=== PATIENT | female | born 1980 | race Caucasian/White ===

== ENCOUNTER 2020-03-21 15:13 | Emergency (ER) | payer OTHER, SELFPAY ==
[2020-03-21 15:19] VITALS: BP 165/98; PULSE 96; RESP 20; TEMP 36.6; O2SAT 100
--- NOTE | 2020-03-21 15:37 | ED.EAR ---
HPI - Ear Problem General Chief complaint: Ear Stated complaint: ear pain Time Seen by Provider: 03/21/20 15:37 Source: patient and RN notes reviewed Mode of arrival: ambulatory Limitations: no limitations History of Present Illness HPI Narrative: 39 year old female presents to [facility] care with complaints of right sided headache parietal area for the past 3-4 days with some bilateral ear pain. 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 Patient states that she does have history of some seasonal sinus issues in the past. Patient denies any fevers, chills or sweats, denies any shortness of breath, cough or any sore throat.Patient states that she has taken Aleve with some improvement in headache which she states is dull and achy, denies any visual changes or any dizziness. MD Complaint: ear pain Location: bilateral Duration: constant Severity: mild Relieving factors: NDAIDs Discharge from ear: Reports no Associated symptoms ear: headache Treatment prior to arrival: other (Alleve) Related Data Home Medications Medication Instructions Recorded Confirmed glipizide 10 mg tablet 20 mg PO BID 02/27/19 03/21/20 hydrochlorothiazide 12.5 mg capsule 12.5 mg PO DAILY 02/27/19 03/21/20 losartan 50 mg tablet 50 mg PO DAILY 02/27/19 03/21/20 metformin 500 mg 24 hr 2,000 mg PO DAILY 02/27/19 03/21/20 tablet,extended release sitagliptin 100 mg tablet 100 mg PO DAILY 02/27/19 03/21/20 ergocalciferol (vitamin D2) 50 mcg PO DAILY 03/21/20 03/21/20 Allergies Allergy/AdvReac Type Severity Reaction Status Date / Time Sulfa (Sulfonamide Allergy Mild Headache Verified 03/21/20 15:25 Antibiotics) Review of Systems Review of Systems: Narrative: CONSTITUTIONAL: Denies fever, chills, or sweats. EYES: Denies visual changes, redness, or discharge. ENT: Positive rhinorrhea, congestion, no sore throat, bilateral otalgia. CARDIOVASCULAR: Denies chest pain, palpitations, or edema. RESPIRATORY: Denies cough or dyspnea. GASTROINTESTINAL: Denies abdominal pain, nausea, vomiting, or diarrhea. GENITOURINARY: Denies dysuria or hematuria. SKIN: Denies rash or itching. MUSCULOSKELETAL: Denies back pain, joint pain, or myalgia. NEUROLOGIC: Positive headache parietal area,no numbness, or weakness. PSYCHIATRIC: Denies anxiety or depression. All systems reviewed & are unremarkable except as noted in HPI and below PMFSH Past Medical History Medical History (Updated 03/22/20 @ 20:13 by Omayra Singh NP) Allergic sinusitis Diabetes Hypertension Surgical History Surgical History H/O lateral meniscus repair of left knee H/O tubal ligation History of endometrial ablation Hx laparoscopic cholecystectomy Family History Family History Grandparent Diabetes mellitus Mother Hypoglycemia Father Diabetes mellitus Grandparent Diabetes mellitus Other Cancer Social History Social History (Updated 03/22/20 @ 20:15 by Omayra Singh NP) Smoking status: Never smoker Second hand tobacco smoke exposure: Yes Alcohol intake: current Alcohol use details: rare Substance use: never Living arrangements: with family Gender identity (if verbalized by the patient): Female Comments At time of signature, agree with nursing past medical, surgical, social and family history. There is no relevant family history pertinent to the presenting complaint Exam Narrative: Exam Narrative: GENERAL: Well-appearing, well-nourished, and in no acute distress. HEAD: Normocephalic, atraumatic. EYES: PERRLA and EOMI. ENT: Nares boggy, clear thin rhinorrhea no epistaxis. Mucous membranes moist.TM's normal with dull light reflex, throat pink with no lesions or exudates, some clear post nasal drainage NECK: S
== END 2020-03-21 16:25 | disposition home or self-care (01) ==
PROVIDERS: Emergency Provider Registered Nurse
DX: J06.9 Acute upper respiratory infection, unspecified (principal); E11.9 Type 2 diabetes mellitus without complications; I10 Essential (primary) hypertension
CPT/HCPCS: 99213; G0463

== ENCOUNTER 2020-08-04 14:52 | Outpatient (CLI) | payer OTHER, SELFPAY ==
--- NOTE | ~2020-08-04 | MM_ITS ---
EXAMINATION: MM screening venecia BI w karli HISTORY: Screening mammogram TECHNIQUE: Craniocaudal and mediolateral oblique 3-D tomosynthesis images were obtained and synthetic 2-D images were generated. CAD analysis was submitted and interpreted. COMPARISON: No prior mammogram is available for comparison at this institution. BREAST PARENCHYMAL COMPOSITION: There are scattered areas of fibroglandular density. FINDINGS: There is no evidence of suspicious mass, calcification, or architectural distortion to sugg est malignancy in either breast. There has been no suspicious interval change. IMPRESSION: 1. No mammographic evidence of malignancy. 2. Recommend routine screening mammography in one year. BI-RADS Category 1: Negative Reviewed, dictated and finalized at location A.
== END 2020-08-04 14:53 | disposition home or self-care (01) ==
PROVIDERS: Visit Provider Obstetrics & Gynecology
DX: Z12.31 Encounter for screening mammogram for malignant neoplasm of breast (principal)
CPT/HCPCS: 77063; 77067

== ENCOUNTER 2020-09-09 15:20 | Outpatient (CLI) | payer OTHER, SELFPAY ==
--- NOTE | ~2020-09-09 | US_ITS ---
EXAMINATION: US pelvic complete w TV EXAM DATE: 09/09/2020 16:11 INDICATION: N92.6 - Irregular menstruation, unspecified. Left ovarian cyst follow-up. TECHNIQUE: Pelvic transabdominal and transvaginal sonogram was performed. There are multiple graysca le and Doppler images available for interpretation. Correlation is made to CT abdomen pelvis 02/07/20 19 demonstrating 6 cm left ovarian cystic region.. FINDINGS: Uterus measures 7.8 x 5.4 x 3.3 cm, and is morphologically normal. Endometrial stripe nadine sures 2 mm, within normal limits. There are nabothian cysts. There is no free pelvic fluid. Right adnexa: The ovary measures 3.5 x 3.0 x 2.6 cm and is morphologically normal. Ovarian vascular f low confirmed. Left adnexa: There is an exophytic anechoic left ovarian cystic lesion measuring 7.2 x 5.2 x 4.8 cm, probably not significantly changed compared to CT scan 2019. No internal echoes or evidence of focal wall thickening. Given chronicity, would favor benign histology such as inclusion cyst or cystic ovar marifer neoplasm, cystadenoma. The solid portion of the left ovary measures 4.0 x 2.0 x 1.7 cm. Color ana w was confirmed. IMPRESSION: Persistent left ovarian simple cystic mass, appearance, chronicity suggests most likely b enign histology such as cystadenoma or peritoneal inclusion cyst. Reviewed, dictated and finalized at location A. IMPRESSION: Persistent left ovarian simple cystic mass, appearance, chronicity suggests most likely benign histology such as cystadenoma or peritoneal inclusi on cyst.
== END 2020-09-09 15:21 | disposition home or self-care (01) ==
LOC: ANHIMG 15:23
PROVIDERS: PCP Family Medicine; Visit Provider Obstetrics & Gynecology
DX: N92.6 Irregular menstruation, unspecified (principal); R93.89 Abnormal findings on diagnostic imaging of other specified body structures
CPT/HCPCS: 76830; 76856

== ENCOUNTER 2020-10-04 10:40 | Outpatient (CLI) | payer OTHER, SELFPAY ==
--- NOTE | 2020-10-04 10:45 | ECG_ITS ---
Measurements Intervals [place] Rate: 80 P: 23 OR: 178 QRS: 18 QRSD: 101 T: 52 QT: 384 QTc: 445 Interpretive Statements SINUS RHYTHM BORDERLINE R WAVE PROGRESSION, ANTERIOR LEADS CONSIDER INFERIOR INFARCT, AGE INDETERMINATE NONSPECIFIC ST & T-WAVE ABNORMALITY- HIGH LATERAL LEADS BASELINE ARTIFACT- I, II, III, AVR, AVL, AVF ABNORMAL ECG Electronically Signed On 10-04-2020 12:08:27 CDT by Domo Garcia D.O.
[2020-10-04 11:13] LABS: Anion Gap 12 mmol/L (8-16); Blood Urea Nitrogen 11 mg/dL (7-17); Calcium 9.7 mg/dL (8.4-10.2); Carbon Dioxide 27 mmol/L (22-30); Chloride 101 mmol/L (98-107); Estimated Glomerular Filt Rate > 60; Glucose 184 mg/dL (65-105); Potassium 3.9 mmol/L (3.4-5.0); Sodium 140 mmol/L (137-145)
== END 2020-10-04 10:41 | disposition home or self-care (01) ==
PROVIDERS: Anesthesiology; PCP Family Medicine; Visit Provider Obstetrics & Gynecology
DX: N92.0 Excessive and frequent menstruation with regular cycle (principal); I10 Essential (primary) hypertension; E11.9 Type 2 diabetes mellitus without complications; Z01.818 Encounter for other preprocedural examination
CPT/HCPCS: 36415; 80048; 86850; 86900; 86901; 93005

== ENCOUNTER → 2020-10-07 03:36 | Outpatient (CLI) | payer OTHER, SELFPAY ==
[2020-10-07 19:50] LABS: SARS-CoV-2 RNA PCR Negative
== END ==
PROVIDERS: PCP Family Medicine; Visit Provider Obstetrics & Gynecology
DX: Z01.812 Encounter for preprocedural laboratory examination (principal); Z20.822 Contact with and (suspected) exposure to COVID-19
CPT/HCPCS: C9803; U0003; U0005

== ENCOUNTER 2020-10-10 00:30 | Day surgery (SDC) | payer OTHER, SELFPAY ==
[2020-09-29 13:28] VITALS: BMI 30.8
--- NOTE | 2020-10-07 12:48 | WPDANESEPPF ---
Anes - Initial Pre Proc Eval Procedure: Operation Date: 10/10/20 12:00 Proposed Procedures p Robotic Hysterectomy with Bilateral Salpingectomy, Possible Left Ovarian Cystectomy, Possible Left or Right Oophorectomy - Hector Alvarado MD Date/Time: 10/07/20 12:48 Surgeon: Hector Alvarado MD Pre Op Diagnosis: excessive/freq menstruation, irregular cycle Patient Data Age: 40 Gender: F Height: 1.6 m Weight: 79 kg Allergies Allergy/AdvReac Type Severity Reaction Status Date / Time Sulfa (Sulfonamide AdvReac Mild Headache Verified 10/10/20 10:29 Antibiotics) Home Medications Medication Instructions Recorded Confirmed Type glipizide 10 mg tablet 20 mg PO BID 02/27/19 10/04/20 History hydrochlorothiazide 12.5 mg capsule 12.5 mg PO QAM 02/27/19 10/04/20 History losartan 50 mg tablet 50 mg PO QAM 02/27/19 10/04/20 History metformin 500 mg 24 hr 2,000 mg PO QAM 02/27/19 10/04/20 History tablet,extended release sitagliptin 100 mg tablet 100 mg PO QAM 02/27/19 10/04/20 History ergocalciferol (vitamin D2) 50 mcg PO DAILY 03/21/20 10/04/20 History canagliflozin 300 mg tablet 300 mg PO QAM 07/20/20 10/04/20 History amitriptyline 25 mg tablet 25 mg PO QHS #30 tablet 09/13/20 10/04/20 Rx Patient hx anesthesia problems: none Family hx anesthesia problems: none PMFSH Past Medical History Medical History Allergic sinusitis Diabetes Hypertension Obesity Vaginal delivery x1 Surgical History Surgical History H/O lateral meniscus repair of left knee H/O tubal ligation History of endometrial ablation Hx laparoscopic cholecystectomy Family History Family History Grandparent Diabetes mellitus Mother Hypoglycemia Father Diabetes mellitus Grandparent Diabetes mellitus Other Cancer Social History Social History Smoking packs per day: 0.25 Smoking cigarettes per day: 5.0 Years smoked: 2 Smoking pack-years: 0.50 Smoking status: Former smoker Second hand tobacco smoke exposure: Yes Smoking end date: 10/27/97 Alcohol intake: former Alcohol use details: PRIOR TO DIABETES DX Substance use: never Living arrangements: with family Additional living arrangements comments: PARENTS AND SON Gender identity (if verbalized by the patient): Female Spiritual care concerns: No Anes - Eval Final PreProcedure Day of Procedure 10/07/20 12:48 Patient weight: obese Heart: regular rate and rhythm Lungs: clear to auscultation and normal air movement Airway: Mallampati scale class II Neurological: alert and oriented Last oral intake: >/= 8 hours ASA classification: III Emergent: no Anesthetic plan: proceed Anesthesia type and monitoring: general ETT Informed Consent: The patient's anesthetic plan and its attendant risks and benefits were discussed with the patient/family/POA. Questions were solicited and answers provided to the satisfaction of the patient/family/POA.
[2020-10-10] VITALS (8 sets, daily range): BP systolic 102–145; BP diastolic 66–91; PULSE 80–98; RESP 12–18; TEMP 36.3–36.8; O2SAT 92–98
--- NOTE | 2020-10-10 08:27 | PM.IMHP ---
H&P: HPI History of Present Illness Date/Time: 10/10/20 08:27 Patient with a long history of pelvic pain and irregular bleeding. On evaluation of her symptoms she had an ultrasound and was noted to have a 7 cm left adnexal cyst. It appears it has been there for a while and unchanged. She had a recent normal Ca125. She was informed of recommendation to remove adnexal cyst. This may be ovarian or tubal origin.She has irregular bleeding and endometrial biopsy in August showed endometrial polyp. She was given option of hysteroscopy for removal. She was informed polyps and irregular bleeding spotting can reoccur, mainly irregular spotting can persist after someone has had endometrial ablation. She is not optimal candidate for hormonal options and she does not want to have to take hormonal options for bleeding. She prefers definitive treatment and not have a chance of any irregular bleeding in the future. She also has the pelvic pain which she does not want to try hormonal options. She is aware that the adnexal cyst may not be ovarian orign Or tubal origin.but if it is then may or may not be able to save the affected ovary. Discussed decrease risk of ovarian cancer in the future if both fallopian tubes are removed. She wished for salpingectomy bilaterally. She is scheduled for robotic assisted laparoscopic hysterectomy. Discussed robotic versus LAVH. She was informed of risk of procedure to include risk of bleeding, infection, injury to other organs in the area and need to repair and or remove those organs if necessary. Risk of blood transfusion, longer than anticipated hospital stay. Informed of possibility of laparotomy. Risk of blood clots in the legs or lungs, risk of . She was informed that she may have multiple eitologies of her pain and their is a risk that her pain may not be completely resolved. Risk of injury to bowel or bladder and need to repair or risk of further surgery. Her questions were answered. Consent signed. Her last hemoglobin A1c was 7.8. She was informed of risk of poor wound healing with uncontrolled diabetes. Chief Complaint: Ovarian cyst, irregular bleeding, pelvic pain. Review of Systems Review of Systems: All systems reviewed & are unremarkable except as noted in HPI and below Cardiovascular: Cardiovascular: Reports no additional cardiovascular complaints, Denies chest pain and Denies dyspnea Respiratory: Respiratory: Reports no additional respiratory complaints and Denies dyspnea Gastrointestinal: Gastrointestinal: Reports abdominal pain, Denies change in bowel habits, Denies diarrhea, Denies nausea and Denies vomiting Genitourinary: Genitourinary: Reports pelvic pain Musculoskeletal: Musculoskeletal: Reports back pain Integumentary/Breasts: Skin/Breast: Reports system reviewed and no additional complaints, except as docu Neurologic: Reports system reviewed and no additional complaints, except as documented PMFSH Past Medical History Medical History Allergic sinusitis Diabetes Hypertension Obesity Vaginal delivery x1 Surgical History Surgical History H/O lateral meniscus repair of left knee H/O tubal ligation History of endometrial ablation Hx laparoscopic cholecystectomy Family History Family History Grandparent Diabetes mellitus Mother Hypoglycemia Father Diabetes mellitus Grandparent Diabetes mellitus Other Cancer Social History Social History Smoking packs per day: 0.25 Smoking cigarettes per day: 5.0 Years smoked: 2 Smoking pack-years: 0.50 Smoking status: Former smoker Second hand tobacco smoke exposure: Yes Smoking end date: 10/27/97 Alcohol intake: former Alcohol use details: PRIOR TO DIABETES DX Substance use: never Living jaren
[2020-10-10] MEDS: ACETAMINOPHEN 500 MG TABLET 1000 MG PO (10:50)
[2020-10-10] MEDS: LACTATED RINGERS 1,000 ML 30 ML IV CONT ×2 (11:00→16:16)
[2020-10-10 11:07] LABS: Glucose Point of Care 139 mg/dl (65-105)
[2020-10-10] MEDS: KETOROLAC 15 MG/ML VIAL (*BKC) IV PUSH (11:53)
--- NOTE | 2020-10-10 11:54 | SUR.PREOP ---
1150- SPOKE WITH DR. MCNEIL ABOUT PT AST/ALT BEING ELEVATED AT 112/115. HE STATED PT CAN STILL RECEIVED PO TYLENOL AND IV TORADOL 15 MG PRE OP.
--- NOTE | 2020-10-10 11:55 | WPDHPUPDATE1 ---
History and Physical Update Update Date/Time: 10/10/20 11:55 History and Physical has been reviewed, including an updated exam of the patient. There are NO changes in the patient's condition. Risks, benefits, and alternatives have been discussed and questions answered. Patient agrees to proceed with procedure.
[2020-10-10] MEDS: ceFAZolin 2 GM/D5W 50 ML 2 GM/50 ML BAG IVPB (12:20)
[2020-10-10] MEDS: BUPIVACAINE HCL 0.5% PF 30 ML VIAL INFILTRATE (12:45)
[2020-10-10] MEDS: fentaNYL CITRATE INJ (*CRX) 100 MCG/2 ML VIAL 25 MCG IV PUSH ×4 (16:50→17:10)
[2020-10-10 17:19] LABS: Glucose Point of Care 187 mg/dl (65-105)
--- NOTE | 2020-10-10 17:26 | PM.OP ---
Procedure Note - Brief Procedure Note - Brief Date of procedure: 10/10/20 Pre-op diagnosis: excessive/freq menstruation, irregular cycle Left ovarian cyst persistent Post-op diagnosis: same Procedure performed: Laparoscopic robotic hysterectomy and bilateral salpingectomy and right ovarian cystectomy. 2. Cystoscopy 3. Lysis of adhesions. Anesthesia: GETA Surgeon: Hector Alvarado MD Estimated blood loss (mL): 200 Drains: No Packing: No Pathology: yes (uterus with cervix, left ovarian cyst wall, right and left fallopian tube segments.) Complications: No immediate complications Condition: stable Disposition: floor Findings: Large left ovarian cyst from distal ovary.
--- NOTE | 2020-10-10 17:31 | PC.NURSE ---
This patient, Bekah Melendez, was received from PACU per bed to room 289. Patient/family oriented to unit policies and routines
[2020-10-10] MEDS: MORPHINE SULFATE (*CRX) 4 MG/ML INJ IV PUSH (19:45)
[2020-10-10 20:13] LABS: Mean Platelet Volume 10.3 fl (7.4-10.4); Platelet Count Result 280 k/mm3 (150-375)
[2020-10-10] MEDS: KETOROLAC 30 MG/ML VIAL (*BKC) IV PUSH (22:41)
[2020-10-11] VITALS: BP 122/81; PULSE 76; RESP 16; TEMP 36.8; O2SAT 97
[2020-10-11] MEDS: MORPHINE SULFATE (*CRX) 4 MG/ML INJ IV PUSH ×2 (02:38→07:57)
[2020-10-11 03:30] VITALS: BP 126/90; PULSE 80; RESP 16; TEMP 36.9; O2SAT 96
[2020-10-11] MEDS: ONDANSETRON INJ 4 MG/2 ML VIAL IV PUSH (03:35)
[2020-10-11] MEDS: KETOROLAC 30 MG/ML VIAL (*BKC) IV PUSH ×2 (04:46→10:53)
[2020-10-11 04:58] LABS: Glucose Point of Care 169 mg/dl (65-105)
--- NOTE | 2020-10-11 07:28 | WPDANESPN ---
Anes - Prog Note Post-Op Date/Time: 10/11/20 07:28 Cardiovascular status: normal Respiratory status: normal Airway patency: baseline Mental status: baseline Post-Op hydration status: normal Vital Signs: Last Vital Signs Temp 36.9 C 10/11/20 03:30 Pulse 80 10/11/20 03:30 Resp 16 10/11/20 03:30 BP 126/90 10/11/20 03:30 Pulse Ox 96 10/11/20 03:30 Pain Score (VAS): 2/10 I/O: Intake & Output 10/10/20 10/10/20 10/11/20 15:59 23:59 07:59 Intake Total 50 550 450 Output Total 100 1600 Balance 50 450 -1150 Laboratory Tests 10/10/20 20:05 10/10/20 10/10/20 10/10/20 11:04 17:03 20:05 Plt Count 280 MPV 10.3 POC Capillary Glucose 139 H 187 H 10/11/20 04:55 Plt Count MPV POC Capillary Glucose 169 H Post-procedural complaints: none Patient Feedback: Patient satisfied with anesthetic care.
[2020-10-11] MEDS: CANAGLIFLOZIN 100 MG TABLET 300 MG PO (07:58)
[2020-10-11] MEDS: CHOLECALCIFEROL 1,000 UNITS TABLET 2000 UNITS PO (07:59)
[2020-10-11] MEDS: metFORMIN HCL XR 500 MG TAB.SR.24H 2000 MG PO (07:59)
[2020-10-11 08:00] VITALS: BP 117/78; PULSE 86; RESP 16; RESP 18; TEMP 36.3
[2020-10-11] MEDS: glipiZIDE 5 MG TABLET 20 MG PO ×2 (08:00→18:30)
[2020-10-11] MEDS: hydroCHLOROthiazide 12.5 MG CAPSULE PO (08:00)
[2020-10-11] MEDS: BISACODYL 10 MG SUPPOSITORY RECTAL (10:52)
[2020-10-11 12:00] VITALS: BP 110/74; PULSE 80; RESP 18; TEMP 36.8
[2020-10-11 14:43] LABS: Basophils Absolute Auto 0.1 K/mm3 (0.0-0.1); Basophils Percent Auto 0.4 % (0.2-1.2); Eosinophils Absolute Auto 0.1 K/mm3 (0-0.3); Eosinophils Percent Auto 0.4 % (0-4.4); Hematocrit 38.4 % (37.0-47.0); Hemoglobin 13.2 g/dL (12.0-15.0); Immature Granulocyte Absolute 0.07 K/mm3 (0.00-0.031); Immature Granulocyte Percent A 0.5 % (0-0.5); Lymphocytes Absolute Auto 2.48 K/mm3 (0.9-3.2); Lymphocytes Percent Auto 17.5 % (18.3-44.2); Mean Corpuscular HGB Conc 34.4 g/dl (32-36); Mean Corpuscular Hemoglobin 29.6 pg (26-34); Mean Corpuscular Volume 86.1 fl (80-100); Mean Platelet Volume 10.3 fl (7.4-10.4); Monocytes Absolute Auto 0.9 K/mm3 (0.1-0.6); Monocytes Percent Auto 6.5 % (2.6-8.5); Neutrophils Absolute Auto 10.6 K/mm3 (1.3-6.7); Neutrophils Percent Auto 74.7 % (45.5-73.1); Platelet Count Result 273 k/mm3 (150-375); Red Blood Count 4.46 M/mm3 (4.2-5.4); Red Cell Distribution Width 13.2 % (11.5-14.5); White Blood Count 14.2 K/mm3 (4.5-10.0)
--- NOTE | 2020-10-11 16:07 | PM.GYNPNOP ---
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 Will see how she does with oral pain medication. Encouraged ambulation. Continue post op care. Postoperative Procedures: Procedures Operation Date: 10/10/20 12:00 Actual Procedure Side Surgeon p Robotic Hysterectomy with Bilateral Salpingectomy, Left Ovarian Cystectomy and Left Oophorectomy Hector Alvarado MD Time Spent With Patient Time: Total time spent is greater than 50% in coordination of care (as documented) at patient's floor/unit and/or counseling patient: Time with patient: less than 15 minutes AUTO B[employer]KE [employer]CH[employer]IC- PN:Subj Post-Op Subjective Date/time seen: 10/11/20 0830 Interval history: She has set up in a chair. She reports positive flatus. She states pain is controlled at times. Has not urinated without catheter yet. She has tolerated regular food. Review of Systems Review of Systems: All systems reviewed & are unremarkable except as noted in HPI and below Cardiovascular: Cardiovascular: Reports no additional cardiovascular complaints Respiratory: Respiratory: Reports no additional respiratory complaints Gastrointestinal: Gastrointestinal: Reports belching, Denies nausea and Denies vomiting Genitourinary: Genitourinary: Reports no additional female genitourinary complaints Musculoskeletal: Musculoskeletal: Reports no additional musculoskeletal complaints Exam Const: General: comfortable and no acute distress Orientation/consciousness: oriented to person, oriented to place and oriented to time Resp: Auscultation: clear to auscultation bilaterally Cardio: Rate: regular rate Rhythm: regular rhythm GI: Auscultation: normal bowel sounds Other: mildly distended, appropriate incisional tenderness Neuro: General: oriented to person, oriented to place and oriented to time Extrem: General: no calf tenderness Psych: Mental Status: mental status grossly normal [employer]IC - PN: Obj Data Vital Signs Vital Signs: Vital Signs - 24 hr 10/10/20 16:16 10/10/20 16:30 10/10/20 16:45 Temperature 98.0 F Pulse Rate 97 84 81 Respiratory Rate 16 15 15 Blood Pressure 102/74 110/66 115/79 Pulse Oximetry 94 96 92 10/10/20 17:00 10/10/20 17:13 10/10/20 17:40 Temperature 98.0 F Pulse Rate 83 82 80 Respiratory Rate 12 14 18 Blood Pressure 112/73 125/81 117/74 Pulse Oximetry 96 97 96 10/10/20 19:45 10/11/20 00:00 10/11/20 03:30 Temperature 97.4 F L 98.2 F 98.5 F Pulse Rate 94 76 80 Respiratory Rate 16 16 16 Blood Pressure 126/81 122/81 126/90 Pulse Oximetry 97 97 96 10/11/20 08:00 10/11/20 12:00 Temperature 97.4 F L 98.3 F Pulse Rate 86 80 Respiratory Rate 16 18 Blood Pressure 117/78 110/74 Pulse Oximetry Intake/Output Intake/Output: Intake & Output 10/08/20 10/09/20 10/10/20 10/11/20 23:59 23:59 23:59 23:59 Intake Total 600 3150 Output Total 100 3800 Balance 500 -650 Meds/Results Medications: Active Medications Generic Name Dose Route Start Last Admin Trade Name Freq PRN Reason Stop Dose Admin Hydrocodone Bitart/Acetaminophen 1 tab 10/10/20 16:01 Hydrocodone/Acetaminophen (*Crx) 5-325 Mg Tablet PO Q3H PRN Pain Rated 5 or Less Hydrocodone Bitart/Acetaminophen 1 tab 10/10/20 16:01 Hydrocodone/Acetaminophen (*Crx) 10-325 Mg Tablet PO Q3H PRN Pain Rated 6 or Greater Amitriptyline HCl 25 mg 10/10/20 21:00 10/10/20 21:03 Amitriptyline Hcl 25 Mg Tablet PO Not Given HS KIA Canagliflozin 300 mg 10/11/20 07:30 10/11/20 07:58 Canagliflozin 100 Mg Tablet PO 300 mg DAILY@0730 KIA Administration Glipizide 20 mg 10/11/20 06:30 10/11/20 08:00 Glipizide 5 Mg Tablet PO 20 mg BIDAC KIA Administration Hydrochlorothiazide 12.5 mg 10/11/20 09:00 10/11/20 08:00
--- NOTE | 2020-10-11 16:20 | W.PM.PROC2 ---
Procedure Note - Detailed Date of Procedure 10/11/20 Pre-op Diagnosis excessive/freq menstruation, pelvic pain, left ovarian cyst persistent Post-op Diagnosis same Procedure Performed 1. Laparoscopic robotic hysterectomy with bilateral salpingectomy and left oophorectomy. 2. lysis of adhesion 3. Cystoscopy Surgeon Hector Alvarado MD Anesthesia general Indications Patient with a history of persistent left ovarian cyst and irregular bleeding. She has had prior endometrial ablation. She declines hormonal options to help with bleeding. Declines hsyteroscopy. She has a history of pelvic pain. Desires definitive treatment with hysterectomy. Bilateral salpingectomy recommended. Will remove cyst and possible nee to remove right ovary. Findings Large left ovarian cyst with clear fluid. This was attached densely to the periphery of the left ovary. The left ovary had two other cyst on it. The left ovarian cyst was adhesed to left fallopian tube and left pelvic sidewall and patrick intestinal fat which was lysed. Bladder mucosa normal on cystoscopy there was bilateral jetting from both ureteral openings. Description of Procedure Description of procedure: After informed consent was obtained patient was taken to the operating room and general endotracheal anesthesia was administered. She was placed in low lithotomy position and prepped and draped in sterile fashion. Prior to being prepped and draped and exam under anesthesia was performed and no masses were palpated uterus palpated to be normal size. A Lindsay catheter had been placed in bladder. A bivavle speculum was placed in the vagina. A single-tooth tenaculum was placed on the anterior lip of the cervix. The uterus was sounded to 6 cm. Initially the small 6 mm manipulator that was inserted would not feel with the balloon which is consistent with her having a prior endometrial ablation. A smaller uterine manipulator was inserted and the balloon was insufflated. The cold cup was inserted. With sterile gloves attention was turned to the abdomen a horizontal incision was made 2 cm above the umbilicus in the center. Subcutaneous tissue was dissected with Sara. Veress needle was inserted confirmation into the abdomen obtained with normal free flow of fluid through the Veress needle and normal peritoneal pressures. A pneumoperitoneum of 15 mm per mercury was obtained. A size 10 port was inserted under laparoscopic visualization. Patient was placed in Trendelenburg position. She was noted to have a large amount of stool in the lower colon. Attention was turned to the left side of the abdomen in a incision was made after being injected with 1% lidocaine. An 8 mm robotic port was inserted under laparoscopic visualization. Attention was turned to the right side of the abdomen and an incision was made and the 8 mm robotic port was inserted under laparoscopic visualization and also superior and medial to this another incision was made with the scalpel and a 10 mm assistant health educator port was inserted under laparoscopic visualization. The robotic instruments were attached. Attention was then turned to the surgery console. Attention was turned to the right round ligament which was cauterized and incised. The anterior leaf of the broad ligament was dissected anteriorly . The vesical uterine peritoneum was dissected from the lower uterine segment. Attention was turned to the right fallopian tube which was cauterized from the broad ligament. The right ovarian ligament was cauterized and incised. The posterior leaf of the broad ligament was further dissected. At this point manipulator inside the uterus was noted to be not in the uterus. Attention was then turned to the vagina and the manipulator was removed. The uterus was sounded again and noted to be 6 cm. The 6 mm acorn manipulator was inserted again and this time the balloon did stay in the cavity. The cold cup was secured in the vagina. Attention was turned to the nini
[2020-10-11] MEDS: IBUPROFEN 600 MG TABLET PO (18:31)
[2020-10-11 19:15] LABS: Glucose Point of Care 220 mg/dl (65-105)
[2020-10-11 20:00] VITALS: BP 127/84; PULSE 96; RESP 16; TEMP 37.1; O2SAT 96
[2020-10-11] MEDS: HYDROcodone/acetaminophen (*CRX) 5-325 MG TABLET 1 TAB PO (20:49)
[2020-10-11] MEDS: AMITRIPTYLINE HCL 25 MG TABLET PO (20:50)
[2020-10-11] MEDS: SIMETHICONE 80 MG TAB.CHEW PO (20:53)
[2020-10-12] MEDS: HYDROcodone/acetaminophen (*CRX) 5-325 MG TABLET 1 TAB PO ×3 (00:15→07:44)
[2020-10-12] MEDS: SIMETHICONE 80 MG TAB.CHEW PO ×4 (00:15→11:14)
[2020-10-12] MEDS: IBUPROFEN 600 MG TABLET PO ×2 (00:15→07:44)
--- NOTE | 2020-10-12 07:22 | PM.GYNPNOP ---
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 She is doing well. Discharge to home. Discharge precautions discussed. Postoperative Procedures: Procedures Operation Date: 10/10/20 12:00 Actual Procedure Side Surgeon p Robotic Hysterectomy with Bilateral Salpingectomy, Left Ovarian Cystectomy and Left Oophorectomy Hector Alvarado MD Time Spent With Patient Time: Total time spent is greater than 50% in coordination of care (as documented) at patient's floor/unit and/or counseling patient: Time with patient: less than 15 minutes SPECIAL EDUCATION RESOURCE TEACHER- PN:Subj Post-Op Subjective Date/time seen: 10/12/20 07:22 She states she feels much better. Tolerating regular food. No leg pain or chest pain. Positive flatus. Positive BM. She has ambulated without problems. Interval history: Subjective: pain is well controlled and patient is tolerating oral intake Review of Systems Review of Systems: All systems reviewed & are unremarkable except as noted in HPI and below Cardiovascular: Cardiovascular: Reports no additional cardiovascular complaints Respiratory: Respiratory: Reports no additional respiratory complaints Gastrointestinal: Gastrointestinal: Reports belching, Denies nausea and Denies vomiting Genitourinary: Genitourinary: Reports no additional female genitourinary complaints Musculoskeletal: Musculoskeletal: Reports no additional musculoskeletal complaints Exam Const: General: comfortable and no acute distress Orientation/consciousness: oriented to person, oriented to place and oriented to time Resp: Effort & Inspection: normal respiratory effort Cardio: Rhythm: regular rhythm GI: GI Palp: Yes Tenderness to palpation present (GI) Other: nontender, incisions clean dry intact no erythema Neuro: General: oriented to person, oriented to place and oriented to time Extrem: General: no calf tenderness Psych: Mental Status: mental status grossly normal SPECIAL EDUCATION RESOURCE TEACHER - PN: Obj Data Vital Signs Vital Signs: Vital Signs - 24 hr 10/11/20 08:00 10/11/20 12:00 10/11/20 20:00 Temperature 97.4 F L 98.3 F 98.7 F Pulse Rate 86 80 96 Respiratory Rate 16 18 16 Blood Pressure 117/78 110/74 127/84 Pulse Oximetry 96 Intake/Output Intake/Output: Intake & Output 10/09/20 10/10/20 10/11/20 10/12/20 23:59 23:59 23:59 23:59 Intake Total 600 3150 Output Total 100 4100 Balance 500 -950 Meds/Results Medications: Active Medications Generic Name Dose Route Start Last Admin Trade Name Freq PRN Reason Stop Dose Admin Hydrocodone Bitart/Acetaminophen 1 tab 10/10/20 16:01 10/12/20 03:27 Hydrocodone/Acetaminophen (*Crx) 5-325 Mg Tablet PO 1 tab Q3H PRN Administration Pain Rated 5 or Less Hydrocodone Bitart/Acetaminophen 1 tab 10/10/20 16:01 Hydrocodone/Acetaminophen (*Crx) 10-325 Mg Tablet PO Q3H PRN Pain Rated 6 or Greater Amitriptyline HCl 25 mg 10/10/20 21:00 10/11/20 20:50 Amitriptyline Hcl 25 Mg Tablet PO 25 mg HS KIA Administration Canagliflozin 300 mg 10/11/20 07:30 10/11/20 07:58 Canagliflozin 100 Mg Tablet PO 300 mg DAILY@0730 KIA Administration Glipizide 20 mg 10/11/20 06:30 10/11/20 18:30 Glipizide 5 Mg Tablet PO 20 mg BIDAC KIA Administration Hydrochlorothiazide 12.5 mg 10/11/20 09:00 10/11/20 08:00 Hydrochlorothiazide 12.5 Mg Capsule PO 12.5 mg QAM KIA Administration Ibuprofen 600 mg 10/11/20 17:20 10/12/20 00:15 Ibuprofen 600 Mg Tablet PO 600 mg Q6H PRN Administration Cramping Metformin HCl 2,000 mg 10/11/20 08:00 10/11/20 07:59 Metformin Hcl Xr 500 Mg Tab.Sr.24h PO 2,000 mg DAILY@0800 KIA Administration Morphine Sulfate 4 mg 10/10/20 16:06 10/11/20 07:57 Morphine Sulfate (*Crx) 4 Mg/Ml Inj IV PUSH 4 mg Q4H PRN Administration Severe matt
--- NOTE | 2020-10-12 07:24 | PM.DS ---
DS: Admitting Diagnosis Admitting Diagnosis Admitting Diagnosis: 1. Persistent ovarian cyst. 2. Pelvic pain 3. Abnormal uterine bleeding. DS: Discharge Diagnosis Discharge Diagnosis (1) Pelvic pain: Code(s): R10.2 - Pelvic and perineal pain Status: Acute (2) Ovarian cyst: Code(s): N83.209 - Unspecified ovarian cyst, unspecified side Status: Acute (3) Irregular intermenstrual bleeding: Code(s): N92.1 - Excessive and frequent menstruation with irregular cycle Status: Acute DS: Summary Hospital Course Reason for hospitalization: Admit for planned hysterectomy and ovarian cyst removal. Hospital Course: Patient admitted for scheduled laparoscopic robotic assisted vaginal hysterectomy. She also had bilateral salpingectomy and removal of left ovary with cyst. Lysis of adhesions and cystoscopy. On the morning of post op day one she did not have adequate pain control. It did improve later in the day. She started ambulating on POD 1. Her blood sugars am fasting were 140 which is her baseline. She had improved nausea with oral pain medication. Her post op H/H 13/38. Her did have flatus and passage of some stool on POD1. POD 2 she stated she felt better. Adequate pain control, tolerating regular food and ambulating withour problems. She was given discharge precautions. Time Spent with Patient Time attestation: Total time spent providing and/or coordinating discharge services: Exam Const: General: comfortable and no acute distress Eyes: General: appearance normal, both eyes and all related structures Resp: Effort & Inspection: normal respiratory effort GI: Inspection: normal to inspection Other: incisions c/d/i Skin: General skin exam: normal color Neuro: General: oriented to person, oriented to place and oriented to time Extrem: General: normal to inspection and no calf tenderness bilaterally Psych: Mental Status: mental status grossly normal DS: Data Data Completed and Pending Pending studies at discharge: Pending at discharge 10/10/20 14:08 Surgical [PTH] Routine Labs on day of discharge: Labs from last 24 hours 10/11/20 10/11/20 19:10 14:27 WBC 14.2 H RBC 4.46 Hgb 13.2 Hct 38.4 MCV 86.1 MCH 29.6 MCHC 34.4 RDW 13.2 Plt Count 273 MPV 10.3 Immature Gran % (Auto) 0.5 Neut % (Auto) 74.7 H Lymph % (Auto) 17.5 L Dale % (Auto) 6.5 Eos % (Auto) 0.4 Baso % (Auto) 0.4 Lymph # (Auto) 2.48 Dale # (Auto) 0.9 H Eos # (Auto) 0.1 Baso # (Auto) 0.1 Abs Immat Gran (auto) 0.07 H Absolute Neuts (auto) 10.6 H Absolute Nucleated RBC 0.0 Nucleated RBC % 0.0 POC Capillary Glucose 220 H Discharge Plan Discharge Attending physician on discharge: Hector Alvarado Consulting providers: Neelam Taveras Discharging Clinician: Hector Alvarado Anticipated Discharge Date/Time: 10/12/20 07:31 Patient Disposition: Home, Self-Care Activity: may shower, no straining, no driving and pelvic rest Diet: diabetic Wound Care Instructions: follow printed instructions and incision open to air Discharge Instructions: Pelvic rest until further notice. No lifting or straining. Take Miralax daily until not taking pain medication. Call for fever, or redness drainage from incision, or persistent nausea vomiting. May take over the counter GasX as needed. Call if vaginal bleeding saturating a pad or leg pain redness swelling. Stand Alone Forms: General Discharge Instructions Follow-up/Referrals: Hector Alvarado MD [Physician] - Keep Reg. Scheduled Appt. Discharge Medications: New hydrocodone-acetaminophen 5-325 mg Tablet 1 tablet PO Q3H PRN (Reason: Pain Rated 5 Or Less) Qty: 30 RF: 0 Continued ergocalciferol (vitamin D2) 50 mcg (2,000 unit) Capsule 50 mcg PO DAILY RF: 0 metformin 500 mg tablet,ER migdalia.retention 24 hr 2,000 mg PO QAM RF: 0 Januvia 100 mg tablet 100 mg PO QAM RF: 0
[2020-10-12 07:30] VITALS: BP 109/75; PULSE 78; PULSE 96; RESP 16; RESP 20; TEMP 36.3; O2SAT 96; O2SAT 98
[2020-10-12] MEDS: CANAGLIFLOZIN 100 MG TABLET 300 MG PO (07:49)
[2020-10-12] MEDS: glipiZIDE 5 MG TABLET 20 MG PO (07:49)
[2020-10-12] MEDS: metFORMIN HCL XR 500 MG TAB.SR.24H 2000 MG PO (07:50)
[2020-10-12 07:58] LABS: Glucose Point of Care 117 mg/dl (65-105)
[2020-10-12] MEDS: CHOLECALCIFEROL 1,000 UNITS TABLET 2000 UNITS PO (09:18)
[2020-10-12] MEDS: hydroCHLOROthiazide 12.5 MG CAPSULE PO (09:18)
[2020-10-12] MEDS: HYDROcodone/acetaminophen (*CRX) 10-325 MG TABLET 1 TAB PO (11:15)
== END 2020-10-12 11:45 | disposition home or self-care (01) ==
LOC: ANHSURGERY 10:07 → ANHOB2 10-12 07:33
PROVIDERS: PCP Family Medicine; Visit Provider Obstetrics & Gynecology
PROC: (CPT 58571; principal; 2020-10-10 12:00)
DX: N92.1 Excessive and frequent menstruation with irregular cycle (principal); D27.1 Benign neoplasm of left ovary; N83.02 Follicular cyst of left ovary; N88.8 Other specified noninflammatory disorders of cervix uteri; N73.6 Female pelvic peritoneal adhesions (postinfective); R10.2 Pelvic and perineal pain; I10 Essential (primary) hypertension; E11.9 Type 2 diabetes mellitus without complications; Z79.84 Long term (current) use of oral hypoglycemic drugs; Z87.891 Personal history of nicotine dependence; E66.9 Obesity, unspecified; Z68.30 Body mass index [BMI] 30.0-30.9, adult
CPT/HCPCS: 58571; S2900; 36415; 82948; 85025; 85049; 88307; A9270; J0131; J0690; J1100; J1170; J1885; J2250; J2270; J2405; J2704; J2710; J3010; J7030; J7120

== ENCOUNTER 2021-03-07 15:19 | Emergency (ER) | payer OTHER, SELFPAY ==
--- NOTE | ~2021-03-07 | XR_ITS ---
EXAMINATION: XR chest 2V DATE: 03/07/2021 16:17 INDICATION: Shortness of breath TECHNIQUE: AP and lateral views of the chest are obtained. COMPARISON: 04/21/2016 FINDINGS: The lungs are free of acute opacities. There is no pleural effusion or pneumothorax. The ca rdiomediastinal silhouette is normal. There is mild thoracic spondylosis. Surgical clips in the upper abdomen on the lateral view are likely from prior cholecystectomy. IMPRESSION: 1. No acute cardiopulmonary abnormality. Reviewed, dictated and finalized at location B. AL KILLER
[2021-03-07 15:26] VITALS: BP 152/95; PULSE 75; RESP 16; TEMP 36.4; O2SAT 100
--- NOTE | 2021-03-07 15:30 | ECG_ITS ---
Measurements Intervals [place] Rate: 70 P: 16 [place]: 187 QRS: 19 QRSD: 86 T: 23 QT: 407 QTc: 441 Interpretive Statements SINUS RHYTHM CONSIDER INFERIOR INFARCT, AGE INDETERMINATE BASELINE ARTIFACT- I, II, III, AVR, AVL, AVF ABNORMAL ECG Electronically Signed On 03-07-2021 16:28:07 LINING [employer]OSER by Domo Garcia D.O.
[2021-03-07 15:58] LABS: Basophils Absolute Auto 0.1 K/mm3 (0.0-0.1); Basophils Percent Auto 0.4 % (0.2-1.2); Eosinophils Absolute Auto 0.2 K/mm3 (0-0.3); Hematocrit 45.3 % (37.0-47.0); Hemoglobin 15.3 g/dL (12.0-15.0); Immature Granulocyte Absolute 0.06 K/mm3 (0.00-0.031); Immature Granulocyte Percent A 0.5 % (0-0.5); Lymphocytes Absolute Auto 2.99 K/mm3 (0.9-3.2); Lymphocytes Percent Auto 25.5 % (18.3-44.2); Mean Corpuscular HGB Conc 33.8 g/dl (32-36); Mean Corpuscular Hemoglobin 29.1 pg (26-34); Mean Corpuscular Volume 86.3 fl (80-100); Mean Platelet Volume 10.4 fl (7.4-10.4); Monocytes Absolute Auto 0.9 K/mm3 (0.1-0.6); Monocytes Percent Auto 7.9 % (2.6-8.5); Neutrophils Absolute Auto 7.5 K/mm3 (1.3-6.7); Neutrophils Percent Auto 63.7 % (45.5-73.1); Platelet Count Result 310 k/mm3 (150-375); Red Blood Count 5.25 M/mm3 (4.2-5.4); Red Cell Distribution Width 13.6 % (11.5-14.5); White Blood Count 11.7 K/mm3 (4.5-10.0)
[2021-03-07 16:06] LABS: Prothrombin Time 13.2 Seconds (11.1-14.7)
[2021-03-07 16:07] LABS: Anion Gap 11 mmol/L (8-16); Blood Urea Nitrogen 14 mg/dL (7-17); Calcium 9.9 mg/dL (8.4-10.2); Carbon Dioxide 26 mmol/L (22-30); Chloride 99 mmol/L (98-107); Estimated CRCL calculation 79 ml/min; Estimated Glomerular Filt Rate > 60; Glucose 148 mg/dL (65-110); Partial Thromboplastin Time 28.1 SECONDS (22.3-36.8); Potassium 3.8 mmol/L (3.4-5.0); Sodium 136 mmol/L (137-145)
[2021-03-07 16:19] LABS: Troponin I < 0.012 ng/mL (0.000-0.034)
[2021-03-07 16:49] VITALS: BP 145/95; PULSE 72; PULSE 78; RESP 14; O2SAT 99
--- NOTE | 2021-03-07 17:02 | ED.GENADULT ---
HPI - General Adult General Chief complaint: Shortness of Breath/Dyspnea Stated complaint: sob Time Seen by Provider: 03/07/21 16:42 Source: patient and RN notes reviewed History of Present Illness HPI narrative: Patient is a 40 y/o female complaining of moderate intermittent SOB for 2 months. She states that exertion seems to worsen her SOB. She also has chest tightness at time. She has no fever or cough. She was to referred to a dock loader by her PCP, but her appointment is more than 1 month away. Related Data Home Medications Medication Instructions Recorded Confirmed glipizide 10 mg tablet 20 mg PO BID 02/27/19 11/14/20 hydrochlorothiazide 12.5 mg capsule 12.5 mg PO QAM 02/27/19 11/14/20 losartan 50 mg tablet 50 mg PO QAM 02/27/19 11/14/20 metformin 500 mg 24 hr 2,000 mg PO QAM 02/27/19 11/14/20 tablet,extended release sitagliptin 100 mg tablet 100 mg PO QAM 02/27/19 11/14/20 ergocalciferol (vitamin D2) 50 mcg PO DAILY 03/21/20 11/14/20 canagliflozin 300 mg tablet 300 mg PO QAM 07/20/20 11/14/20 Allergies Allergy/AdvReac Type Severity Reaction Status Date / Time Sulfa (Sulfonamide AdvReac Mild Headache Verified 03/07/21 16:50 Antibiotics) Review of Systems Constitutional: Constitutional: Denies chills, Denies fever(s), Denies headache(s) and Denies weakness Eyes: Eyes: Denies blurry vision ENT: Denies headache(s) and Denies neck pain Cardiovascular: Cardiovascular: Reports chest pain and Reports dyspnea Respiratory: Respiratory: Denies cough and Reports dyspnea Gastrointestinal: Gastrointestinal: Denies abdominal pain, Denies diarrhea, Denies nausea and Denies vomiting Genitourinary: Genitourinary: Denies hematuria and Denies dysuria Musculoskeletal: Musculoskeletal: Denies back pain and Denies neck pain Neurologic: Denies headache(s) and Denies weakness PMFSH Past Medical History Medical History Allergic sinusitis Diabetes Hypertension Obesity Vaginal delivery x1 Surgical History Surgical History H/O lateral meniscus repair of left knee H/O tubal ligation History of endometrial ablation History of robot-assisted laparoscopic hysterectomy 10/10/20 Hx laparoscopic cholecystectomy Family History Family History Grandparent Diabetes mellitus Mother Hypoglycemia Father Diabetes mellitus Grandparent Diabetes mellitus Other Cancer Social History Social History Smoking packs per day: 0.25 Smoking cigarettes per day: 5.0 Years smoked: 2 Smoking pack-years: 0.50 Smoking status: Former smoker Second hand tobacco smoke exposure: Yes Alcohol intake: never Alcohol use details: PRIOR TO DIABETES DX Substance use: never Additional living arrangements comments: PARENTS AND SON Gender identity (if verbalized by the patient): Female Spiritual care concerns: No Exam Const: General: no acute distress and well developed Orientation/consciousness: oriented to person, oriented to place, oriented to time and patient oriented x3 HENMT: Head: normocephalic Ears: external ears normal General nose exam: Normal external nose present Eyes: General: appearance normal, both eyes and all related structures Conjunctivae: conjunctivae normal Neck: Neck: normal visual inspection and full ROM Chest: Chest palpation & inspection: normal inspection of the chest and no tenderness Resp: Effort & Inspection: normal respiratory effort Auscultation: clear to auscultation bilaterally Cardio: Rate: regular rate Rhythm: regular rhythm GI: GI Palp: No abdominal tenderness and Yes Soft to palpation Skin: General skin exam: normal color and turgor normal Neuro: General: oriented to person, oriented to place, oriented to time and patient oriented x3 Cog
[2021-03-07 17:24] LABS: D Dimer 0.27 ug/mL (<0.48)
[2021-03-07 17:39] LABS: NT Pro B Type Natriuretic Pept 50 pg/mL (5-100)
[2021-03-07 17:49] VITALS: BP 128/97; PULSE 80; RESP 21; O2SAT 100
[2021-03-07 19:17] VITALS: BP 115/87; PULSE 75; RESP 13; O2SAT 100
--- NOTE | 2021-03-07 19:17 | PC.NURSE ---
Assumed care of pt, pt is on tele monitor, VSS, discussed POC. Pt reports h/a and requesting medication. EDP Dr Amaya made aware.
[2021-03-07] MEDS: ACETAMINOPHEN 325 MG TABLET 650 MG PO (19:43)
[2021-03-07 20:00] LABS: Troponin I < 0.012 ng/mL (0.000-0.034)
[2021-03-07 20:52] VITALS: BP 109/69; PULSE 79; RESP 18; O2SAT 100
== END 2021-03-07 20:53 | disposition home or self-care (01) ==
PROVIDERS: Family Medicine; Emergency Provider Emergency Medicine; PCP Family Medicine
DX: R06.02 Shortness of breath (principal); E11.9 Type 2 diabetes mellitus without complications; I10 Essential (primary) hypertension; E66.9 Obesity, unspecified; Z68.30 Body mass index [BMI] 30.0-30.9, adult; Z87.891 Personal history of nicotine dependence; R94.31 Abnormal electrocardiogram [ECG] [EKG]; Z79.4 Long term (current) use of insulin
CPT/HCPCS: 36415; 71046; 80048; 83880; 84484; 85025; 85380; 85610; 85730; 93005; 99284; A9270

== ENCOUNTER 2021-05-02 14:56 | Emergency (ER) | payer OTHER, SELFPAY ==
--- NOTE | 2021-05-02 15:04 | ED.EAR ---
HPI - Ear Problem General Chief complaint: Ear Stated complaint: Jaw and ear pain. Time Seen by Provider: 05/02/21 15:10 Source: patient and RN notes reviewed Mode of arrival: ambulatory Limitations: no limitations History of Present Illness HPI Narrative: 40-year-old female presents with concern for jaw and ear pain. Reports pain has been occurring for 2 weeks. Reports she has taken ibuprofen a couple of times without relief. Strip TMJ. Reports it hurts to open her mouth, chew. She denies nasal congestion or rhinorrhea. Denies upper respiratory symptoms. She denies difficulty swallowing, swelling, masses, and redness MD Complaint: other (Jaw pain) Related Data Home Medications Medication Instructions Recorded Confirmed glipizide 10 mg tablet 20 mg PO BID 02/27/19 05/02/21 hydrochlorothiazide 12.5 mg capsule 12.5 mg PO QAM 02/27/19 05/02/21 losartan 50 mg tablet 50 mg PO QAM 02/27/19 05/02/21 metformin 500 mg 24 hr 2,000 mg PO QAM 02/27/19 05/02/21 tablet,extended release sitagliptin 100 mg tablet 100 mg PO QAM 02/27/19 05/02/21 canagliflozin [Invokana] 300 mg PO DAILY 05/02/21 05/02/21 Allergies Allergy/AdvReac Type Severity Reaction Status Date / Time Sulfa (Sulfonamide AdvReac Mild Headache Verified 05/02/21 15:13 Antibiotics) Review of Systems Review of Systems: CONSTITUTIONAL: Denies malaise, chills, sweats, or fever. EYES: Denies visual changes, redness, or discharge. ENT: Denies rhinorrhea, congestion, sinus pain, and sore throat. Reports right ear pain and jaw pain CARDIOVASCULAR: Denies chest pain, palpitations, or edema. RESPIRATORY: Denies cough. Denies dyspnea. GASTROINTESTINAL: Denies abdominal pain, nausea, vomiting, diarrhea SKIN: Denies rash or itching. MUSCULOSKELETAL: Denies myalgia. NEUROLOGIC: Denies headache. All systems reviewed & are unremarkable except as noted in HPI and below PMFSH Past Medical History Medical History Allergic sinusitis Diabetes Hypertension Obesity Vaginal delivery x1 Surgical History Surgical History H/O lateral meniscus repair of left knee H/O tubal ligation History of endometrial ablation History of robot-assisted laparoscopic hysterectomy 10/10/20 Hx laparoscopic cholecystectomy Family History Family History Grandparent Diabetes mellitus Mother Hypoglycemia Father Diabetes mellitus Grandparent Diabetes mellitus Other Cancer Social History Social History Smoking packs per day: 0.25 Smoking cigarettes per day: 5.0 Years smoked: 2 Smoking pack-years: 0.50 Smoking status: Former smoker Second hand tobacco smoke exposure: Yes Alcohol intake: never Alcohol use details: PRIOR TO DIABETES DX Substance use: never Additional living arrangements comments: PARENTS AND SON Gender identity (if verbalized by the patient): Female Spiritual care concerns: No Comments At time of signature, agree with nursing past medical, surgical, social and family history. There is no relevant family history pertinent to the presenting complaint Exam Narrative: GENERAL: Well-appearing, well-nourished, and in no acute distress. HEAD: Normocephalic EYES: PERRLA, conjunctivae clear ENT: Nares clear, no discharge. Mucous membranes moist. TM pearly fregoso with sharp light reflex bilaterally; no tragal tenderness. Oropharynx not erythematous without lesions. Tonsils not enlarged and without exudate, no drooling, no hoarseness, no trismus, uvula midline. To a right jaw tenderness without swelling, redness, warmth, fluctuation. Dentition grossly normal NECK: Supple. No lymphadenopathy CHEST: Clear to auscultation, breath sounds equal. No wheezing, rhonchi, rales, or stridor. No respiratory distress, speaks in full sentences.
[2021-05-02 15:05] VITALS: BP 132/92; PULSE 66; RESP 16; TEMP 36.5; O2SAT 100
== END 2021-05-02 15:18 | disposition home or self-care (01) ==
PROVIDERS: Emergency Provider Nurse Practitioner; PCP Family Medicine
DX: R68.84 Jaw pain (principal); Z87.891 Personal history of nicotine dependence; E11.9 Type 2 diabetes mellitus without complications; I10 Essential (primary) hypertension; E66.9 Obesity, unspecified; Z68.30 Body mass index [BMI] 30.0-30.9, adult
CPT/HCPCS: 99213; G0463

== ENCOUNTER 2021-12-15 14:02 | Emergency (ER) | payer OTHER, SELFPAY ==
[2021-12-15] VITALS (22 sets, daily range): BP systolic 125–157; BP diastolic 90–109; PULSE 85–102; RESP 14–22; TEMP 36.6–37; O2SAT 93–100
--- NOTE | ~2021-12-15 | XR_ITS ---
EXAMINATION: XR chest 2V DATE: 12/15/2021 14:39 INDICATION: Chest pain. TECHNIQUE: Frontal and lateral views of the chest were obtained. COMPARISON: Chest 2 views 03/07/2021, CT abdomen and pelvis 02/06/2019 FINDINGS: The chest demonstrates clear lungs without pneumonia, pleural effusion, or pneumothorax. Th e heart size is normal. Surgical clips in the right upper quadrant are likely from cholecystectomy. IMPRESSION: 1. No acute cardiopulmonary disease. Reviewed, dictated and finalized at location A.
--- NOTE | 2021-12-15 14:04 | ECG_ITS ---
Measurements Intervals [place] Rate: 102 P: 14 [place]: 152 QRS: 15 QRSD: 94 T: 67 QT: 361 QTc: 471 Interpretive Statements SINUS TACHYCARDIA NONSPECIFIC ST & T-WAVE ABNORMALITY ABNORMAL RHYTHM ECG COMPARED TO ECG 03/07/2021 15:51:16 SINUS TACHYCARDIA NOW PRESENT Electronically Signed On 12-16-2021 13:22:03 CDT by Cheryl Herrera M.D.
[2021-12-15 14:41] LABS: Basophils Absolute Auto 0.1 K/mm3 (0.0-0.1); Basophils Percent Auto 0.3 % (0.2-1.2); Eosinophils Absolute Auto 0.2 K/mm3 (0-0.3); Eosinophils Percent Auto 0.9 % (0-4.4); Hematocrit 46.4 % (37.0-47.0); Hemoglobin 15.8 g/dL (12.0-15.0); Immature Granulocyte Percent A 0.5 % (0-0.5); Lymphocytes Absolute Auto 2.42 K/mm3 (0.9-3.2); Lymphocytes Percent Auto 12.4 % (18.3-44.2); Mean Corpuscular HGB Conc 34.1 g/dl (32-36); Mean Corpuscular Hemoglobin 29.7 pg (26-34); Mean Corpuscular Volume 87.2 fl (80-100); Mean Platelet Volume 9.9 fl (7.4-10.4); Monocytes Absolute Auto 1.3 K/mm3 (0.1-0.6); Monocytes Percent Auto 6.4 % (2.6-8.5); Neutrophils Absolute Auto 15.5 K/mm3 (1.3-6.7); Neutrophils Percent Auto 79.5 % (45.5-73.1); Platelet Count Result 323 k/mm3 (150-375); Red Blood Count 5.32 M/mm3 (4.2-5.4); Red Cell Distribution Width 13.2 % (11.5-14.5); White Blood Count 19.5 K/mm3 (4.5-10.0)
[2021-12-15 14:51] LABS: Alanine Aminotransferase 63 U/L (6-35); Albumin Level 4.9 g/dL (3.5-5.1); Alkaline Phosphatase 86 U/L (38-126); Anion Gap 16 mmol/L (8-16); Aspartate Amino Transferase 43 U/L (14-36); Bilirubin,Total 0.9 mg/dL (0.2-1.3); Blood Urea Nitrogen 13 mg/dL (7-17); Calcium 9.7 mg/dL (8.4-10.2); Carbon Dioxide 21 mmol/L (22-30); Chloride 97 mmol/L (98-107); Estimated CRCL calculation 88 ml/min; Estimated Glomerular Filt Rate > 60; Glucose 163 mg/dL (65-110); Lipase 156 U/L (23-300); Potassium 4.1 mmol/L (3.4-5.0); Sodium 134 mmol/L (137-145)
[2021-12-15 14:53] LABS: INR 1.1; Prothrombin Time 13.6 Seconds (11.1-14.7)
[2021-12-15 14:54] LABS: Partial Thromboplastin Time 30.3 SECONDS (22.3-36.8)
[2021-12-15 15:02] LABS: Troponin I < 0.012 ng/mL (0.000-0.034)
[2021-12-15 16:11] LABS: Appearance Urine Clear (Clear); Bilirubin Urine Negative (Negative); Blood Urine Negative (Negative); Color Urine Yellow (Yellow); Glucose Urine UA 2+ mg/dL (Negative); Ketones Urine 1+ mg/dL (Negative); Leukocyte Esterase Ur Negative LEU/UL (Negative); Nitrate Urine Negative (Negative); Protein Urine Negative (Negative); Specific Grav Ur 1.025 (1.001-1.035); Urobilinogen Urine 0.2 mg/dL (<2.0); pH Urine 5.5 (5.0-9.0)
[2021-12-15 16:26] LABS: Bacteria Urine Trace /hpf; Mucus Urine Rare /lpf; Squamous Epithelial Cell Urine Rare /hpf (Few); WBC Urine 0-3 /hpf
[2021-12-15 16:27] LABS: Add Urine Microscopic? YES
--- NOTE | 2021-12-15 16:36 | ED.CHESTPAIN ---
HPI - Chest Pain General Chief Complaint: Chest Pain Stated Complaint: chest tightness Time Seen by Provider: 12/15/21 16:07 History of Present Illness HPI narrative: 41-year-old female with history of paroxysmal atrial fibrillation and microvascular angina presenting to the emergency department for evaluation of intermittent chest tightness and persistent nausea and diarrhea. Patient states last night at 3 AM she began developing the nausea and diarrhea. Patient states for the majority of the day she has had persistent nausea without vomiting. Patient states due to her nausea she was unable to take her home medications. Patient does take amlodipine but does not take any blood thinners due to prior issues with her chronic psoriasis bleeding. Patient states when she does have the chest pain or chest tightness it only lasts a few minutes and goes across her chest. Patient denies any associated shortness of breath. Patient did have a recent stress test and cardiac cath. Related Data Home Medications Medication Instructions Recorded Confirmed glipizide 10 mg tablet 20 mg PO BID 02/27/19 07/28/21 hydrochlorothiazide 12.5 mg capsule 12.5 mg PO QAM 02/27/19 07/28/21 losartan 50 mg tablet 50 mg PO QAM 02/27/19 07/28/21 metformin 500 mg 24 hr 2,000 mg PO QAM 02/27/19 07/28/21 tablet,extended release sitagliptin 100 mg tablet (Januvia) 100 mg PO QAM 02/27/19 07/28/21 canagliflozin 300 mg tablet 300 mg PO DAILY 05/02/21 07/28/21 (Invokana) linagliptin 5 mg tablet (Tradjenta) 5 mg PO QAM 07/19/21 07/28/21 metoprolol succinate 100 mg 100 mg PO DAILY 07/19/21 07/28/21 tablet,extended release 24 hr Allergies Allergy/AdvReac Type Severity Reaction Status Date / Time Sulfa (Sulfonamide AdvReac Mild Headache Verified 07/19/21 14:04 Antibiotics) Review of Systems Review of Systems: CONSTITUTIONAL: Denies fever, chills, or sweats. EYES: Denies visual changes, redness, or discharge. ENT: Denies rhinorrhea, congestion, sore throat, or otalgia. CARDIOVASCULAR: See HPI RESPIRATORY: Denies cough or dyspnea. GASTROINTESTINAL: See HPI GENITOURINARY: Denies dysuria or hematuria. SKIN: Denies rash or itching. MUSCULOSKELETAL: Denies back pain, joint pain, or myalgia. NEUROLOGIC: Denies headache, numbness, or weakness. [facility] Past Medical History Medical History Allergic sinusitis Diabetes History of left heart catheterization Hypertension Obesity Vaginal delivery x1 Surgical History Surgical History H/O lateral meniscus repair of left knee H/O tubal ligation History of endometrial ablation History of robot-assisted laparoscopic hysterectomy 10/10/20 Hx laparoscopic cholecystectomy Family History Family History Grandparent Diabetes mellitus Mother Hypoglycemia Father Diabetes mellitus Grandparent Diabetes mellitus Other Cancer Social History Social History Smoking packs per day: 0.25 Smoking cigarettes per day: 5.0 Years smoked: 2 Smoking pack-years: 0.50 Smoking status: Former smoker Second hand tobacco smoke exposure: Yes Alcohol intake: never Alcohol use details: PRIOR TO DIABETES DX Substance use: never Additional living arrangements comments: PARENTS AND SON Gender identity (if verbalized by the patient): Female Spiritual care concerns: No Exam Narrative: APPEARANCE: Well appearing, no pain, no distress, well-nourished. HEAD: normocephalic, atraumatic. EYES: PERRLA/EOMI, conjunctivae clear. NOSE: Normal no drainage EARS:TMS clear with good light reflex. THROAT: Pharynx clear, no exudate. NECK: Supple. No adenopathy, no masses. RESPIRATORY: Airway patent, respirations nonlabored. Clear to auscultation bilaterally, no rales, rhonchi, wheezing.
[2021-12-15] MEDS: diphenhydrAMINE HCl INJ 50 MG/ML VIAL 25 MG IV PUSH (17:12)
[2021-12-15] MEDS: METOCLOPRAMIDE HCL INJ 10 MG/2 ML VIAL IV PUSH (17:13)
[2021-12-15] MEDS: SODIUM CHLORIDE 0.9% IV 1,000 ML 999 ML IV CONT (17:13)
[2021-12-15 17:53] LABS: Troponin I < 0.012 ng/mL (0.000-0.034)
== END 2021-12-15 18:28 | disposition home or self-care (01) ==
PROVIDERS: Nurse Practitioner Family; Emergency Provider Emergency Medicine; PCP Family Medicine
DX: R07.89 Other chest pain (principal); R11.0 Nausea; I48.0 Paroxysmal atrial fibrillation; E11.9 Type 2 diabetes mellitus without complications; I10 Essential (primary) hypertension; E66.9 Obesity, unspecified; Z68.30 Body mass index [BMI] 30.0-30.9, adult; Z87.891 Personal history of nicotine dependence; Z79.84 Long term (current) use of oral hypoglycemic drugs; R94.31 Abnormal electrocardiogram [ECG] [EKG]; R00.0 Tachycardia, unspecified
CPT/HCPCS: 36415; 71046; 80053; 81001; 83690; 84484; 85025; 85610; 85730; 93005; 96374; 96375; 99284; J1200; J2765; J7030

== ENCOUNTER 2022-03-19 12:45 | Emergency (ER) | payer OTHER, SELFPAY ==
--- NOTE | ~2022-03-19 | XR_ITS ---
EXAMINATION: XR chest 2V 03/19/2022 13:29 INDICATION: Chest pain and tightness PROCEDURE: 2 view chest COMPARISON: Comparison to multiple prior studies sequentially, with oldest reviewed study dated 05/11. FINDINGS: The lungs are clear. The cardiomediastinal silhouette is within normal limits. There are no pleural effusions. There is no pneumothorax suspected. IMPRESSION: 1: NO ACUTE CARDIOPULMONARY DISEASE. Reviewed, dictated and finalized at location B. [employer]
[2022-03-19 12:46] VITALS: BP 159/92; PULSE 77; RESP 18; TEMP 37; O2SAT 96
--- NOTE | 2022-03-19 12:55 | ECG_ITS ---
Measurements Intervals [place] Rate: 129 P: 31 NE: 165 QRS: 31 QRSD: 93 T: 24 QT: 319 QTc: 469 Interpretive Statements SINUS TACHYCARDIA ATRIAL PREMATURE COMPLEXES NONSPECIFIC ST & T-WAVE ABNORMALITY- DIFFUSE LEADS BASELINE ARTIFACT- III ABNORMAL ECG COMPARED TO ECG 12/15/2021 14:06:57 HEART RATE HAS INCREASED Electronically Signed On 03-19-2022 13:11:01 MANAGER INSTRUMENTATION by Domo Garcia D.O.
[2022-03-19 13:21] LABS: Basophils Absolute Auto 0.1 K/mm3 (0.0-0.1); Basophils Percent Auto 0.6 % (0.2-1.2); Eosinophils Absolute Auto 0.1 K/mm3 (0-0.3); Eosinophils Percent Auto 1.4 % (0-4.4); Hematocrit 45.6 % (37.0-47.0); Hemoglobin 15.4 g/dL (12.0-15.0); Immature Granulocyte Absolute 0.07 K/mm3 (0.00-0.031); Immature Granulocyte Percent A 0.8 % (0-0.5); Lymphocytes Absolute Auto 1.04 K/mm3 (0.9-3.2); Lymphocytes Percent Auto 11.9 % (18.3-44.2); Mean Corpuscular HGB Conc 33.8 g/dl (32-36); Mean Corpuscular Hemoglobin 28.9 pg (26-34); Mean Corpuscular Volume 85.6 fl (80-100); Mean Platelet Volume 10.2 fl (7.4-10.4); Monocytes Absolute Auto 1.4 K/mm3 (0.1-0.6); Monocytes Percent Auto 15.5 % (2.6-8.5); Neutrophils Absolute Auto 6.1 K/mm3 (1.3-6.7); Neutrophils Percent Auto 69.8 % (45.5-73.1); Platelet Count Result 257 k/mm3 (150-375); Red Blood Count 5.33 M/mm3 (4.2-5.4); Red Cell Distribution Width 12.5 % (11.5-14.5); White Blood Count 8.7 K/mm3 (4.5-10.0)
--- NOTE | 2022-03-19 13:35 | ED.GENADULT ---
HPI - General Adult General Chief complaint: Chest Pain Stated complaint: dyspnea, headache, cp Time Seen by Provider: 03/19/22 13:31 History of Present Illness HPI narrative: 41-year-old female past medical history of hysterectomy, microvascular angina proximal small atrial fibrillation presents for evaluation of tachycardia. Patient states she felt her heart rate increased about 930 this morning 5 hours [employer] and the symptoms persisted. She took her 100 mg dose of metoprolol last night but no longer takes it in the a.m. because it makes her tired./ Related Data Home Medications Medication Instructions Recorded Confirmed glipizide 10 mg tablet 20 mg PO BID 02/27/19 07/28/21 hydrochlorothiazide 12.5 mg capsule 12.5 mg PO QAM 02/27/19 07/28/21 losartan 50 mg tablet 50 mg PO QAM 02/27/19 07/28/21 metformin 500 mg 24 hr 2,000 mg PO QAM 02/27/19 07/28/21 tablet,extended release sitagliptin phosphate 100 mg 100 mg PO QAM 02/27/19 07/28/21 tablet (Januvia) canagliflozin 300 mg tablet 300 mg PO DAILY 05/02/21 07/28/21 (Invokana) linagliptin 5 mg tablet (Tradjenta) 5 mg PO QAM 07/19/21 07/28/21 metoprolol succinate 100 mg 100 mg PO DAILY 07/19/21 07/28/21 tablet,extended release 24 hr Allergies Allergy/AdvReac Type Severity Reaction Status Date / Time Sulfa (Sulfonamide AdvReac Mild Headache Verified 07/19/21 14:04 Antibiotics) Review of Systems Review of Systems: CONSTITUTIONAL: Denies fever, chills, or sweats. EYES: Denies visual changes, redness, or discharge. ENT: Denies rhinorrhea, congestion, sore throat, or otalgia. CARDIOVASCULAR: Denies chest pain, palpitations, or edema. RESPIRATORY: Denies cough or dyspnea. GASTROINTESTINAL: Denies abdominal pain, nausea, vomiting, or diarrhea. GENITOURINARY: Denies dysuria or hematuria. SKIN: Denies rash or itching. MUSCULOSKELETAL: Denies back pain, joint pain, or myalgia. NEUROLOGIC: Denies headache, numbness, or weakness. PSYCHIATRIC: Denies anxiety or depression. [facility] Past Medical History Medical History Allergic sinusitis Diabetes History of left heart catheterization Hypertension Obesity Vaginal delivery x1 Surgical History Surgical History H/O lateral meniscus repair of left knee H/O tubal ligation History of endometrial ablation History of robot-assisted laparoscopic hysterectomy 10/10/20 Hx laparoscopic cholecystectomy Family History Family History Grandparent Diabetes mellitus Mother Hypoglycemia Father Diabetes mellitus Grandparent Diabetes mellitus Other Cancer Social History Social History Smoking packs per day: 0.25 Smoking cigarettes per day: 5.0 Years smoked: 2 Smoking pack-years: 0.50 Smoking status: Former smoker Second hand tobacco smoke exposure: Yes Alcohol intake: never Alcohol use details: PRIOR TO DIABETES DX Substance use: never Additional living arrangements comments: PARENTS AND SON Gender identity (if verbalized by the patient): Female Spiritual care concerns: No Exam Narrative: GENERAL: Well-appearing, well-nourished, and in no acute distress. HEAD: Normocephalic, atraumatic. EYES: PERRLA and EOMI. ENT: Nares clear, no rhinorrhea or epistaxis. Mucous membranes moist. NECK: Supple. CHEST: Clear to auscultation. No respiratory distress. HEART: Tachycardic rate and rhythm. No murmur heard. Normal peripheral pulses. ABDOMEN: Soft, nontender, nondistended, normal active bowel sounds. EXTREMITIES: Normal range of motion. No edema. SKIN: Warm, dry, no rash. NEURO: No focal deficits. Alert and oriented x3. PSYCH: Normal mood and affect. Course Vital Signs Vital signs: Vital Signs Temperature 98.6 F 03/19/22 12:46 Pulse Rate 77 03/19/22 12
[2022-03-19 13:41] LABS: Alanine Aminotransferase 65 U/L (6-35); Albumin Level 4.5 g/dL (3.5-5.1); Alkaline Phosphatase 113 U/L (38-126); Anion Gap 15 mmol/L (8-16); Aspartate Amino Transferase 75 U/L (14-36); Bilirubin,Total 0.4 mg/dL (0.2-1.3); Blood Urea Nitrogen 8 mg/dL (7-17); Calcium 9.6 mg/dL (8.4-10.2); Carbon Dioxide 22 mmol/L (22-30); Chloride 100 mmol/L (98-107); Estimated Glomerular Filt Rate > 60; Glucose 195 mg/dL (65-110); Lipase 214 U/L (23-300); Potassium 4.2 mmol/L (3.4-5.0); Sodium 137 mmol/L (137-145)
[2022-03-19 13:42] LABS: INR 1.1; Partial Thromboplastin Time 30.4 SECONDS (22.3-36.8); Prothrombin Time 13.9 Seconds (11.1-14.7)
[2022-03-19 13:50] LABS: Troponin I < 0.012 ng/mL (0.000-0.034)
[2022-03-19] MEDS: LACTATED RINGERS 1,000 ML 500 ML IV CONT ×2 (14:01→16:43)
[2022-03-19 16:40] LABS: Troponin I < 0.012 ng/mL (0.000-0.034)
[2022-03-19 16:42] VITALS: PULSE 109
[2022-03-19] MEDS: METOPROLOL TARTRATE INJ 5 MG/5 ML VIAL IV PUSH (16:42)
== END 2022-03-19 18:23 | disposition home or self-care (01) ==
PROVIDERS: Emergency Medicine; Emergency Provider Emergency Medicine; PCP Family Medicine
DX: R00.0 Tachycardia, unspecified (principal); I48.0 Paroxysmal atrial fibrillation; E11.9 Type 2 diabetes mellitus without complications; I10 Essential (primary) hypertension; E66.9 Obesity, unspecified; Z90.710 Acquired absence of both cervix and uterus; Z87.891 Personal history of nicotine dependence; Z79.84 Long term (current) use of oral hypoglycemic drugs; I49.1 Atrial premature depolarization; R94.31 Abnormal electrocardiogram [ECG] [EKG]
CPT/HCPCS: 36415; 71046; 80053; 83690; 84484; 85025; 85610; 85730; 93005; 96361; 96374; 99284; J7120

== ENCOUNTER 2022-07-07 12:43 | Emergency (ER) | payer OTHER, SELFPAY ==
--- NOTE | 2022-07-07 12:50 | ED.URI ---
HPI - URI/Sore Throat General Chief Complaint: Upper Respiratory Infection Stated Complaint: sore throat; coughing mucus; vomiting Time Seen by Provider: 07/07/22 12:51 Source: patient and RN notes reviewed History of Present Illness HPI Narrative: Patient is a 42-year-old female who presents to Urgent Care with her friend with complaints of sore throat, cough, hoarseness, bloody nose. Patient states that her symptoms have been ongoing for approximately 4 or 5 days. Denies any known ill exposures. States that she has been taking ibuprofen, Aleve, eating ice chips, lozenges and Tylenol. Denies of known fever. Patient states she has not been taking her blood pressure medication because her throat is sore. No other acute complaints. No acute distress noted. Patient aware of plan care. Some parts of this dictation were generated by voice recognition software and may contain typographical and/or grammatical inaccuracies. Related Data Home Medications Medication Instructions Recorded Confirmed glipizide 10 mg tablet 20 mg PO BID 02/27/19 07/28/21 metformin 500 mg 24 hr 2,000 mg PO QAM 02/27/19 07/28/21 tablet,extended release sitagliptin phosphate 100 mg 100 mg PO QAM 02/27/19 07/28/21 tablet (Januvia) canagliflozin 300 mg tablet 300 mg PO DAILY 05/02/21 07/28/21 (Invokana) linagliptin 5 mg tablet (Tradjenta) 5 mg PO QAM 07/19/21 07/28/21 amlodipine 5 mg tablet mg 07/07/22 07/07/22 Allergies Allergy/AdvReac Type Severity Reaction Status Date / Time Sulfa (Sulfonamide AdvReac Mild Headache Verified 07/07/22 12:55 Antibiotics) Review of Systems Review of Systems: CONSTITUTIONAL: Denies fever, chills, or sweats. EYES: Denies visual changes, redness, or discharge. ENT: Reports of drainage, sore throat, hoarseness CARDIOVASCULAR: Denies chest pain, palpitations, or edema. RESPIRATORY: Reports of cough without dyspnea GASTROINTESTINAL: Denies abdominal pain, nausea, vomiting, or diarrhea. GENITOURINARY: Denies dysuria or hematuria. SKIN: Denies rash or itching. MUSCULOSKELETAL: Denies back pain, joint pain, or myalgia. NEUROLOGIC: Denies headache, numbness, or weakness. All other systems reviewed are negative, except as documented in HPI. [facility] Past Medical History Medical History Allergic sinusitis Diabetes History of left heart catheterization Hypertension Obesity Vaginal delivery x1 Surgical History Surgical History H/O lateral meniscus repair of left knee H/O tubal ligation History of endometrial ablation History of robot-assisted laparoscopic hysterectomy 10/10/20 Hx laparoscopic cholecystectomy Family History Family History Grandparent Diabetes mellitus Mother Hypoglycemia Father Diabetes mellitus Grandparent Diabetes mellitus Other Cancer Social History Social History Smoking packs per day: 0.25 Smoking cigarettes per day: 5.0 Years smoked: 2 Smoking pack-years: 0.50 Smoking status: Former smoker Second hand tobacco smoke exposure: Yes Alcohol intake: never Alcohol use details: PRIOR TO DIABETES DX Substance use: never Living arrangements: with family Additional living arrangements comments: PARENTS AND SON Gender identity (if verbalized by the patient): Female Spiritual care concerns: No Comments At the time of my signature, I reviewed and agree with the nursing past medical, surgical, social, and family history. There is no relevant family history pertinent to the patient complaint. Exam Narrative: GENERAL: This is a well-nourished, well-developed patient, in no apparent distress. HEAD: normocephalic, atraumatic. EYES: PERRL. Sclera clear/white. Vision is grossly intact. EARS: External ears normal, auditory ca
[2022-07-07 12:54] VITALS: BP 175/101; PULSE 94; RESP 12; TEMP 36.3; O2SAT 100
== END 2022-07-07 13:50 | disposition home or self-care (01) ==
PROVIDERS: Emergency Provider Nurse Practitioner Family; PCP Family Medicine
DX: J06.9 Acute upper respiratory infection, unspecified (principal); Z87.891 Personal history of nicotine dependence; E11.9 Type 2 diabetes mellitus without complications; I10 Essential (primary) hypertension; E66.9 Obesity, unspecified; Z68.30 Body mass index [BMI] 30.0-30.9, adult
CPT/HCPCS: 87081; 87880; 99213; G0463

== ENCOUNTER 2022-07-12 14:23 | Emergency (ER) | payer OTHER, SELFPAY ==
--- NOTE | 2022-07-12 14:26 | ED.EYEPROB ---
HPI - Eye Problem General Chief complaint: Eye Problems Stated complaint: EYE REDNESS/COUGH Time Seen by Provider: 07/12/22 14:32 Source: patient and RN notes reviewed Mode of arrival: ambulatory Limitations: no limitations History of Present Illness HPI Narrative: 42-year-old female presents with concern for ongoing sinus congestion, pressure, pain. Reports this morning she woke up with her left eye red and matted shut, she has had green drainage in the eye since then. She denies any eye pain, reports itchiness. She reports she has finished a steroid pack and has been using Flonase. She has been having some nose bleeds. chief complaint: eye redness Related Data Home Medications Medication Instructions Recorded Confirmed glipizide 10 mg tablet 20 mg PO BID 02/27/19 07/12/22 metformin 500 mg 24 hr 2,000 mg PO QAM 02/27/19 07/12/22 tablet,extended release canagliflozin 300 mg tablet 300 mg PO DAILY 05/02/21 07/12/22 (Invokana) linagliptin 5 mg tablet (Tradjenta) 5 mg PO QAM 07/19/21 07/12/22 amlodipine 5 mg tablet 5 mg PO DAILY 07/07/22 07/12/22 metoprolol succinate 50 mg 50 mg PO DAILY 07/12/22 07/12/22 tablet,extended release 24 hr Allergies Allergy/AdvReac Type Severity Reaction Status Date / Time Sulfa (Sulfonamide AdvReac Mild Headache Verified 07/12/22 14:33 Antibiotics) Review of Systems Review of Systems: CONSTITUTIONAL: Denies malaise, chills, sweats, or fever. EYES: Denies visual changes. Reports left eye redness, irritation, green discharge. ENT: Reports rhinorrhea, congestion, sinus pain. Denies otalgia and sore throat. CARDIOVASCULAR: Denies chest pain, palpitations, or edema. RESPIRATORY: Reports cough. Denies dyspnea. GASTROINTESTINAL: Denies abdominal pain, nausea, vomiting, diarrhea SKIN: Denies rash or itching. MUSCULOSKELETAL: Reports myalgia. NEUROLOGIC: Denies headache. All systems reviewed & are unremarkable except as noted in HPI and below PMFSH Past Medical History Medical History Allergic sinusitis Diabetes History of left heart catheterization Hypertension Obesity Vaginal delivery x1 Surgical History Surgical History H/O lateral meniscus repair of left knee H/O tubal ligation History of endometrial ablation History of robot-assisted laparoscopic hysterectomy 10/10/20 Hx laparoscopic cholecystectomy Family History Family History Grandparent Diabetes mellitus Mother Hypoglycemia Father Diabetes mellitus Grandparent Diabetes mellitus Other Cancer Social History Social History Smoking packs per day: 0.25 Smoking cigarettes per day: 5.0 Years smoked: 2 Smoking pack-years: 0.50 Smoking status: Former smoker Second hand tobacco smoke exposure: Yes Alcohol intake: never Alcohol use details: PRIOR TO DIABETES DX Substance use: never Living arrangements: with family Additional living arrangements comments: PARENTS AND SON Gender identity (if verbalized by the patient): Female Spiritual care concerns: No Comments At time of signature, agree with nursing past medical, surgical, social and family history. There is no relevant family history pertinent to the presenting complaint Exam Narrative: GENERAL: Well-appearing, well-nourished, and in no acute distress. HEAD: Normocephalic, atraumatic. EYES: PERRLA, right sclera and conjunctiva clear, and EOMI. No nystagmus. Left sclera injected. Upper and lower eyelid unremarkable, no periorbital edema noted ENT: Nares clear, turbinates erythematous, sinus tenderness. Mucous membranes moist. TM pearly fregoso with dull light reflex bilaterally; no tragal tenderness. NECK: Supple. CHEST: Clear to auscultation, breath sounds equal, no respiratory distress. Spe
[2022-07-12 14:31] VITALS: BP 148/94; PULSE 69; RESP 16; TEMP 36.6; O2SAT 98
== END 2022-07-12 14:53 | disposition home or self-care (01) ==
PROVIDERS: Emergency Provider Nurse Practitioner; PCP Family Medicine
DX: H10.9 Unspecified conjunctivitis (principal); J01.90 Acute sinusitis, unspecified; Z87.891 Personal history of nicotine dependence; E11.9 Type 2 diabetes mellitus without complications; I10 Essential (primary) hypertension; E66.9 Obesity, unspecified; Z68.30 Body mass index [BMI] 30.0-30.9, adult
CPT/HCPCS: 99213; G0463

== ENCOUNTER 2022-10-16 16:31 | Outpatient (CLI) | payer OTHER, SELFPAY ==
--- NOTE | ~2022-10-16 | MM_ITS ---
EXAMINATION: MM screening venecia BI w karli HISTORY: Screening mammogram TECHNIQUE: Craniocaudal and mediolateral oblique 3-D tomosynthesis images were obtained and synthetic 2-D images were generated. CAD analysis was submitted and interpreted. COMPARISON: August 04, 2020 bilateral screening mammogram BREAST PARENCHYMAL COMPOSITION: There are scattered areas of fibroglandular density. FINDINGS: Electronic device within the left breast. There is no evidence of suspicious mass, calcific ation, or architectural distortion to suggest malignancy in either breast. There has been no suspicio us interval change. IMPRESSION: 1. No mammographic evidence of malignancy. 2. Recommend routine screening mammography in one year. BI-RADS Category 1: Negative Reviewed, dictated and finalized at location A.
== END 2022-10-16 16:32 | disposition home or self-care (01) ==
LOC: ANHIMG 16:32
PROVIDERS: PCP Family Medicine; Visit Provider Obstetrics & Gynecology
DX: Z12.31 Encounter for screening mammogram for malignant neoplasm of breast (principal)
CPT/HCPCS: 77063; 77067

== ENCOUNTER 2023-06-18 12:44 | Emergency (ER) | payer OTHER, SELFPAY ==
--- NOTE | 2023-06-18 12:46 | ED.URI ---
HPI - URI/Sore Throat General Chief Complaint: Upper Respiratory Infection Stated Complaint: COUGH/DRAINAGE/FEVER Time Seen by Provider: 06/18/23 12:56 Source: patient and RN notes reviewed Mode of arrival: ambulatory Limitations: no limitations History of Present Illness HPI Narrative: 43-year-old female presents with concern for several week history of nasal congestion, copious postnasal drainage, cough, body aches. She has been taking [id number] medications without relief. MD elicited complaint: cough, rhinorrhea and nasal congestion Related Data Home Medications Medication Instructions Recorded Confirmed glipizide 10 mg tablet 20 mg PO BID 02/27/19 06/18/23 metformin 500 mg 24 hr 2,000 mg PO QAM 02/27/19 06/18/23 tablet,extended release (gastric retention) canagliflozin 300 mg tablet 300 mg PO DAILY 05/02/21 06/18/23 (Invokana) linagliptin 5 mg tablet (Tradjenta) 5 mg PO QAM 07/19/21 06/18/23 amlodipine 5 mg tablet 5 mg PO DAILY 07/07/22 06/18/23 metoprolol succinate 50 mg 50 mg PO DAILY 07/12/22 06/18/23 tablet,extended release 24 hr clobetasol 0.05 % topical cream 1 applic topical DIRECTED 06/18/23 06/18/23 dulaglutide 1.5 mg/0.5 mL 1.5 mg subcut WEEKLY 06/18/23 06/18/23 subcutaneous pen injector omeprazole 20 mg capsule,delayed 20 mg PO DAILY 06/18/23 06/18/23 release Allergies Allergy/AdvReac Type Severity Reaction Status Date / Time Sulfa (Sulfonamide AdvReac Mild Headache Verified 08/08/22 13:47 Antibiotics) Review of Systems Review of Systems: CONSTITUTIONAL: Reports malaise. The chills, sweats, or fever. EYES: Denies visual changes, redness, or discharge. ENT: Reports rhinorrhea, congestion, sinus pain CARDIOVASCULAR: Denies chest pain, palpitations, or edema. RESPIRATORY: Reports cough. Denies dyspnea. GASTROINTESTINAL: Denies abdominal pain, nausea, vomiting, diarrhea SKIN: Denies rash or itching. MUSCULOSKELETAL: Reports myalgia. NEUROLOGIC: Denies headache. All systems reviewed & are unremarkable except as noted in HPI and below PMFSH Past Medical History Medical History Allergic sinusitis Diabetes History of left heart catheterization Hypertension Obesity Vaginal delivery x1 Surgical History Surgical History H/O lateral meniscus repair of left knee H/O tubal ligation History of endometrial ablation History of implantable cardiac defibrillator (ICD) History of robot-assisted laparoscopic hysterectomy 10/10/20 Hx laparoscopic cholecystectomy Family History Family History Grandparent Diabetes mellitus Mother Hypoglycemia Father Diabetes mellitus Grandparent Diabetes mellitus Other Cancer Social History Social History Smoking packs per day: 0.25 Smoking cigarettes per day: 5.0 Years smoked: 2 Smoking pack-years: 0.50 Smoking status: Former smoker Second hand tobacco smoke exposure: Yes Alcohol intake: never Alcohol use details: PRIOR TO DIABETES DX Substance use: never Lack of Transportation: No Lack of Food: Never True Current Housing: I Have Housing Concerned About Future Housing: No Difficulty Paying Gas/Electric Bills: No Difficulty Paying for Meds: No Currently Unemployed: YES Education: High School Diploma/GED Difficulty w/ Childcare or Family Care: No Living arrangements: with family Additional living arrangements comments: PARENTS AND SON Gender identity (if verbalized by the patient): Female Spiritual care concerns: No Comments At time of signature, agree with nursing past medical, surgical, social and family history. There is no relevant family history pertinent to the presenting complaint Exam Narrative: GENERAL: Well-appearing, well-nouris
[2023-06-18 12:56] VITALS: BP 125/97; PULSE 91; RESP 16; TEMP 36.1; O2SAT 98
[2023-06-18 13:04] VITALS: BP 125/97; PULSE 91; RESP 16; TEMP 36.1; O2SAT 98
== END 2023-06-18 13:14 | disposition home or self-care (01) ==
PROVIDERS: Emergency Provider Nurse Practitioner; PCP Family Medicine
DX: J32.9 Chronic sinusitis, unspecified (principal); J40 Bronchitis, not specified as acute or chronic; Z87.891 Personal history of nicotine dependence; E11.9 Type 2 diabetes mellitus without complications; I10 Essential (primary) hypertension; E66.9 Obesity, unspecified; Z68.30 Body mass index [BMI] 30.0-30.9, adult; Z79.84 Long term (current) use of oral hypoglycemic drugs
CPT/HCPCS: 99213; G0463

== ENCOUNTER 2023-09-09 11:49 | Emergency (ER) | payer OTHER, SELFPAY ==
--- NOTE | 2023-09-09 11:52 | ED.URI ---
HPI - URI/Sore Throat General Chief Complaint: Upper Respiratory Infection Stated Complaint: Cough/[place] Eye/Ear Pain Source: patient and RN notes reviewed Mode of arrival: ambulatory Limitations: no limitations History of Present Illness HPI Narrative: patient is a 43-year-old female who presents to the [facility] with multiple complaints. Patient states that she has had a frequent nonproductive cough for the past 6 days. She also endorses nasal congestion and drainage for that amount of time. She states that 3 days ago she developed left eye pain and redness and right ear pain. She denies drainage from the ear or the eye. Denies known fevers. She denies chest pain or shortness of breath. Denies abdominal pain, nausea, vomiting, diarrhea. Patient unsure of any known sick contacts. Related Data Home Medications Medication Instructions Recorded Confirmed glipizide 10 mg tablet 20 mg PO BID 02/27/19 06/18/23 metformin 500 mg 24 hr 2,000 mg PO QAM 02/27/19 06/18/23 tablet,extended release (gastric retention) canagliflozin 300 mg tablet 300 mg PO DAILY 05/02/21 06/18/23 (Invokana) linagliptin 5 mg tablet (Tradjenta) 5 mg PO QAM 07/19/21 06/18/23 amlodipine 5 mg tablet 5 mg PO DAILY 07/07/22 06/18/23 metoprolol succinate 50 mg 50 mg PO DAILY 07/12/22 06/18/23 tablet,extended release 24 hr clobetasol 0.05 % topical cream 1 applic topical DIRECTED 06/18/23 06/18/23 dulaglutide 1.5 mg/0.5 mL 1.5 mg subcut WEEKLY 06/18/23 06/18/23 subcutaneous pen injector omeprazole 20 mg capsule,delayed 20 mg PO DAILY 06/18/23 06/18/23 release diltiazem HCl 120 mg mg PO 09/09/23 09/09/23 capsule,extended release 24 hr (Cartia XT) Allergies Allergy/AdvReac Type Severity Reaction Status Date / Time Sulfa (Sulfonamide AdvReac Mild Headache Verified 09/09/23 12:10 Antibiotics) Review of Systems Review of Systems: CONSTITUTIONAL: Denies fever, chills, or sweats. EYES: Denies visual changes or discharge. Reports left eye pain and redness to the upper eye lid. ENT: Denies sore throat. Reports nasal congestion and drainage. Reports right ear pain. CARDIOVASCULAR: Denies chest pain, palpitations, or edema. RESPIRATORY: Denies dyspnea. Reports cough. GASTROINTESTINAL: Denies abdominal pain, nausea, vomiting, or diarrhea. GENITOURINARY: Denies dysuria or hematuria. SKIN: Denies rash or itching. MUSCULOSKELETAL: Denies back pain, joint pain, or myalgia. NEUROLOGIC: Denies headache, numbness, or weakness. Pertinent positives per HPI. [facility] Past Medical History Medical History Allergic sinusitis Diabetes History of left heart catheterization Hypertension Obesity Vaginal delivery x1 Surgical History Surgical History H/O lateral meniscus repair of left knee H/O tubal ligation History of endometrial ablation History of implantable cardiac defibrillator (ICD) History of robot-assisted laparoscopic hysterectomy 10/10/20 Hx laparoscopic cholecystectomy Family History Family History Grandparent Diabetes mellitus Mother Hypoglycemia Father Diabetes mellitus Grandparent Diabetes mellitus Other Cancer Social History Social History Smoking packs per day: 0.25 Smoking cigarettes per day: 5.0 Years smoked: 2 Smoking pack-years: 0.50 Smoking status: Former smoker Second hand tobacco smoke exposure: Yes Alcohol intake: never Alcohol use details: PRIOR TO DIABETES DX Substance use: never Lack of Transportation: No Lack of Food: Never True Current Housing: I Have Housing Concerned About Future Housing: No Difficulty Paying Gas/Electric Bills: No Difficulty Paying for Meds: No Currently Unemployed: YES Education: High School Dipl
[2023-09-09 11:54] VITALS: BP 118/90; PULSE 72; RESP 16; TEMP 36.5; O2SAT 97
== END 2023-09-09 12:22 | disposition home or self-care (01) ==
PROVIDERS: Emergency Provider Nurse Practitioner; PCP Family Medicine
DX: H66.92 Otitis media, unspecified, left ear (principal); J06.9 Acute upper respiratory infection, unspecified; H00.011 Hordeolum externum right upper eyelid; Z87.891 Personal history of nicotine dependence; E11.9 Type 2 diabetes mellitus without complications; Z79.84 Long term (current) use of oral hypoglycemic drugs; I10 Essential (primary) hypertension; E66.9 Obesity, unspecified; Z68.29 Body mass index [BMI] 29.0-29.9, adult
CPT/HCPCS: 99213; G0463

== ENCOUNTER 2023-11-26 12:30 | Outpatient (RCR) | payer OTHER, SELFPAY ==
--- NOTE | 2023-10-04 09:44 | OPREHPOC ---
Outpatient Therapy Plan of Care This is a Multidisciplinary Plan of Care that may contain components documented by all disciplines (PT, OT, and ST.) PT Problem 1 PT Problem #1 Knowledge Deficit PT Goal 1 Goal 1. Patient will perform independent HEP 2. Patient will verbalize urge suppression strategies Target Visit 3 PT Problem 2 PT Problem #2 Pain PT Goal 1 Goal 1. No pain with pelvic floor palpation Target Visit 5 PT Problem 3 PT Problem #3 Impaired Strength PT Goal 1 Goal 1. Improve pelvic floor strength to 3/5 to decrease incontinence 2. Improve pelvic floor endurance to 10 seconds to decrease incontinence Target Visit 5 PT Problem 4 PT Problem #4 Impaired Functional ADLs PT Goal 1 Goal 1. Patient able to hold urge to void at least 30 minutes to allow for work activities Target Visit 5
--- NOTE | 2023-10-04 09:44 | PTOPEVAL1 ---
Assessment and note entered by Mary Dewey DPT Evaluation Information Assessment Status Evaluation Subjective Information Pt reports she is experiencing urinary incontinence (years and worse over the last year). Reports she feels incomplete emptying at times as well. Voids more than 10 times a day and 2-3 times at night. Can hold urge less than 5 minutes. Has had urge incontinence at times. Overall incontinence occurs multiple times a day too many to count . Changes clothes often and has had to wear pads or depends at times which has resulted in infections so she is trying to avoid them. Pain with urination if her bladder is full. BM 7-8 times a day, takes Metformin which causes diarrhea . States she had never been diagnosed with IBS. Pt has had pelvic pain in the past with intercourse. Pt had partial hysterectomy in September 2020. Previous tubal ligation, endometrial ablation, gall bladder surgery. Pt has diabetes, a fib, microvascular angina, psoriasis. Pt has had 1 vaginal delivery, some tearing. Pt reports her symptoms cause her to stay near to a bathroom, has to stop working in order to void frequently, avoids intercourse at times. Patient goal: avoid surgery, reduce the amount of incontinence Returns to MD in 1 year. Reported Pain Level Pain Score 0: Self Report Assessment PT Clinical Summary The patient is presenting to skilled therapy with worsening mixed urinary incontinence. She also reports a history of pelvic pain and urinary urgency. She presents with significantly decreased pelvic floor strength and endurance, decreased hip and core strength, and mild pain with pelvic floor palpation. These impairments are contributing to her daily incontinence and difficulty with typical activities including work. She will highly benefit from therapy in order to reduce pain and incontinence and improve overall function. Plan of Care Interventions Electrical Stimulation,Hot Pack/Cold Pack,Manual Therapy,Neuro Re-education,Patient/Caregiver Education,Therapeutic Activities,Therapeutic Exercise PT Services Indicated Yes Treatment Frequency and 1 time a week for 5 visits Duration
--- NOTE | 2023-10-30 14:07 | OPREHPOC ---
Outpatient Therapy Plan of Care This is a Multidisciplinary Plan of Care that may contain components documented by all disciplines (PT, OT, and ST.) PT Problem 1 PT Problem #1 Knowledge Deficit PT Goal 1 Goal 1. Patient will perform independent HEP 2. Patient will verbalize urge suppression strategies Target Visit 3 Progress Met PT Problem 2 PT Problem #2 Pain PT Goal 1 Goal 1. No pain with pelvic floor palpation Target Visit 5 Progress Met PT Problem 3 PT Problem #3 Impaired Strength PT Goal 1 Goal 1. Improve pelvic floor strength to 3/5 to decrease incontinence 2. Improve pelvic floor endurance to 10 seconds to decrease incontinence Target Visit 7 Progress Partially Met Comment 1. 2/5 2. 6 seconds PT Problem 4 PT Problem #4 Impaired Functional ADLs PT Goal 1 Goal 1. Patient able to hold urge to void at least 30 minutes to allow for work activities Target Visit 5 Progress Met
--- NOTE | 2023-10-30 14:07 | PTOPPROG ---
Assessment and note entered by Mary Dewey DPT Evaluation Information Assessment Status Progress ICD-10 Condition Codes (PT) Stress incontinence N39.3 Subjective Information Pt reports feeling a lot better since starting therapy. Has more control of her bladder. Urinary frequency has decreased somewhat, still going approximately every 2 hours. Can hold urge to void up to 30 minutes now. Incontinence is still daily , seems to now be with multiple coughs or sneezes in a row. Occurring a couple times a day on average . Assessment PT Clinical Summary The patient has made good progress in therapy so far. She reports improved ability to hold urine up to 30 minutes and is still noticing incontinence daily but less times throughout the day. She demonstrates improved pelvic floor strength and endurance and no pain with pelvic floor palpation. Due to her progress but continued daily incontinence, she will benefit from further therapy to return to full function. Plan of Care Interventions Manual Therapy,Neuro Re-education,Patient/ Caregiver Education,Therapeutic Activities, Therapeutic Exercise PT Services Indicated Yes Treatment Frequency and 1 visit every other week x 2 visits Duration These treatments will address the objective and functional deficits as defined above. The patient will be advanced safely and appropriately in order for the patient to progress towards his/her prior level of function. Additional exercises will be introduced and as well as a comprehensive home exercise program upon discharge, if needed, ?to ensure carryover of functional gains achieved in the clinic. This treatment plan has been reviewed and agreement upon by the patient.
--- NOTE | 2023-11-26 12:58 | OPREHPOC ---
Outpatient Therapy Plan of Care This is a Multidisciplinary Plan of Care that may contain components documented by all disciplines (PT, OT, and ST.) PT Problem 1 PT Problem #1 Knowledge Deficit PT Goal 1 Goal 1. Patient will perform independent HEP 2. Patient will verbalize urge suppression strategies Target Visit 3 Progress Met PT Problem 2 PT Problem #2 Pain PT Goal 1 Goal 1. No pain with pelvic floor palpation Target Visit 5 Progress Met PT Problem 3 PT Problem #3 Impaired Strength PT Goal 1 Goal 1. Improve pelvic floor strength to 3/5 to decrease incontinence 2. Improve pelvic floor endurance to 10 seconds to decrease incontinence Target Visit 7 Progress Met PT Problem 4 PT Problem #4 Impaired Functional ADLs PT Goal 1 Goal 1. Patient able to hold urge to void at least 30 minutes to allow for work activities Target Visit 5 Progress Met
--- NOTE | 2023-11-26 12:58 | PTOPDC ---
Assessment and note entered by Mary Dewey DPT Evaluation Information Assessment Status Discharge ICD-10 Condition Codes (PT) Stress incontinence N39.3 Subjective Information Pt reports she has been very busy recently and has not been able to do her HEP quite as often. Reports she has not noticed any incontinence for over a week. Did not have to squeeze her legs together with sneezing recently. Can hold urge up to 45 minutes, is using timed voiding schedule for every 4 hours. Reported Pain Level Pain Score 0: Self Report Assessment PT Clinical Summary The patient has made excellent progress in therapy and met all goals. She demonstrates improved pelvic floor strength and endurance, and reports no incontinence for over a week. She also reports normalized urinary frequency and ability to hold urge. Due to her progress, plan for discharge this date. She has been educated in a thorough HEP and to follow up with MD and/or PT as needed. Plan of Care PT Services Indicated No
== END 2023-11-26 13:59 | disposition home or self-care (01) ==
LOC: ANHPT 12:30
PROVIDERS: PCP Family Medicine; Visit Provider Obstetrics & Gynecology
DX: R32 Unspecified urinary incontinence (principal)
CPT/HCPCS: 97112; 97161; 97530

== ENCOUNTER 2024-01-26 11:06 | Emergency (ER) | payer OTHER, SELFPAY ==
--- NOTE | ~2024-01-26 | XR_ITS ---
XR chest 2V 01/26/2024 11:32 Indication: Cough with congestion Procedure: 2 view chest Comparison: Comparison to multiple prior studies sequentially, with oldest reviewed study dated 03/30. Findings: Left lower lobe pneumonia. Heart size normal. No pleural effusion, edema or pneumothorax. Impression: 1: Left lower lobe pneumonia. Reviewed, dictated and finalized at location B. Impression: 1: Left lower lobe pneumonia.
--- NOTE | 2024-01-26 11:08 | ED.URI ---
HPI - URI/Sore Throat General Chief Complaint: Upper Respiratory Infection Stated Complaint: Cough/Bodyaches/Fever Time Seen by Provider: 01/26/24 11:20 Source: patient Mode of arrival: ambulatory Limitations: no limitations History of Present Illness HPI Narrative: Bekah is a 43-year-old female patient presenting to the clinic today with complaints of productive cough with clear phlegm, sore throat, nasal congestion, body aches, and fever x6 days. She reports highest fever was 101 ? F. She reports feeling short of breath when she is coughing and when she is exerting herself. MD elicited complaint: sore throat and nasal congestion Related Data Home Medications Medication Instructions Recorded Confirmed glipizide 10 mg tablet 20 mg PO BID 02/27/19 01/26/24 metformin 500 mg 24 hr 2,000 mg PO QAM 02/27/19 01/26/24 tablet,extended release (gastric retention) canagliflozin 300 mg tablet 300 mg PO DAILY 05/02/21 01/26/24 (Invokana) linagliptin 5 mg tablet (Tradjenta) 5 mg PO QAM 07/19/21 01/26/24 metoprolol succinate 50 mg 50 mg PO DAILY 07/12/22 01/26/24 tablet,extended release 24 hr clobetasol 0.05 % topical cream 1 applic topical DIRECTED 06/18/23 01/26/24 omeprazole 20 mg capsule,delayed 20 mg PO DAILY 06/18/23 01/26/24 release diltiazem HCl 120 mg 120 mg PO DAILY 09/09/23 01/26/24 capsule,extended release 24 hr (Cartia XT) Allergies Allergy/AdvReac Type Severity Reaction Status Date / Time Sulfa (Sulfonamide AdvReac Mild Headache Verified 01/26/24 11:49 Antibiotics) Review of Systems Review of Systems: Pertinent positives per HPI. Patient denies any fever, chills, rash, headache, visual changes, dizziness, chest pain, palpitations, nausea, vomiting, diarrhea, constipation, abdominal pain, or any urinary issues. [facility] Past Medical History Medical History Allergic sinusitis Diabetes History of left heart catheterization Hypertension Obesity Vaginal delivery x1 Surgical History Surgical History H/O lateral meniscus repair of left knee H/O tubal ligation History of endometrial ablation History of implantable cardiac defibrillator (ICD) History of robot-assisted laparoscopic hysterectomy 10/10/20 Hx laparoscopic cholecystectomy Family History Family History Grandparent Diabetes mellitus Mother Hypoglycemia Father Diabetes mellitus Grandparent Diabetes mellitus Other Cancer Social History Social History Smoking packs per day: 0.25 Smoking cigarettes per day: 5.0 Years smoked: 2 Smoking pack-years: 0.50 Smoking status: Former smoker Second hand tobacco smoke exposure: Yes Alcohol intake: never Alcohol use details: PRIOR TO DIABETES DX Substance use: never Lack of Transportation: No Lack of Food: Never True Current Housing: I Have Housing Concerned About Future Housing: No Difficulty Paying Gas/Electric Bills: No Difficulty Paying for Meds: No Currently Unemployed: YES Education: High School Diploma/GED Difficulty w/ Childcare or Family Care: No Living arrangements: with family Additional living arrangements comments: PARENTS AND SON Gender identity (if verbalized by the patient): Female Spiritual care concerns: No Comments At the time of my signature, I reviewed and agree with the nursing past medical, surgical, social, and family history. There is no relevant family history pertinent to the patient complaint. Exam Narrative: General: Well-developed, well nourished, in no apparent distress Head: Normocephalic, atraumatic Eyes: Pupils equally round and reactive to light bilaterally, EOM intact, sclera and conjunctive clear, no discharge, lids normal Ears: TMs intact a
[2024-01-26 11:12] VITALS: BP 144/98; PULSE 88; RESP 16; TEMP 37.1; O2SAT 97
[2024-01-27 14:30] LABS: EDSTREPNEGPOS1 Negative (Negative)
[2024-01-27 14:30] LABS: EDCOVIDSCREEN Negative (Negative); EDINFLUASCREEN Negative (Negative); EDINFLUBSCREEN Negative (Negative)
== END 2024-01-26 11:51 | disposition home or self-care (01) ==
PROVIDERS: Emergency Provider Nurse Practitioner Family; PCP Family Medicine
DX: J18.1 Lobar pneumonia, unspecified organism (principal); Z20.822 Contact with and (suspected) exposure to COVID-19; Z87.891 Personal history of nicotine dependence; E11.9 Type 2 diabetes mellitus without complications; Z79.84 Long term (current) use of oral hypoglycemic drugs; I10 Essential (primary) hypertension; Z95.810 Presence of automatic (implantable) cardiac defibrillator
CPT/HCPCS: 71046; 87081; 87426; 87804; 87880; 99213; G0463

== ENCOUNTER 2024-06-23 09:46 | Emergency (ER) | payer OTHER, SELFPAY ==
--- NOTE | ~2024-06-23 | CT_ITS ---
EXAMINATION: CT abdomen pelvis w con DATE: 06/23/2024 13:46 INDICATION: Left inguinal pain. TECHNIQUE: Computed tomography (CT) of the abdomen and pelvis was performed with 100 mL Omnipaque-350 intravenous contrast. Automated exposure control and iterative reconstruction technique were employe d. The dose-length product was 461.74 mGy-cm. COMPARISON: 02/06/2019 FINDINGS: Mild dependent atelectasis in bilateral lower lobes. Heart size is normal. No pericardial or pleural effusion. Cholecystectomy clips the gallbladder fossa. Mild diffuse hepatic steatosis. Spleen, pancre as, bilateral adrenal glands and kidneys are normal. Bowels including the appendix are normal. Bladde r is normal. The uterus and left ovary are not identified and have likely been surgically resected. 1 .8 cm cyst/follicle at the right ovary. Small bilateral fat-containing inguinal hernias. No free intr aperitoneal gas or fluid. No pathologically enlarged abdominal or pelvic lymphadenopathy. Mild scatte red degenerative skeletal changes. IMPRESSION: 1. No acute intra-abdominal/pelvic process. 2. Mild diffuse hepatic steatosis. 3. Small bilateral fat-containing inguinal hernias. Reviewed, dictated and finalized at location B. MATIC BLOCKER
[2024-06-23 09:49] VITALS: BP 153/90; PULSE 69; RESP 20; TEMP 36.5; O2SAT 98
--- OUTSIDE RECORDS SUMMARY | 2024-06-23 10:57 | XMS_ITS | Referral Summary ---
Author Organization [facility] Medical Office Building A Address [address] [place] [address] Care Team Providers Care Subgrade Roller Operator Name Role Phone Denny Smyth MD Primary Care Provider [phone] Allergies Active Allergy Reactions Criticality Noted Date Comments Sulfa (Sulfonamide Antibiotics) Headache Low 07/2018 Medications ERGOCALCIFEROL, VITAMIN D2, ORAL Take 5,000 Units by mouth daily 9 Active glipiZIDE (GLUCOTROL) 10 mg tablet Take 2 tablets (20 mg total) by mouth 2 (two) times a day 9 Active metFORMIN (FORTAMET) 500 mg 24 hr tablet Take 4 tablets (2,000 mg total) by mouth daily 9 Active SITagliptin (JANUVIA) 100 mg tablet Take 100 mg by mouth daily 9 Active triamcinolone (KENALOG) 0.1 % ointment Apply to psoriasis on legs, elbows twice daily. 30 days supply. 9 Active Tradjenta 5 mg tablet Take 1 tablet (5 mg total) by mouth daily for 90 days 2 Active canagliflozin (INVOKANA) 300 mg tabletIndication s:type 2 diabetes mellitus Take 1 tablet (300 mg total) by mouth daily Active hydroCHLOROthiaz carlene (HYDRODIURIL) 12.5 mg tablet Take 12.5 mg by mouth daily Active metoprolol XL (TOPROL-XL) 50 mg extended release tablet Take 3 tablets (150 mg total) by mouth daily Active Lactobacillus acidophilus 10 billion cell capsule Take 1 tablet by mouth occ med physician before breakfast Active Trulicity 0.75 mg/0.5 mL pen injector INJECT 0.75 MG UNDER THE SKIN ONCE EVERY WEEK 3 Active omeprazole (PriLOSEC) 20 mg capsule 3 Active dilTIAZem CD/XR/XT (CARDIZEM CD,DILACOR XR) 120 mg 24 hr capsule Take 1 capsule (120 mg total) by mouth daily 30 capsule 11 4 11/14/19 25 Active Active Problems Problem Noted Date Diagnosed Date Microvascular angina 12/11/2021 Primary hypertension 12/11/2021 Paroxysmal atrial fibrillation (CMS/HCC) 022 Overview (12/21/2021): Noted on cardiac rn from 02 May 2021. Has long QT syndrome on EKG. Status post [employer] Biomonitor 3 loop recorder insertion on 20 December 2021 (RL). Assessment & Plan (02/15/2022 12:53 PM CDT): There were 2 small black stitches about 2 months postprocedure. No infection. No fever or pain. No wound drainage. We tried to get him out with pickups and scissors but were unable to do so. If it is still there in 1 month, I may have to use a very sharp blade. Hopefully, the stitches will completely dissolve by that time. Assessment & Plan (12/26/2021 12:05 PM CDT): No palpitations, dizziness or syncope since last week. No fever or significant incisional pain. She will be seeing Dr. Grimes in 6 months. Shortness of breath 06/29/2021 Overview (06/29/2021): Added automatically from request for surgery [id number] Abnormal stress test 06/29/2021 Overview (06/29/2021): Added automatically from request for surgery [id number] Social History Tobacco Use Types Packs/Day Years Used Date Smoking Tobacco: Former Cigarettes Q uit: 1996 Smokeless Tobacco: Never Tobacco Cessation:Counseling Given: Not Answered Personal Safety Answer Date Recorded Getting School Help Needed Not on file 05/02 Comments No Sex and Gender Information Value Date Recorded Sex Assigned at Not on file Legal Sex Female 2:42 AM WEB WEAVER Gender Identity Female 05/25/2021 7:20 AM WEB WEAVER Sexual Orientation Not on file Last Filed Vital Signs Vital Sign Reading Time Taken Comments Blood Pressure 140/85 12/10/2022 2:49 PM CDT Pulse 78 12/10/2022 2:49 PM CDT Temperature 36 C (96.8 F) 12/19/2021 7:33 AM CDT Respiratory Rate 18 12/10/2022 2:49 PM CDT Oxygen Saturation 96% 12/19/2021 10: 00 AM CDT Inhaled Oxygen Concentration - - Weight 76.6 kg (168 lb 12.8 oz) 12/10/2022 2:49 PM CDT Height 160 cm (5' 3 ) 12/10/2022 2:49 PM CDT Body Mass Index 29.9 12/10/2022 2:49 PM CDT Plan of Treatment Not on file Medical Devices Implanted Type Area Cover Making Machine Operator Device Identifier Shelf Expiration Date Model / Serial / Lot Angio-Seal Evolution 6fr Vascular Closure - [id number] Implanted:Qty: 1 on 06/30/2021 by Yassine Grimes MD at [facility] Other - see comments [employer] 04/28/2022 [id number] / / [id number] [employer] Biomonitor Iii Monitor Cardiac Sterile Disposable Latex Free [id number] - [id number] - [id number] Implanted:Qty: 1 on 12/19/2021 by Juan Charles MD at [facility] [employer] 03/28/2023 [id number] / [id number] / Insurance [facility] Advance Directives For more information, please contact: [phone] * Full Code (Latest Code Status on File) Date Activated Date Inactivated Comments 12/19/2021 9:20 AM 12/19/2021 2:56 PM * Full Code Date Activated Date Inactivated Comments 06/30/2021 9:01 AM 06/30/2021 6:32 PM Care Teams Subgrade Roller Operator Relationship Specialty Start Date End Date Denny Smyth MD PCP - General Family Medicine 03/03/21
--- OUTSIDE RECORDS SUMMARY | 2024-06-23 10:57 | XMS_ITS | Clinical Summary ---
Author Organization [employer] [address] Address [address] [place] [address] Care Team Providers Care Emergency Room Technician Name Role Phone Unavailable Primary Care Provider Unavailabl e Social History Tobacco Use Types Packs/Day Years Used Date Smoking Tobacco: Never Assessed Comments Unknown Sex and Gender Information Value Date Recorded Sex Assigned at Not on file Legal Sex Female 10:00 AM CDT Gender Identity Not on file Sexual Orientation Not on file Plan of Treatment Health Maintenance Due Date Last Done Comments DTAP/TDAP/TD VACCINES (1 - Tdap) 1997 HEPATITIS B VACCINES (1 of 3 - 19+ 3-dose series) 1997 CERVICAL CANCER SCREENING 2008 BREAST CANCER SCREENING 2018 COLORECTAL SCREENING 2023 Colorectal Cancer Screening 2023 FIT-DNA Q 3 years 2023 FIT/FOBT Q 1 year 2023 Flex Sig/CT Colonography Q 5 years 2023 INFLUENZA VACCINE (#1) 2023 HPV VACCINES Aged Out No longer eligi ble based on patient's age to complete this topic
--- OUTSIDE RECORDS SUMMARY | 2024-06-23 10:57 | XMS_ITS | Clinical Summary ---
Author Organization [facility] Medical Office Building A Address [address] [place] [address] Care Team Providers Care Central Station Operator Name Role Phone Denny Smyth MD Primary Care Provider [phone] Allergies Active Allergy Reactions Criticality Noted Date [...] cell capsule Take 1 tablet by mouth die filer before breakfast Active Trulicity 0.75 mg/0.5 mL [...] fibrillation (CMS/HCC) 022 Overview (12/21/2021): Noted on quality assurance monitor from 02 May 2021. Has long QT [...] (06/29/2021): Added automatically from request for surgery [id number] Abnormal stress test 06/29/2021 Overview (06/29/2021): Added automatically from request for surgery [id number] Social History Tobacco Use Types Packs/Day Years Used Date Smoking Tobacco: Former Cigarettes Q uit: 1996 Smokeless Tobacco: Never Tobacco Cessation:Counseling Given: Not Answered Personal Safety Answer Date Recorded Getting School Help Needed Not on file 05/02 Comments No Sex and Gender Information Value Date Recorded Sex Assigned at Not on file Legal Sex Female 2:42 AM LACTATION SPECIALIST Gender Identity Female 05/25/2021 7:20 AM LACTATION SPECIALIST Sexual Orientation Not on file Obstetrics History Last Filed Vital Signs Vital Sign Reading [...] 12/10/2022 2:49 PM CDT Plan of Treatment Health Maintenance Due Date Last Done Comments Breast Cancer Screening-Mammogram 1978 Colon Cancer Screening-Colonoscopy 1978 Depression Screening 1978 Hepatitis C Screening 1978 DTaP/Tdap/Td Vaccine (1 - Tdap) 1989 Hepatitis B Screening 1996 Regular Well Visit/Exam 18-64 1996 Influenza Vaccine (#1) 2023 06/09/2015 HPV Vaccines Aged Out No longer eligi ble based on patient's age to complete this topic Pneumococcal vaccine <65 Aged Out No longer eligible based on patient's age to complete this topic Medical Devices Implanted Type Area Copy Technician Device Identifier Shelf Expiration Date Model / Serial / Lot Angio-Seal Evolution 6fr Vascular Closure - [id number] Implanted:Qty: 1 on 06/30/2021 by Yassine Grimes MD at [facility] Other - see comments [employer] 04/28/2022 [id number] / / [id number] [employer] Biomonitor Iii Monitor Cardiac Sterile Disposable Latex Free [id number] - [id number] - [id number] Implanted:Qty: 1 on 12/19/2021 by Juan Charles MD at [facility] [employer] 03/28/2023 [id number] / [id number] / Insurance Advance Directives For more information, please contact: [phone] * Full Code (Latest Code Status on File) Date Activated Date Inactivated Comments 12/19/2021 9:20 AM 12/19/2021 2:56 PM * Full Code Date Activated Date Inactivated Comments 06/30/2021 9:01 AM 06/30/2021 6:32 PM Care Teams Central Station Operator Relationship Specialty Start Date End Date Denny Smyth MD PCP - General Family Medicine 03/03/21
--- OUTSIDE RECORDS SUMMARY | 2024-06-23 10:57 | XMS_ITS | Data Portability ---
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 Treatment will continue with Trulicity. [email or web address] Not available 02/11/2023 13:51:00 05/08/2023 05/08/2023 Pt is tolerating trulicity well. It will now be increased from 0.75 mg weekly to 1.5 mg weekly at this point. [email or web address] Not available 05/13/2023 07:52:57 08/08/2023 08/08/2023 Trulicity is officially discontinued because of lack of availability. Tradjenta is now rx'd in its place. [email or web address] Not available 08/12/2023 15:15:47 02/06/2024 02/06/2024 Treatment will proceed as below. [email or web address] Not available 02/15/2024 08:15:19 06/02/2024 06/02/2024 Workup will proceed as below. [email or web address] Not available 06/03/2024 17:47:29 Plan of Treatment Reminders Order Date Submit Date Provider Last Modified By Organization Details Last Modified Time Details Appointments None recorded. Lab rapid strep group A, throat 2024 025 [email or web address] In-Office Order, Internal Use Only DO Not Attach Compendium DO Not Attach Compendium, Do Not Delete/merge, [id number] 02/04/202 5 11:30:13 urinalysi s, dipstick 2024 025 [email or web address] In-Office Order, Internal Use Only DO Not Attach Compendium DO Not Attach Compendium, Do Not Delete/merge, [id number] 11:30:13 HbA1c (hemoglob in A1c), blood 2024 025 [email or web address] In-Office Order, Internal Use Only DO Not Attach Compendium DO Not Attach Compendium, Do Not Delete/merge, [id number] 11:30:13 HbA1c (hemoglob in A1c), blood 2023 024 In-Office Order, Internal Use Only DO Not Attach Compendium DO Not Attach Compendium, Do Not Delete/merge, [id number] 17:54:22 HbA1c (hemoglob in A1c), blood 2023 024 [email or web address] In-Office Order, Internal Use Only DO Not Attach Compendium DO Not Attach Compendium, Do Not Delete/merge, [id number] 07:26:02 HbA1c (hemoglob in A1c), blood 2023 024 [email or web address] In-Office Order, Internal Use Only DO Not Attach Compendium DO Not Attach Compendium, Do Not Delete/merge, [id number] 16:07:07 HbA1c (hemoglob in A1c), blood 2022 023 [email or web address] In-Office Order, Internal Use Only DO Not Attach Compendium DO Not Attach Compendium, Do Not Delete/merge, [id number] 3 13:49:36 Referral orthopedi c surgeon referral 2024 025 SHANTHI Abbasi MD, [address] [facility] , [address], [place], [address], 5 16:15:26 Procedures None recorded. Surgeries None recorded. Imaging None recorded. Medication Orders amoxicill in 500 mg tablet 2024 025 [facility] [address] [facility], [place], [address], 5 11:11:54 fluconazo le 150 mg tablet 2024 025 [facility] [address] [facility] [facility], [place], [address], 5 11:11:53 neomycin- polymyxin -dexameth 3.5 mg/mL-10, 000 unit/mL-0 .1% eye drops 2023 025 [facility] [address] [facility], [place], [address], 5 10:36:00 codeine 10 mg-guaife nesin 100 mg/5 mL oral liquid 2023 025 [facility] [address] [facility], [place], [address], 5 10:35:35 prednison e 20 mg tablet 2023 025 [facility] [address] [facility] [facility], [place], [address], 5 10:36:10 metformin ER 500 mg tablet,ex tended release 24 hr 2023 024 [facility] [address] [facility] [facility], [place], [address], 4 16:14:04 Tradjenta 5 mg tablet [email or web address] [facility] [address] [facility] [facility], [place], [address], 4 15:13:46 Invokana 300 mg tablet 2023 024 [facility] [address] [facility], [place], [address], 4 16:19:29 Trulicity 1.5 mg/0.5 mL subcutane ous pen injector 2023 024 [email or web address] [facility] [address] [place], [address], 4 15:55:53 ondansetr on HCl 8 mg tablet 2022 023 [email or web address] [facility] [address] [place], [address], 5 10:36:31 Trulicity 0.75 mg/0.5 mL subcutane ous pen injector 2022 023 [facility] [address] [place], [address], 16:18:49 Patient TargetsNo targets recorded. Patient Instructions Encounter Date Encounter Id Patient Instructions Last Modified By Organization Details Last Modified Time 02/06/2023 [id number] nausea and vomiting: care instructions [email or web address] Not available 02/06/2023 17:06:04 05/08/2023 [id number] learning about high blood pressure [email or web address] Not available 05/08/2023 16:04:30 08/08/2023 [id number] learning about type 2 diabetes [email or web address] Not available 08/09/2023 07:26:02 type 2 diabetes: care instructions [email or web address] Not available 08/09/2023 07:26:02 diabetic foot exam* [email or web address] Not available 08/09/2023 07:26:02 diabetic eye exam* [email or web address] Not available 08/09/2023 07:26:02 02/06/2024 [id number] learning about type 2 diabetes [email or web address] Not available 02/06/2024 17:54:22 type 2 diabetes: care instructions Not available 02/06/2024 17:54:22 cough: care instructions [email or web address] Not available 02/06/2024 17:54:22 06/02/2024 [id number] sore throat: car e instructions Not available 06/02/2024 11:30:13 A healthy lifestyle: care instructions [email or web address] Not available 06/02/2024 11:30:13 learning about type 2 diabetes [email or web address] Not available 06/02/2024 11:30:13 type 2 diabetes: care instructions [email or web address] Not available 06/02/2024 11:30:13 Reason for Referral Orthopedic Surgeon Referral for Pain of knee region Referring Physician: Denny Gabriel, Family Medicine, Encounter Date: 06/02/2024 Results Created Date Observation Date Name Description Value Unit Range Abnormal Flag Note LastModifiedBy Organization Detail LastModifiedTime 02/12/20 23 02/11/2023 HbA1c (hemo globi n A1c), blood HbA1c 8.4 Not Available In-Office Order Internal Use Only DO Not Attach Compendium DO Not Attach Compendium, Do Not Delete/merge, [id number] 02/11/2023 13:49:27 05/08/19 24 05/08/2023 HbA1c (hemo globi n A1c), blood HbA1c 9.2 Not Available In-Office Order Internal Use Only DO Not Attach Compendium DO Not Attach Compendium, Do Not Delete/merge, [id number] 05/08/2023 15:18:48 08/08/19 24 08/08/2023 HbA1c (hemo globi n A1c), blood HbA1c 8.4 Not Available In-Office Order Internal Use Only DO Not Attach Compendium DO Not Attach Compendium, Do Not Delete/merge, [id number] 08/07/2023 17:58:46 02/06/20 24 02/06/2024 HbA1c (hemo globi n A1c), blood HbA1c 9.0 Not Available In-Office Order Internal Use Only DO Not Attach Compendium DO Not Attach Compendium, Do Not Delete/merge, [id number] 02/06/2024 16:47:00 06/02/19 25 06/02/2024 rapid strep group A, throa t Strep positi ve Not Available In-Office Order Internal Use Only DO Not Attach Compendium DO Not Attach Compendium, Do Not Delete/merge, [id number] 06/02/2024 10:38:22 06/02/19 25 06/02/2024 urina lysis , dipst ick Leukocytes Negati ve Not Available In-Office Order Internal Use Only DO Not Attach Compendium DO Not Attach Compendium, Do Not Delete/merge, 06/02/2024 10:38:11 06/02/19 25 06/02/2024 urina lysis , dipst ick Nitrite negati ve Not Available In-Office Order Internal Use Only DO Not Attach Compendium DO Not Attach Compendium, Do Not Delete/merge, 06/02/2024 10:38:11 06/02/19 25 06/02/2024 urina lysis , dipst ick Urobilinogen .2 Not Available In-Of fice Order Internal Use Only DO Not Attach Compendium DO Not Attach Compendium, Do Not Delete/merge, 06/02/2024 10:38:11 06/02/19 25 06/02/2024 urina lysis , dipst ick Protein Negati ve Not Available In-Office Order Internal Use Only DO Not Attach Compendium DO Not Attach Compendium, Do Not Delete/merge, 06/02/2024 10:38:11 06/02/19 25 06/02/2024 urina lysis , dipst ick pH 5.5 Not Available In-Office Order Internal Use Only DO Not Attach Compendium DO Not Attach Compendium, Do Not Delete/merge, 06/02/2024 10:38:11 06/02/19 25 06/02/2024 urina lysis , dipst ick Blood Negati ve Not Available In-Office Order Internal Use Only DO Not Attach Compendium DO Not Attach Compendium, Do Not Delete/merge, 06/02/2024 10:38:11 06/02/19 25 06/02/2024 urina lysis , dipst ick Specific [place] 1.020 Not Available In-Off ice Order Internal Use Only DO Not Attach Compendium DO Not Attach Compendium, Do Not Delete/merge, 06/02/2024 10:38:11 06/02/19 25 06/02/2024 urina lysis , dipst ick Ketone Trace Not Available In-Office Order Internal Use Only DO Not Attach Compendium DO Not Attach Compendium, Do Not Delete/merge, 06/02/2024 10:38:11 06/02/19 25 06/02/2024 urina lysis , dipst ick Bilirubin Negati ve Not Available In-Office Order Internal Use Only DO Not Attach Compendium DO Not Attach Compendium, Do Not Delete/merge, 06/02/2024 10:38:11 06/02/19 25 06/02/2024 urina lysis , dipst ick Glucose 500 Not Available In-Office Order Internal Use Only DO Not Attach Compendium DO Not Attach Compendium, Do Not Delete/merge, 06/02/2024 10:38:11 06/02/19 25 06/02/2024 urina lysis , dipst ick Appearance Clear Not Available In-Offi ce Order Internal Use Only DO Not Attach Compendium DO Not Attach Compendium, Do Not Delete/merge, 06/02/2024 10:38:11 06/02/19 25 06/02/2024 urina lysis , dipst ick Color Yellow Not Available In-Office Order Internal Use Only DO Not Attach Compendium DO Not Attach Compendium, Do Not Delete/merge, 06/02/2024 10:38:11 06/02/19 25 06/02/2024 HbA1c (hemo globi n A1c), blood HbA1c 9.4 Not Available In-Office Order Internal Use Only DO Not Attach Compendium DO Not Attach Compendium, Do Not Delete/merge, 06/02/2024 10:44:15 01/26/20 24 01/26/2024 XR, chest , 2 view No observ ation record ed. [place] [id number], [place], [address], 01/28/2024 12:58:46 Result Notes None recorded. Problems Name Problem SNOMED Code Status Onset Date Resolution Date Notes Provider Name and Address Organization Details Recorded Time Essential hypertension 16237075 Active 2017 EDMUND Correa 8 17:21:39 Diabetes mellitus 21887212 Active 2017 EDMUND Correa [facility] 8 17:26:21 Psoriasis 0654431 Active 2017 Meghan [place]oz, [place] - [facility] 8 17:26:46 Adult health examination Active 2017 Meghan [place] [facility] 8 16:23:24 Body mass index 25-29 - overweight 091377500 Active 2017 Meghan [place] - [facility] 8 16:23:25 Persistent cough 553764063 Active 2017 Meghan [place] [facility] 8 00:51:14 History of cholecystectom y 455891495 Active 2018 Meghan [place] - [facility] 9 22:38:02 Abdominal wall pain 269956846 Active 2019 Meghan [place] [facility] 0 17:35:57 Vitamin D deficiency 08769328 Active 2019 Meg[place] [facility] 0 17:36:46 Diet education Active 2019 Meghan [place] - [facility] 0 17:29:23 Problem Notes None recorded. Procedures Surgical History Date Name Laterality Status Provider Name and Address Organization Details Recorded Time 024 Diabetic Foot Exam completed Denny Gabriel MD Attn: Accounting, [address] [place], [address], [facility] 08/12/2023 15:14:12 022 insertion of electrocardiography loop recorder using fluoroscopic guidance completed SUZI Davalos - [facility] 02/06/2022 16:00:14 021 Vaginal hysterectomy completed SUZI Davalos [facility] 10/19/2020 14:25:49 021 total excision of bilateral fallopian tubes completed SUZI Davalos [facility] 10/19/2020 14:26:16 021 Removal of ovary(s) completed SUZI Davalos [facility] 10/19/2020 14:26:48 Knee Surgery completed Elyse Stringer [place] - [facility] 01/10/2018 15:28:22 Tubal Ligation completed Elyse Stringer [place] - [facility] 01/10/2018 15:28:36 cholecystectomy completed Kelly Christie [place] - [facility] 05/10/2020 12:15:24 Imaging Results Imaging Date Name Status LastModified by Organiz ation Details LastModified Time 01/26/2024 XR, chest, 2 view completed [facility] [place] [address] [facility], [place], [address], 01/28/2024 12:58:46 Procedure Notes None recorded. Medical Equipment None Reported. Allergies Allergen ID Allergen Name Allergen Category Reaction Reaction Severity Criticality Documentation Date Start Date Code Code System Note Provider Name and Address Organization Details Recorded Time 855870 Substance with sulfonami de structure and antibacte rial mechanism of action (substanc e) medicatio n headache severe Not available 01/10/2018 50849 8003 SNOMED Not Available Not Available Not Available 105599 Product containin g 3-hydroxy -3-methyl glutaryl- coenzyme A reductase inhibitor (product) medicatio n myalgias (muscle pain) moderate low 11/01/2022 60327 009 SNOMED Not Available Not Available Not Available Medications Name Sig Start Date Stop Date Status Note LastModified by Organization Details LastModified Time losartan 50 mg tablet Take 1 tablet by mouth once daily 02/06 completed Not Available Not Available Not Available cyclobenz aprine 10 mg tablet Take 1 tablet as needed by oral route at bedtime. 11/01 completed PRN Not Available Not Available Not Available amoxicill in 500 mg capsule TAKE 1 CAPSULE BY MOUTH THREE TIMES DAILY NEEDED FOR 10 DAYS active Not Available Not Available No t Available promethaz ine-DM 6.25 mg-15 mg/5 mL oral syrup TAKE 5ML BY MOUTH EVERY 4 TO 6 HOURS NEEDED FOR COUGH 08/07 completed Not Available Not Available Not Available cetirizin e 10 mg tablet TAKE 1 TABLET BY MOUTH ONCE DAILY FOR 90 DAYS 06/29 completed Not Available Not Available Not Available azithromy taryn 250 mg tablet TAKE 2 TABLETS BY MOUTH ON DAY 1, AND THEN TAKE 1 TABLET BY MOUTH ONCE A DAY ON DAY 2 THROUGH DAY 5 02/05 completed Not Available Not Available Not Available fluconazo le 150 mg tablet TAKE ONE TABLET BY MOUTH AT FIRST SIGNS OF VAGINAL CANDIDIA SIS, REPEAT ONE WEEK LATER active Not Available Not Available No t Available metoprolo l succinate ER 50 mg tablet,ex tended release 24 hr TAKE 1 TABLET BY MOUTH ONCE DAILY active Not Available Not Available No t Available hydrocodo ne 5 mg-acetam inophen 325 mg tablet 02/23 completed Not Available Not Available Not Available ondansetr on HCl 8 mg tablet TAKE 1 TABLET BY MOUTH ONCE DAILY NEEDED 06/02 completed Not Available Not Available Not Available metronida zole 0.75 % (37.5 mg/5 gram) vaginal gel INSERT 1 APPLICAT ORFUL INTO VAGINA EVERY DAY AT BEDTIME FOR 5 DAYS 02/06 completed Not Available Not Available Not Available ondansetr on HCl 4 mg tablet Take 1 tablet every day by oral route as needed. 06/19 completed Not Available Not Available Not Available glipizide 10 mg tablet Take 2 tablets by mouth twice daily active Not Available Not Available No t Available prednison e 20 mg tablet TAKE 1 TABLET BY MOUTH ONCE DAILY FOR 5 DAYS 06/02 completed Not Available Not Available Not Available metoprolo l succinate ER 100 mg tablet,ex tended release 24 hr TAKE 1 TABLET BY MOUTH ONCE DAILY active Not Available Not Available No t Available terconazo le 0.8 % vaginal cream APPLY 1 APPLICAT ORFUL VAGINALL Y ONCE DAILY AT BEDTIME FOR 3 DAYS 11/01 completed Not Available Not Available Not Available metformin 850 mg tablet TAKE 1 TABLET BY MOUTH THREE TIMES DAILY 11/28 completed Not Available Not Available Not Available clobetaso l 0.05 % topical cream APPLY A THIN LAYER OF CREAM TOPICALL Y TO AFFECTED AREA(S) TWICE DAILY 2023 active Not Available Not Available Not Avai lable amlodipin e 5 mg tablet TAKE 1 TABLET BY MOUTH ONCE DAILY 02/06 completed Not Available Not Available Not Available triamcino lone acetonide 0.1 % topical cream APPLY A THIN LAYER TO THE AFFECTED AREA(S) BY TOPICAL ROUTE 2 TIMES PER DAY PRN 02/11 completed Not Available Not Available Not Available amoxicill in 500 mg tablet Take 1 tablet 3 times a day by oral route as needed for 10 days. 2024 active Not Available Not Available Not Avai lable amoxicill in 875 mg tablet 04/22 completed Not Available Not Available Not Available famotidin e 20 mg tablet TAKE 1 TABLET BY MOUTH TWICE DAILY 11/01 completed Not Available Not Available Not Available amitripty line 25 mg tablet 06/29 completed Not Available Not Available Not Available ciproflox acin 0.3 % eye drops INSTILL 1 DROP INTO THE AFFECTED EYE(S) EVERY 2 HOURS WHILE AWAKE FOR 2 DAYS, THEN 1 DROP EVERY 4 HOURS WHILE AWAKE FOR 5 DAYS. 02/05 completed Not Available Not Available Not Available benzonata te 100 mg capsule TAKE 1 CAPSULE BY MOUTH THREE TIMES DAILY NEEDED FOR 10 DAYS 08/07 completed Not Available Not Available Not Available doxycycli ne monohydra te 100 mg capsule TAKE 1 CAPSULE BY MOUTH TWICE DAILY FOR 10 DAYS 06/02 completed Not Available Not Available Not Available neomycin- polymyxin -dexameth 3.5 mg/mL-10, 000 unit/mL-0 .1% eye drops INSTILL 5 DROPS INTO RIGHT EAR THREE TIMES DAILY FOR 7 DAYS 06/02 completed Not Available Not Available Not Available triamcino lone acetonide 0.1 % topical ointment 05/10 completed Not Available Not Available Not Available nystatin 100,000 unit/gram topical cream 06/29 completed Not Available Not Available Not Available Kota 128 2 % eye drops INSTILL 1 DROP INTO EACH EYE EVERY DAY AT BEDTIME 11/01 completed Not Available Not Available Not Available hydrochlo rothiazid e 12.5 mg capsule TAKE 1 CAPSULE BY MOUTH ONCE DAILY 02/06 completed Not Available Not Available Not Available nystatin- triamcino lone 100,000 unit/g-0. 1 % topical cream APPLY CREAM TOPICALL Y TO AFFECTED AREA THREE TIMES DAILY 02/23 completed Not Available Not Available Not Available omeprazol e 20 mg capsule,d elayed release 2024 active Not Available Not Available Not Avai lable diltiazem CD 120 mg capsule,e xtended release 24 hr TAKE 1 CAPSULE BY MOUTH ONCE DAILY active Not Available Not Available No t Available hydroxyzi ne HCl 25 mg tablet 06/19 completed Not Available Not Available Not Available codeine 10 mg-guaife nesin 100 mg/5 mL oral liquid TAKE 10 ML BY MOUTH EVERY 4 HOURS 06/02 completed Not Available Not Available Not Available pravastat in 20 mg tablet Take 1 tablet every day by oral route. 06/19 completed Not Available Not Available Not Available clobetaso l 0.05 % topical ointment 05/08 completed Not Available Not Available Not Available estradiol 0.01% (0.1 mg/gram) vaginal cream APPLY FINGERTI P AMOUNT TO AFFECTED AREA EXTERNAL LY ONCE DAILY FOR TWO TO THREE WEEKS 06/29 completed Not Available Not Available Not Available methylpre dnisolone 4 mg tablets in a dose pack TAKE BY MOUTH DIRECTED ON INSIDE OF PACKAGE 08/07 completed Not Available Not Available Not Available albuterol sulfate HFA 90 mcg/actua tion aerosol inhaler INHALE 2 PUFFS BY MOUTH EVERY 4 TO 6 HOURS NEEDED FOR SHORTNES S OF BREATH FOR WHEEZING active Not Available Not Available No t Available Vitamin D2 1,250 mcg (50,000 unit) capsule 05/10 completed Not Available Not Available Not Available losartan 50 mg-hydroc hlorothia zide 12.5 mg tablet TAKE 1 TABLET BY MOUTH ONCE DAILY 06/19 completed out of stock Not Available Not Available Not Available ketoconaz ole 2 % topical cream APPLY 1 GRAM TOPICALL Y TO AFFECTED AREA TWICE DAILY active Not Available Not Available No t Available lisinopri l 40 mg tablet 01/10 completed Not Available Not Available Not Available ondansetr on 4 mg disintegr ating tablet DISSOLVE 1 TABLET IN MOUTH EVERY 8 HOURS NEEDED FOR NAUSEA AND VOMITING 05/08 completed Not Available Not Available Not Available fluticaso ne propionat e 50 mcg/actua tion nasal spray,bandar pension USE 2 SPRAY(S) IN EACH NOSTRIL ONCE DAILY 11/01 completed Not Available Not Available Not Available metformin ER 500 mg tablet,ex tended release 24 hr TAKE 2 TABLETS BY MOUTH TWICE DAILY active Not Available Not Available No t Available glipizide 5 mg tablet 01/24 completed Not Available Not Available Not Available naproxen 500 mg tablet Take 1 tablet twice a day by oral route with meals for 15 days. 02/11 completed Not Available Not Available Not Available metoclopr amide 10 mg tablet TAKE 1 TABLET BY MOUTH EVERY 6 HOURS NEEDED FOR NAUSEA AND VOMITING 02/11 completed Not Available Not Available Not Available amoxicill in 875 mg-potass ium clavulana te 125 mg tablet TAKE 1 TABLET BY MOUTH EVERY 12 HOURS FOR 7 DAYS 02/05 completed Not Available Not Available Not Available amoxicill in 500 mg-potass ium clavulana te 125 mg tablet TAKE 1 TABLET BY MOUTH THREE TIMES DAILY DURING THE DAY FOR 7 DAYS. 02/05 completed Not Available Not Available Not Available neomycin 3.5 mg/g-poly myxin B 10,000 unit/g-de xameth 0.1 % eye oint APPLY A SMALL AMOUNT TO AFFECTED AREA(S) ON RIGHT EYE THREE TIMES DAILY FOR 14 DAYS 06/02 completed Not Available Not Available Not Available azithromy taryn 500 mg tablet 2 tablets first day, then 1 tab daily for four days 07/17 completed Not Available Not Available Not Available metformin ER 1,000 mg tablet,ex tended release 24hr (osmotic) Take 2 tablets every day by oral route. 2018 active Not Available Not Available Not Avai lable metformin ER 500 mg 24 hr tablet,ex tended release (gastric retention ) TAKE 4 TABLETS EVERY DAY BY ORAL ROUTE 11/28 completed Not Available Not Available Not Available Januvia 100 mg tablet Take 1 tablet by mouth once daily 11/01 completed Not Available Not Available Not Available Lantus Solostar U-100 Insulin 100 unit/mL (3 mL) subcutane ous pen Inject 10 unit(s) every day by subcutan eous route at bedtime. *pt. needs appointm ent before next refill* 05/10 completed Pt. has at home but can not see herself giving injectio ns. Not Available Not Available Not Available BD Ultra-Fin e Antonella Pen Needle 32 gauge x active Not Available Not Available Not Available Tradjenta 5 mg tablet TAKE 1 TABLET BY MOUTH ONCE DAILY IN THE MORNING active Not Available Not Available No t Available Xarelto 20 mg tablet Take 1 tablet every day by oral route. 05/08 completed by Lexi Canseco NP / [facility] Not Available Not Available Not Available Invokana 300 mg tablet TAKE 1 TABLET BY MOUTH ONCE DAILY active Not Available Not Available No t Available Trulicity 1.5 mg/0.5 mL subcutane ous pen injector INJECT 1.5MG SUBCUTAN EOUSLY ONCE WEEKLY 08/07 completed pt stopped and out of stock also Not Available Not Available Not Available Trulicity 0.75 mg/0.5 mL subcutane ous pen injector INJECT 0.75MG SUBCUTAN EOUSLY ONCE WEEKLY 05/08 completed Not Available Not Available Not Available Ozempic 0.25 mg or 0.5 mg (2 mg/1.5 mL) subcutane ous pen injector Inject 0.25 mg every week by subcutan eous route. 11/16 completed Not Available Not Available Not Available COVID-19 test specimen collectio n TEST DIRECTED 02/23 completed Not Available Not Available Not Available Ozempic 0.25 mg or 0.5 mg (2 mg/3 mL) subcutane ous pen injector Inject by subcutan eous route for 56 days. 11/16 completed Not Available Not Available Not Available Vitals Date Recorded Body height Body mass index (BMI) Body weight Oxygen saturation Oxygen saturation in Arterial blood by Pulse oximetry Heart rate Respiratory rate Body temperature Systolic blood pressure Diastolic blood pressure Provider Name and Address Organization Details Last Updated DateTime 3 160.02 cm 29.7 kg/m2 24231.0 8 g 97 % 97 % 68 /min 16 /min 97.7 [degF] 125 mm[Hg] 86 mm[Hg] Kelly Christie [place] - [facility] 3 16:29:08 Date Recorded Body height Body mass index (BMI) Body weight Body temperature Respiratory rate Systolic blood pressure Diastolic blood pressure Provider Name and Address Organization Details Last Updated DateTime 4 160.02 cm 30.2 kg/m2 53299.8 9 g 98.4 [degF] 16 /min 122 mm[Hg] 86 mm[Hg] Claudine Rincon [place] - [facility] 4 15:18:40 Date Recorded Body height Body mass index (BMI) Body weight Body temperature Oxygen saturation Oxygen saturation in Arterial blood by Pulse oximetry Respiratory rate Heart rate Systolic blood pressure Diastolic blood pressure Provider Name and Address Organization Details Last Updated DateTime 4 160.02 cm 30 kg/m2 39378.9 1 g 98 [degF] 96 % 96 % 16 /min 65 /min 123 mm[Hg] 86 mm[Hg] Sara Kramer [place] - [facility] 4 15:59:02 Date Recorded Body height Body mass index (BMI) Body weight Oxygen saturation Oxygen saturation in Arterial blood by Pulse oximetry Heart rate Body temperature Respiratory rate Systolic blood pressure Diastolic blood pressure Provider Name and Address Organization Details Last Updated DateTime 4 160.02 cm 29.8 kg/m2 48259.3 2 g 98 % 98 % 65 /min 98 [degF] 18 /min 127 mm[Hg] 85 mm[Hg] Kelly Christie MA [facility] 4 16:49:11 Date Recorded Body height Body mass index (BMI) Body weight Oxygen saturation Oxygen saturation in Arterial blood by Pulse oximetry Heart rate Respiratory rate Body temperature Systolic blood pressure Diastolic blood pressure Provider Name and Address Organization Details Last Updated DateTime 5 160.02 cm 29.8 kg/m2 95917.9 7 g 98 % 98 % 72 /min 16 /min 98 [degF] 117 mm[Hg] 72 mm[Hg] Kelly Christie [place] [facility] 5 10:40:16 Social History Question Answer Notes LastModified by Organization Details LastModified Time Tobacco Smoking Status Former Smoker Quit in 1998 Kelly Christie MA [facility], [facility] 05/10/2020 12:11:45 Do You Have An Advance Directive? No Information not available 05/10/2020 What Is Your Level Of Alcohol Consumption? None Information not available 05/10/2020 Are You Blind Or Do You Have Difficulty Seeing? Yes Glasses Information not available 02/23/2021 What Is Your Level Of Caffeine Consumption? Moderate Soda, No Coffee klortsma Information not available 08/08/2023 How Much Tobacco Do You Chew? None Information not available 05/10/2020 In The 14 Days Before Symptom Onset, Have You Had Close Contact With A Laboratory-confi rmed COVID-19 While That Case Was Ill? No Information not available 05/10/2020 In The 14 Days Before Symptom Onset, Have You Had Close Contact With A Person Who Is Under Investigation For COVID-19 While That Person Was Ill? No Information not available 05/10/2020 Have You Been To An Area Known To Be High Risk For COVID-19? No Information not available 05/10/2020 Are You Currently Employed? Yes Information not available 02/23/2021 Are You Deaf Or Do You Have Serious Difficulty Hearing? No Information not available 02/23/2021 What Type Of Diet Are You Following? REGULAR Information not available 05/10/2020 Which Illicit Or Recreational Drugs Have You Used? NO Information not available 05/10/2020 Do You Or Have You Ever Used E-cigarettes Or Vape? Never Used Electronic Cigarettes Information not available 05/10/2020 Education 12 Information not available 05/10/2020 What Is Your Occupation? [employer] Information not available 05/10/2020 Are There Any Guns Present In Your Home? No Information not available 05/10/2020 Hard Of Hearing Or Deaf In One Or Both Ears? No Information not available 05/10/2020 Legally Blind In One Or Both Eyes? No Information not available 05/10/2020 Marital Status Single Informatio n not available 05/10/2020 What Was The Date Of Your Most Recent Tobacco Screening? 06/02/2024 Information not available 06/02/2024 How Many Children Do You Have? 1 Information not available 02/23/2021 Performs Monthly Self-breast Exam? No Information not available 05/10/2020 What Is Your Relationship Status? Information not available 02/23/2021 Do You Use Your Seat Belt Or Car Seat Routinely? Yes Information not available 02/23/2021 Seat Belts Used Routinely Yes Information not available 05/10/2020 Are You Sexually Active? No Information not available 02/23/2021 Smoke Alarm In Home Yes Information not available 05/10/2020 Do You Have Smoke And Carbon Monoxide Detectors In Your Home? Yes Information not available 02/23/2021 At What Age Did You Start Smoking Tobacco? 14 Information not available 05/10/2020 Are You Passively Exposed To Smoke? Yes Information not available 02/23/2021 Do You Or Have You Ever Used Smokeless Tobacco? Never Used Smokeless Tobacco Information not available 05/10/2020 How Much Tobacco Do You Smoke? No Information not available 05/10/2020 General Stress Level High Information not available 05/10/2020 Do You Feel Stressed (tense, Restless, Nervous, Or Anxious, Or Unable To Sleep At Night)? [id number] Information not available 02/23/2021 Do You Use Any Illicit Or Recreational Drugs? No Information not available 02/23/2021 Do You Use Sunscreen Routinely? No Occassionally Information not available 02/23/2021 Has Tobacco Cessation Counseling Been Provided? No Information not available 02/06/2022 On What Date Was Tobacco Cessation Counseling Provided? 06/02/2024 Information not available 06/02/2024 How Many Years Have You Smoked Tobacco? 4 Information not available 05/10/2020 Do You Or Have You Ever Used Any Other Forms Of Tobacco Or Nicotine? No Information not available 02/23/2021 Sex: Female Functional Status Question Answer Note LastModified by Organizat ion Details LastModified Time Are you able to care for yourself? Yes Information not available 02/23/2021 What is your exercise level? Occasional walks every day Information not available 05/10/2020 Mental Status None recorded. Family History Relationship Description Onset Age of this Age Resolved Age Notes LastModified by Organization Details LastModified Time Father Diabetes mellitus Not available 01/10 15:27:45 Father Atrial flutter erobbinsma Not available 02/06 15:58:58 Father Bradycardia [email or web address] Not avai lable 02/06/2022 15:59:19 Father 66 Natura l causes erobbinsma Not available 02/06/2024 16:46:07 Notes:rno new changes report ed 05/10/20, 09/14/20, 02/23/21, 06/29/21, 11/01/22, 02/06/23, 08/08/23, 06/03/24 Medical History Condition Response High Blood Pressure Y Skin Problems Y Diabetes Y Gynecological History Statement/Question Response Current Control Method Hysterectom y Date of LMP 10/10/2020 LMP Definite Obstetrics History GPAL:G 0 P 0 0 0 0 Past Encounters Encounter ID Performer Location Encounter Start Date Encounter Closed Date Diagnosis/Indication Diagnosis SNOMED-CT Code Diagnosis ICD10 Code Diagnosis Note [id number] Meghan Carr 12 IM [address] [facility] [place] [address] 01/10/2018 15:13:39 01/13/2018 09:58:23 Essential hypertension 04485886 I10 Questionab le coughs with Lisinopril /Losartan. BP at 160/98 on Losartan 50mg daily. Coughs better recently. We will add HCTZ 12.5mg daily. RTC 2mo. Check BP at pharmacy. Diabetes mellitus 288876 09 E11.9 No neuropathy . Need to talk about eye doc. Was on Januvia 100mg daily - sample. Took Metformin, made her sick. Has Glucometer . Fasting glucose 419 today. Declined insulin. Metformin ER for GI issues, add glipizide 10mg BID. Check mornings fasting glucose daily. RTC 2 weeks. Psoriasis 1560597 L40.9 Bilateral ashraf and elbows. Tried high potency steroid before without relief. Refer to Rheum. [id number] Meghan Carr 14 IM [address] [facility] [place] [address] 01/24/2018 15:38:11 01/24/2018 16:30:29 Essential hypertension 38687008 I10 01/10/2018 : Questionab le coughs with Lisinopril /Losartan. BP at 160/98 on Losartan 50mg daily. Coughs better recently. We will add HCTZ 12.5mg daily. RTC 2mo. Check BP at pharmacy. 01/24/2018 : Doing well. Still some coughs. If continues, tiral of stopping ARB and inc HCTZ. RTC 1mo Diabetes mellitus 633758 09 E11.9 01/10/2018 : No neuropathy . Need to talk about eye doc. Was on Januvia 100mg daily - sample. Took Metformin, made her sick. Has Glucometer . Fasting glucose 419 today. Declined insulin. Metformin ER for GI issues, add glipizide 10mg BID. Check mornings fasting glucose daily. RTC 2 weeks. 01/24/2018 : A1C was 12.4. Home readings are low 100s. Taking too much Glipizide - change to 20mg BID. Continue Metformin. RTC 1mo Adult heal th examination 199235739 Z00.00 declined Tdap, Influ, pneumococc al. Product Development info Body mass index 25-29 - overweight 898175502 Z68.29 lifestyle - channging diet [id number] Meghan Carr 14 IM [address] [facility] [address] [place] [address] 02/24/2018 15:38:06 02/24/2018 17:09:38 Diabetes mellitus 22209991 E11.9 Feet ok. Eye ok. No neuropathy . No proteinuri a. 01/10/2018 : No neuropathy . Need to talk about eye doc. Was on Januvia 100mg daily - sample. Took Metformin, made her sick. Has Glucometer . Fasting glucose 419 today. Declined insulin. Metformin ER for GI issues, add glipizide 10mg BID. Check mornings fasting glucose daily. RTC 2 weeks. 01/24/2018 : A1C was 12.4. Home readings are low 100s. Taking too much Glipizide - change to 20mg BID. Continue Metformin. RTC 1mo 01/2018: Home readings are < 150's. Continue Glipizide 20mg BID and Metformin 1000mg daily. RTC 2mo for A1C. Essential hypertension 12204963 I10 01/10/2018 : Questionab le coughs with Lisinopril /Losartan. BP at 160/98 on Losartan 50mg daily. Coughs better recently. We will add HCTZ 12.5mg daily. RTC 2mo. Check BP at pharmacy. 01/24/2018 : Doing well. Still some coughs. If continues, trial of stopping ARB and inc HCTZ. RTC 1mo 01/2018: Doing well. Continue the same. [id number] Meghan Carr 14 IM [address] [facility] [address] [place] [address] 04/17/2018 15:52:56 04/23/2018 08:18:41 Diabetes mellitus 47022711 E11.9 Feet ok. Eye ok. No neuropathy . No proteinuri a. 01/10/2018 : No neuropathy . Need to talk about eye doc. Was on Januvia 100mg daily - sample. Took Metformin, made her sick. Has Glucometer . Fasting glucose 419 today. Declined insulin. Metformin ER for GI issues, add glipizide 10mg BID. Check mornings fasting glucose daily. RTC 2 weeks. 01/24/2018 : A1C was 12.4. Home readings are low 100s. Taking too much Glipizide - change to 20mg BID. Continue Metformin. RTC 1mo 01/2018: Home readings are < 150's. Continue Glipizide 20mg BID and Metformin 1000mg daily. RTC 2mo for A1C. 03/2018: Home glucose uncontroll ed, frequent snacks. We will inc her Metformin to 850mg TID and recheck A1C today. RTC 3mo. Persistent cough 8722652 02 R05 Sinus drainage, coughing spells Since Saturday. Amoxicilli n, Flonase, Cough syrup from ER not helping. Sinusitis and pharyngiti s on exam. We will try Azithromyc in. [id number] Meghan Carr 14 IM [address] [facility] [address] [place] [address] 07/17/2018 15:59:19 07/18/2018 11:59:31 Diabetes mellitus 51848810 E11.9 Feet ok. Eye ok. No neuropathy . No proteinuri a. 01/10/2018 : No neuropathy . Need to talk about eye doc. Was on Januvia 100mg daily - sample. Took Metformin, made her sick. Has Glucometer . Fasting glucose 419 today. Declined insulin. Metformin ER for GI issues, add glipizide 10mg BID. Check mornings fasting glucose daily. RTC 2 weeks. 01/24/2018 : A1C was 12.4. Home readings are low 100s. Taking too much Glipizide - change to 20mg BID. Continue Metformin. RTC 1mo 01/2018: Home readings are < 150's. Continue Glipizide 20mg BID and Metformin 1000mg daily. RTC 2mo for A1C. 03/2018: Home glucose uncontroll ed, frequent snacks. We will inc her Metformin to 850mg TID and recheck A1C today. RTC 3mo. 06/2018: Home readings on average < 150s. Diarrhea with Metformin 850mg. We will dec metformin to 1000mg ER. Continue Glipizide (she is concerns about weight gain). Add Januvia. A1C today. Essential hypertension 95202855 I10 01/10/2018 : Questionab le coughs with Lisinopril /Losartan. BP at 160/98 on Losartan 50mg daily. Coughs better recently. We will add HCTZ 12.5mg daily. RTC 2mo. Check BP at pharmacy. 01/24/2018 : Doing well. Still some coughs. If continues, trial of stopping ARB and inc HCTZ. RTC 1mo 01/2018: Doing well. Continue the same. 06/2018: doing well on Losartan-H CTZ. Psoriasis 4247461 L40.9 Bilateral ashraf and elbows. Tried high potency steroid before without relief. Refer to Rheum - appointmen t 07/2018 [id number] Meghan Carr 14 IM [address] [facility] [address] [place] [address] [address] 11/26/2018 10:58:49 11/26/2018 16:33:52 Diabetes mellitus 11360623 E11.9 Feet ok. Eye ok. No neuropathy . No proteinuri a. 01/10/2018 : No neuropathy . Need to talk about eye doc. Was on Januvia 100mg daily - sample. Took Metformin, made her sick. Has Glucometer . Fasting glucose 419 today. Declined insulin. Metformin ER for GI issues, add glipizide 10mg BID. Check mornings fasting glucose daily. RTC 2 weeks. 01/24/2018 : A1C was 12.4. Home readings are low 100s. Taking too much Glipizide - change to 20mg BID. Continue Metformin. RTC 1mo 01/2018: Home readings are < 150's. Continue Glipizide 20mg BID and Metformin 1000mg daily. RTC 2mo for A1C. 03/2018: Home glucose uncontroll ed, frequent snacks. We will inc her Metformin to 850mg TID and recheck A1C today. RTC 3mo. 06/2018: Home readings on average < 150s. Diarrhea with Metformin 850mg. We will dec metformin to 1000mg ER. Continue Glipizide (she is concerns about weight gain). Add Januvia. A1C today. 10/2018: Saw eye doctor - no issues. Home readings < 130's. On Metformin ER 2000mg, Glipizide 10mg daily, Januvia. Tolerable diarrhea. Check A1C. Check BMP due to concerns about kidney at high dose metformin. RTC 3mo Psoriasis 2671990 L40.9 Bilateral ashraf and elbows. Tried high potency steroid before without relief. Refer to Rheum - appointmen t 07/2018:Sa w Rheum - arthralgia , unspecifie d joint Psoriasis Elevated transamina se measuremen t. Likely DECKER in the setting of poorly controlled DM. Check Hepatitis. DM2: high dose weekly x 3 mo. Repeat level next visit. Vit D def: Vit D 23.8 XR b/l knees: no acute osseous injury or arthritis of bilateral knees. RTC 3-4 mo Saw Derm: need rides for photothera py. Stable on sun bae bed and Vit E oil. [id number] Meghan Carr 14 IM [address] [facility] [address] [place] [address] [address] 02/24/2019 15:41:25 02/25/2019 11:12:26 Essential hypertension 36083889 I10 01/10/2018 : Questionab le coughs with Lisinopril /Losartan. BP at 160/98 on Losartan 50mg daily. Coughs better recently. We will add HCTZ 12.5mg daily. RTC 2mo. Check BP at pharmacy. 01/24/2018 : Doing well. Still some coughs. If continues, trial of stopping ARB and inc HCTZ. RTC 1mo 01/2018: Doing well. Continue the same. 06/2018: doing well on Losartan-H CTZ. 01/2019: doing well on med. Diabetes mellitus 281225 09 E11.9 Feet ok. Eye ok. No neuropathy . No proteinuri a. 01/10/2018 : No neuropathy . Need to talk about eye doc. Was on Januvia 100mg daily - sample. Took Metformin, made her sick. Has Glucometer . Fasting glucose 419 today. Declined insulin. Metformin ER for GI issues, add glipizide 10mg BID. Check mornings fasting glucose daily. RTC 2 weeks. 01/24/2018 : A1C was 12.4. Home readings are low 100s. Taking too much Glipizide - change to 20mg BID. Continue Metformin. RTC 1mo 01/2018: Home readings are < 150's. Continue Glipizide 20mg BID and Metformin 1000mg daily. RTC 2mo for A1C. 03/2018: Home glucose uncontroll ed, frequent snacks. We will inc her Metformin to 850mg TID and recheck A1C today. RTC 3mo. 06/2018: Home readings on average < 150s. Diarrhea with Metformin 850mg. We will dec metformin to 1000mg ER. Continue Glipizide (she is concerns about weight gain). Add Januvia. A1C today. 10/2018: Saw eye doctor - no issues. Home readings < 130's. On Metformin ER 2000mg, Glipizide 10mg daily, Januvia. Tolerable diarrhea. Check A1C. Check BMP due to concerns about kidney at high dose metformin. RTC 3mo 01/2019: A1C 7.9 - no change. We will start insulin. Continue Metformin, Glipizide and Januvia. RTC 3mo. History of cholecystectomy 708404623 Z90.49 Recent cholecyste ctomy.Some diarrhea, tolerating oral feeds with some nausea. No gross bleed. Exam - RUQ Abdominal wall localized tenderness and swelling - no erythema. Likely surgical wound complicati on/hematom a. Carnett's sign. Zofran PRN. Will see GI this Saturday. Adult heal th examination 444611405 Z00.00 declined Tdap, Influ, pneumococc al. Product Development info [id number] Meghan Carr 14 IM [address] [facility] [place] [address] 06/19/2019 15:55:31 06/22/2019 11:52:40 Essential hypertension 96420870 I10 01/10/2018 : Questionab le coughs with Lisinopril /Losartan. BP at 160/98 on Losartan 50mg daily. Coughs better recently. We will add HCTZ 12.5mg daily. RTC 2mo. Check BP at pharmacy. 01/24/2018 : Doing well. Still some coughs. If continues, trial of stopping ARB and inc HCTZ. RTC 1mo 01/2018: Doing well. Continue the same. 06/2018: doing well on Losartan-H CTZ. 01/2019: doing well on med. Diabetes mellitus 771076 09 E11.9 Feet ok. Eye ok. No neuropathy . No proteinuri a. 01/10/2018 : No neuropathy . Need to talk about eye doc. Was on Januvia 100mg daily - sample. Took Metformin, made her sick. Has Glucometer . Fasting glucose 419 today. Declined insulin. Metformin ER for GI issues, add glipizide 10mg BID. Check mornings fasting glucose daily. RTC 2 weeks. 01/24/2018 : A1C was 12.4. Home readings are low 100s. Taking too much Glipizide - change to 20mg BID. Continue Metformin. RTC 1mo 01/2018: Home readings are < 150's. Continue Glipizide 20mg BID and Metformin 1000mg daily. RTC 2mo for A1C. 03/2018: Home glucose uncontroll ed, frequent snacks. We will inc her Metformin to 850mg TID and recheck A1C today. RTC 3mo. 06/2018: Home readings on average < 150s. Diarrhea with Metformin 850mg. We will dec metformin to 1000mg ER. Continue Glipizide (she is concerns about weight gain). Add Januvia. A1C today. 10/2018: Saw eye doctor - no issues. Home readings < 130's. On Metformin ER 2000mg, Glipizide 10mg daily, Januvia. Tolerable diarrhea. Check A1C. Check BMP due to concerns about kidney at high dose metformin. RTC 3mo 01/2019: A1C 7.9 - no change. We will start insulin. Continue Metformin, Glipizide and Januvia. RTC 3mo. 05/2019: A1C 9.4, worsening. Pt did not start insulin - advised that she really needs to do that. Continue oral meds. Pt stress eats - advised healthier choices. Labs. RTC 3mo. Vitamin D deficiency 347 91159 E55.9 Abdominal wall pain 1620 90262 R10.9 RUQ tenderness after lap cholecyste ctomy 01/2019. 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 Pt otherwise stable. Will have US abdominal wall to evaluate any concerning etiologies . Lab today. Addendum: LFTs elevated but ALP wnl. Pt c/o RUQ pain months postop. RUQ US to evaluate. History of cholecystectomy 922919025 Z90.49 01/2019:Re cent cholecyste ctomy.Some diarrhea, tolerating oral feeds with some nausea. No gross bleed.Exam - RUQ Abdominal wall localized tenderness and swelling - no erythema. Likely surgical wound complicati on/hematom a. Carnett's sign.Daron mistry PRN. Will see GI this Saturday. 05/2019: GI mentioned referring her to hepatologi st but pt hasnt heard anything. US and lab first. [id number] Meghan Carr 14 IM [address] [facility] [address] [place] [address] 09/17/2019 09:02:23 09/28/2019 07:28:59 Diabetes mellitus 50592520 E11.9 Feet ok. Eye ok. No neuropathy . No proteinuri a. 01/10/2018 : No neuropathy . Need to talk about eye doc. Was on Januvia 100mg daily - sample. Took Metformin, made her sick. Has Glucometer . Fasting glucose 419 today. Declined insulin. Metformin ER for GI issues, add glipizide 10mg BID. Check mornings fasting glucose daily. RTC 2 weeks. 01/24/2018 : A1C was 12.4. Home readings are low 100s. Taking too much Glipizide - change to 20mg BID. Continue Metformin. RTC 1mo 01/2018: Home readings are < 150's. Continue Glipizide 20mg BID and Metformin 1000mg daily. RTC 2mo for A1C. 03/2018: Home glucose uncontroll ed, frequent snacks. We will inc her Metformin to 850mg TID and recheck A1C today. RTC 3mo. 06/2018: Home readings on average < 150s. Diarrhea with Metformin 850mg. We will dec metformin to 1000mg ER. Continue Glipizide (she is concerns about weight gain). Add Januvia. A1C today. 10/2018: Saw eye doctor - no issues. Home readings < 130's. On Metformin ER 2000mg, Glipizide 10mg daily, Januvia. Tolerable diarrhea. Check A1C. Check BMP due to concerns about kidney at high dose metformin. RTC 3mo 01/2019: A1C 7.9 - no change. We will start insulin. Continue Metformin, Glipizide and Januvia. RTC 3mo. 05/2019: A1C 9.4, worsening. Pt did not start insulin - advised that she really needs to do that. Continue oral meds. Pt stress eats - advised healthier choices. Labs. RTC 3mo. 08/2019: Pt is not on isulin. Did not get it? Home glucose in the 170s - 180s. Resent Lanrulaus - nursing confirmed that this is covered. RTC 1mo. Diet education 03219629 Z71.3 Talked about more home cooking than eating out. [id number] MD Lizette Waterman [address] IM [address] [facility] [place] [address] 05/10/2020 09:41:55 05/11/2020 14:59:08 Type 2 diabetes mellitus 23550575 E11.9 Essential hypertension 99685469 I10 Allergic rhinitis 413253 04 J30.9 [id number] MD Lizette Waterman 14 IM [address] [facility] [place] [address] 02/23/2021 10:03:22 02/24/2021 22:18:18 Type 2 diabetes mellitus 77117182 E11.9 HgbA1c is very well-contr olled--we will decrease the dosage of metformin tp 1000 mg daily to see if this improves her diarrhea Psoriasis 5076424 L40.9 Lightheadedness 61998165 8 R42 Dyspnea on exertion 6084 5006 R06.09 [id number] MD Lizette Waterman 14 IM [address] [facility] [place] [address] 06/29/2021 12:04:14 07/03/2021 11:23:42 Type 2 diabetes mellitus 23489895 E11.9 Temporoman dibular joint disorder 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 Gastroesop hageal reflux disease 536921759 K21.9 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 116021518 Z76.89 [id number] MD Lizette Waterman 14 IM [address] [facility] [place] [address] 02/06/2022 15:10:03 02/14/2022 11:46:05 Obesity 233869027 E66.9 Psoriasis 3421982 L40.9 Hypokalemia 36505997 E87 .6 Type 2 savannah betes mellitus 75057144 E11.9 Essential hypertension 85210777 I10 Gastroesop hageal reflux disease 572099663 K21.9 [id number] MD Lizette Waterman 14 IM [address] [facility] [place] [address] 11/01/2022 13:58:04 11/06/2022 13:18:41 Obesity 295999040 E66.9 Gastroesop hageal reflux disease 607859483 K21.9 Type 2 savannah betes mellitus 41149263 E11.9 Psoriasis 3708796 L40.9 Palpitations 51246963 R0 0.2 on metoprolol for this [id number] MD Lizette Waterman [address] IM [address] [facility] [place] [address] 02/06/2023 16:15:58 02/14/2023 15:37:29 Nausea 449063906 R11.0 Type 2 savannah betes mellitus 37788808 E11.9 Intentiona l weight loss 623019015 R63.8 [id number] MD Lizette Waterman 14 IM [address] [facility] [place] [address] 05/08/2023 15:09:58 05/15/2023 09:48:20 Diabetes mellitus 64586356 E11.9 Essential hypertension 57922213 I10 Type 2 savannah betes mellitus 66995572 E11.9 [id number] MD Lizette Waterman 14 IM [address] [facility] [place] [address] 08/08/2023 15:47:57 08/15/2023 12:45:26 Type 2 diabetes mellitus 05637938 E11.9 HgbA1c has improved from 9.2 on 05-08-23 to 8.4 at visit today! HIV screen ing declined 5922012379 51924 Z53.20 [id number] MD Lizette Waterman 14 IM [address] [facility] [place] [address] 02/06/2024 16:15:56 02/18/2024 11:49:30 Type 2 diabetes mellitus 67158004 E11.9 History of pneumonia 161 322398 Z87.01 Cough 47063503 R05.9 Acute otit is externa of right ear 1839670200 519460 H60.953 [id number] MD Lizette Waterman [address] IM [address] [facility] [place] [address] 06/02/2024 10:19:19 06/04/2024 15:11:29 Urinary symptoms 523156429 R39.9 Sore throat 304259867 J0 2.9 Overweight 761546766 E66 .3 BMI-29.8 Type 2 savannah betes mellitus 95341725 E11.9 HgbA1c has increased again--pt states that she is still drinking regular soda--she shows no interest in changing this Pain of knee region 1003 644172 M25.569 Health Concerns Section Related Observation LastModified by Organization Detai ls LastModified Time None Recorded Concern Status LastModified by Organization Details LastModified Time None Recorded Advance Directives Directive N: Payers Encounter Date Sequence Insurance Name Policy Number Policy Eli Covered Member ID Eli Member ID Guarantor Name 02/06/2023 1 [facility] ON OR AFTER 10/27/20 (MEDICAID REPLACEMENT - HMO) Bekah Melendez [id number] Bekah Melendez 05/08/2023 1 [facility] ON OR AFTER 10/27/20 (MEDICAID REPLACEMENT - HMO) Bekah Melendez [id number] Bekah Melendez 08/08/2023 1 [facility] ON OR AFTER 10/27/20 (MEDICAID REPLACEMENT - HMO) Bekah Melendez [id number] Bekah Melendez 02/06/2024 1 [facility] ON OR AFTER 10/27/20 (MEDICAID REPLACEMENT - HMO) Bekah Melendez [id number] Bekah Melendez 06/02/2024 1 [facility] ON OR AFTER 10/27/20 (MEDICAID REPLACEMENT - HMO) Bekah Melendez [id number] Bekah Melendez Notes Date Note Type Note Provider Name and Address Organization Details Recorded Time 02/06/2023 text/html As per intake note. Pt is tolerating trulicity. Denny Gabriel MD Attn: [address] [place], [address], [place] [facility] 02/11/2023 13:54:07 05/08/2023 text/html Regular checkup. Pt is taking trulicity and tolerating it. Denny Gabriel MD Attn: [address] [place], [address], [place] [facility] 05/13/2023 07:54:52 08/08/2023 text/html Per intake note. Denny alvarado MD Attn: [address] [place], [address], [place] [facility] 08/12/2023 15:17:23 02/06/2024 text/html Per intake note. Denny alvarado MD Attn: [address] [place], [address], [place] [facility] 02/15/2024 08:15:57 06/02/2024 text/html Per intake note. 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 Denny Gabriel MD Attn: [address] [place], [address], [place] [facility] 06/03/2024 17:47:47 OBGyn Episode No OBEpisode recorded.
--- OUTSIDE RECORDS SUMMARY | 2024-06-23 10:57 | XMS_ITS | Patient Health Summary ---
Author Organization [facility] Address [address] [place] [address] Care Team Providers Care Sidewalk Repairer Name Role Phone Denny Smyth MD Primary Care Provider [phone] Note from [facility],non-owned Affiliates and Associated Physician Practices is amultiple site organization consisting of ambulatory clinics and hospital sitesin [place], [place], [place]. This disclosure is being madepursuant to the Care Everywhere program and may not contain all information available regarding this patient. Last updated 18.[facility] Allergies * Sulfa Drugs(Headache) Medications * Be aware that medications may not be up to date on this document. Alwaysverify current medications with the patient. * glipiZIDE (GLUCOTROL) 10 MG tablet(Started 06/29/2018) Take 1 (one) tablet by mouth daily before breakfast * triamcinolone acetonide (KENALOG) 0.1 % ointment(Started 09/29/2018) Apply to psoriasis on legs, elbows twice daily. 30 days supply. 3 refills remaining * metFORMIN (Glucophage) 500 MG tablet Take 2 (two) tablets by mouth 2 times daily with morning and evening meal * canagliflozin (Invokana) 300 MG tablet Take 300 mg by mouth daily before breakfast * linaGLIPtin (Tradjenta) 5 MG tablet Take 1 (one) tablet by mouth once daily * amLODIPine (Norvasc) 5 MG tablet Take 1 (one) tablet by mouth once daily * famotidine (Pepcid) 20 MG tablet Take 1 (one) tablet by mouth 2 times daily * Cholecalciferol (Vitamin D) 50 MCG (2000 UT) capsule Take 1 (one) capsule by mouth once daily * Biotin 5000 MCG * SITagliptin (Januvia) 100 MG tablet Take 100 mg by mouth once daily * metoprolol succinate XL 24hr (Toprol XL) 50 MG tablet(Started 06/07/2023) Take 1 tablet by mouth once daily 3 refills by 06/06/2024 * metoprolol succinate XL 24hr (Toprol XL) 100 MG tablet(Started 06/07/2023) Take 1 (one) tablet by mouth once daily 3 refills by 06/06/2024 Active Problems No known active problems Social History Tobacco Use Types Packs/Day Years Used Date Smoking Tobacco: Never Smokeless Tobacco: Never Tobacco Cessation:Counseling Given: Not Answered Alcohol Use Standard Drinks/Week Comments Yes 0 (1 standard drink = 0.6 oz pur e alcohol) occasional Sex and Gender Information Value Date Recorded Sex Assigned at Not on file Gender Identity Not on file Sexual Orientation Not on file Last Filed Vital Signs Vital Sign Reading Time Taken Comments Blood Pressure 130/90 05/08/2022 1:33 PM BUSINESS INTELLIGENCE ANALYST Pulse 64 05/08/2022 1:33 PM BUSINESS INTELLIGENCE ANALYST Temperature 36.7 C (98.1 F) 05/08/2022 1:33 PM BUSINESS INTELLIGENCE ANALYST Respiratory Rate - - Oxygen Saturation 97% 05/08/2022 1:33 PM BUSINESS INTELLIGENCE ANALYST Inhaled Oxygen Concentration - - Weight 79.4 kg (175 lb) 05/08/2022 1:33 PM BUSINESS INTELLIGENCE ANALYST Height 160 cm (5' 3 ) 05/08/2022 1:33 PM BUSINESS INTELLIGENCE ANALYST Body Mass Index 31 05/08/2022 1:33 PM BUSINESS INTELLIGENCE ANALYST Medical Devices Implanted Type Area [employer] Device Identifier Shelf Expiration Date Model / Serial / Lot Loop Recorder Loop Recorder Biotronik BIOMONITOR III Procedures * CARDIAC PROCEDURE ORDER(Performed 06/17/2024) * MO ILR DEVICE INTERROGAT REMOTE(Performed 05/23/2024) Performed for Palpitations, PVC (premature ventricular contraction) * CARDIAC PROCEDURE ORDER(Performed 05/14/2024) * MO ILR DEVICE INTERROGAT REMOTE(Performed 04/25/2024) Performed for Palpitations, PVC (premature ventricular contraction), Cardiomyopathy, unspecified type (HCC) * CARDIAC PROCEDURE ORDER(Performed 04/09/2024) * MO ILR DEVICE INTERROGAT REMOTE(Performed 03/13/2024) Performed for Palpitations, PVC (premature ventricular contraction), Cardiomyopathy, unspecified type (HCC) * CARDIAC PROCEDURE ORDER(Performed 03/06/2024) * MO ILR DEVICE INTERROGAT REMOTE(Performed 02/09/2024) Performed for Palpitations, PVC (premature ventricular contraction), Arrhythmia, chcf * CARDIAC PROCEDURE ORDER(Performed 01/31/2024) * MO INTG DVC E R 30 D;REC TRANS & TR(Performed 01/05/2024) Performed for Palpitations, PVC (premature ventricular contraction) * MO ILR DEVICE INTERROGAT REMOTE(Performed 01/05/2024) Performed for Palpitations, PVC (premature ventricular contraction) * CARDIAC PROCEDURE ORDER(Performed 12/25/2023) * PROC EKG IN CLINIC(Performed 05/08/2022) Performed for Palpitations * MRI CARDIAC STUDY WWO CONTRAST(Performed 05/02/2022) Performed for LVH (left ventricular hypertrophy), Cardiomyopathy, unspecified type (HCC) * BASIC METABOLIC PANEL (CALCIUM TOTAL)(Performed 04/03/2022) * MAGNESIUM BLOOD(Performed 04/03/2022) * CARDIAC PROCEDURE ORDER(Performed 02/06/2022) * PROC EKG IN CLINIC(Performed 01/30/2022) 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, 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 * HEPATITIS B SURFACE ANTIGEN W RFLX CONFIRMATION(Performed 09/08/2018) Performed for Psoriasis, Arthralgia, unspecified joint, Elevated transaminase measurement, Type 2 diabetes mellitus with complication, unspecified whether chcf insulin use, Vitamin D deficiency * HEPATITIS C ANTIBODY(Performed 09/08/2018) Performed for Psoriasis, Arthralgia, unspecified joint, Elevated transaminase measurement, Type 2 diabetes mellitus with complication, unspecified whether 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 insulin use, Vitamin D deficiency * XR CHEST 2VW(Performed 07/31/2018) Performed for Psoriasis, Chronic pain of both knees, Polyarthralgia, Type 2 diabetes mellitus with complication, without long-term current use of insulin (HCC), Essential hypertension * XR KNEE RIGHT 3VW(Performed 07/31/2018) Performed for Psoriasis, Chronic pain of both knees, Polyarthralgia, Type 2 diabetes mellitus with complication, without long-term current use of insulin ([facility]), Essential hypertension * XR KNEE LEFT 3VW(Performed 07/31/2018) Performed for Psoriasis, Chronic pain of both knees, Polyarthralgia, Type 2 diabetes mellitus with complication, without long-term current use of insulin ([facility]), Essential hypertension * QUANTIFERON-TB GOLD PLUS 4-TUBE(Performed 07/31/2018) Performed for Psoriasis, Chronic pain of both knees, Polyarthralgia, Type 2 diabetes mellitus with complication, without long-term current use of insulin ([facility]), Essential hypertension * HLA TYPING B27(Performed 07/31/2018) Performed for Psoriasis, Chronic pain of both knees, Polyarthralgia, Type 2 diabetes mellitus with complication, without long-term current use of insulin ([facility]), Essential hypertension * LDH BLOOD(Performed 07/31/2018) Performed for Psoriasis, Chronic pain of both knees, Polyarthralgia, Type 2 diabetes mellitus with complication, without long-term current use of insulin ([facility]), Essential hypertension * ALDOLASE(Performed 07/31/2018) Performed for Psoriasis, Chronic pain of both knees, Polyarthralgia, Type 2 diabetes mellitus with complication, without long-term current use of insulin ([facility]), Essential hypertension * CK BLOOD(Performed 07/31/2018) Performed for Psoriasis, Chronic pain of both knees, Polyarthralgia, Type 2 diabetes mellitus with complication, without long-term current use of insulin ([facility]), Essential hypertension * URINALYSIS REFLEX TO MICROSCOPIC NO CULTURE(Performed 07/31/2018) Performed for Psoriasis, Chronic pain of both knees, Polyarthralgia, Type 2 diabetes mellitus with complication, without long-term current use of insulin ([facility]), Essential hypertension * VITAMIN D 25-HYDROXY(Performed 07/31/2018) Performed for Psoriasis, Chronic pain of both knees, Polyarthralgia, Type 2 diabetes mellitus with complication, without long-term current use of insulin ([facility]), Essential hypertension * ERYTHROCYTE SEDIMENTATION RATE(Performed 07/31/2018) Performed for Psoriasis, Chronic pain of both knees, Polyarthralgia, Type 2 diabetes mellitus with complication, without long-term current use of insulin ([facility]), Essential hypertension * C-REACTIVE PROTEIN(Performed 07/31/2018) Performed for Psoriasis, Chronic pain of both knees, Polyarthralgia, Type 2 diabetes mellitus with complication, without long-term current use of insulin (HCC), Essential hypertension * COMPREHENSIVE METABOLIC PANEL(Performed 07/31/2018) Performed for Psoriasis, Chronic pain of both knees, Polyarthralgia, Type 2 diabetes mellitus with complication, without long-term current use of insulin (HCC), Essential hypertension * CBC W AUTO DIFFERENTIAL(Performed 07/31/2018) Performed for Psoriasis, Chronic pain of both knees, Polyarthralgia, Type 2 diabetes mellitus with complication, without long-term current use of insulin (HCC), Essential hypertension Results * CARDIAC PROCEDURE ORDER (06/17/2024) Only the most recent of7 resultswithin the time period is included. Narrative 06/17/2024 Ordered by an unspecified provider. Scanned Document CARDIAC SERVICES ORD ERABLES * MO ILR DEVICE INTERROGAT REMOTE (05/23/2024 1:36 PM BUSINESS INTELLIGENCE ANALYST) Narrative Ricardo Hoskins MD - 05/23/2024 1:36 PM BUSINESS INTELLIGENCE ANALYST Ricardo Hoskins MD 05/23/2024 1:36 PM Dear Bekah Melendez, I reviewed the remote interrogation of your loop recorder. Your device's sensing is appropriate and stable. During this most recent monitored period ending on 05/13/2024 your atrial fibrillation/tachycardia burden was 0% and you had no significant arrhythmias. Device function is normal, no programming changes are required, and no medications will need to be changed. Please call our offices if you have any further questions. Sincerely, Ricardo Hoskins 05/23/2024 Ricardo Hoskins MD PROCEDURE/MINOR SURG ICAL ORDERABLES * MO ILR DEVICE INTERROGAT REMOTE (04/25/2024 10:31 PM BUSINESS INTELLIGENCE ANALYST) Narrative Ricardo Hoskins MD - 04/25/2024 10:31 PM BUSINESS INTELLIGENCE ANALYST Ricardo Hoskins MD 04/25/2024 10:32 PM Dear Bekah Melendez, I reviewed the remote interrogation of your loop recorder. Your device's sensing is appropriate and stable. During this most recent monitored period (12/11/2022 to 04/10/2024), your atrial fibrillation/tachycardia burden was 0% and you had no arrhythmias. Device function is normal, no programming changes are required, and no medications will need to be changed. Please call our offices if you have any further questions. Sincerely, Ricardo Hoskins 04/25/2024 Ricardo Hoskins MD PROCEDURE/MINOR SURG ICAL ORDERABLES * MO ILR DEVICE INTERROGAT REMOTE (03/13/2024 2:52 AM BUSINESS INTELLIGENCE ANALYST) Ricardo Johnson MD - 03/13/2024 2:52 AM BUSINESS INTELLIGENCE ANALYST Ricardo Hoskins MD 03/13/2024 2:53 AM Dear Bekah Melendez, I reviewed the remote interrogation of your loop recorder. Your device's sensing is appropriate and stable. During this most recent monitored period (12/12/2023 to 03/05/2024), your atrial fibrillation/tachycardia burden was 0%. Device function is normal, no programming changes are required, and no medications will need to be changed. Please call our offices if you have any further questions. Sincerely, Ricardo Hoskins 03/13/2024 Ricardo Hoskins MD PROCEDURE/MINOR SURG ICAL ORDERABLES * MO ILR DEVICE INTERROGAT REMOTE (02/09/2024 10:52 PM CDT) Ricardo Johnson MD - 02/09/2024 10:52 PM CDT Ricardo Hoskins MD 02/09/2024 10:53 PM Dear Bekah Melendez I reviewed the remote interrogation of your loop recorder. Your device's sensing is appropriate and stable. During this most recent monitored period (12/11/2022 to 01/31/2024), your atrial fibrillation/tachycardia burden was 0% and you had no arrhythmias. Device function is normal, no programming changes are required, and no medications will need to be changed. Please call our offices if you have any further questions. Sincerely, Ricardo Hoskins 02/09/2024 Ricardo Hoskins MD PROCEDURE/MINOR SURG ICAL ORDERABLES * MO ILR DEVICE INTERROGAT REMOTE, MO INTG DVC E R 30 D;REC TRANS & TR (01/05/2024 6:24 PM CDT) Ricardo Johnson MD - 01/05/2024 6:24 PM CDT Ricardo Hoskins MD 01/05/2024 6:25 PM Dear Bekah Melendez, I reviewed the remote interrogation of your loop recorder. Your device's sensing is appropriate and stable. During this most recent monitored period ending on 12/25/2023 your atrial fibrillation/tachycardia burden was 0% and you had no significant arrhythmias. Device function is normal, no programming changes are required, and no medications will need to be changed. Please call our offices if you have any further questions. Sincerely, Ricardo Hoskins 01/05/2024 Ricardo Hoskins MD PROCEDURE/MINOR SURG ICAL ORDERABLES * PROC EKG IN CLINIC (05/08/2022 3:11 PM BUSINESS INTELLIGENCE ANALYST) Only the most recent of2 resultswithin the time period is included. Narrative Araceli Geronimo MD - 05/08/2022 3:11 PM BUSINESS INTELLIGENCE ANALYST Araceli Geronimo MD 05/08/2022 3:11 PM (No note.) Araceli Geronimo MD ECG ORDERABL ES * MRI CARDIAC STUDY WWO CONTRAST (05/02/2022 4:26 PM BUSINESS INTELLIGENCE ANALYST) Anatomical Region Laterality Modality Chest Magnetic Resonan ce 05/03/2022 8:31 AM BUSINESS INTELLIGENCE ANALYST Impressions 05/03/2022 10:13 AM BUSINESS INTELLIGENCE ANALYST IMPRESSION: Minimal left ventricular hypertrophy without focal wall motion abnormality. > Dictated by Artur Elizondo MD (residential mortgage underwriter) I, Cruz Ortega MD have personally reviewed and interpreted this examination/study. > Interpreting Provider: Cruz Ortega MD on 05/03/2022 10:13 AM Narrative 05/03/2022 10:13 AM BUSINESS INTELLIGENCE ANALYST PROCEDURE: MRI CARDIAC STUDY WWO CONTRAST, DATE/TIME OF EXAM: 05/02/2022 4:36 PM, LOCATION [facility] INDICATION: I51.7: LVH (left ventricular hypertrophy) I42.9: Cardiomyopathy, unspecified type (CMS/HCC) ADDITIONAL CLINICAL INFORMATION: Ordering Provider Reason For Exam: Rule out cardiomyopathy, LVH on echocardigram, PVCs Additional: 41 year oldfemalewith PMH significant for HTN, Psoriasis, Loop recorder(biotronik), Long QT. [facility] last [facility] in [facility]. She was sitting in her car eating breakfast before work when she saw her HR increase 120-130s on her smart watch. With elevated HR, she also developed chest pain, palpitations, headache, nausea and pre syncope. Denies syncope. States symptoms and elevated HR lasted several hours until she converted in ED afterreceiving IV fluids and IVmetoprolol. Assoc symptoms resolved with conversion back to SR. COMPARISON: None. TECHNIQUE: MRI of the heart was performed prior to and following the uneventful administration of [20 mL] intravenous gadolinium contrast according to a custom protocol monitored by the radiologist. CONTRAST: 20 mm MultiHance Estimated GFR: >60 mL/min/1.73 m2 Creatinine: 0.80 mg/dL HR: 61 bpm, Height: 63 inches, Weight: 170.85 lb, BSA: 1.81 m2 Findings: Morphology: A left aortic arch is present. The visible aorta and pulmonary artery are normal in course and caliber. The right ventricle is normal in size without evidence of focal wall motion abnormality. Minimal left ventricular hypertrophy is noted without focal wall motion abnormality. No pericardial effusion is seen. Valves: The aortic, pulmonic, tricuspid, and mitral valves are normal. Left ventricular function is as follows: Ejection fraction 69.1% End-diastolic volume 111.23 mL (corrected 61.48 mL) End-systolic volume 34.4 mL (corrected 19 mL) Stroke-volume 76.9 mL (corrected 42.5 mL) Noncardiac findings: The visible lungs are clear. There is no mediastinal lymphadenopathy. Procedure Note Cruz Ortega MD - 05/03/2022 PROCEDURE: MRI CARDIAC STUDY WWO CONTRAST, DATE/TIME OF EXAM: 05/02/2022 4:36 PM, LOCATION [facility] INDICATION: I51.7: LVH (left ventricular hypertrophy) I42.9: Cardiomyopathy, unspecified type (CMS/HCC) ADDITIONAL CLINICAL INFORMATION: Ordering Provider Reason For Exam: Rule out cardiomyopathy, LVH on echocardigram, PVCs Additional: 41 year oldfemalewith PMH significant for HTN, Psoriasis,Loop recorder(biotronik), Long QT. Patient last seen in [facility] cardi[facility] clinic. [facility]. She was sitting in her car eating breakfast before work when she saw herHR increase 120-130s on her smart watch. With elevated HR, she alsodeveloped chest pain, palpitations, headache, nausea and pre syncope. Deniessyncope. States symptoms and elevated HR lasted several hours until she convertedin ED afterreceiving IV fluids and IVmetoprolol. Assoc symptoms resolvedwith conversion back to SR. COMPARISON: None. TECHNIQUE: MRI of the heart was performed prior to and following the uneventful administration of [20 mL] intravenous gadolinium contrast according to a custom protocol monitored by the radiologist. CONTRAST: 20 mm MultiHance Estimated GFR: >60 mL/min/1.73 m2 Creatinine: 0.80 mg/dL HR: 61 bpm, Height: 63 inches, Weight: 170.85 lb, BSA: 1.81 m2 Findings: Morphology: A left aortic arch is present. The visible aorta andpulmonary artery are normal in course and caliber. The right ventricle is normalin size without evidence of focal wall motion abnormality. Minimal left ventricular hypertrophy is noted without focal wall motion abnormality.No pericardial effusion is seen. Valves: The aortic, pulmonic, tricuspid, and mitral valves are normal. Left ventricular function is as follows: Ejection fraction 69.1% End-diastolic volume 111.23 mL (corrected 61.48 mL) End-systolic volume 34.4 mL (corrected 19 mL) Stroke-volume 76.9 mL (corrected 42.5 mL) Noncardiac findings: The visible lungs are clear. There is no mediastinal lymphadenopathy. IMPRESSION: Minimal left ventricular hypertrophy without focal wall motionabnormality. > Dictated by Artur Elizondo MD (residential mortgage underwriter) I, Cruz Ortega MD have personally reviewed and interpreted this examination/study. > Interpreting Provider: Cruz Ortega MD on 05/03/2022 10:13 AM Araceli Geronimo MD MR ORDERABLE S * (ABNORMAL) BASIC METABOLIC PANEL (CALCIUM TOTAL) (04/03/2022 1:50 PM BUSINESS INTELLIGENCE ANALYST) Glucose 288(H) 65 - 139 mg/dL [facility] Comment: Non-fasting reference interval BUN 8 7 - 25 mg/dL [facility] Creatinine 0.80 0.50 - 0.99 mg/dL [facility] eGFR by Cystatin C 94 > OR = 60 mL/min/1. 73m2 [facility] Comment: The eGFR is based on the CKD-EPI 2020 equation. To calculate the new eGFR from a previous Creatinine or Cystatin C result, go to https://www.kidney.org/professionals/ kdoqi/gfr%5Fcalculator BUN/Creatinine Ratio NOT APPLICABLE (calc) [facility] Sodium 137 135 - 146 mmol/L [facility] Potassium 4.2 3.5 - 5.3 mmol/L [facility] Chloride 100 98 - 110 mmol/L [facility] CO2 28 20 - 32 mmol/L [facility] Calcium 9.9 8.6 - 10.2 mg/dL [facility] Comment: REPORT COMMENT: FASTING:NO Test Performed at: [facility] [id number] [place] [address] YADI VIDAL DO,MPH 04/03/2022 1:50 PM BUSINESS INTELLIGENCE ANALYST 04/03/2022 1:51 PM BUSINESS INTELLIGENCE ANALYST Estrella Marcelo [employer] LAB - CHEMISTR Y ORDERABLES Performing Organization Address [facility] de Phone Number [facility] [address] [place] [address] * MAGNESIUM BLOOD (04/03/2022 1:50 PM BUSINESS INTELLIGENCE ANALYST) Pathologist [facility] Magnesium 2.0 1.5 - 2.5 mg/dL [facility] Comment: Test Performed at: [facility] [place] [address] YADI VIDAL DO,MPH 04/03/2022 1:50 PM BUSINESS INTELLIGENCE ANALYST 04/03/2022 1:51 PM BUSINESS INTELLIGENCE ANALYST Estrella Marcelo TANK BUILDER-PROFESSOR OF MANAGEMENT LAB - CHEMISTR Y ORDERABLES Performing Organization Address [facility] Co de Phone Number [facility] [address] [place] [address] * HEPATITIS B SURFACE ANTIGEN W RFLX CONFIRMATION (09/08/2018 4:25 PM CDT) Hepatitis B Virus Surface Antigen Non-reacti ve Non-reacti ve 09/08/2018 5:49 PM CDT [facility] Blood BLOOD SPECIMEN / Unknown Lab Venipuncture / Unknown 09/08/2018 4:25 PM CDT 09/08/2018 4:30 PM CDT Diana Banks DO LAB - CHEMISTRY JOVANY MARES Performing Organization Address [facility]/ZIP Co de Phone Number [address] [phone] * HEPATITIS C ANTIBODY (09/08/2018 4:25 PM CDT) Hepatitis C Antibody Non-react noe Non-reac tive 09/08/2018 5:49 PM CDT [facility] Comment: Hepatitis C Antibody screen indicates no serologic evidence of past or current infection with Hepatitis C Virus. Patients with unexplained liver disease who are immunocompromised or suspected of having acute Hepatitis C infection may benefit from Nucleic Acid Test (MIGDALIA) for Hepatitis C Viral RNA to confirm Hepatitis C status. Blood BLOOD SPECIMEN / Unknown Lab Venipuncture / Unknown 09/08/2018 4:25 PM CDT 09/08/2018 4:30 PM CDT Diana Banks DO LAB - CHEMISTRY JOVANY MARES Performing Organization Address [facility] Co de Phone Number [address] [phone] * XR KNEE RIGHT 3VW (07/31/2018 10:27 AM CDT) Anatomical Region Laterality Modality Lower Extremity Radiographic Sarah ging 07/31/2018 10:3 4 AM CDT Impressions 07/31/2018 10:40 AM CDT IMPRESSION: No acute osseous injury or arthritis of bilateral knees. Report dictated by Robin Boykin MD (residential mortgage underwriter). I, Dr. CACHORRO ALMODOVAR MD have personally reviewed and interpreted this examination/study. This report was electronically signed by CACHORRO ALMODOVAR MD on 07/31/2018 10:40 AM . Narrative 07/31/2018 10:40 AM CDT EXAMINATION: 1. Right knee, 3 views 2. Left knee, 3 views HISTORY: History of Knee Pain, Psoriasis COMPARISON: No prior study is available for comparison at the time of this dictation. FINDINGS: Right knee: No acute fracture or dislocation is identified. The joint spaces are preserved. No erosions are seen. No joint effusion is seen. Bone density and texture are normal. No soft tissue swelling is present. Left knee: No acute fracture or dislocation is identified. The joint spaces are preserved. No erosions are seen. No joint effusion is seen. Bone density and texture are normal. No soft tissue swelling is present. Procedure Note Cachorro Almodovar MD - 07/31/2018 EXAMINATION: 1. Right knee, 3 views 2. Left knee, 3 views HISTORY: History of Knee Pain, Psoriasis COMPARISON: No prior study is available for comparison at the time of this dictation. FINDINGS: Right knee: No acute fracture or dislocation is identified. The joint spaces are preserved. No erosions are seen. No joint effusion is seen. Bone density and texture are normal. No soft tissue swelling is present. Left knee: No acute fracture or dislocation is identified. The joint spaces are preserved. No erosions are seen. No joint effusion is seen. Bone density and texture are normal. No soft tissue swelling is present. IMPRESSION: No acute osseous injury or arthritis of bilateral knees. Report dictated by Robin Boykin MD (residential mortgage underwriter). Dr. CACHORRO De Leon MD have personally reviewed and interpreted this examination/study. This report was electronically signed by CACHORRO ALMODOVAR MD on07/31/2018 10:40 AM . Diana Banks DO DIAGNOSTIC IMAGING O RDERABLES * XR KNEE LEFT 3VW (07/31/2018 10:27 AM CDT) Anatomical Region Laterality Modality Lower Extremity Radiographic Sarah ging 07/31/2018 10:3 4 AM CDT Impressions 07/31/2018 10:40 AM CDT IMPRESSION: No acute osseous injury or arthritis of bilateral knees. Report dictated by Robin Boykin MD (residential mortgage underwriter). Dr. CACHORRO De Leon MD have personally reviewed and interpreted this examination/study. This report was electronically signed by CACHORRO ALMODOVAR MD on 07/31/2018 10:40 AM . Narrative 07/31/2018 10:40 AM CDT EXAMINATION: 1. Right knee, 3 views 2. Left knee, 3 views HISTORY: History of Knee Pain, Psoriasis COMPARISON: No prior study is available for comparison at the time of this dictation. FINDINGS: Right knee: No acute fracture or dislocation is identified. The joint spaces are preserved. No erosions are seen. No joint effusion is seen. Bone density and texture are normal. No soft tissue swelling is present. Left knee: No acute fracture or dislocation is identified. The joint spaces are preserved. No erosions are seen. No joint effusion is seen. Bone density and texture are normal. No soft tissue swelling is present. Procedure Note Cachorro Almodovar MD - 07/31/2018 EXAMINATION: 1. Right knee, 3 views 2. Left knee, 3 views HISTORY: History of Knee Pain, Psoriasis COMPARISON: No prior study is available for comparison at the time of this dictation. FINDINGS: Right knee: No acute fracture or dislocation is identified. The joint spaces are preserved. No erosions are seen. No joint effusion is seen. Bone density and texture are normal. No soft tissue swelling is present. Left knee: No acute fracture or dislocation is identified. The joint spaces are preserved. No erosions are seen. No joint effusion is seen. Bone density and texture are normal. No soft tissue swelling is present. IMPRESSION: No acute osseous injury or arthritis of bilateral knees. Report dictated by Robin Boykin MD (residential mortgage underwriter). Dr. CACHORRO De Leon MD have personally reviewed and interpreted this examination/study. This report was electronically signed by CACHORRO ALMODOVAR MD on07/31/2018 10:40 AM . Diana Banks DO DIAGNOSTIC IMAGING O RDERABLES * XR CHEST 2VW (07/31/2018 10:27 AM CDT) Anatomical Region Laterality Modality Chest Radiographic Sarah ging 07/31/2018 10:5 1 AM CDT Impressions 07/31/2018 4:00 PM CDT IMPRESSION: No acute pulmonary process. Dictated by Beena Hearn MD (residential mortgage underwriter). Dr. CACHORRO DeL eon MD have personally reviewed and interpreted this examination/study. This report was electronically signed by CACHORRO ALMODOVAR MD on 07/31/2018 4:00 PM . Narrative 07/31/2018 4:00 PM CDT EXAMINATION: XR CHEST 2VW HISTORY: plan to start TNF-i COMPARISON: No prior study is available for comparison at the time of this dictation. FINDINGS: There is no focal consolidation, pleural effusion, or pneumothorax. The cardiomediastinal silhouette is normal. Procedure Note Cachorro Almodovar MD - 07/31/2018 EXAMINATION: XR CHEST 2VW HISTORY: plan to start TNF-i COMPARISON: No prior study is available for comparison at the time ofthis dictation. FINDINGS: There is no focal consolidation, pleural effusion, or pneumothorax. The cardiomediastinal silhouette is normal. IMPRESSION: No acute pulmonary process. Dictated by Beena Hearn MD (residential mortgage underwriter). I, Dr. CACHORRO ALMODOVAR MD have personally reviewed and interpreted this examination/study. This report was electronically signed by CACHORRO ALMODOVAR MD on07/31/2018 4:00 PM . Diana Banks DO DIAGNOSTIC IMAGING O RDERABLES * QUANTIFERON-TB GOLD PLUS 4-TUBE (07/31/2018 10:21 AM CDT) QuantiFERON Criteria Comment 08/02/2018 5:07 PM CDT [facility] ([facility]) Comment: The QuantiFERON-TB Gold Plus result is determined by subtracting the Nil value from either TB antigen (Ag) tube. The mitogen tube serves as a control for the test. QuantiFERON TB1 Ag Value 0.01 IU/mL 08/02/2018 5:07 PM CDT [facility] ([facility]) QuantiFERON TB2 Ag Value 0.01 IU/mL 08/02/2018 5:07 PM CDT [facility] ([facility]) QuantiFERON Nil Value 0.02 IU/mL 08/02/2018 5:07 PM CDT [facility] ([facility]) QuantiFERON Mitogen Value >10.00 IU/mL 08/02/2018 5:07 PM CDT [facility] ([facility]) QuantiFERON-TB Gold Plus Negative Negative 08/02/2018 5:07 PM CDT [facility] ([facility]) Comment: The specimen received for QuantiFERON testing was incubated by the ordering institution. Specific procedures outlined in our Directory of Services and in the package insert for the QuantiFERON Gold (In Tube) test must be followed to enable for proper stimulation of cells for the production of interferon gamma. Blood BLOOD SPECIMEN / Unknown Lab Venipuncture / Unknown 07/31/2018 10:21 AM CDT 07/31/2018 10:31 AM CDT Narrative [facility] ([facility]) - 08/02/2018 5:07 PM CDT Performed at: - [facility] [address], [place] [id number] Netsuite Consultant: Vance Pompa PhD, Phone: [phone] Diana Banks DO LAB - CHEMISTRY JOVANY MARES [facility] ([facility]) [address] [place] [address], [facility] * (ABNORMAL) URINALYSIS REFLEX TO MICROSCOPIC NO CULTURE (07/31/2018 10:21 AM CDT) Color UA Yellow Straw, Yellow, Colorless 07/31/2018 10:53 AM T [facility] Clarity UA Slt Cloudy Clear, t Cloudy 07/31/2018 10:53 AM T [facility] LABORATORY [facility] Specific [place] UA 1.019 1.005 - 1.030 07/31/2018 10:53 AM [facility] pH UA 5.0 5.0 - 8.0 pH 07/31/2018 10:53 AM [facility] Protein UA Negative Negative mg/dL 07/31/2018 10:53 AM [facility] Glucose UA Negative Negative mg/dL 07/31/2018 10:53 AM [facility] Ketone UA Negative Negative mg/dL 07/31/2018 10:53 AM [facility] Bilirubin UA Negative Negative mg/dL 07/31/2018 10:53 AM [facility] Blood UA Negative Negative 07/31/2018 10:53 AM [facility] Nitrite UA Negative Negative 07/31/2018 10:53 AM [facility] Leukocyte Esterase 1+(A) Negative 07/31/2018 10:53 AM [facility] Urobilinogen UA Negative Negative mg/dL 07/31/2018 10:53 AM CDT [facility] RBC UA 0-2 None Seen, 0-2, 3-5 /HPF 07/31/2018 10:53 AM CDT [facility] WBC UA 0-5 None Seen, 0-5 /HPF 07/31/2018 10:53 AM CDT [facility] Squamous Epithelial Cells UA 3-5(A) None Seen, 0-2 /HPF 07/31/2018 10:53 AM CDT [facility] Mucus UA 1+ None, 1+ /LPF 07/31/2018 10:53 AM CDT [facility] Urine URINE SPECIMEN OBTAINED BY CLEAN CATCH PROCEDURE / Unknown Collection / Unknown 07/31/2018 10:21 AM CDT 07/31/2018 10:26 AM CDT Diana Banks DO LAB - URINALYSIS ORD ERABLES Performing Organization Address [facility]/ZIP Co de Phone Number [address] [phone] * (ABNORMAL) C-REACTIVE PROTEIN (07/31/2018 10:21 AM CDT) C-Reactive Protein 1.1(H) <=0.5 mg/dL 07/31/2018 11:10 AM CDT [facility] Blood BLOOD SPECIMEN / Unknown Lab Venipuncture / Unknown 07/31/2018 10:21 AM CDT 07/31/2018 10:26 AM CDT Diana Banks DO LAB - CHEMISTRY ORDE RABLES [address] [phone] * HLA TYPING B27 (07/31/2018 10:21 AM CDT) HLA-B27 Negative Negative 08/01/2018 7:39 PM CDT [facility] [employer] ([facility]) Comment: INTERPRETIVE INFORMATION: HLA-B27 HLA-B27 is a serologically defined allele of the human HLA-B locus. The presence of the HLA-B27 antigen is strongly associated with ankylosing spondylitis and related disorders. Test developed and characteristics determined by [facility] [employer] [facility]. See Compliance Statement B: [email or web address]/CS Performed by [facility], [address] [place] [id number] [email or web address], Sheldon Robb MD, Lab. Director Blood BLOOD SPECIMEN / Unknown Lab Venipuncture / Unknown 07/31/2018 10:21 AM CDT 07/31/2018 10:26 AM CDT Diana Cotodarnell CUE[facility]AS LAB - CHEMISTRY JOVANY MARES Performing Organization Address [facility] Co de Phone Number [facility] [employer] ([facility]) [address] [place] [id number] * (ABNORMAL) VITAMIN D 25-HYDROXY (07/31/2018 10:21 AM CDT) Vitamin D, 25 Hydroxy 23.8(L) See comment: ng/mL 07/31/2018 11:31 AM CDT [facility] Comment: The recommendations for 25-Hydroxy Vitamin D clinical decision points are as follows: Deficient: <20.0 ng/mL Insufficient: 20.0 - 29.9 ng/mL Sufficient: > or =30.0 ng/mL If the 25-Hydroxy Vitamin D results are inconsitent with clinical evidence, it is recommended that follow-up testing using a method such as LC/MS/MS be performed to confirm the result. Reference: The Endocrine Society Clinical Practice Guidelines. 2011 Blood BLOOD SPECIMEN / Unknown Lab Venipuncture / Unknown 07/31/2018 10:21 AM CDT 07/31/2018 10:26 AM CDT Diana Banks DO LAB - CHEMISTRY [employer] MARES Performing Organization Address City/[facility]/ZIP Co de Phone Number [address] [phone] * ALDOLASE (07/31/2018 10:21 AM CDT) Aldolase 7.6 3.3 - 10.3 U/L 08/01/2018 1:12 PM CDT [facility] ([facility]) Blood BLOOD SPECIMEN / Unknown Lab Venipuncture / Unknown 07/31/2018 10:21 AM CDT 07/31/2018 10:26 AM CDT Narrative [facility] ([facility]) - 08/01/2018 1:12 PM CDT Performed at: 01 - [facility] [address], [place] [id number] Netsuite Consultant: Vance Pompa PhD, Phone: [phone] Diana Banks DO LAB - CHEMISTRY JOVANY MARES Performing Organization Address City/[facility]/ZIP Co de Phone Number [facility] ([facility]) [address] [place] [address] * (ABNORMAL) ERYTHROCYTE SEDIMENTATION RATE (07/31/2018 10:21 AM CDT) Pathologist [facility] Erythrocyte Sedimentation Rate Westergren 31(H) 0 - 20 MM/HR 07/31/2018 11:05 AM CDT [facility] Blood BLOOD SPECIMEN / Unknown Lab Venipuncture / Unknown 07/31/2018 10:21 AM CDT 07/31/2018 10:26 AM CDT Diana Banks DO LAB - HEMATOLOGY ORD ROB [facility] [address] [place] [address] * (ABNORMAL) CBC WITH DIFFERENTIAL (07/31/2018 10:21 AM CDT) WBC 9.9 3.5 - 10.5 10 3/uL 07/31/2018 10:50 AM CDT [facility] RBC 5.07(H) 3.90 - 5.00 10 6/uL 07/31/2018 10:50 AM CDT [facility] Hemoglobin 14.9 12.0 - 15.5 g/dL 07/31/2018 10:50 AM CDT [facility] Hematocrit 44.1 35.0 - 45.0 % 07/31/2018 10:50 AM CDT [facility] MCV 87.0 81.0 - 97.0 fL 07/31/2018 10:50 AM [facility] MCH 29.4 28.0 - 34.0 pg 07/31/2018 10:50 AM [facility] MCHC 33.8 32.0 - 36.0 g/dL 07/31/2018 10:50 AM [facility] Platelet Count 368 150 - 400 10 3/uL 07/31/2018 10:50 AM [facility] RDW-SD 40.2 36.0 - 50.0 fL 07/31/2018 10:50 AM [facility] RDW-CV 12.7 11.2 - 14.8 % 07/31/2018 10:50 AM [facility] MPV 10.7 9.3 - 12.8 fL 07/31/2018 10:50 AM [facility] nRBC Absolute 0.00 0 10 /uL 07/31/2018 10:50 AM [facility] nRBC Auto 0.0 0 /100 WBC 07/31/2018 10:50 AM [facility] Neutrophils % 64.4 35.0 - 70.0 % 07/31/2018 10:50 AM [facility] Lymphocytes % 24.7 19.7 - 55.1 % 07/31/2018 10:50 AM [facility] Monocytes % 7.2 3.0 - 15.0 % 07/31/2018 10:50 AM [facility] Eosinophils % 2.4 0.0 - 6.0 % 07/31/2018 10:50 AM [facility] Basophil % 0.7 0.0 - 1.5 % 07/31/2018 10:50 AM [facility] Neutrophils Absolute 6.4 1.6 - 7.0 10 /uL 07/31/2018 10:50 AM [facility] Lymphocyte Absolute 2.4 0.8 - 2.9 10 /uL 07/31/2018 10:50 AM [facility] Monocytes Absolute 0.71(H) 0.14 - 0.66 10 3/uL 07/31/2018 10:50 AM [facility] Eosinophils Absolute 0.24 0.00 - 0.45 10 /uL 07/31/2018 10:50 AM [facility] Basophils Absolute 0.07(H) 0.00 - 0.06 10 3/uL 07/31/2018 10:50 AM [facility] Immature Granulocytes % 0.6 0.0 - 1.0 % 07/31/2018 10:50 AM [facility] Blood BLOOD SPECIMEN / Unknown Lab Venipuncture / Unknown 07/31/2018 10:21 AM CDT 07/31/2018 10:26 AM T Diana Banks DO LAB - HEMATOLOGY ORD ERABLES [facility] [address] [phone] * (ABNORMAL) COMPREHENSIVE METABOLIC PANEL (07/31/2018 10:21 AM CDT) BUN 7 7 - 26 mg/dL 07/31/2018 11:15 AM [facility] Creatinine 0.7 0.6 - 1.2 mg/dL 07/31/2018 11:15 AM [facility] Sodium 138 136 - 145 mmol/L 07/31/2018 11:15 AM [facility] Potassium 4.0 3.5 - 4.5 mmol/L 07/31/2018 11:15 AM [facility] Chloride 101 98 - 107 mmol/L 07/31/2018 11:15 AM [facility] CO2 24 22 - 29 mmol/L 07/31/2018 11:15 AM [facility] Glucose 136(H) 70 - 115 mg/dL 07/31/2018 11:15 AM [facility] Calcium 9.7 8.4 - 10.2 mg/dL 07/31/2018 11:15 AM [facility] Protein Total 7.9 6.0 - 8.3 g/dL 07/31/2018 11:15 AM [facility] Albumin 4.0 3.4 - 5.0 g/dL 07/31/2018 11:15 AM [facility] Bilirubin Total 0.4 0.2 - 1.2 mg/dL 07/31/2018 11:15 AM [facility] Alkaline Phosphatase 102 40 - 150 Units/L 07/31/2018 11:15 AM [facility] ALT 108(H) 0 - 55 Units/L 07/31/2018 11:15 AM [facility] AST 70(H) 5 - 34 Units/L 07/31/2018 11:15 AM [facility] Anion Gap 17 8 - 18 07/31/2018 11:15 AM [facility] BUN/Creatinine Ratio 10 7 - 23 07/31/2018 11:15 AM [facility] Osmolality Calculated 286 270 - 300 mOsm/kg 07/31/2018 11:15 AM [facility] Albumin/Globulin Ratio 1.0(L) 1.1 - 2.3 07/31/2018 11:15 AM [facility] eGFR >60 >60 mL/min/1.7 3 m2 07/31/2018 11:15 AM [facility] Blood BLOOD SPECIMEN / Unknown Lab Venipuncture / Unknown 07/31/2018 10:21 AM CDT 07/31/2018 10:26 AM CDT Diana Banks DO LAB - CHEMISTRY JOVANY MARES [address] [phone] * LDH BLOOD (07/31/2018 10:21 AM CDT) LDH Total 229 125 - 243 Units/L 07/31/2018 11:15 AM [facility] Blood BLOOD SPECIMEN / Unknown Lab Venipuncture / Unknown 07/31/2018 10:21 AM CDT 07/31/2018 10:26 AM CDT Diana Banks DO LAB - CHEMISTRY JOVANY MARES [address] [phone] * CK BLOOD (07/31/2018 10:21 AM CDT) CK Total 74 30 - 200 Units/L 07/31/2018 11:15 AM CDT [facility] Blood BLOOD SPECIMEN / Unknown Lab Venipuncture / Unknown 07/31/2018 10:21 AM CDT 07/31/2018 10:26 AM CDT Diana Banks DO LAB - CHEMISTRY JOVANY MARES [facility] [address] [place] [address] Care Teams Sidewalk Repairer Relationship Specialty Start Date End Date Denny Smyth MD [address] [place] [phone] PCP - General 01/08/22
--- OUTSIDE RECORDS SUMMARY | 2024-06-23 10:57 | XMS_ITS | Referral Summary ---
Author Organization [facility] Address [address] [place] [address] Care Team Providers Care Glassware Maker Demonstrator Name Role Phone Denny Smyth MD Primary Care Provider [phone] Source Comments [facility],non-progress west hospital Affiliates and Associated Physician Practices is amultiple site organization consisting of ambulatory clinics and hospital sitesin [place], [place] and [place]. This disclosure is being madepursuant to the Care Everywhere program and may not contain all information available regarding this patient. Last updated 18.[facility] Encounters Date Type Department Care Team Description 06/18/2024 1:10 AM WIRELESS FIELD TECHNICIAN Clinical Support [facility] - Cardiology [address], [address] [phone] Palpitations ; PVC (premature ventricular contraction) 05/14/2024 1:10 AM WIRELESS FIELD TECHNICIAN Clinical Support [facility] - Cardiology [address], [address] [phone] Palpitations ; PVC (premature ventricular contraction) 04/09/2024 1:10 AM WIRELESS FIELD TECHNICIAN Clinical Support [facility] - Cardiology [address], [address] [address] Palpitations ; PVC (premature ventricular contraction); Cardiomyopathy, unspecified type (HCC) from Last 3 Months Allergies Active Allergy Reactions Criticality Noted Date Comments Sulfa Drugs Headache 07/31/2018 Medications * Be aware that medications may not be up to date on this document. Alwaysverify current medications with the patient. Medication Sig Dispensed Refills Start Date End Date Status glipiZIDE (GLUCOTROL) 10 MG tablet Take 1 (one) tablet by mouth daily before breakfast 06/29/2018 Active triamcinolone acetonide (KENALOG) 0.1 % ointmentIndications: Other psoriasis Apply to psoriasis on legs, elbows twice daily. 30 days supply. 80 g 3 09/29/2018 Active metFORMIN (Glucophage) 500 MG tablet Take 2 (two) tablets by mouth 2 times daily with morning and evening meal Active canagliflozin (Invokana) 300 MG tablet Take 300 mg by mouth daily before breakfast Active linaGLIPtin (Tradjenta) 5 MG tablet Take 1 (one) tablet by mouth once daily Active amLODIPine (Norvasc) 5 MG tablet Take 1 (one) tablet by mouth once daily Active famotidine (Pepcid) 20 MG tablet Take 1 (one) tablet by mouth 2 times daily Active Cholecalciferol (Vitamin D) 50 MCG (2000 UT) capsule Take 1 (one) capsule by mouth once daily Active Biotin 5000 MCG Active SITagliptin (Januvia) 100 MG tablet Take 100 mg by mouth once daily Active metoprolol succinate XL 24hr (Toprol XL) 50 MG tablet Take 1 tablet by mouth once daily 90 tablet 3 06/07/2023 Active metoprolol succinate XL 24hr (Toprol XL) 100 MG tablet Take 1 (one) tablet by mouth once daily 90 tablet 3 06/07/2023 Active Active Problems No known active problems Social [...] Comments Blood Pressure 130/90 05/08/2022 1:33 PM WIRELESS FIELD TECHNICIAN Pulse 64 05/08/2022 1:33 PM WIRELESS FIELD TECHNICIAN Temperature 36.7 C (98.1 F) 05/08/2022 1:33 PM WIRELESS FIELD TECHNICIAN Respiratory Rate - - Oxygen Saturation 97% 05/08/2022 1:33 PM WIRELESS FIELD TECHNICIAN Inhaled Oxygen Concentration - - Weight 79.4 kg (175 lb) 05/08/2022 1:33 PM WIRELESS FIELD TECHNICIAN Height 160 cm (5' 3 ) 05/08/2022 1:33 PM WIRELESS FIELD TECHNICIAN Body Mass Index 31 05/08/2022 1:33 PM WIRELESS FIELD TECHNICIAN Plan of Treatment Upcoming Encounters Date Type Department Care Team (Late st Contact Info) Description 07/23/2024 1:10 AM CDT Clinical Support [facility] - Cardiology [address], [address] [phone] 08/27/2024 1:10 AM CDT Clinical Support [facility] - Cardiology [address], [address] [phone] 10/01/2024 1:10 AM CDT Clinical Support [facility] - Cardiology [address], [address] [address] 11/05/2024 1:10 AM CDT Clinical Support [facility] - Cardiology [address], [address] [phone] 12/10/2024 1:10 AM CDT Clinical Support [facility] - Cardiology [address], [address] [address] 01/14/2025 1:10 AM CDT Clinical Support [facility] - Cardiology [address], [address] [phone] 02/18/2025 1:10 AM CDT Clinical Support [facility] - Cardiology [address], [address] [phone] Medical Devices Implanted Type Area Traveling Construction Superintendent Device Identifier Shelf Expiration Date Model / Serial / Lot Loop Recorder Loop Recorder [employer]otronik BIOMONITOR III Procedures Procedure Name Priority Date/Time Associated Diagnosis Comments CARDIAC PROCEDURE ORDER 06/17/2024 SD ILR DEVICE INTERROGAT REMOTE Routine 05/23/2024 1:36 PM WIRELESS FIELD TECHNICIAN Palpitations PVC (premature ventricular contraction) CARDIAC PROCEDURE ORDER 05/14/2024 SD ILR DEVICE INTERROGAT REMOTE Routine 04/25/2024 10:31 PM WIRELESS FIELD TECHNICIAN Palpitations PVC (premature ventricular contraction) Cardiomyopathy, unspecified type (HCC) CARDIAC PROCEDURE ORDER 04/09/2024 HEPATITIS C ANTIBODY Routine 09/08/2018 4:25 PM CDT Psoriasis Arthralgia, unspecified joint Elevated transaminase measurement Type 2 diabetes mellitus with complication, unspecified whether snf insulin use Vitamin D deficiency from Last 3 Months or Most Recently Relevant to Health Maintenance Results * CARDIAC PROCEDURE ORDER (06/17/2024) Only the most recent of3 resultswithin the time period is included. Narrative 06/17/2024 Ordered by an unspecified provider. Scanned Document CARDIAC SERVICES ORD ERABLES * SD ILR DEVICE INTERROGAT REMOTE (05/23/2024 1:36 PM WIRELESS FIELD TECHNICIAN) Narrative Ricardo Hoskins MD - 05/23/2024 1:36 PM WIRELESS FIELD TECHNICIAN Ricardo Hoskins MD 05/23/2024 1:36 PM Dear [...] Hoskins MD PROCEDURE/MINOR SURG ICAL ORDERABLES * SD ILR DEVICE INTERROGAT REMOTE (04/25/2024 10:31 PM WIRELESS FIELD TECHNICIAN) Narrative Ricardo Hoskins MD - 04/25/2024 10:31 PM WIRELESS FIELD TECHNICIAN Ricardo Hoskins MD 04/25/2024 10:32 PM Dear [...] Hoskins MD PROCEDURE/MINOR SURG ICAL ORDERABLES * HEPATITIS C ANTIBODY (09/08/2018 4:25 PM CDT) Hepatitis C Antibody Non-react noe Non-reac tive 09/08/2018 5:49 PM CDT [facility] Comment: Hepatitis C Antibody screen indicates [...] Banks DO LAB - CHEMISTRY JOVANY MARES [address] [phone] from Last 3 Months or Most Recently Relevant to Health Maintenance Care Teams Glassware Maker Demonstrator Relationship Specialty Start Date End Date Denny Smyth MD [address] [place] [phone] PCP - General 01/08/22
--- OUTSIDE RECORDS SUMMARY | 2024-06-23 10:57 | XMS_ITS | Clinical Summary ---
Author Organization [facility] Address [address] [place] [address] Care Team Providers Care Skiver Heel Tap Name Role Phone Denny Smyth MD Primary Care Provider [phone] Source Comments [facility],non-owned Affiliates and Associated Physician Practices is amultiple site organization consisting of ambulatory clinics and hospital sitesin [place], [place]. This disclosure is being madepursuant to the Care Everywhere program and may not contain all information available regarding this patient. Last updated 18.[facility] Allergies Active Allergy Reactions Criticality Noted Date [...] daily Active Cholecalciferol (Vitamin D) 50 MCG (1999 UT) capsule Take 1 (one) capsule by [...] Active Active Problems No known active problems Encounters Date Type Department Care Team Description 06/18/2024 1:10 AM BORDER MEASURER Clinical Support [facility] - Cardiology [facility] [phone] Palpitations ; PVC (premature ventricular contraction) 05/14/2024 1:10 AM BORDER MEASURER Clinical Support [facility] - Cardiology [facility] [address] [phone] Palpitations ; PVC (premature ventricular contraction) 04/09/2024 1:10 AM BORDER MEASURER Clinical Support [facility] - Cardiology [facility], [address] [phone] Palpitations ; PVC (premature ventricular contraction); Cardiomyopathy, unspecified type (HCC) from Last 3 Months Family History Medical History Relation Name Comments Diabetes - Type 2 Father Cancer - Skin, Non Melanoma Maternal Grandmother Arthritis - Rheumatoid Neg Hx Asthma Neg Hx CVA Neg Hx Cancer - Breast Neg Hx Cancer - Other Neg Hx Cancer - Skin, Melanoma Neg Hx Crohn's Disease Neg Hx Eczema Neg Hx Hemophilia Neg Hx Lupus Neg Hx Psoriasis Neg Hx Ulcerative Colitis Neg Hx Relation Name Status Comments Father Maternal Grandmother Social History Tobacco Use Types Packs/Day Years [...] Comments Blood Pressure 130/90 05/08/2022 1:33 PM BORDER MEASURER Pulse 64 05/08/2022 1:33 PM BORDER MEASURER Temperature 36.7 C (98.1 F) 05/08/2022 1:33 PM BORDER MEASURER Respiratory Rate - - Oxygen Saturation 97% 05/08/2022 1:33 PM BORDER MEASURER Inhaled Oxygen Concentration - - Weight 79.4 kg (175 lb) 05/08/2022 1:33 PM BORDER MEASURER Height 160 cm (5' 3 ) 05/08/2022 1:33 PM BORDER MEASURER Body Mass Index 31 05/08/2022 1:33 PM BORDER MEASURER Plan of Treatment Upcoming Encounters Date Type Department Care Team (Late st Contact Info) Description 07/23/2024 1:10 AM CDT Clinical Support [facility] - Cardiology [address], [address] [phone] 08/27/2024 1:10 AM CDT Clinical Support [facility] - Cardiology [address], [address] [phone] 10/01/2024 1:10 AM CDT Clinical Support [facility] - Cardiology [address], [address] [phone] 11/05/2024 1:10 AM CDT Clinical Support [facility] - Cardiology [address], [address] [phone] 12/10/2024 1:10 AM CDT Clinical Support [facility] - Cardiology [address], [address] [phone] 01/14/2025 1:10 AM CDT Clinical Support [facility] - Cardiology [address], [address] [phone] 02/18/2025 1:10 AM CDT Clinical Support [facility] - Cardiology [address], [facility] [address] [place] [address] Health Maintenance Due Date Last Done Comments COLOGUARD (AGES 45-75) - COL ON CA SCREENING 1978 COLON MONITORING 1978 COLONOSCOPY - COLON CA SCREENING 1978 CT COLONOGRAPHY - COLON CA SCREENING 1978 Colorectal Cancer Screening 1978 FIT - COLON CA SCREENING 1978 FLEX SIG - COLON CA SCREENING 1978 LIPID TESTING 1978 MAMMOGRAM 1978 PAP SMEAR 1978 HIV SCREENING 1993 DTAP/TDAP/TD VACCINES (1 - Tdap) 1997 HEPATITIS B VACCINE (1 of 3 - 19+ 3-dose series) 1997 PNEUMOCOCCAL VACCINE (1 of 2 - PCV) 1997 COVID-19 VACCINE (1 - 2023-2 5 season) 2023 INFLUENZA VACCINE (#1) 2023 DEPRESSION SCREENING 04/29/2024 ZOSTER VACCINE (1 of 2) 2028 HEPATITIS C SCREENING Completed 09/08/2018 HIB VACCINE Aged Out No longer eligi ble based on patient's age to complete this topic HPV VACCINE Aged Out No longer eligi ble based on patient's age to complete this topic MENINGOCOCCAL (Group B) VACCINE Aged Out No longer eligible based on patient's age to complete this topic MENINGOCOCCAL VACCINE Aged Out No rossy wellington eligible based on patient's age to complete this topic Medical Devices Implanted Type Area General Farmworker Device Identifier Shelf Expiration Date Model / Serial / Lot Loop Recorder Loop Recorder [employer]ot[employer] BIOMONITOR III Procedures Procedure Name Priority Date/Time Associated Diagnosis Comments CARDIAC PROCEDURE ORDER 06/17/2024 [place] [employer] DEVICE INTERROGAT REMOTE Routine 05/23/2024 1:36 PM BORDER MEASURER Palpitations PVC (premature ventricular contraction) CARDIAC PROCEDURE ORDER 05/14/2024 [place] DEVICE INTERROGAT REMOTE Routine 04/25/2024 10:31 PM BORDER MEASURER Palpitations PVC (premature ventricular contraction) Cardiomyopathy, unspecified type (HCC) CARDIAC PROCEDURE ORDER 04/09/2024 HEPATITIS C ANTIBODY Routine 09/08/2018 4:25 PM CDT Psoriasis Arthralgia, unspecified joint Elevated transaminase measurement Type 2 diabetes mellitus with complication, unspecified whether fdc insulin use Vitamin D deficiency from Last 3 Months or Most Recently Relevant to Health Maintenance Results * CARDIAC PROCEDURE ORDER (06/17/2024) Only the most recent of3 resultswithin the time period is included. Narrative 06/17/2024 Ordered by an unspecified provider. Scanned Document CARDIAC SERVICES ORD ERABLES * [place] ILR DEVICE INTERROGAT REMOTE (05/23/2024 1:36 PM BORDER MEASURER) Narrative Ricardo Hoskins MD - 05/23/2024 1:36 PM BORDER MEASURER Ricardo Hoskins MD 05/23/2024 1:36 PM Dear [...] Hoskins MD PROCEDURE/MINOR SURG ICAL ORDERABLES * [place] ILR DEVICE INTERROGAT REMOTE (04/25/2024 10:31 PM BORDER MEASURER) Narrative Ricardo Hoskins MD - 04/25/2024 10:31 PM BORDER MEASURER Ricardo Hoskins MD 04/25/2024 10:32 PM Dear [...] noe Non-reac tive 09/08/2018 5:49 PM CDT [facility] Comment: Hepatitis C Antibody screen indicates no [...] Banks DO LAB - CHEMISTRY JOVANY MARES [address] [phone] from Last 3 Months or Most Recently Relevant to Health Maintenance Care Teams Skiver Heel Tap Relationship Specialty Start Date End Date Denny Smyth MD [address] [place] [phone] PCP - General 01/08/22
--- OUTSIDE RECORDS SUMMARY | 2024-06-23 10:57 | XMS_ITS | Clinical Summary ---
Author Organization [facility] Address [address] [place] [address] Care Team Providers Care Freight Receiver Name Role Phone Unavailable Primary Care Provider Unavailabl e Social History Tobacco Use Types Packs/Day Years Used Date Smoking Tobacco: Never Assessed Comments Unknown Sex and Gender Information Value Date Recorded Sex Assigned at Not on file Legal Sex Female 6:40 PM CDT Gender Identity Not on file Sexual Orientation Not on file Plan of Treatment Health Maintenance Due Date Last Done Comments Cervical Cancer Screening Pa p Smear (Age 30 to 64) Every 3 Years 1978 Colorectal Cancer Screening Colonoscopy (10 Years) 1978 Annual Physical 1981 Hepatitis C 1996 DTaP, Tdap and Td Vaccines ( 1 - Tdap) 1997 Hepatitis B Vaccines (1 of 3 - 19+ 3-dose series) 1997 Cervical Cancer Screening Pa p with HPV Testing (Age 30 to 64) Every 5 Years 2008 Cervical Cancer Screening with HPV 2008 Mammogram Screening 2018 COVID-19 Vaccine (2023-2 5 season) 2023 Influenza Adult (#1) 2024 HPV Vaccines Aged Out No longer eligi ble based on patient's age to complete this topic Meningococcal B Vaccine Aged Out No l onger eligible based on patient's age to complete this topic Meningococcal Vaccine Aged Out No rossy wellingtno eligible based on patient's age to complete this topic Pneumococcal Vaccine: Pediat rics (0 to 5 Years) and At-Risk Patients (6 to 64 Years) Aged Out No longer eligible b ased on patient's age to complete this topic RSV Immunizations Under 20 Months Aged Out No longer eligible based on patient's age to complete this topic [facility]
[2024-06-23 13:19] LABS: Basophils Percent Auto 0.3 % (0.2-1.2); Eosinophils Absolute Auto 0.2 K/mm3 (0-0.3); Eosinophils Percent Auto 1.9 % (0-4.4); Hemoglobin 15.1 g/dL (12.0-15.0); Immature Granulocyte Absolute 0.06 K/mm3 (0.00-0.031); Immature Granulocyte Percent A 0.6 % (0-0.5); Lymphocytes Absolute Auto 2.54 K/mm3 (0.9-3.2); Lymphocytes Percent Auto 23.5 % (18.3-44.2); Mean Corpuscular HGB Conc 34.3 g/dl (32-36); Mean Corpuscular Volume 87.5 fl (80-100); Mean Platelet Volume 10.5 fl (7.4-10.4); Monocytes Absolute Auto 0.9 K/mm3 (0.1-0.6); Monocytes Percent Auto 8.1 % (2.6-8.5); Neutrophils Absolute Auto 7.1 K/mm3 (1.3-6.7); Neutrophils Percent Auto 65.6 % (45.5-73.1); Platelet Count Result 288 k/mm3 (150-375); Red Blood Count 5.03 M/mm3 (4.2-5.4); Red Cell Distribution Width 12.8 % (11.5-14.5); White Blood Count 10.8 K/mm3 (4.5-10.0)
[2024-06-23 13:20] LABS: BEDSIDEPREGUCG Negative (Negative)
[2024-06-23 13:24] VITALS: BP 158/98; PULSE 66; RESP 19; O2SAT 93
[2024-06-23 13:30] LABS: Alanine Aminotransferase 84 U/L (6-35); Alkaline Phosphatase 103 U/L (38-126); Anion Gap 13 mmol/L (4-12); Aspartate Amino Transferase 70 U/L (14-36); Bilirubin,Total 0.9 mg/dL (0.2-1.3); Blood Urea Nitrogen 8 mg/dL (7-17); Calcium 9.2 mg/dL (8.4-10.2); Carbon Dioxide 24 mmol/L (22-30); Chloride 100 mmol/L (98-107); Estimated CRCL calculation 89 ml/min; Estimated Glomerular Filt Rate > 60; Glucose 155 mg/dL (65-110); Lipase 107 U/L (23-300); Potassium 3.9 mmol/L (3.4-5.0); Sodium 137 mmol/L (137-145)
[2024-06-23 13:31] VITALS: BP 153/97; PULSE 88; RESP 20; O2SAT 96
[2024-06-23 13:49] LABS: Add Urine Microscopic? YES; Appearance Urine Cloudy (Clear); Bacteria Urine Rare /hpf; Bilirubin Urine Negative (Negative); Blood Urine Negative (Negative); Budding Yeast Urine Present /hpf; Color Urine Yellow (Yellow); Glucose Urine UA 3+ mg/dL (Negative); Ketones Urine 1+ mg/dL (Negative); Leukocyte Esterase Ur Negative LEU/UL (Negative); Nitrate Urine Negative (Negative); Non Pathogenic Casts 0-2; Protein Urine Negative (Negative); RBC Urine 0-2 /hpf (0-2); Squamous Epithelial Cell Urine Moderate /hpf (Few); Urobilinogen Urine 0.2 mg/dL (<2.0); WBC Urine 0-5 /hpf (0-3)
[2024-06-23] MEDS: SODIUM CHLORIDE 0.9% IV 1,000 ML 999 ML IV CONT (13:49)
[2024-06-23] MEDS: MORPHINE SULFATE (*CRX) 4 MG/ML INJ IV PUSH (13:49)
[2024-06-23 14:01] VITALS: BP 155/88; PULSE 78; RESP 20; O2SAT 97
[2024-06-23 14:16] VITALS: BP 134/89; PULSE 63; RESP 18; O2SAT 97
--- NOTE | 2024-06-23 14:20 | ED_ITS ---
HPI - General Adult General Chief complaint: Abdominal Pain Stated complaint: groin/abd pain Time Seen by Provider: 06/23/24 12:45 History of Present Illness HPI narrative: Patient 34-year-old female who presents emergency department with chief complaint of a left inguinal pain. Patient states that today she has been coughing and reports that she got up in the evening and noticed that she started having pain in the left inguinal area. The patient reports no bowel or bladder incontinence denies fever Related Data Home Medications ?Medication ?Instructions ?Recorded ?Confirmed ?Last Taken ?Type glipizide 10 mg tablet 20 mg PO BID 02/27/19 01/26/24 10/09/20 History metformin 500 mg 24 hr 2,000 mg PO QAM 02/27/19 01/26/24 10/09/20 History tablet,extended release (gastric retention) canagliflozin 300 mg tablet 300 mg PO DAILY 05/02/21 01/26/24 Unknown History (Invokana) linagliptin 5 mg tablet (Tradjenta) 5 mg PO QAM 07/19/21 01/26/24 Unknown History metoprolol succinate 50 mg 50 mg PO DAILY 07/12/22 01/26/24 Unknown History tablet,extended release 24 hr clobetasol 0.05 % topical cream 1 applic topical DIRECTED 06/18/23 01/26/24 Unknown History omeprazole 20 mg capsule,delayed 20 mg PO DAILY 06/18/23 01/26/24 Unknown History release diltiazem HCl 120 mg 120 mg PO DAILY 09/09/23 01/26/24 Unknown History capsule,extended release 24 hr (Cartia XT) Allergies Allergy/AdvReac Type Severity Reaction Status Date / Time Sulfa (Sulfonamide AdvReac Mild Headache Verified 06/23/24 13:18 Antibiotics) Review of Systems 2 Review of Systems: A 10 system review of systems was completed on the patient and is negative except for what is stated in the HPI. Nursing and ancillary documentation was reviewed. [facility] Past Medical History Medical History History of left heart catheterization Obesity Vaginal delivery x1 Allergic sinusitis Hypertension Diabetes Surgical History Surgical History History of implantable cardiac defibrillator (ICD) History of robot-assisted laparoscopic hysterectomy 10/10/20 H/O tubal ligation History of endometrial ablation H/O lateral meniscus repair of left knee Hx laparoscopic cholecystectomy Family History Family History Grandparent Diabetes mellitus Mother Hypoglycemia Father Diabetes mellitus Grandparent Diabetes mellitus Other Cancer Social History Social History Smoking packs per day: 0.25 Smoking cigarettes per day: 5.0 Years smoked: 2 Smoking pack-years: 0.50 Smoking status: Former smoker Second hand tobacco smoke exposure: Yes Alcohol intake: never Alcohol use details: PRIOR TO DIABETES DX Substance use: never Lack of Transportation: No Lack of Food: Never True Current Housing: I Have Housing Concerned About Future Housing: No Difficulty Paying Gas/Electric Bills: No Difficulty Paying for Meds: No Currently Unemployed: YES Education: High School Diploma/GED Difficulty w/ Childcare or Family Care: No Living arrangements: with family Additional living arrangements comments: PARENTS AND SON Gender identity (if verbalized by the patient): Female Spiritual care concerns: No Exam 2 Narrative: GENERAL: Well-appearing, well-nourished, and in no acute distress. HEAD: Normocephalic, atraumatic. EYES: PERRLA and EOMI. ENT: Nares clear, no rhinorrhea or epistaxis. Mucous membranes moist. NECK: Supple. CHEST: Clear to auscultation. No respiratory distress. HEART: Regular rate and rhythm. No murmur heard. Normal peripheral pulses. ABDOMEN: Soft, nontender, nondistended, normal active bowel sounds. Mild tenderness to palpation left inguinal area EXTREMITIES: Normal range of motion. No edema. SKIN: Warm, dry, no rash. NEURO: No focal deficits. Alert and oriented x3. PSYCH: Normal mood and affect. Course Vital Signs Vital signs: Vital Signs Temperature 36.5 C 06/23/24 09:49 Pulse Rate 69 06/23/24 09:49 Respiratory Rate 20 06/23/24 09:49 Blood Pressure 153/90 H 06/23/24 09:49 Pulse Oximetry 98 06/23/24 09:49 Oxygen Delivery Room Air 06/23/24 09:49 Temperature 36.5 C 06/23/24 09:49 Pulse Rate 88 06/23/24 13:31 Respiratory Rate 20 06/23/24 13:31 Blood Pressure 153/97 H 06/23/24 13:31 Pulse Oximetry 96 06/23/24 13:31 Oxygen Delivery Room Air 06/23/24 09:49 Medical Decision Making MDM Narrative Medical decision making narrative: Differential diagnosis includes hernia, ureterolithiasis, UTI, pyelonephritis, diverticulitis Laboratory studies were obtained on the patient showed a CBC with white count 10.8 urinalysis showed no evidence UTI CT scan showed no acute intra-abdominal pathology and small fat containing bilateral inguinal hernias Vital Signs Vital Signs: Vital Signs Temperature 36.5 C 06/23/24 09:49 Pulse Rate 69 06/23/24 09:49 Respiratory Rate 20 06/23/24 09:49 Blood Pressure 153/90 H 06/23/24 09:49 Pulse Oximetry 98 06/23/24 09:49 Oxygen Delivery Room Air 06/23/24 09:49 Temperature 36.5 C 06/23/24 09:49 Pulse Rate 88 06/23/24 13:31 Respiratory Rate 20 06/23/24 13:31 Blood Pressure 153/97 H 06/23/24 13:31 Pulse Oximetry 96 06/23/24 13:31 Oxygen Delivery Room Air 06/23/24 09:49 Lab Data 06/23/24 13:03 06/23/24 13:03 Labs: Lab Results 06/23/24 06/23/24 Range/Units 13:03 13:19 WBC 10.8 H (4.5-10.0) K/mm3 RBC 5.03 (4.2-5.4) M/mm3 Hgb 15.1 H (12.0-15.0) g/dL Hct 44.0 (37.0-47.0) % MCV 87.5 (80-100) fl MCH 30.0 (26-34) pg MCHC 34.3 (32-36) g/dl RDW 12.8 (11.5-14.5) % Plt Count 288 (150-375) k/mm3 MPV 10.5 H (7.4-10.4) fl Immature Gran % (Auto) 0.6 H (0-0.5) % Neut % (Auto) 65.6 (45.5-73.1) % Lymph % (Auto) 23.5 (18.3-44.2) % Christian % (Auto) 8.1 (2.6-8.5) % Eos % (Auto) 1.9 (0-4.4) % Baso % (Auto) 0.3 (0.2-1.2) % Lymph # (Auto) 2.54 (0.9-3.2) K/mm3 Christian # (Auto) 0.9 H (0.1-0.6) K/mm3 Eos # (Auto) 0.2 (0-0.3) K/mm3 Baso # (Auto) 0.0 (0.0-0.1) K/mm3 Abs Immat Gran (auto) 0.06 H (0.00-0.031) K/mm3 Absolute Neuts (auto) 7.1 H (1.3-6.7) K/mm3 Absolute Nucleated RBC 0.000 (0.0-0.012) K/mm3 Nucleated RBC % 0.0 (0.0-0.2) % Sodium 137 (137-145) mmol/L Potassium 3.9 (3.4-5.0) mmol/L Chloride 100 (98-107) mmol/L Carbon Dioxide 24 (22-30) mmol/L Anion Gap 13 H (4-12) mmol/L BUN 8 (7-17) mg/dL Creatinine 0.66 L (0.7-1.0) mg/dL Estim Creat Clear Calc 89 ml/min Estimated GFR > 60 (59 - ) Glucose 155 H (65-110) mg/dL Calcium 9.2 (8.4-10.2) mg/dL Total Bilirubin 0.9 (0.2-1.3) mg/dL AST 70 H (14-36) U/L ALT 84 H (6-35) U/L Alkaline Phosphatase 103 (38-126) U/L Total Protein 7.0 (6.3-8.2) g/dL Albumin 4.0 (3.5-5.1) g/dL Lipase 107 (23-300) U/L Urine Color Yellow (Yellow) Urine Appearance Cloudy H (Clear) Urine pH 5.0 (5.0-9.0) Ur Specific Upton 1.040 H (1.001-1.035) Urine Protein Negative (Negative) mg/dL Urine Glucose (UA) 3+ H (Negative) mg/dL Urine Ketones 1+ H (Negative) mg/dL Ur Blood (Man) Negative (Negative) Urine Nitrate Negative (Negative) Urine Bilirubin Negative (Negative) Urine Urobilinogen 0.2 (<2.0) mg/dL Leukocyte Esterase Rfl Negative (Negative) AMARI/UL Urine RBC 0-2 (0-2) /hpf Urine WBC 0-5 (0-3) /hpf Ur Squamous Epith Cells Moderate (Few) /hpf Urine Bacteria Rare /hpf Urine Casts 0-2 Urine Yeast (Budding) Present H (None) /hpf POC Urine HCG, Qual Negative (Negative) Discharge Plan Discharge Clinical Impression: Bilateral inguinal hernia Patient Disposition: Home, Self-Care Condition: Stable Instructions: Antibiotic Form, Inguinal Hernia (ED), Abdominal Pain (ED) Additional Instructions: CT scan shows small this is back. Please follow-up your primary provider take anti-inflammatories he have pain pain follow-up with surgery developed large bulge that does not reduce please return to the emergency department immediately. Patient Language: Panamanian Prescriptions: New ibuprofen 800 mg tablet 800 mg PO TID PRN (Reason: pain) Qty: 30 0RF No Action Invokana 300 mg tablet 300 mg PO DAILY metoprolol succinate 50 mg tablet extended release 24 hr 50 mg PO DAILY clobetasol 0.05 % cream 1 applic TOPICAL DIRECTED omeprazole 20 mg capsule,delayed release(DR/EC) 20 mg PO DAILY diltiazem HCl [Cartia XT] 120 mg capsule,extended release 24hr 120 mg PO DAILY amoxicillin-pot clavulanate 875-125 mg tablet 1 tablet PO Q12H 10 Days Qty: 20 0RF amoxicillin-pot clavulanate 875-125 mg tablet 1 tablet PO Q12H 7 Days Qty: 14 0RF azithromycin 250 mg tablet See Rx Instructions .ROUTE .COMPLEX Qty: 6 0RF Rx Instructions: For 250 mg dose pack: take 500 mg today (day 1), then 250 mg for 4 days (days 2-5) albuterol sulfate 90 mcg/actuation HFA aerosol inhaler 2 puff inhalation Q4-6H PRN (Reason: shortness of breath or wheezing) 30 Days Qty: 8.5 0RF metformin 500 mg tablet,ER migdalia.retention 24 hr 2,000 mg PO QAM glipizide 10 mg tablet 20 mg PO BID Tradjenta 5 mg tablet 5 mg PO QAM ketoconazole 2 % cream 1 applic topical BID Qty: 60 0RF Follow-up/Referrals: Haja,Denny Slater MD [Primary Care Provider] -
[2024-06-23 14:31] VITALS: BP 142/89; PULSE 79; RESP 20; O2SAT 95
--- OUTSIDE RECORDS SUMMARY | 2024-06-23 14:33 | XMS_ITS | Clinical Summary ---
Author Organization [facility] [address] Address [address] [place] [address] Care Team Providers Care Recreation Leader Name Role Phone Unavailable Primary Care Provider [...]
--- OUTSIDE RECORDS SUMMARY | 2024-06-23 14:33 | XMS_ITS | Referral Summary ---
Author Organization [facility] Address [address] [place] [address] Care Team Providers Care Lighting Director Name Role Phone Denny Smyth MD Primary Care Provider [phone] Allergies Active Allergy Reactions Criticality Noted Date [...] cell capsule Take 1 tablet by mouth rhinestone setter before breakfast Active Trulicity 0.75 mg/0.5 mL [...] fibrillation (CMS/HCC) 022 Overview (12/21/2021): Noted on desk monitor from 02 May 2021. Has long [...] (06/29/2021): Added automatically from request for surgery [id number] Abnormal stress test 06/29/2021 Overview (06/29/2021): Added automatically from request for surgery [id number] Social History Tobacco Use Types Packs/Day Years Used Date Smoking Tobacco: Former Cigarettes Q uit: 1996 Smokeless Tobacco: Never Tobacco Cessation:Counseling Given: Not Answered Personal Safety Answer Date Recorded Getting School Help Needed Not on file 05/02 Comments No Sex and Gender Information Value Date Recorded Sex Assigned at Not on file Legal Sex Female 2:42 AM DROP WIRE OPERATOR Gender Identity Female 05/25/2021 7:20 AM DROP WIRE OPERATOR Sexual Orientation Not on file Last Filed [...] on file Medical Devices Implanted Type Area Treatment Counselor Device Identifier Shelf Expiration Date Model / Serial / Lot Angio-Seal Evolution 6fr Vascular Closure - [id number] Implanted:Qty: 1 on 06/30/2021 by Yassine Grimes MD at [facility] Other - see comments [employer] 04/28/2022 [id number] / / [id number] [email or web address] Biomonitor Iii Monitor Cardiac Sterile Disposable Latex Free [id number] - [id number] - [id number] Implanted:Qty: 1 on 12/19/2021 by Jaun Charles MD at [facility] [employer] 03/28/2023 [id number] / [id number] / Insurance [facility] Advance Directives For more information, please contact: [phone] * Full Code (Latest Code Status on File) Date Activated Date Inactivated Comments 12/19/2021 9:20 AM 12/19/2021 2:56 PM * Full Code Date Activated Date Inactivated Comments 06/30/2021 9:01 AM 06/30/2021 6:32 PM Care Teams Lighting Director Relationship Specialty Start Date End Date Denny Smyth MD PCP - General Family Medicine 03/03/21
--- OUTSIDE RECORDS SUMMARY | 2024-06-23 14:33 | XMS_ITS | Patient Health Summary ---
Author Organization [facility] Address [address] [place] [address] Care Team Providers Care Rehabilitation Worker Name Role Phone Denny Smyth MD Primary Care Provider [phone] Note from [facility],non-owned Affiliates and Associated Physician Practices is amultiple site organization consisting of ambulatory clinics and hospital sitesin [place], [place], [place] and [place]. This disclosure is being madepursuant to the Care Everywhere program and may not contain all information available regarding this patient. Last updated 18.[facility] Allergies * Sulfa Drugs(Headache) Medications * Be [...] Comments Blood Pressure 130/90 05/08/2022 1:33 PM FLASK HANDLER Pulse 64 05/08/2022 1:33 PM FLASK HANDLER Temperature 36.7 C (98.1 F) 05/08/2022 1:33 PM FLASK HANDLER Respiratory Rate - - Oxygen Saturation 97% 05/08/2022 1:33 PM FLASK HANDLER Inhaled Oxygen Concentration - - Weight 79.4 kg (175 lb) 05/08/2022 1:33 PM FLASK HANDLER Height 160 cm (5' 3 ) 05/08/2022 1:33 PM FLASK HANDLER Body Mass Index 31 05/08/2022 1:33 PM FLASK HANDLER Medical Devices Implanted Type Area Licensing Engineer Device Identifier Shelf Expiration Date Model / Serial / Lot Loop Recorder Loop Recorder Biotronik BIOMONITOR III Procedures * CARDIAC PROCEDURE ORDER(Performed 06/17/2024) * [place] ILR DEVICE INTERROGAT REMOTE(Performed 05/23/2024) Performed for Palpitations, PVC (premature ventricular contraction) * CARDIAC PROCEDURE ORDER(Performed 05/14/2024) * [place] ILR DEVICE INTERROGAT REMOTE(Performed 04/25/2024) Performed for Palpitations, PVC (premature ventricular contraction), Cardiomyopathy, unspecified type (HCC) * CARDIAC PROCEDURE ORDER(Performed 04/09/2024) * [place] ILR DEVICE INTERROGAT REMOTE(Performed 03/13/2024) Performed for Palpitations, PVC (premature ventricular contraction), Cardiomyopathy, unspecified type (HCC) * CARDIAC PROCEDURE ORDER(Performed 03/06/2024) * [place] ILR DEVICE INTERROGAT REMOTE(Performed 02/09/2024) Performed for Palpitations, PVC (premature ventricular contraction), Arrhythmia, custodial * CARDIAC PROCEDURE ORDER(Performed 01/31/2024) * KS INTG DVC E R 30 D;REC TRANS & TR(Performed 01/05/2024) Performed for Palpitations, PVC (premature ventricular contraction) * [place] ILR DEVICE INTERROGAT REMOTE(Performed 01/05/2024) Performed for [...] EKG IN CLINIC(Performed 01/30/2022) 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, 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 * HEPATITIS B SURFACE ANTIGEN W RFLX CONFIRMATION(Performed 09/08/2018) Performed for Psoriasis, Arthralgia, unspecified joint, Elevated transaminase measurement, Type 2 diabetes mellitus with complication, unspecified whether custodial insulin use, Vitamin D deficiency * HEPATITIS C ANTIBODY(Performed 09/08/2018) Performed for Psoriasis, Arthralgia, unspecified joint, Elevated transaminase measurement, Type 2 diabetes mellitus with complication, unspecified whether 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 insulin use, Vitamin D deficiency * XR CHEST 2VW(Performed 07/31/2018) Performed for Psoriasis, Chronic pain of both knees, Polyarthralgia, Type 2 diabetes mellitus with complication, without long-term current use of insulin (HCC), Essential hypertension * XR KNEE RIGHT 3VW(Performed 07/31/2018) Performed for Psoriasis, Chronic pain of both knees, Polyarthralgia, Type 2 diabetes mellitus with complication, without long-term current use of insulin ([facility]), Essential hypertension * XR KNEE LEFT 3VW(Performed 07/31/2018) Performed for Psoriasis, Chronic pain of both knees, Polyarthralgia, Type 2 diabetes mellitus with complication, without long-term current use of insulin ([facility]), Essential hypertension * QUANTIFERON-TB GOLD PLUS 4-TUBE(Performed 07/31/2018) Performed for Psoriasis, Chronic pain of both knees, Polyarthralgia, Type 2 diabetes mellitus with complication, without long-term current use of insulin ([facility]), Essential hypertension * HLA TYPING B27(Performed 07/31/2018) Performed for Psoriasis, Chronic pain of both knees, Polyarthralgia, Type 2 diabetes mellitus with complication, without long-term current use of insulin ([facility]), Essential hypertension * LDH BLOOD(Performed 07/31/2018) Performed for Psoriasis, Chronic pain of both knees, Polyarthralgia, Type 2 diabetes mellitus with complication, without long-term current use of insulin ([facility]), Essential hypertension * ALDOLASE(Performed 07/31/2018) Performed for Psoriasis, Chronic pain of both knees, Polyarthralgia, Type 2 diabetes mellitus with complication, without long-term current use of insulin ([facility]), Essential hypertension * CK BLOOD(Performed 07/31/2018) Performed for Psoriasis, Chronic pain of both knees, Polyarthralgia, Type 2 diabetes mellitus with complication, without long-term current use of insulin ([facility]), Essential hypertension * URINALYSIS REFLEX TO MICROSCOPIC NO CULTURE(Performed 07/31/2018) Performed for Psoriasis, Chronic pain of both knees, Polyarthralgia, Type 2 diabetes mellitus with complication, without long-term current use of insulin ([facility]), Essential hypertension * VITAMIN D 25-HYDROXY(Performed 07/31/2018) Performed for Psoriasis, Chronic pain of both knees, Polyarthralgia, Type 2 diabetes mellitus with complication, without long-term current use of insulin ([facility]), Essential hypertension * ERYTHROCYTE SEDIMENTATION RATE(Performed 07/31/2018) Performed for Psoriasis, Chronic pain of both knees, Polyarthralgia, Type 2 diabetes mellitus with complication, without long-term current use of insulin ([facility]), Essential hypertension * C-REACTIVE PROTEIN(Performed [...] Scanned Document CARDIAC SERVICES ORD ERABLES * [place] ILR DEVICE INTERROGAT REMOTE (05/23/2024 1:36 PM FLASK HANDLER) Narrative Ricardo Hoskins MD - 05/23/2024 1:36 PM FLASK HANDLER Ricardo Hoskins MD 05/23/2024 1:36 PM Dear [...] Hoskins MD PROCEDURE/MINOR SURG ICAL ORDERABLES * KS ILR DEVICE INTERROGAT REMOTE (04/25/2024 10:31 PM FLASK HANDLER) Narrative Ricardo Hoskins MD - 04/25/2024 10:31 PM FLASK HANDLER Ricardo Hoskins MD 04/25/2024 10:32 PM Dear [...] Hoskins MD PROCEDURE/MINOR SURG ICAL ORDERABLES * KS ILR DEVICE INTERROGAT REMOTE (03/13/2024 2:52 AM FLASK HANDLER) Ricardo Johnson MD - 03/13/2024 2:52 AM FLASK HANDLER Ricardo Hoskins MD 03/13/2024 2:53 AM Dear [...] Hoskins MD PROCEDURE/MINOR SURG ICAL ORDERABLES * KS ILR DEVICE INTERROGAT REMOTE (02/09/2024 10:52 PM [...] Hoskins MD PROCEDURE/MINOR SURG ICAL ORDERABLES * KS ILR DEVICE INTERROGAT REMOTE, KS INTG DVC E R 30 D;REC TRANS [...] PROC EKG IN CLINIC (05/08/2022 3:11 PM FLASK HANDLER) Only the most recent of2 resultswithin the time period is included. Narrative Araceli Geronimo MD - 05/08/2022 3:11 PM FLASK HANDLER Araceli Geronimo MD 05/08/2022 3:11 PM (No note.) Araceli Geronimo MD ECG ORDERABL ES * MRI CARDIAC STUDY WWO CONTRAST (05/02/2022 4:26 PM FLASK HANDLER) Anatomical Region Laterality Modality Chest Magnetic Resonan ce 05/03/2022 8:31 AM FLASK HANDLER Impressions 05/03/2022 10:13 AM FLASK HANDLER IMPRESSION: Minimal left ventricular hypertrophy without focal wall motion abnormality. > Dictated by Artur Elizondo MD (interventional radiology tech) I, Cruz Ortega MD have personally reviewed and interpreted this examination/study. > Interpreting Provider: Cruz Ortega MD on 05/03/2022 10:13 AM Narrative 05/03/2022 10:13 AM FLASK HANDLER PROCEDURE: MRI CARDIAC STUDY WWO CONTRAST, DATE/TIME OF EXAM: 05/02/2022 4:36 PM, LOCATION [facility] INDICATION: I51.7: LVH (left ventricular hypertrophy) I42.9: Cardiomyopathy, unspecified type (CMS/HCC) ADDITIONAL CLINICAL INFORMATION: Ordering Provider Reason For Exam: Rule out cardiomyopathy, LVH on echocardigram, PVCs Additional: 41 year oldfemalewith PMH significant for HTN, Psoriasis, Loop recorder(biotronik), Long QT. [facility] [...] DATE/TIME OF EXAM: 05/02/2022 4:36 PM, LOCATION [facility] INDICATION: I51.7: LVH (left ventricular hypertrophy) I42.9: Cardiomyopathy, unspecified type (CMS/HCC) ADDITIONAL CLINICAL INFORMATION: Ordering Provider Reason For Exam: Rule out cardiomyopathy, LVH on echocardigram, PVCs Additional: 41 year oldfemalewith PMH significant for HTN, Psoriasis,Loop recorder(biotronik), Long QT. Patient last seen in [facility] cardiology clinic. [facility]. She was sitting [...] motionabnormality. > Dictated by Artur Elizondo MD (interventional radiology tech) I, Cruz Ortega MD have personally reviewed and interpreted this examination/study. > Interpreting Provider: Cruz Ortega MD on 05/03/2022 10:13 AM Araceli Geronimo MD MR ORDERABLE S * (ABNORMAL) BASIC METABOLIC PANEL (CALCIUM TOTAL) (04/03/2022 1:50 PM FLASK HANDLER) Glucose 288(H) 65 - 139 mg/dL [facility] [...] Comment: REPORT COMMENT: FASTING:NO Test Performed at: [facility] [address] [place] [address] YADI VIDAL DO,MPH 04/03/2022 1:50 PM FLASK HANDLER 04/03/2022 1:51 PM FLASK HANDLER Estrella Marcelo FUNDRAISERRivalry LAB - CHEMISTR Y ORDERABLES Performing Organization Address [facility] de Phone Number [facility] [address] [place] [address] * MAGNESIUM BLOOD (04/03/2022 1:50 PM FLASK HANDLER) Pathologist [facility] Magnesium 2.0 1.5 - 2.5 mg/dL [facility] Comment: Test Performed at: [place] [address] YADI VIDAL DO,MPH 04/03/2022 1:50 PM FLASK HANDLER 04/03/2022 1:51 PM FLASK HANDLER Estrella Marcelo FUNDRAISER-SCRUM PRODUCT OWNER LAB - CHEMISTR Y ORDERABLES Performing Organization Address [facility]/[employer] de Phone Number [facility] [address] [place] [address] * HEPATITIS B SURFACE ANTIGEN W RFLX CONFIRMATION (09/08/2018 4:25 PM CDT) Hepatitis B Virus Surface Antigen Non-reacti ve Non-reacti ve 09/08/2018 5:49 PM CDT [facility] Blood BLOOD SPECIMEN / Unknown Lab Venipuncture / Unknown 09/08/2018 4:25 PM CDT 09/08/2018 4:30 PM CDT Diana Banks DO LAB - CHEMISTRY JOVANY MARES Performing Organization Address [facility]/ZIP Co de Phone Number [address] [phone] * HEPATITIS C ANTIBODY (09/08/2018 4:25 PM CDT) Hepatitis C Antibody Non-react noe Non-reac tive 09/08/2018 5:49 PM CDT [facility] Comment: Hepatitis C Antibody screen indicates [...] - CHEMISTRY JOVANY MARES Performing Organization Address [facility] de Phone Number [address] [phone] * XR KNEE RIGHT 3VW (07/31/2018 10:27 AM CDT) Anatomical Region Laterality Modality Lower Extremity Radiographic Sarah ging 07/31/2018 10:3 4 AM CDT Impressions 07/31/2018 10:40 AM CDT IMPRESSION: No acute osseous injury or arthritis of bilateral knees. Report dictated by Robin Boykin MD (interventional radiology tech). I, Dr. CACHORRO ALMODOVAR MD have personally [...] knees. Report dictated by Robin Boykin MD (interventional radiology tech). Dr. CACHORRO De Leon MD have personally [...] knees. Report dictated by Robin Boykin MD (interventional radiology tech). Dr. CACHORRO De Leon MD have personally [...] knees. Report dictated by Robin Boykin MD (interventional radiology tech). Dr. CACHORRO De Leon MD have personally [...] pulmonary process. Dictated by Beena Hearn MD (interventional radiology tech). Dr. CACHORRO De Leon MD have personally [...] pulmonary process. Dictated by Beena Hearn MD (interventional radiology tech). I, Dr. CACHORRO ALMODOVAR MD have personally reviewed and interpreted this examination/study. This report was electronically signed by CACHORRO ALMODOVAR MD on07/31/2018 4:00 PM . Diana Banks DO DIAGNOSTIC IMAGING O RDERABLES * QUANTIFERON-TB GOLD PLUS 4-TUBE (07/31/2018 10:21 AM CDT) QuantiFERON Criteria Comment 08/02/2018 5:07 PM CDT [facility] ([facility]) Comment: The QuantiFERON-TB Gold Plus result is determined by subtracting the Nil value from either TB antigen (Ag) tube. The mitogen tube serves as a control for the test. QuantiFERON TB1 Ag Value 0.01 IU/mL 08/02/2018 5:07 PM CDT [facility] ([facility]) QuantiFERON TB2 Ag Value 0.01 IU/mL 08/02/2018 5:07 PM CDT [facility] ([facility]) QuantiFERON Nil Value 0.02 IU/mL 08/02/2018 5:07 PM CDT [facility] ([facility]) QuantiFERON Mitogen Value >10.00 IU/mL 08/02/2018 5:07 PM CDT [facility] ([facility]) QuantiFERON-TB Gold Plus Negative Negative 08/02/2018 5:07 PM CDT [facility] ([facility]) Comment: The specimen received for [...] CDT 07/31/2018 10:31 AM CDT Narrative [facility] ([facility]) - 08/02/2018 5:07 PM CDT Performed at: - [facility] [address] [place], [place] [id number] Spin Instructor: Vance Pompa PhD, Phone: [phone] Diana Banks DO LAB - CHEMISTRY JOVANY MARES [facility] ([facility]) [address] [place] [address], [facility] * (ABNORMAL) URINALYSIS REFLEX TO MICROSCOPIC NO CULTURE (07/31/2018 10:21 AM CDT) Color UA Yellow Straw, Yellow, Colorless 07/31/2018 10:53 AM T [facility] Clarity UA Slt Cloudy Clear, t Cloudy 07/31/2018 10:53 AM T [facility]OR[facility] Specific [place] UA 1.019 1.005 - 1.030 07/31/2018 10:53 AM [facility] pH UA 5.0 5.0 - 8.0 pH 07/31/2018 10:53 AM [facility] Protein UA Negative Negative mg/dL 07/31/2018 10:53 AM [facility] Glucose UA Negative Negative mg/dL 07/31/2018 10:53 AM [facility] Ketone UA Negative Negative mg/dL 07/31/2018 10:53 AM [facility] Bilirubin UA Negative Negative mg/dL 07/31/2018 10:53 AM [facility] Blood UA Negative Negative 07/31/2018 10:53 AM [facility] Nitrite UA Negative Negative 07/31/2018 10:53 AM [facility] Leukocyte Esterase 1+(A) Negative 07/31/2018 10:53 AM [facility] Urobilinogen UA Negative Negative mg/dL 07/31/2018 10:53 AM CDT [facility] RBC UA 0-2 None Seen, 0-2, 3-5 /HPF 07/31/2018 10:53 AM CDT [facility] WBC UA 0-5 None Seen, 0-5 /HPF 07/31/2018 10:53 AM CDT [facility] Squamous Epithelial Cells UA 3-5(A) None Seen, 0-2 /HPF 07/31/2018 10:53 AM CDT [facility] Mucus UA 1+ None, 1+ /LPF 07/31/2018 10:53 AM CDT [facility] Urine URINE SPECIMEN OBTAINED BY CLEAN CATCH PROCEDURE / Unknown Collection / Unknown 07/31/2018 10:21 AM CDT 07/31/2018 10:26 AM CDT Diana Banks DO LAB - URINALYSIS ORD ERABLES Performing Organization Address [facility]/ZIP Co de Phone Number [address] [phone] * (ABNORMAL) C-REACTIVE PROTEIN (07/31/2018 10:21 AM CDT) C-Reactive Protein 1.1(H) <=0.5 mg/dL 07/31/2018 11:10 AM CDT [facility] Blood BLOOD SPECIMEN / Unknown Lab Venipuncture / Unknown 07/31/2018 10:21 AM CDT 07/31/2018 10:26 AM CDT Diana Banks DO LAB - CHEMISTRY ORDE RABLES [address] [phone] * HLA TYPING B27 (07/31/2018 10:21 AM CDT) HLA-B27 Negative Negative 08/01/2018 7:39 PM CDT [facility] [email or web address] ([facility]) Comment: INTERPRETIVE INFORMATION: HLA-B27 HLA-B27 is a serologically defined allele of the human HLA-B locus. The presence of the HLA-B27 antigen is strongly associated with ankylosing spondylitis and related disorders. Test developed and characteristics determined by [employer]. See Compliance Statement B: [employer]/CS Performed by [email or web address], [address] [place] [id number] [email or web address], Sheldon Robb MD, Lab. Director Blood BLOOD SPECIMEN / Unknown Lab Venipuncture / Unknown 07/31/2018 10:21 AM CDT 07/31/2018 10:26 AM CDT Diana Cotodarnell [facility]UE[facility] LAB - CHEMISTRY JOVANY MARES Performing Organization Address [facility] Co de Phone Number [facility] [email or web address] ([facility]) [address] [place] [id number] * (ABNORMAL) VITAMIN D 25-HYDROXY (07/31/2018 10:21 AM CDT) Vitamin D, 25 Hydroxy 23.8(L) See comment: ng/mL 07/31/2018 11:31 AM CDT [facility] Comment: The recommendations for 25-Hydroxy Vitamin [...] CDT Diana Banks DO LAB - CHEMISTRY RodatiNiurka MARES Performing Organization Address City/[facility]/ZIP Co de Phone Number [address] [phone] * ALDOLASE (07/31/2018 10:21 AM CDT) Aldolase 7.6 3.3 - 10.3 U/L 08/01/2018 1:12 PM CDT [facility] ([facility]) Blood BLOOD SPECIMEN / Unknown Lab Venipuncture / Unknown 07/31/2018 10:21 AM CDT 07/31/2018 10:26 AM CDT Narrative [facility] ([facility]) - 08/01/2018 1:12 PM CDT Performed at: 01 - [facility] [address] [place], [place] [id number] Spin Instructor: Vance Pompa PhD, Phone: [phone] Diana Banks DO LAB - CHEMISTRY JOVANY MARES Performing Organization Address City/[facility]/ZIP Co de Phone Number [facility] ([facility]) [address] [place] [address] * (ABNORMAL) ERYTHROCYTE SEDIMENTATION RATE (07/31/2018 10:21 AM CDT) Pathologist [facility] Erythrocyte Sedimentation Rate Westergren 31(H) 0 - 20 MM/HR 07/31/2018 11:05 AM CDT [facility] Blood BLOOD SPECIMEN / Unknown Lab Venipuncture / Unknown 07/31/2018 10:21 AM CDT 07/31/2018 10:26 AM CDT Diana Banks DO LAB - HEMATOLOGY ORD ROB [facility] [address] [place] [address] * (ABNORMAL) CBC WITH DIFFERENTIAL (07/31/2018 10:21 AM CDT) WBC 9.9 3.5 - 10.5 10 3/uL 07/31/2018 10:50 AM CDT [facility] RBC 5.07(H) 3.90 - 5.00 10 6/uL 07/31/2018 10:50 AM CDT [facility] Hemoglobin 14.9 12.0 - 15.5 g/dL 07/31/2018 10:50 AM CDT [facility] Hematocrit 44.1 35.0 - 45.0 % 07/31/2018 10:50 AM CDT [facility] MCV 87.0 81.0 - 97.0 fL 07/31/2018 10:50 AM [facility] MCH 29.4 28.0 - 34.0 pg 07/31/2018 10:50 AM [facility] MCHC 33.8 32.0 - 36.0 g/dL 07/31/2018 10:50 AM [facility] Platelet Count 368 150 - 400 10 3/uL 07/31/2018 10:50 AM [facility] RDW-SD 40.2 36.0 - 50.0 fL 07/31/2018 10:50 AM [facility] RDW-CV 12.7 11.2 - 14.8 % 07/31/2018 10:50 AM [facility] MPV 10.7 9.3 - 12.8 fL 07/31/2018 10:50 AM [facility] nRBC Absolute 0.00 0 10 /uL 07/31/2018 10:50 AM [facility] nRBC Auto 0.0 0 /100 WBC 07/31/2018 10:50 AM [facility] Neutrophils % 64.4 35.0 - 70.0 % 07/31/2018 10:50 AM [facility] Lymphocytes % 24.7 19.7 - 55.1 % 07/31/2018 10:50 AM [facility] Monocytes % 7.2 3.0 - 15.0 % 07/31/2018 10:50 AM [facility] Eosinophils % 2.4 0.0 - 6.0 % 07/31/2018 10:50 AM [facility] Basophil % 0.7 0.0 - 1.5 % 07/31/2018 10:50 AM [facility] Neutrophils Absolute 6.4 1.6 - 7.0 10 /uL 07/31/2018 10:50 AM [facility] Lymphocyte Absolute 2.4 0.8 - 2.9 10 /uL 07/31/2018 10:50 AM [facility] Monocytes Absolute 0.71(H) 0.14 - 0.66 10 3/uL 07/31/2018 10:50 AM [facility] Eosinophils Absolute 0.24 0.00 - 0.45 10 /uL 07/31/2018 10:50 AM [facility] Basophils Absolute 0.07(H) 0.00 - 0.06 10 3/uL 07/31/2018 10:50 AM [facility] Immature Granulocytes % 0.6 0.0 - 1.0 % 07/31/2018 10:50 AM [facility] Blood BLOOD SPECIMEN / Unknown Lab Venipuncture / Unknown 07/31/2018 10:21 AM CDT 07/31/2018 10:26 AM T Diana Banks DO LAB - HEMATOLOGY ORD ERABLES [facility] [address] [phone] * (ABNORMAL) COMPREHENSIVE METABOLIC PANEL (07/31/2018 10:21 AM CDT) BUN 7 7 - 26 mg/dL 07/31/2018 11:15 AM [facility] Creatinine 0.7 0.6 - 1.2 mg/dL 07/31/2018 11:15 AM [facility] Sodium 138 136 - 145 mmol/L 07/31/2018 11:15 AM [facility] Potassium 4.0 3.5 - 4.5 mmol/L 07/31/2018 11:15 AM [facility] Chloride 101 98 - 107 mmol/L 07/31/2018 11:15 AM [facility] CO2 24 22 - 29 mmol/L 07/31/2018 11:15 AM [facility] Glucose 136(H) 70 - 115 mg/dL 07/31/2018 11:15 AM [facility] Calcium 9.7 8.4 - 10.2 mg/dL 07/31/2018 11:15 AM [facility] Protein Total 7.9 6.0 - 8.3 g/dL 07/31/2018 11:15 AM [facility] Albumin 4.0 3.4 - 5.0 g/dL 07/31/2018 11:15 AM [facility] Bilirubin Total 0.4 0.2 - 1.2 mg/dL 07/31/2018 11:15 AM [facility] Alkaline Phosphatase 102 40 - 150 Units/L 07/31/2018 11:15 AM [facility] ALT 108(H) 0 - 55 Units/L 07/31/2018 11:15 AM [facility] AST 70(H) 5 - 34 Units/L 07/31/2018 11:15 AM [facility] Anion Gap 17 8 - 18 07/31/2018 11:15 AM [facility] BUN/Creatinine Ratio 10 7 - 23 07/31/2018 11:15 AM [facility] Osmolality Calculated 286 270 - 300 mOsm/kg 07/31/2018 11:15 AM [facility] Albumin/Globulin Ratio 1.0(L) 1.1 - 2.3 07/31/2018 11:15 AM [facility] eGFR >60 >60 mL/min/1.7 3 m2 07/31/2018 11:15 AM [facility] Blood BLOOD SPECIMEN / Unknown Lab Venipuncture / Unknown 07/31/2018 10:21 AM CDT 07/31/2018 10:26 AM CDT Diana Banks DO LAB - CHEMISTRY JOVANY MARES [address] [phone] * LDH BLOOD (07/31/2018 10:21 AM CDT) LDH Total 229 125 - 243 Units/L 07/31/2018 11:15 AM [facility] Blood BLOOD SPECIMEN / Unknown Lab Venipuncture / Unknown 07/31/2018 10:21 AM CDT 07/31/2018 10:26 AM CDT Diana Banks DO LAB - CHEMISTRY JOVANY MARES [address] [phone] * CK BLOOD (07/31/2018 10:21 AM CDT) CK Total 74 30 - 200 Units/L 07/31/2018 11:15 AM CDT [facility] Blood BLOOD SPECIMEN / Unknown Lab Venipuncture / Unknown 07/31/2018 10:21 AM CDT 07/31/2018 10:26 AM CDT Diana Banks DO LAB - CHEMISTRY JOVANY MARES [facility] [address] [place] [address] Care Teams Rehabilitation Worker Relationship Specialty Start Date End Date Denny Smyth MD [address] [place] [phone] PCP - General 01/08/22
--- OUTSIDE RECORDS SUMMARY | 2024-06-23 14:33 | XMS_ITS | Clinical Summary ---
Author Organization [facility] Address [address] [place] [address] Care Team Providers Care [employer] Consultant Name Role Phone Unavailable Primary Care Provider [...] topic Meningococcal Vaccine Aged Out No rossy wellington eligible based on patient's age to complete this topic Pneumococcal Vaccine: Pediat rics (0 to 5 Years) and At-Risk Patients (6 to 64 Years) Aged Out No longer eligible b ased on patient's age to complete this topic RSV Immunizations Under 20 Months Aged Out No longer eligible based on patient's age to complete this topic [facility]
--- OUTSIDE RECORDS SUMMARY | 2024-06-23 14:33 | XMS_ITS | Clinical Summary ---
Author Organization [facility] [employer] Address [address] [facility] [place] [address] Care Team Providers Care Funeral Arrangement Director Name Role Phone Denny Smyth MD Primary Care Provider [phone] Source Comments [facility] [employer],non-owned Affiliates and Associated Physician Practices is amultiple site organization consisting of ambulatory clinics and hospital sitesin [place], [place], [place]. This disclosure is being madepursuant to the Care Everywhere program and may not contain all information available regarding this patient. Last updated 18.[facility] [employer] Allergies Active Allergy Reactions Criticality Noted Date [...] Department Care Team Description 06/18/2024 1:10 AM ACCORDION REPAIRER Clinical Support [facility] - Cardiology [facility] [address] [phone] Palpitations ; PVC (premature ventricular contraction) 05/14/2024 1:10 AM ACCORDION REPAIRER Clinical Support [facility] - Cardiology [facility] [address] [phone] Palpitations ; PVC (premature ventricular contraction) 04/09/2024 1:10 AM ACCORDION REPAIRER Clinical Support [facility] - Cardiology [facility], [address] [phone] Palpitations ; PVC (premature ventricular contraction); Cardiomyopathy, [...] Comments Blood Pressure 130/90 05/08/2022 1:33 PM ACCORDION REPAIRER Pulse 64 05/08/2022 1:33 PM ACCORDION REPAIRER Temperature 36.7 C (98.1 F) 05/08/2022 1:33 PM ACCORDION REPAIRER Respiratory Rate - - Oxygen Saturation 97% 05/08/2022 1:33 PM ACCORDION REPAIRER Inhaled Oxygen Concentration - - Weight 79.4 kg (175 lb) 05/08/2022 1:33 PM ACCORDION REPAIRER Height 160 cm (5' 3 ) 05/08/2022 1:33 PM ACCORDION REPAIRER Body Mass Index 31 05/08/2022 1:33 PM ACCORDION REPAIRER Plan of Treatment Upcoming Encounters Date Type Department Care Team (Late st Contact Info) Description 07/23/2024 1:10 AM CDT Clinical Support [facility] - Cardiology [address], [address] [phone] 08/27/2024 1:10 AM CDT Clinical Support [facility] - Cardiology [address], [address] [phone] 10/01/2024 1:10 AM CDT Clinical Support [facility] - Cardiology [address], [address] [phone] 11/05/2024 1:10 AM CDT Clinical Support [facility] - Cardiology [address], [address] [phone] 12/10/2024 1:10 AM CDT Clinical Support [facility] - Cardiology [address], [address] [address] 01/14/2025 1:10 AM CDT Clinical Support [facility] - Cardiology [address], [address] [phone] 02/18/2025 1:10 AM CDT Clinical Support [facility] - Cardiology [address], [facility] [address] [place] [phone] Health Maintenance Due Date Last Done Comments [...] this topic Medical Devices Implanted Type Area Aws Consultant Device Identifier Shelf Expiration Date Model / Serial / Lot Loop Recorder Loop Recorder Biotronik BIOMONITOR III Procedures Procedure Name Priority Date/Time Associated Diagnosis Comments CARDIAC PROCEDURE ORDER 06/17/2024 [place] ILR DEVICE INTERROGAT REMOTE Routine 05/23/2024 1:36 PM ACCORDION REPAIRER Palpitations PVC (premature ventricular contraction) CARDIAC PROCEDURE ORDER 05/14/2024 [place] ILR DEVICE INTERROGAT REMOTE Routine 04/25/2024 10:31 PM ACCORDION REPAIRER Palpitations PVC (premature ventricular contraction) Cardiomyopathy, unspecified [...] Scanned Document CARDIAC SERVICES ORD ERABLES * [place] ILR DEVICE INTERROGAT REMOTE (05/23/2024 1:36 PM ACCORDION REPAIRER) Narrative Ricardo Hoskins MD - 05/23/2024 1:36 PM ACCORDION REPAIRER Ricardo Hoskins MD 05/23/2024 1:36 PM Dear [...] Hoskins MD PROCEDURE/MINOR SURG ICAL ORDERABLES * [place] ILR DEVICE INTERROGAT REMOTE (04/25/2024 10:31 PM ACCORDION REPAIRER) Narrative Ricardo Hoskins MD - 04/25/2024 10:31 PM ACCORDION REPAIRER Ricardo Hoskins MD 04/25/2024 10:32 PM Dear [...] noe Non-reac tive 09/08/2018 5:49 PM CDT [facility] Comment: Hepatitis C Antibody screen indicates no [...] Banks DO LAB - CHEMISTRY JOVANY MARES [address] [phone] from Last 3 Months or Most Recently Relevant to Health Maintenance Care Teams Funeral Arrangement Director Relationship Specialty Start Date End Date Denny Smyth MD [address] [place] [phone] PCP - General 01/08/22
--- OUTSIDE RECORDS SUMMARY | 2024-06-23 14:33 | XMS_ITS | Clinical Summary ---
Author Organization [facility] Address [address] [place] [address] Care Team Providers Care Turbine Measurements Engineer Name Role Phone Denny Smyth MD Primary Care Provider [phone] Allergies Active Allergy Reactions Criticality Noted Date [...] cell capsule Take 1 tablet by mouth forming operator before breakfast Active Trulicity 0.75 mg/0.5 mL [...] fibrillation (CMS/HCC) 022 Overview (12/21/2021): Noted on facility sales and admin from 02 May 2021. Has long QT [...] (06/29/2021): Added automatically from request for surgery [id number] Abnormal stress test 06/29/2021 Overview (06/29/2021): Added automatically from request for surgery [id number] Social History Tobacco Use Types Packs/Day Years Used Date Smoking Tobacco: Former Cigarettes Q uit: 1996 Smokeless Tobacco: Never Tobacco Cessation:Counseling Given: Not Answered Personal Safety Answer Date Recorded Getting School Help Needed Not on file 05/02 Comments No Sex and Gender Information Value Date Recorded Sex Assigned at Not on file Legal Sex Female 2:42 AM SILK HANGER Gender Identity Female 05/25/2021 7:20 AM SILK HANGER Sexual Orientation Not on file Obstetrics History [...] this topic Medical Devices Implanted Type Area Golf Course Architect Device Identifier Shelf Expiration Date Model / Serial / Lot Angio-Seal Evolution 6fr Vascular Closure - [id number] Implanted:Qty: 1 on 06/30/2021 by Yassine rGimes MD at [facility] Other - see comments [employer] 04/28/2022 [id number] / / [id number] Monitor Backlinks Biomonitor Iii Monitor Cardiac Sterile Disposable Latex Free [id number] - [id number] - [id number] Implanted:Qty: 1 on 12/19/2021 by Juan Charles MD at [facility] [employer] 03/28/2023 [id number] / [id number] / Insurance Advance Directives For more information, please contact: [phone] * Full Code (Latest Code Status on File) Date Activated Date Inactivated Comments 12/19/2021 9:20 AM 12/19/2021 2:56 PM * Full Code Date Activated Date Inactivated Comments 06/30/2021 9:01 AM 06/30/2021 6:32 PM Care Teams Turbine Measurements Engineer Relationship Specialty Start Date End Date Denny Smyth MD PCP - General Family Medicine 03/03/21
--- OUTSIDE RECORDS SUMMARY | 2024-06-23 14:33 | XMS_ITS | Referral Summary ---
Author Organization [facility] Address [address] [facility] [place] [address] Care Team Providers Care A&P Mechanic Name Role Phone Denny Smyth MD Primary Care Provider [phone] Source Comments [facility],non-general [facility] Affiliates and Associated Physician Practices is amultiple site organization consisting of ambulatory clinics and hospital sitesin [place], [place], [place] and [place]. This disclosure is being madepursuant to the Care Everywhere program and may not contain all information available regarding this patient. Last updated 18.[facility] Encounters Date Type Department Care Team Description 06/18/2024 1:10 AM PAROLE AGENT Clinical Support [facility] - Cardiology [address], [address] [phone] Palpitations ; PVC (premature ventricular contraction) 05/14/2024 1:10 AM PAROLE AGENT Clinical Support [facility] - Cardiology [address], [address] [phone] Palpitations ; PVC (premature ventricular contraction) 04/09/2024 1:10 AM PAROLE AGENT Clinical Support [facility] - Cardiology [address], [address] [phone] Palpitations ; PVC (premature ventricular [...] Comments Blood Pressure 130/90 05/08/2022 1:33 PM PAROLE AGENT Pulse 64 05/08/2022 1:33 PM PAROLE AGENT Temperature 36.7 C (98.1 F) 05/08/2022 1:33 PM PAROLE AGENT Respiratory Rate - - Oxygen Saturation 97% 05/08/2022 1:33 PM PAROLE AGENT Inhaled Oxygen Concentration - - Weight 79.4 kg (175 lb) 05/08/2022 1:33 PM PAROLE AGENT Height 160 cm (5' 3 ) 05/08/2022 1:33 PM PAROLE AGENT Body Mass Index 31 05/08/2022 1:33 PM PAROLE AGENT Plan of Treatment Upcoming Encounters Date Type Department Care Team (Late st Contact Info) Description 07/23/2024 1:10 AM CDT Clinical Support [facility] - Cardiology [address], [address] [phone] 08/27/2024 1:10 AM CDT Clinical Support [facility] - Cardiology [address], [address] [phone] 10/01/2024 1:10 AM CDT Clinical Support [facility] - Cardiology [address], [address] [phone] 11/05/2024 1:10 AM CDT Clinical Support [facility] - Cardiology [address], [address] [address] 12/10/2024 1:10 AM CDT Clinical Support [facility] - Cardiology [address], [address] [address] 01/14/2025 1:10 AM CDT Clinical Support [facility] - Cardiology [address], [address] [address] 02/18/2025 1:10 AM CDT Clinical Support [facility] - Cardiology [address], [address] [phone] Medical Devices Implanted Type Area Barge Master Device Identifier Shelf Expiration Date Model / Serial / Lot Loop Recorder Loop Recorder Biotronik BIOMONITOR III Procedures Procedure Name Priority Date/Time Associated Diagnosis Comments CARDIAC PROCEDURE ORDER 06/17/2024 [place] ILR DEVICE INTERROGAT REMOTE Routine 05/23/2024 1:36 PM PAROLE AGENT Palpitations PVC (premature ventricular contraction) CARDIAC PROCEDURE ORDER 05/14/2024 [place] ILR DEVICE INTERROGAT REMOTE Routine 04/25/2024 10:31 PM PAROLE AGENT Palpitations PVC (premature ventricular contraction) Cardiomyopathy, unspecified type (HCC) CARDIAC PROCEDURE ORDER 04/09/2024 HEPATITIS C ANTIBODY Routine 09/08/2018 4:25 PM CDT Psoriasis Arthralgia, unspecified joint Elevated transaminase measurement Type 2 diabetes mellitus with complication, unspecified whether mcc insulin use Vitamin D deficiency from Last 3 Months or Most Recently Relevant to Health Maintenance Results * CARDIAC PROCEDURE ORDER (06/17/2024) Only the most recent of3 resultswithin the time period is included. Narrative 06/17/2024 Ordered by an unspecified provider. Scanned Document CARDIAC SERVICES ORD ERABLES * [place] ILR DEVICE INTERROGAT REMOTE (05/23/2024 1:36 PM PAROLE AGENT) Narrative Ricardo Hoskins MD - 05/23/2024 1:36 PM PAROLE AGENT Ricardo Hoskins MD 05/23/2024 1:36 PM Dear [...] Hoskins MD PROCEDURE/MINOR SURG ICAL ORDERABLES * [place] ILR DEVICE INTERROGAT REMOTE (04/25/2024 10:31 PM PAROLE AGENT) Narrative Ricardo Hoskins MD - 04/25/2024 10:31 PM PAROLE AGENT Ricardo Hoskins MD 04/25/2024 10:32 PM Dear [...] noe Non-reac tive 09/08/2018 5:49 PM CDT [facility] Comment: Hepatitis C Antibody screen indicates [...] Banks DO LAB - CHEMISTRY JOVANY MARES [address] [phone] from Last 3 Months or Most Recently Relevant to Health Maintenance Care Teams A&P Mechanic Relationship Specialty Start Date End Date Denny Smyth MD [address] [place] [phone] PCP - General 01/08/22
== END 2024-06-23 15:02 | disposition home or self-care (01) ==
PROVIDERS: Emergency Provider Emergency Medicine; PCP Family Medicine
DX: K40.20 Bilateral inguinal hernia, without obstruction or gangrene, not specified as recurrent (principal); I10 Essential (primary) hypertension; E11.9 Type 2 diabetes mellitus without complications; Z87.891 Personal history of nicotine dependence
CPT/HCPCS: 36415; 74177; 80053; 81001; 81025; 83690; 85025; 96361; 96374; 99284; J2270; J7030; Q9967

== ENCOUNTER 2024-11-17 11:25 | Outpatient (CLI) | payer OTHER, SELFPAY ==
--- OUTSIDE RECORDS SUMMARY | 2024-11-17 11:30 | XMS_ITS ---
Author Organization Unknown Plan of Treatment Description Planned Activity Planned Timing [facility] is a provider organization who partners directly with Health Plans and provides integrated primary care, behavioral health, and social services specialist for an attributed population Letter encounter to patientTelephone encounter Oct 22, 2024Jul 2024 Patient Care team information Name Category Status Period Participants - - Proposed period not known -
--- OUTSIDE RECORDS SUMMARY | 2024-11-17 11:31 | XMS_ITS | Clinical Summary ---
Author Organization [facility] Address [address] [place] [address] Care Team Providers Care Blind Hooker Name Role Phone Unavailable Primary Care Provider [...] 2018 COVID-19 Vaccine (2023-2 5 season) 2023 Meningococcal B Vaccine Aged Out No l onger eligible based on patient's age to complete this topic Meningococcal Vaccine Aged Out No rossy [place] eligible based on patient's age to complete this topic Pneumococcal Vaccine: Pediat rics (0 to 5 Years) and At-Risk Patients (6 to 49 Years) Aged Out No longer eligible b ased on patient's age to complete this topic RSV Immunizations Under 20 Months Aged Out No longer eligible based on patient's age to complete this topic Insurance [place]
--- OUTSIDE RECORDS SUMMARY | 2024-11-17 11:31 | XMS_ITS | Clinical Summary ---
Author Organization [facility] Address [address] [place] [address] Care Team Providers Care Rn Ortho Name Role Phone Denny Smyth MD Primary Care Provider [phone] Source Comments [facility],non-owned Affiliates and Associated Physician Practices is amultiple site organization consisting of ambulatory clinics and hospital sitesin [place], [place], [place] and [place]. This disclosure is being madepursuant to the Care Everywhere program and may not contain all information available regarding this patient. Last updated 18.[facility] Allergies Active Allergy Reactions Criticality Noted Date Comments Sulfa Drugs Headache 07/31/2018 Medications * Be aware that medications may not be up to date on this document. Alwaysverify current medications with the patient. glipiZIDE (GLUCOTROL) 10 MG tablet Take 1 (one) tablet by mouth daily before breakfast 9 Active triamcinolone acetonide (KENALOG) 0.1 % ointmentIndicat ions:Other psoriasis Apply to psoriasis on legs, elbows twice daily. 30 days supply. 80 g 3 9 Active metFORMIN (Glucophage) 500 MG tablet Take [...] mouth once daily Active Biotin 5000 MCG Acti ve SITagliptin (Januvia) 100 MG tablet Take 100 mg by mouth once daily Active dilTIAZem coated beads 24hr (Cardizem CD) 120 MG capsule Take 1 (one) capsule by mouth once daily Do not crush or chew. Active metoprolol succinate XL 24hr (Toprol XL) 100 MG tabletIndicatio ns:Palpitations Take 1 (one) tablet by mouth once daily 90 tablet 3 5 Active metoprolol succinate XL 24hr (Toprol XL) 50 MG tabletIndicatio ns:Palpitations Take 1 (one) tablet by mouth once daily 90 tablet 3 5 Active Active Problems No known active problems Encounters Date Type Department Care Team Description 10/01/2024 1:10 AM CDT Clinical Support [facility] - Cardiology [address] [phone] Implantable loop recorder present ; PVC's (premature ventricular contractions); Palpitations 08/27/2024 1:10 AM CDT Clinical Support [facility] - Cardiology [address] [place] [address] Palpitations ; PVC's (premature ventricular contractions) from Last 3 Months Family History Medical [...] = 0.6 oz pur e alcohol) occasional Comments Unknown Sex and Gender Information Value Date Recorded Sex Assigned at Not on file Legal Sex Female 11:05 AM CDT Gender Identity Not on file Sexual Orientation Not on file Last Filed Vital Signs Vital Sign Reading Time Taken Comments Blood Pressure 136/72 07/29/2024 3:36 PM CDT Pulse 68 07/29/2024 3:36 PM CDT Temperature 36.7 C (98.1 F) 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 Respiratory Rate - - Oxygen Saturation 97% 07/29/2024 3:36 PM CDT Inhaled Oxygen Concentration - - Weight 72.6 kg (160 lb) 07/29/2024 3:36 PM CDT Height 160 cm (5' 3) 07/29/2024 3:36 PM CDT Body Mass Index 28.34 07/29/2024 3:36 PM CDT Plan of Treatment Upcoming Encounters Date Type Department Care Team (Late st Contact Info) Description 12/10/2024 1:10 AM CDT Clinical Support [facility] - [facility]iology [facility] [address] [phone] 01/14/2025 1:10 AM CDT Clinical Support [facility] - Cardiology [address] [place] [phone] 02/18/2025 1:10 AM CDT Clinical Support [facility] - Cardiology [address] [place] [phone] Health Maintenance Due Date Last Done Comments COLOGUARD (AGES 45-75) - COL ON CA SCREENING 1978 COLON MONITORING 1978 COLONOSCOPY - COLON CA SCREENING 1978 CT COLONOGRAPHY - COLON CA SCREENING 1978 Colorectal Cancer Screening 1978 FIT - COLON CA SCREENING 1978 FLEX SIG - COLON CA SCREENING 1978 MAMMOGRAM 1978 HIV SCREENING 1993 DTAP/TDAP/TD VACCINES (1 - Tdap) 1997 HEPATITIS B VACCINE (1 of 3 - 19+ 3-dose series) 1997 PNEUMOCOCCAL VACCINE (1 of 2 - PCV) 1997 PAP SMEAR 1999 COVID-19 VACCINE (1 - 2023-2 5 season) 2023 DEPRESSION SCREENING 04/29/2024 INFLUENZA VACCINE (#1) 2024 06/09/2015 SCREENING FOR DIABETES 08/06/2027 , 04/03/2022, 07/31/2018 ZOSTER VACCINE (1 of 2) 2028 LIPID TESTING 08/05/2029 08/05/2024 HEPATITIS C SCREENING Completed 09/08/2018 HIB VACCINE Aged Out No longer eligi ble based on patient's age to complete this topic HPV VACCINE Aged Out No longer eligi ble based on patient's age to complete this topic MENINGOCOCCAL (Group B) VACCINE SHARED DECISION-MAKING Aged Out No longer eligible based on patient's age to complete this topic MENINGOCOCCAL GROUPS A/C/Y/W VACCINE Aged Out No longer eligible b ased on patient's age to complete this topic Medical Devices Implanted Type Area Stove Installer Device Identifier Shelf Expiration Date Model / Serial / Lot Loop Recorder Loop Recorder SabirmedicalroniFengxiafei BIOMONITOR III Procedures Procedure Name Priority Date/Time Associated Diagnosis Comments IN ILR DEVICE INTERROGAT REMOTE Routine 10/17/2024 2:02 PM CDT Implantable loop recorder present PVC's (premature ventricular contractions) Palpitations CARDIAC PROCEDURE ORDER 09/30/2024 IN ILR DEVICE INTERROGAT REMOTE Routine 09/04/2024 2:32 PM CDT Palpitations PVC's (premature ventricular contractions) CARDIAC PROCEDURE ORDER 08/30/2024 BASIC METABOLIC PANEL (CALCIUM TOTAL) Routine 08/05/2024 9:22 AM CDT Palpitations LIPID PROFILE Routine 08/05/2024 9:22 AM CDT Palpitations HEPATITIS C ANTIBODY Routine 09/08/2018 4:25 PM CDT Psoriasis Arthralgia, unspecified joint Elevated transaminase measurement Type 2 diabetes mellitus with complication, unspecified whether half-way insulin use Vitamin D deficiency from Last 3 Months or Most Recently Relevant to Health Maintenance Results * IN ILR DEVICE INTERROGAT REMOTE (10/17/2024 2:02 PM CDT) Brianna Elizondo MD - 10/17/2024 2:02 PM CDT Brianna Martinez MD 10/30/2024 10:51 AM Remote Interrogation: Pertinent Findings: Device function within normal limits. Atrial ectopy noted. Brianna Martinez MD Cardiac Electrophysiology . us Brianna Martinez MD PROCEDURE/MINOR SURGICAL ORDERAB LES Final Result * CARDIAC PROCEDURE ORDER (09/30/2024) Only the most recent of2 resultswithin the time period is included. Narrative 09/30/2024 Ordered by an unspecified provider. us Scanned Document CARDIAC SERVICES ORDERABLES Fin al Result * IN ILR DEVICE INTERROGAT REMOTE (09/04/2024 2:32 PM CDT) Ricardo Johnson MD - 09/04/2024 2:32 PM CDT Ricardo Hoskins MD 09/04/2024 2:32 PM Dear Viviana Mcgill, I reviewed the remote interrogation of your loop recorder. Your device's sensing is appropriate and stable. During this most recent monitored period (12/11/2022 to 08/31/2024), your atrial fibrillation/tachycardia burden was 0%. Device function is normal, no programming changes are required, and no medications will need to be changed. Please call our offices if you have any further questions. Sincerely, Ricardo Hoskins 09/04/2024 us Ricardo Hoskins MD PROCEDURE/MINOR SURGICAL ORDERAB LES Final Result * (ABNORMAL) BASIC METABOLIC PANEL (CALCIUM TOTAL) (08/05/2024 9:22 AM CDT) Glucose 175(H) 65 - 99 mg/dL [facility] Comment: Fasting reference interval For someone without known diabetes, a glucose value >125 mg/dL indicates that they may have diabetes and this should be confirmed with a follow-up test. BUN 11 7 - 25 mg/dL [facility] Creatinine 0.75 0.50 - 0.99 mg/dL [facility] eGFR by Cystatin C 99 > OR = 60 mL/min/1. 73m2 [facility] BUN/Creatinine Ratio SEE NOTE: (calc) [facility] Comment: Not Reported: BUN and Creatinine are within reference range. Sodium 135 135 - 146 mmol/L [facility] Potassium 3.8 3.5 - 5.3 mmol/L [facility] Chloride 101 98 - 110 mmol/L [facility] CO2 27 20 - 32 mmol/L [facility] Calcium 9.1 8.6 - 10.2 mg/dL [facility] Comment: Test Performed at: [facility] [id number] EITAN NEWMAN MD Blood BLOOD SPECIMEN / Unknown 08/05/2024 9:22 AM CDT 08/05/2024 9:23 AM CDT us Phyllis De Oliveira MANAGER LOAN-ALGORITHM DESIGN ENGINEER LAB - CHEMISTRY ORDERABLES Final Result [address] [address] * (ABNORMAL) LIPID PROFILE (08/05/2024 9:22 AM CDT) Cholesterol 199 <200 mg/dL [facility] HDL Cholesterol 42(L) > OR = 50 mg/dL [facility] Triglycerides 158(H) <150 mg/dL [facility] LDL Calculated 130(H) mg/dL (calc) [facility] Comment: Reference range: <100 Desirable range <100 mg/dL for primary prevention; <70 mg/dL for patients with CHD or diabetic patients with > or = 2 CHD risk factors. LDL-C is now calculated using the Michael-García calculation, which is a validated novel method providing better accuracy than the Friedewald equation in the estimation of LDL-C. Michael BOLTON et al. SUDEEP. 2013;310(19): 2155-6525 (http://education.Contentful.Maxcyte/faq/EKM958) CHOL/HDLC RATIO 4.7 <5.0 (calc) [facility] Non HDL Cholesterol 157(H) <130 mg/dL (calc) [facility] Comment: For patients with diabetes plus 1 major ASCVD risk factor, treating to a non-HDL-C goal of <100 mg/dL (LDL-C of <70 mg/dL) is considered a therapeutic option. Test Performed at: [facility] [address] [place] [address] EITAN NEWMAN MD Blood BLOOD SPECIMEN / Unknown 08/05/2024 9:22 AM CDT 08/05/2024 9:23 AM CDT Phyllis De Oliveira APRN-ALGORITHM DESIGN ENGINEER LAB - CHEMISTRY ORDERABLES Final Result [facility] [address] [place] [id number] * HEPATITIS C ANTIBODY (09/08/2018 4:25 PM CDT) Hepatitis C Antibody Non-react noe Non-reac tive 09/08/2018 5:49 PM CDT [facility] Comment: Hepatitis C Antibody screen indicates [...] CDT Diana Banks DO LAB - CHEMISTRY ORDERABLES Fi nal Result Performing Organization Address City/[facility]/ZIP Co de Phone Number [facility] [address] [phone] from Last 3 Months or Most Recently Relevant to Health Maintenance [place] [address] [address] [address] [facility] Care Teams Rn Ortho Relationship Specialty Start Date End Date Denny Smyth MD [address] [place] [phone] PCP - General 01/08/22
--- OUTSIDE RECORDS SUMMARY | 2024-11-17 11:31 | XMS_ITS | Data Portability ---
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 It will now be increased from 0.75 mg weekly to 1.5 mg weekly at this point. [email or web address] Not available 05/13/2023 07:52:57 08/08/2023 08/08/2023 Trulicity is officially discontinued because of lack of availability. Tradjenta is now rx'd in its place. [email or web address] Not available 08/12/2023 15:15:47 02/06/2024 02/06/2024 Treatment will proceed as below. [email or web address] Not available 02/15/2024 08:15:19 06/02/2024 06/02/2024 Workup will proceed as below. [email or web address] Not available 06/03/2024 17:47:29 Plan of Treatment Reminders Order Date Submit Date Provider Last Modified By Organization Details Last Modified Time Details Appointments ANY 15 2024 03:30P M Denny Gabriel MD Not available Not available Not available Lab HbA1c (hemog lobin A1c), blood 2024 025 [email or web address] In-Office Order, Internal Use Only DO Not Attach Compendium DO Not Attach Compendium, Do Not Delete/merge, [id number] 10/05/2024 11:11:20 rapid strep group A, throat 02/04/ 2025 02/04/2 025 [email or web address] In-Office Order, Internal Use Only DO Not Attach Compendium DO Not Attach Compendium, Do Not Delete/merge, [id number] 06/02/2024 11:30:13 urinal ysis, dipsti ck 2024 025 [email or web address] In-Office Order, Internal Use Only DO Not Attach Compendium DO Not Attach Compendium, Do Not Delete/merge, [id number] 06/02/2024 11:30:13 HbA1c (hemog lobin A1c), blood 2024 025 In-Office Order, Internal Use Only DO Not Attach Compendium DO Not Attach Compendium, Do Not Delete/merge, [id number] 06/02/2024 11:30:13 HbA1c (hemog lobin A1c), blood 2023 024 [id number] In-Office Order, Internal Use Only DO Not Attach Compendium DO Not Attach Compendium, Do Not Delete/merge, [facility] 02/06/2024 17:54:22 HbA1c (hemog lobin A1c), blood 2023 024 [email or web address] In-Office Order, Internal Use Only DO Not Attach Compendium DO Not Attach Compendium, Do Not Delete/merge, [id number] 08/09/2023 07:26:02 HbA1c (hemog lobin A1c), blood 2023 024 [email or web address] In-Office Order, Internal Use Only DO Not Attach Compendium DO Not Attach Compendium, Do Not Delete/merge, [facility] 05/08/2023 16:07:07 Referral genera l sebastian n referr al 2024 025 Nisreen French MD, [address] [facility] [address], [place], [address], 11/10/2024 12:59:17 orthop seth cortes n referr al 2024 025 FARAZ Abbasi MD, [address], [address], [place], [address], 07/13/2024 16:49:49 Procedures None record ed. Surgeries None record ed. Imaging None record ed. Medication Orders Maxitr ol 3.5 mg/g-1 0,000 unit/g -0.1 % eye ointme nt 2024 025 [facility] [address] [place], [address], 10/05/2024 11:15:32 piogli tazone 15 mg tablet 2024 025 [facility] [address] [place], [address], 10/05/2024 11:13:56 amoxic illin 500 mg tablet 2024 025 [facility] [address] [place], [address], 07/30/2024 10:02:21 flucon azole 150 mg tablet 2024 025 [facility] [address] [place], [address], 07/30/2024 10:02:27 neomyc in-raúl ymyxin -dexam eth 3.5 mg/mL- 10,000 unit/m L-0.1% eye drops 2023 025 [facility] [address] [place], [address], 06/02/2024 10:36:00 codein e 10 mg-gua ifenes in 100 mg/5 mL oral liquid 2023 025 [facility] [address] [place], [address], 06/02/2024 10:35:35 predni sone 20 mg tablet 2023 025 [facility] [address] [place], [address], 06/02/2024 10:36:10 metfor min ER 500 mg tablet ,exten ded releas e 24 hr 2023 024 [facility] [address] [place], [address], 08/08/2023 16:14:04 Tradje nta 5 mg tablet 2023 024 [email or web address] [facility] [address] [place], [address], 08/12/2023 15:13:46 Invoka na 300 mg tablet 2023 024 [facility] [address] [place], [address], 05/08/2023 16:19:29 Trulic ity 1.5 mg/0.5 mL subcut aneous pen inject or 2023 024 [facility] [address] [place], [address], 08/08/2023 15:55:53 Patient TargetsNo targets recorded. Patient Instructions Encounter Date Encounter Id Patient Instructions Last Modified By Organization Details Last Modified Time 05/08/2023 [id number] learning about high blood pressure Not available 05/08/2023 16:04:30 08/08/2023 [id number] learning about type 2 diabetes [email or web address] Not available 08/09/2023 07:26:02 type 2 diabetes: care instructions [email or web address] Not available 08/09/2023 07:26:02 diabetic foot exam* [email or web address] Not available 08/09/2023 07:26:02 diabetic eye exam* [email or web address] Not available 08/09/2023 07:26:02 02/06/2024 [id number] learning about type 2 diabetes [email or web address] Not available 02/06/2024 17:54:22 type 2 diabetes: care instructions [email or web address] Not available 02/06/2024 17:54:22 cough: care instructions [email or web address] Not available 02/06/2024 17:54:22 06/02/2024 [id number] sore throat: car e instructions [email or web address] Not available 06/02/2024 11:30:13 A healthy lifestyle: care instructions [email or web address] Not available 06/02/2024 11:30:13 learning about type 2 diabetes [email or web address] Not available 06/02/2024 11:30:13 type 2 diabetes: care instructions Not available 06/02/2024 11:30:13 10/05/2024 [id number] styes and chalazia: care instructions [email or web address] Not available 10/05/2024 11:15:10 learning about type 2 diabetes [email or web address] Not available 10/05/2024 11:11:20 type 2 diabetes: care instructions [email or web address] Not available 10/05/2024 11:11:20 Reason for Referral Orthopedic Surgeon Referral for Pain of knee region Referring Physician: Denny Gabriel [facility], Encounter Date: 06/02/2024 General Surgeon Referral for Bilateral inguinal hernia Referring Physician: Denny Gabriel [facility], Encounter Date: 10/05/2024 Results Created Date Observation Date Name Description Value Unit Range Abnormal Flag Note LastModifiedBy Organization Detail LastModifiedTime 05/08/1905/08/2023 HbA1c (hemo globi n A1c), blood HbA1c 9.2 Not Available In-Office Order Internal Use Only DO Not Attach Compendium DO Not Attach Compendium, Do Not Delete/merge, [id number] 05/08/2023 15:18:48 08/08/1908/08/2023 HbA1c (hemo globi n A1c), blood HbA1c 8.4 Not Available In-Office Order Internal Use Only DO Not Attach Compendium DO Not Attach Compendium, Do Not Delete/merge, [id number] 08/07/2023 17:58:46 02/06/2002/06/2024 HbA1c (hemo globi n A1c), blood HbA1c 9.0 Not Available In-Office Order Internal Use Only DO Not Attach Compendium DO Not Attach Compendium, Do Not Delete/merge, 02/06/2024 16:47:00 06/02/19 25 06/02/2024 rapid strep group A, throa t Strep positi ve Not Available In-Office Order Internal Use Only DO Not Attach Compendium DO Not Attach Compendium, Do Not Delete/merge, 06/02/2024 10:38:22 06/02/19 25 06/02/2024 urina lysis [...] 06/02/2024 urina lysis , dipst ick Specific [place] 1.020 Not Available In-Off ice Order Internal Use Only DO Not Attach Compendium DO Not Attach Compendium, Do Not Delete/merge, 06/02/2024 10:38:11 06/02/1906/02/2024 urina lysis , dipst ick Ketone Trace Not Available In-Office Order Internal Use Only DO Not Attach Compendium DO Not Attach Compendium, Do Not Delete/merge, 06/02/2024 10:38:11 06/02/1906/02/2024 urina lysis , dipst ick Bilirubin Negati ve Not Available In-Office Order Internal Use Only DO Not Attach Compendium DO Not Attach Compendium, Do Not Delete/merge, 06/02/2024 10:38:11 06/02/1906/02/2024 urina lysis , dipst ick Glucose 500 Not Available In-Office Order Internal Use Only DO Not Attach Compendium DO Not Attach Compendium, Do Not Delete/merge, 06/02/2024 10:38:11 06/02/1906/02/2024 urina lysis , dipst ick Appearance Clear Not Available In-Offi ce Order Internal Use Only DO Not Attach Compendium DO Not Attach Compendium, Do Not Delete/merge, 06/02/2024 10:38:11 06/02/1906/02/2024 urina lysis , dipst ick Color Yellow Not Available In-Office Order Internal Use Only DO Not Attach Compendium DO Not Attach Compendium, Do Not Delete/merge, 06/02/2024 10:38:11 06/02/1906/02/2024 HbA1c (hemo globi n A1c), blood HbA1c 9.4 Not Available In-Office Order Internal Use Only DO Not Attach Compendium DO Not Attach Compendium, Do Not Delete/merge, 06/02/2024 10:44:15 08/06/1908/05/2024 CBC W Auto Diffe renti al panel - Blood white blood cell count 9.3 text: 3.8 - 10.8 thousa nd/uL Not Available Not Available 10/05/2024 10:42:18 08/06/19 25 08/05/2024 CBC W Auto Diffe renti al panel - Blood RBC 5.11 text: 3.80 - 5.10 millio n/uL high Not Available Not Available 10/05/2024 10:42:18 08/06/19 25 08/05/2024 CBC W Auto Diffe renti al panel - Blood hemoglobin 15.5 g/dL low: 11.7g/ dLhigh : 15.5g/ dL Not Available Not Available 10/05/2024 10:42:18 08/06/19 25 08/05/2024 CBC W Auto Diffe renti al panel - Blood hematocrit 47 % low: 35%hig h: 45% high Not Available Not Available 10/05/2024 10:42:18 08/06/19 25 08/05/2024 CBC W Auto Diffe renti al panel - Blood MCV 92 fL low: 80fLhi gh: 100fL Not Available Not Available 10/05/2024 10:42:18 08/06/19 25 08/05/2024 CBC W Auto Diffe renti al panel - Blood MCH 30.3 pg low: 27pghi gh: 33pg Not Available Not Available 10/05/2024 10:42:18 08/06/19 25 08/05/2024 CBC W Auto Diffe renti al panel - Blood MCHC 33 g/dL low: 32g/dL high: 36g/dL For adult s, a sligh t decre ase in the calcu lated MCHC value (in the range of 30 to 32 g/dL) is most likel y not clini juan c signi arielle t; phong er, it shoul d be inter prete d with cauti on in corre latio n with other red cell breanna eters and the patie nt's clini portia condi tion. Not Available Not Available 10/05/2024 10:42:18 08/06/19 25 08/05/2024 CBC W Auto Diffe renti al panel - Blood RDW 13.2 % low: 11%hig h: 15% Not Available Not Available 10/05/2024 10:42:18 08/06/19 25 08/05/2024 CBC W Auto Diffe renti al panel - Blood platelet count 251 text: 140 - 400 thousa nd/uL Not Available Not Available 10/05/2024 10:42:18 08/06/19 25 08/05/2024 CBC W Auto Diffe renti al panel - Blood MPV 11.6 fL low: 7.5fLh igh: 12.5fL Not Available Not Available 10/05/2024 10:42:18 08/06/19 25 08/05/2024 CBC W Auto Diffe renti al panel - Blood neutrophil absolute 6389 text: 1500 - 7800 cells/ uL Not Available Not Available 10/05/2024 10:42:18 08/06/19 25 08/05/2024 CBC W Auto Diffe renti al panel - Blood lymphocytes absolute 2055 text: 850 - 3900 cells/ uL Not Available Not Available 10/05/2024 10:42:18 08/06/19 25 08/05/2024 CBC W Auto Diffe renti al panel - Blood absolute monocytes 605 text: 200 - 950 cells/ uL Not Available Not Available 10/05/2024 10:42:18 08/06/19 25 08/05/2024 CBC W Auto Diffe renti al panel - Blood eosinophils absolute 223 text: 15 - 500 cells/ uL Not Available Not Available 10/05/2024 10:42:18 08/06/19 25 08/05/2024 CBC W Auto Diffe renti al panel - Blood basophils absolute 28 text: 0 - 200 cells/ uL Not Available Not Available 10/05/2024 10:42:18 08/06/19 25 08/05/2024 CBC W Auto Diffe renti al panel - Blood granulocytes % 68.7 % Not Available Not Available 12/2024 10:42:18 08/06/19 25 08/05/2024 CBC W Auto Diffe renti al panel - Blood lymphocytes % 22.1 % Not Available Not Available 12/2024 10:42:18 08/06/19 25 08/05/2024 CBC W Auto Diffe renti al panel - Blood monocytes % 6.5 % Not Available Not Av ailable 10/05/2024 10:42:18 08/06/19 25 08/05/2024 CBC W Auto Diffe renti al panel - Blood eosinophils % 2.4 % Not Available Not Available 12/2024 10:42:18 08/06/19 25 08/05/2024 CBC W Auto Diffe renti al panel - Blood basophils % 0.3 % Test [facility] at: [facility] [id number] [place] [address] MARLYS NEWMAN MD Not Available Not Available 10/05/2024 10:42:18 08/06/19 25 08/05/2024 CBC W Auto Diffe renti al panel - Blood interpretati on and review of laboratory results Abnorm al Not Available Not Available 10:42:18 08/06/19 25 08/05/2024 Basic metab olic 2000 panel - Serum or Plasm a glucose 175 mg/dL low: 65mg/d Lhigh: 99mg/d L high Fasti ng refer ence inter rodney For someo ne witho ut known diabe landon, a gluco se value >125 mg/dL indic ates that they may have diabe landon and this shoul d be confi rmed with a follo w-up test. Not Available Not Available 10/05/2024 10:42:18 08/06/19 25 08/05/2024 Basic metab olic 2000 panel - Serum or Plasm a BUN 11 mg/dL low: 7mg/dL high: 25mg/d L Not Available Not Available 10/05/2024 10:42:18 08/06/19 25 08/05/2024 Basic metab olic 2000 panel - Serum or Plasm a creatinine 0.75 mg/dL low: 0.5mg/ dLhigh : 0.99mg /dL Not Available Not Available 10/05/2024 10:42:18 08/06/19 25 08/05/2024 Basic metab olic 2000 panel - Serum or Plasm a glomerular filtration rate [volume rate/area] in serum, plasma or blood by cystatin C-based formula/1.73 sq M 99 text: > or = 60 mL/min /1.73m 2 Not Available Not Available 10/05/2024 10:42:18 08/06/19 25 08/05/2024 Basic metab olic 2000 panel - Serum or Plasm a BUN/creatini ne ratio SEE NOTE: text: 6 (calc) Not Repor jeffy: BUN and Creat inine are withi n refer ence range . Not Available Not Available 10/05/2024 10:42:18 08/06/19 25 08/05/2024 Basic metab olic 2000 panel - Serum or Plasm a sodium 135 mmol/ L low: 135mmo l/Lhig h: 146mmo l/L Not Available Not Available 10/05/2024 10:42:18 08/06/19 25 08/05/2024 Basic metab olic 1999 panel - Serum or Plasm a potassium 3.8 mmol/ L low: 3.5mmo l/Lhig h: 5.3mmo l/L Not Available Not Available 10/05/2024 10:42:18 08/06/19 25 08/05/2024 Basic metab olic 1999 panel - Serum or Plasm a chloride 101 mmol/ L low: 98mmol /Lhigh : 110mmo l/L Not Available Not Available 10/05/2024 10:42:18 08/06/19 25 08/05/2024 Basic metab olic 2000 panel - Serum or Plasm a CO2 27 mmol/ L low: 20mmol /Lhigh : 32mmol /L Not Available Not Available 10/05/2024 10:42:18 08/06/19 25 08/05/2024 Basic metab olic 1999 panel - Serum or Plasm a calcium 9.1 mg/dL low: 8.6mg/ dLhigh : 10.2mg /dL Test Perfo rmed at: [facility] [address] [facility] [place] [address] MARLYS NEWMAN MD Not Available Not Available 10/05/2024 10:42:18 08/06/19 25 08/05/2024 Basic metab olic 1999 panel - Serum or Plasm a interpretati on and review of laboratory results Abnorm al Not Available Not Available 10:42:18 08/06/19 25 08/05/2024 Lipid 1996 panel - Serum or Plasm a cholesterol 199 mg/dL high: 200mg/ dL Not Available Not Available 10/05/2024 10:42:17 08/06/19 25 08/05/2024 Lipid 1996 panel - Serum or Plasm a HDL cholesterol 42 mg/dL text: > or = 50 low Not Available Not Available 10/05/2024 10:42:17 08/06/19 25 08/05/2024 Lipid 1996 panel - Serum or Plasm a triglyceride s 158 mg/dL high: 150mg/ dL high Not Available Not Available 10/05/2024 10:42:17 08/06/19 25 08/05/2024 Lipid 1996 panel - Serum or Plasm a cholesterol in LDL [mass/volume ] in serum or plasma by direct assay 130 text: mg/dL (calc) high Refer ence range : <100 Mayuri able range <100 mg/dL for prima ry preve ntion ; <70 mg/dL for patie nts with CHD or diabe tic patie nts with > or = 2 CHD risk facto rs. LDL-C is now calcu lated using the Karen n-Hop kins calcu latghanshyam n, which is a valid ated novel jesuso nancy provi ding les r accur acy than the Fried esequiel equat ion in the estim ation of LDL-C . Karen mistry SS et al. SUDEEP. 2013; 310(1 9): 2061- 2068 (http ://ed ucati on.Qu Tang Song. com/f aq/FA Q164) Not Available Not Available 10/05/2024 10:42:17 08/06/19 25 08/05/2024 Lipid 1996 panel - Serum or Plasm a chol/HDLC ratio 4.7 text: <5.0 (calc) Not Available Not Available 10/05/2024 10:42:17 08/06/19 25 08/05/2024 Lipid 1996 panel - Serum or Plasm a non HDL cholesterol 157 text: <130 mg/dL (calc) high For patie nts with diabe landon plus 1 major ASCVD risk facto r, treat ing to a non-H DL-C goal of <100 mg/dL (LDL- C of <70 mg/dL ) is paula crespo optio n. Test [facility]fo r[facility] at: [facility] [id number] [facility] [address] MARLYS NEWMAN MD Not Available Not Available 10/05/2024 10:42:17 08/06/1908/05/2024 Lipid 1996 panel - Serum or Plasm a interpretati on and review of laboratory results Abnorm al Not Available Not Available 10:42:17 10/06/19 25 10/05/2024 HbA1c (hemo globi n A1c), blood HbA1C 9.2 % Not Available In-Office Order Internal Use Only DO Not Attach Compendium DO Not Attach Compendium, Do Not Delete/merge, [id number] 10/05/2024 10:45:08 01/26/20 24 01/26/2024 XR, chest , 2 view No observ ation record ed. [facility] [address], [place], [address], 01/28/2024 12:58:46 06/23/19 25 06/23/2024 CT, abdom en + pelvi s, w/ contr ast No observ ation record ed. [facility] [address], [place], [address], 06/26/2024 08:15:42 Result Notes None recorded. Problems Name Problem SNOMED Code Status Onset Date Resolution Date Notes Provider Name and Address Organization Details Recorded Time Essential hypertension 13404976 Active 2017 Meghan munoz [facility] 8 17:21:39 Diabetes mellitus 70218812 Active 2017 Meghan munoz [facility] 8 17:26:21 Psoriasis 5745767 Active 2017 Meghan munoz [facility] - [facility] 8 17:26:46 Adult health examination Active 2017 Meghan munoz [facility] - [facility] 8 16:23:24 Body mass index 25-29 - overweight 144283460 Active 2017 Meghan munoz [facility] - [facility] 8 16:23:25 Persistent cough 586931897 Active 2017 Meghan munoz [facility] - [facility] 8 00:51:14 History of cholecystectom y 393934538 Active 2018 Mehgan Pablo null, [place] - [facility] 9 22:38:02 Abdominal wall pain 527327967 Active 2019 Meghan [place]oz, [place] [facility] 0 17:35:57 Vitamin D deficiency 06089491 Active 2019 Meg[place] [facility] 0 17:36:46 Diet education Active 2019 Meghan [place]oz[place] - [facility] 0 17:29:23 Problem Notes None recorded. Procedures Surgical History Date Name Laterality Status Provider Name and Address Organization Details Recorded Time 024 Diabetic Foot Exam completed Denny Gabriel MD Attn: Accounting, [address] [facility], [place], [address], [facility] 08/12/2023 15:14:12 022 insertion of electrocardiography loop recorder using fluoroscopic guidance completed Kelly Christie MA [facility] 02/06/2022 16:00:14 021 Vaginal hysterectomy completed Kelly Christie MA [facility] 10/19/2020 14:25:49 021 total excision of bilateral fallopian tubes completed Kelly Christie MA [facility] 10/19/2020 14:26:16 021 Removal of ovary(s) completed Kelly Christie MA [facility] 10/19/2020 14:26:48 Knee Surgery completed Elyse Stringer MA [facility] 01/10/2018 15:28:22 Tubal Ligation completed Elyse Stringer MA [facility] 01/10/2018 15:28:36 cholecystectomy completed Kelly Christie MA [facility] 05/10/2020 12:15:24 Imaging Results None recorded. Procedure Notes None recorded. Medical Equipment None Reported. Allergies Allergen ID Allergen Name Allergen Category Reaction Reaction Severity Criticality Documentation Date Start Date Code Code System Note Provider Name and Address Organization Details Recorded Time 109178 Substance with sulfonami de structure and antibacte rial mechanism of action (substanc e) medicatio n headache severe Not available 01/10/2018 43853 7764 SNOMED Elyse Stringer MA null, [place] - [facility] 8 15:26:36 088092 Product containin g 3-hydroxy -3-methyl glutaryl- coenzyme A reductase inhibitor (product) medicatio n myalgias (muscle pain) moderate low 11/01/2022 58396 009 SNOMED Denny Gabriel MD Attn: Debra garcia,[address] [facility], [place], [address], [facility] - [facility] 3 14:46:40 Medications Name Sig Start Date Stop Date [...] THREE TIMES DAILY NEEDED FOR 10 DAYS 07/30 completed Not Available Not Available Not Available pioglitaz one 15 mg tablet TAKE 1 TABLET BY MOUTH [...] completed Not Available Not Available Not Available ibuprofen 800 mg tablet TAKE 1 TABLET BY MOUTH THREE TIMES DAILY NEEDED FOR PAIN active Not Available Not Available No t Available fluconazo le 150 mg tablet TAKE ONE TABLET BY MOUTH AT FIRST SIGNS OF VAGINAL CANDIDIA SIS, REPEAT ONE WEEK LATER 07/30 completed Not Available Not Available Not Available metoprolo l succinate ER 50 mg tablet,ex tended release 24 hr TAKE 1 TABLET BY MOUTH ONCE DAILY active Not Available Not Available No t Available hydrocodo ne 5 mg-acetam inophen 325 mg tablet 10/28 /2021 completed Not Available Not Available Not Available [...] Available Not Available glipizide 10 mg tablet TAKE 2 TABLETS BY MOUTH TWICE DAILY [...] oral route as needed for 10 days. 07/30 completed Not Available Not Available Not Available amoxicill in 875 mg tablet 04/22 completed [...] % eye oint APPLY A SMALL AMOUNT OF OINTMENT INTO THE CONJUCTI RODNEY SAC(S) IN AFFECTED EYE(S) THREE TIMES DAILY PRN active Not Available Not Available No t Available azithromy taryn 500 mg tablet 2 [...] e Antonella Pen Needle 32 gauge x /32 active Not Available Not Available Not Available Tradjenta 5 mg tablet TAKE 1 TABLET BY MOUTH ONCE DAILY IN THE MORNING 2024 active Not Available Not Available Not Avai lable Xarelto 20 mg tablet Take 1 tablet every day by oral route. 05/08 completed by Lexi Canseco NP / [facility] Not Available Not Available Not [...] Body weight Body temperature Respiratory rate Systolic And Diastolic Provider Name and Address Organization Details Last Updated DateTime 4 160.02 cm 30.2 kg/m2 90992.8 9 g 98.4 [degF] 16 /min 122/86 mm[Hg] Claudine Rincon MA [facility] 4 15:18:40 Date Recorded Body height Body mass index (BMI) Body weight Oxygen saturation Oxygen saturation in Arterial blood by Pulse oximetry Heart rate Respiratory rate Body temperature Systolic And Diastolic Provider Name and Address Organization Details Last Updated DateTime 5 160.02 cm 29.8 kg/m2 09255.9 7 g 98 % 98 % 72 /min 16 /min 98 [degF] 117/72 mm[Hg] Kelly Christie MA [facility] 5 10:40:16 Date Recorded Body height Body mass index (BMI) Body weight Body temperature Oxygen saturation Oxygen saturation in Arterial blood by Pulse oximetry Respiratory rate Heart rate Systolic And Diastolic Provider Name and Address Organization Details Last Updated DateTime 4 160.02 cm 30 kg/m2 65976.9 1 g 98 [degF] 96 % 96 % 16 /min 65 /min 123/86 mm[Hg] Sara Kramer MA [facility] 4 15:59:02 Date Recorded Body height Body mass index (BMI) Body weight Body temperature Respiratory rate Heart rate Oxygen saturation Oxygen saturation in Arterial blood by Pulse oximetry Systolic And Diastolic Provider Name and Address Organization Details Last Updated DateTime 5 160.02 cm 29.6 kg/m2 28772.0 3 g 98.1 [degF] 16 /min 56 /min 95 % 95 % 133/90 mm[Hg] Sara Kramer MA [facility] 5 10:50:49 Date Recorded Body height Body mass index (BMI) Body weight Oxygen saturation Oxygen saturation in Arterial blood by Pulse oximetry Heart rate Body temperature Respiratory rate Systolic And Diastolic Provider Name and Address Organization Details Last Updated DateTime 4 160.02 cm 29.8 kg/m2 33491.3 2 g 98 % 98 % 65 /min 98 [degF] 18 /min 127/85 mm[Hg] Kelly Christie MA [facility] 4 16:49:11 Social History Question Answer Notes LastModified by Organization Details LastModified Time Tobacco Smoking Status Former Smoker Quit in 1998 Kelly Christie MA null, [facility] 05/10/2020 12:11:45 Do You Have An Advance Directive? No Information not available 05/10/2020 Are You Blind [...] No Information not available 05/10/2020 Are You Deaf Or Do You Have Serious Difficulty Hearing? No Information not available 02/23/2021 What Type Of Diet Are You Following? REGULAR Information not available 05/10/2020 Which Illicit Or Recreational Drugs Have You Used? NO Information not available 05/10/2020 Education 12 Information not available 05/10/2020 Are There Any [...] To Smoke? Yes Information not available 02/23/2021 How Much Tobacco Do You Smoke? No Information not available 05/10/2020 General Stress Level High Information not available 05/10/2020 Do You Use Sunscreen Routinely? No Occassionally Information not available 02/23/2021 Has Tobacco Cessation Counseling Been Provided? No Information not available 02/06/2022 On What Date Was Tobacco Cessation Counseling Provided? 06/02/2024 Information not available 06/02/2024 How Many Years Have You Smoked Tobacco? 4 Information not available 05/10/2020 Sex: Female Functional Status Question Answer Note LastModified by Organizat ion Details LastModified Time Do you use any illicit or recreational drugs? No Information not available 02/23/2021 Do you or have you ever used any other forms of tobacco or nicotine? No Information not available 02/23/2021 What is your level of alcohol consumption? None Information not available 05/10/2020 Do you or have you ever used smokeless tobacco? Never used smokeless tobacco Information not available 05/10/2020 Are you currently employed? Yes Information not available 02/23/2021 Are you able to care for yourself? 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 Never used electronic cigarettes Information not available 05/10/2020 What is your exercise level? Occasional walks every day Information not available 05/10/2020 Mental Status Question Answer Note LastModified by Organization D etails LastModified Time Do you feel stressed (tense, restless, nervous, or anxious, or unable to sleep at night)? [id number] Information not available 02/23/2021 Family History Relationship Description Onset Age of this Age Resolved Age Notes LastModified by Organization Details LastModified Time Father Diabetes mellitus [email or web address] Not available 01/10 15:27:45 Father Atrial flutter [...] GPAL:G 0 P 0 0 0 0 Immunizations Vaccine Type Date Status Note Provider Nam e and Address Organization Details Recorded Time Hep A, ped/adol, 2 dose 03/08/1999 completed Not Available [facility] 5 10:42:31 Influenza, live, quadrivalent, intranasal 06/09/2015 completed Not Available [facility] 5 10:42:31 Past Encounters Encounter ID Performer Location Encounter Start Date Encounter Closed Date Diagnosis/Indication Diagnosis SNOMED-CT Code Diagnosis ICD10 Code Diagnosis Note [id number] MD Lizette MARTIN 12 IM 4 [facility] [address] [place] [address] 01/10/2018 15:13:39 01/13/2018 09:58:23 Essential hypertension 91324474 I10 Questionab le coughs with Lisinopril /Losartan. BP at 160/98 on Losartan 50mg daily. Coughs better recently. We will add HCTZ 12.5mg daily. RTC 2mo. Check BP at pharmacy. Diabetes mellitus 103797 09 E11.9 No neuropathy . Need to talk about eye doc. Was on Januvia 100mg daily - sample. Took Metformin, made her sick. Has Glucometer . Fasting glucose 419 today. Declined insulin. Metformin ER for GI issues, add glipizide 10mg BID. Check mornings fasting glucose daily. RTC 2 weeks. Psoriasis 6102024 L40.9 Bilateral ashraf and elbows. Tried high potency steroid before without relief. Refer to Rheum. [id number] MD Lizette MARTIN 14 IM 4 [facility] [address] [place] [address] 01/24/2018 15:38:11 01/24/2018 16:30:29 Essential hypertension 57357372 I10 01/10/2018 : Questionab le coughs with Lisinopril /Losartan. BP at 160/98 on Losartan 50mg daily. Coughs better recently. We will add HCTZ 12.5mg daily. RTC 2mo. Check BP at pharmacy. 01/24/2018 : Doing well. Still some coughs. If continues, tiral of stopping ARB and inc HCTZ. RTC 1mo Diabetes mellitus 877505 09 E11.9 01/10/2018 : No neuropathy . [...] Metformin. RTC 1mo Adult heal th examination 637149006 Z00.00 declined Tdap, Influ, pneumococc al. Business Development Consultant info Body mass index 25-29 - overweight 560492774 Z68.29 lifestyle - channging diet [id number] [facility] MD Lizette ERICKSON 14 IM 4 [facility] [address] [place] [address] 02/24/2018 15:38:06 02/24/2018 17:09:38 Diabetes mellitus 41426758 E11.9 Feet ok. Eye ok. No neuropathy [...] daily. RTC 2mo for A1C. Essential hypertension 13914185 I10 01/10/2018 : Questionab le coughs with Lisinopril /Losartan. BP at 160/98 on Losartan 50mg daily. Coughs better recently. We will add HCTZ 12.5mg daily. RTC 2mo. Check BP at pharmacy. 01/24/2018 : Doing well. Still some coughs. If continues, trial of stopping ARB and inc HCTZ. RTC 1mo 01/2018: Doing well. Continue the same. [id number] MD Lizette MARTIN 14 IM 4 [facility] [place] [address] 04/17/2018 15:52:56 04/23/2018 08:18:41 Diabetes mellitus 63663873 E11.9 Feet ok. Eye ok. No neuropathy [...] recheck A1C today. RTC 3mo. Persistent cough 3771689 02 R05 Sinus drainage, coughing spells Since Saturday. Amoxicilli n, Flonase, Cough syrup from ER not helping. Sinusitis and pharyngiti s on exam. We will try Azithromyc in. [id number] MD Lizette MARTIN 14 IM 4 [facility] [place] [address] 07/17/2018 15:59:19 07/18/2018 11:59:31 Diabetes mellitus 77519979 E11.9 Feet ok. Eye ok. No neuropathy [...] gain). Add Januvia. A1C today. Essential hypertension 44798029 I10 01/10/2018 : Questionab le coughs with Lisinopril /Losartan. BP at 160/98 on Losartan 50mg daily. Coughs better recently. We will add HCTZ 12.5mg daily. RTC 2mo. Check BP at pharmacy. 01/24/2018 : Doing well. Still some coughs. If continues, trial of stopping ARB and inc HCTZ. RTC 1mo 01/2018: Doing well. Continue the same. 06/2018: doing well on Losartan-H CTZ. Psoriasis 3637593 L40.9 Bilateral ashraf and elbows. Tried high potency steroid before without relief. Refer to Rheum - appointmen t 07/2018 [id number] MD Lizette MARTIN 14 4 [facility] [address] [place] [address] 11/26/2018 10:58:49 11/26/2018 16:33:52 Diabetes mellitus 52489890 E11.9 Feet ok. Eye ok. No neuropathy [...] at high dose metformin. RTC 3mo Psoriasis 9328777 L40.9 Bilateral ashraf and elbows. Tried high [...] sun bae bed and Vit E oil. [id number] MD Lizette MARTIN 14 IM 4 [facility] [address] [place] [address] 02/24/2019 15:41:25 02/25/2019 11:12:26 Essential hypertension 79379761 I10 01/10/2018 : Questionab le coughs with [...] 01/2019: doing well on med. Diabetes mellitus 307904 09 E11.9 Feet ok. Eye ok. No [...] and Januvia. RTC 3mo. History of cholecystectomy 638098761 Z90.49 Recent cholecyste ctomy.Some diarrhea, tolerating oral feeds with some nausea. No gross bleed. Exam - RUQ Abdominal wall localized tenderness and swelling - no erythema. Likely surgical wound complicati on/hematom a. Carnett's sign. Zofran PRN. Will see GI this Saturday. Adult heal th examination 582791137 Z00.00 declined Tdap, Influ, pneumococc al. Business Development Consultant info [id number] MD Lizette MARTIN 14 IM 4 [facility] [address] [place] [address] 06/19/2019 15:55:31 06/22/2019 11:52:40 Essential hypertension 49055874 I10 01/10/2018 : Questionab le coughs with [...] 01/2019: doing well on med. Diabetes mellitus 858255 09 E11.9 Feet ok. Eye ok. No [...] Labs. RTC 3mo. Vitamin D deficiency 347 78208 E55.9 Abdominal wall pain 1620 73702 R10.9 RUQ tenderness after lap cholecyste ctomy [...] RUQ US to evaluate. History of cholecystectomy 269334762 Z90.49 01/2019:Re cent cholecyste ctomy.Some diarrhea, tolerating oral feeds with some nausea. No gross bleed.Exam - RUQ Abdominal wall localized tenderness and swelling - no erythema. Likely surgical wound complicati on/hematom a. Carnett's sign.Daron mistry PRN. Will see GI this Saturday. 05/2019: GI mentioned referring her to hepatologi st but pt hasnt heard anything. US and lab first. [id number] MD Lizette MARTIN 14 IM 4 [facility] [address] [place] [address] 09/17/2019 09:02:23 09/28/2019 07:28:59 Diabetes mellitus 21077293 E11.9 Feet ok. Eye ok. No neuropathy [...] glucose in the 170s - 180s. Resent Lantus - nursing confirmed that this is covered. RTC 1mo. Diet education 09368554 Z71.3 Talked about more home cooking than eating out. [id number] MD Lizette Waterman 14 IM 4 [facility] [place] [address] 05/10/2020 09:41:55 05/11/2020 14:59:08 Type 2 diabetes mellitus 94493530 E11.9 Essential hypertension 02330921 I10 Allergic rhinitis 171033 04 J30.9 [id number] MD Lizette Waterman 14 IM 4 [facility] [place] [address] 02/23/2021 10:03:22 02/24/2021 22:18:18 Type 2 diabetes mellitus 34903494 E11.9 HgbA1c is very well-contr olled--we will decrease the dosage of metformin tp 1000 mg daily to see if this improves her diarrhea Psoriasis 3599062 L40.9 Lightheadedness 47541912 8 R42 Dyspnea on exertion 6084 5006 R06.09 [id number] MD Lizette Waterman 14 IM 4 [facility] [place] [address] 06/29/2021 12:04:14 07/03/2021 11:23:42 Type 2 diabetes mellitus 31935623 E11.9 Temporoman dibular joint disorder 45959820 M26.609 Gastroesop hageal reflux disease 520352465 K21.9 Under care of compliance assistant 474125798 Z76.89 [id number] MD Lizette Waterman 14 IM 4 [facility] [place] [address] 02/06/2022 15:10:03 02/14/2022 11:46:05 Obesity 556221096 E66.9 Psoriasis 8470571 L40.9 Hypokalemia 78128662 E87 .6 Type 2 savannah betes mellitus 93946014 E11.9 Essential hypertension 99334230 I10 Gastroesop hageal reflux disease 098948322 K21.9 [id number] MD Lizette Waterman 14 IM 4 [facility] [place] [address] 11/01/2022 13:58:04 11/06/2022 13:18:41 Obesity 391873883 E66.9 Gastroesop hageal reflux disease 946422800 K21.9 Type 2 savannah betes mellitus 30434754 E11.9 Psoriasis 8714542 L40.9 Palpitations 35235296 R0 0.2 on metoprolol for this [id number] MD Lizette Waterman 14 IM 4 [facility] [place] [address] 02/06/2023 16:15:58 02/14/2023 15:37:29 Nausea 592585040 R11.0 Type 2 savannah betes mellitus 14249815 E11.9 Intentiona l weight loss 061228580 R63.8 [id number] MD Lizette Waterman 14 IM 4 [facility] [place] [address] 05/08/2023 15:09:58 05/15/2023 09:48:20 Diabetes mellitus 16607925 E11.9 Essential hypertension 63941928 I10 Type 2 savannah betes mellitus 90538364 E11.9 [id number] MD Lizette Waterman 14 IM 4 [facility] [place] [address] 08/08/2023 15:47:57 08/15/2023 12:45:26 Type 2 diabetes mellitus 31163233 E11.9 HgbA1c has improved from 9.2 on 05-08-23 to 8.4 at visit today! HIV screen ing declined 8266626405 80039 Z53.20 [id number] MD Lizette Waterman 14 IM 4 [facility] [place] [address] 02/06/2024 16:15:56 02/18/2024 11:49:30 Type 2 diabetes mellitus 29008752 E11.9 History of pneumonia 161 509766 Z87.01 Cough 88690472 R05.9 Acute otit is externa of right ear 0300920194 953124 H60.689 [id number] MD Lizette Waterman 14 IM 4 [facility] [place] [address] 06/02/2024 10:19:19 06/04/2024 15:11:29 Urinary symptoms 074033746 R39.9 Sore throat 234463210 J0 2.9 Overweight 647710701 E66 .3 BMI-29.8 Type 2 savannah betes mellitus 97099853 E11.9 HgbA1c has increased again--pt states that she is still drinking regular soda--she shows no interest in changing this Pain of knee region 1003 977283 M25.383 [id number] MD Lizette Waterman 14 IM 4 [facility] [place] [address] 10/05/2024 10:41:43 10/07/2024 11:39:26 HIV screening declined 3116925998 47245 Z53.20 Bilateral inguinal hernia 02714193 K40.20 Type 2 savannah betes mellitus 56504439 E11.9 HgbA1c has decreased from 9.4 to 9.2 External hordeolum 31832 08 H00.019 Health Concerns Section Related Observation LastModified by Organization Detai ls LastModified Time None Recorded Concern Status LastModified by Organization Details LastModified Time None Recorded Advance Directives Directive N: Payers Insurance Date Sequence Insurance Name Policy Number Policy Eli Covered Member ID Eli Member ID Guarantor Name 10/05/2024 1 [facility] ON OR AFTER 10/27/20 (MEDICAID REPLACEMENT - HMO) Bekah Melendez [id number] Bekah Melendez 09/28/2024 1 [facility] PRIOR TO 10/27/2020 (MEDICAID REPLACEMENT - HMO) Bekah Melendez [id number] Bekah Melendez 06/27/2021 2 *SELF PAY* Sh argentina Melendez 06/27/2021 SLIDING FEE SCHEDULE - DISCOUNT Bekah Melendez Notes Date Note Type Note Provider Name and Address Organization Details Recorded Time 05/08/2023 text/html Regular checkup. Pt is taking trulicity and tolerating it. Denny Gabriel MD Attn: [facility],[address] [place], [address], [facility] 05/13/2023 07:54:52 08/08/2023 text/html Per intake note. Denny alvarado MD Attn: [facility],[address] [place], [address], [facility] 08/12/2023 15:17:23 02/06/2024 text/html Per intake note. Denny alvarado MD Attn: [facility],[address] [place], [address], [facility] 02/15/2024 08:15:57 06/02/2024 text/html Per intake note. 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 Denny Gabriel MD Attn: [facility],[address] [place], [address], [facility] 06/03/2024 17:47:47 10/05/2024 text/html CT scan done at [facility] in June 2023 shows bilateral fat-filled inguinal hernias. Denny Gabriel MD Attn: [facility],[address] [place], [address], [facility] 10/07/2024 07:22:30 OBGyn Episode No OBEpisode recorded.
--- OUTSIDE RECORDS SUMMARY | 2024-11-17 11:31 | XMS_ITS | Referral Summary ---
Author Organization [facility] Address [address] [place] [address] Care Team Providers Care Roads And Parking Lots Sweeper Operator Name Role Phone Denny Smyth MD Primary Care Provider [phone] Allergies Active Allergy Reactions Criticality Noted Date [...] days 2 Active canagliflozin (INVOKANA) 300 mg tabletIndicatio ns:type 2 diabetes mellitus Take 1 tablet (300 mg total) by mouth daily Active hydroCHLOROthia zide (HYDRODIURIL) 12.5 mg tablet Take 12.5 mg by mouth daily Active metoprolol XL (TOPROL-XL) 50 mg extended release tablet Take 3 tablets (150 mg total) by mouth daily Active Lactobacillus acidophilus 10 billion cell capsule Take 1 tablet by mouth clothes model before breakfast Active Trulicity 0.75 mg/0.5 mL pen injector INJECT 0.75 MG UNDER THE SKIN ONCE EVERY WEEK 3 Active omeprazole (PriLOSEC) 20 mg capsule 3 Active ibuprofen (ADVIL,MOTRIN) 800 mg tablet Take 1 tablet (800 mg total) by mouth every 6 (six) hours as needed for pain Active dilTIAZem CD/XR/XT (CARDIZEM CD,DILACOR XR) 120 mg 24 hr capsule Take 1 capsule (120 mg total) by mouth daily 90 capsule 1 5 10/28/19 26 Active dilTIAZem CD/XR/XT (CARDIZEM CD,DILACOR XR) 120 mg 24 hr capsule Take 1 capsule (120 mg total) by mouth daily 30 capsule 11 4 10/28/19 25 Discontinu ed(Reorder ) Active Problems Problem Noted Date Diagnosed Date Microvascular angina 12/11/2021 Primary hypertension 12/11/2021 Paroxysmal atrial fibrillation 09/21/2021 Overview (12/21/2021): Noted on socially responsible investment adviser from 02 May 2021. Has long QT [...] (06/29/2021): Added automatically from request for surgery [id number] Abnormal stress test 06/29/2021 Overview (06/29/2021): Added automatically from request for surgery [id number] Social History Tobacco Use Types Packs/Day Years Used Date Smoking Tobacco: Former Cigarettes Q uit: 1996 Smokeless Tobacco: Never Tobacco Cessation:Counseling Given: Not Answered Comments No Sex and Gender Information Value Date Recorded Sex Assigned at Not on file Legal Sex Female 2:42 AM RUCHING MACHINE OPERATOR Gender Identity Female 05/25/2021 7:20 AM RUCHING MACHINE OPERATOR Sexual Orientation Not on file Last Filed Vital Signs Vital Sign Reading Time Taken Comments Blood Pressure 128/87 07/13/2024 3:13 PM CDT Pulse 68 07/13/2024 3:13 PM CDT Temperature 36 C (96.8 F) 12/19/2021 7:33 AM CDT Respiratory Rate 18 12/10/2022 2:49 PM CDT Oxygen Saturation 96% 12/19/2021 10:00 AM CDT Inhaled Oxygen Concentration - - Weight 77.6 kg (171 lb) 07/13/2024 3:13 PM CDT Height 160 cm (5' 3) 07/13/2024 3:13 PM CDT Body Mass Index 30.29 07/13/2024 3:13 PM CDT Plan of Treatment Not on file Medical Devices Implanted Type Area Orientation And Mobility Instructor Device Identifier Shelf Expiration Date Model / Serial / Lot Angio-Seal Evolution 6fr Vascular Closure - [id number] Implanted:Qty: 1 on 06/30/2021 by Yassine Grimes MD at [facility] Other - see comments [employer] 04/28/2022 [id number] / / [id number] [employer] Biomonitor Iii Monitor Cardiac Sterile Disposable Latex Free [id number] - [id number] - [id number] Implanted:Qty: 1 on 12/19/2021 by Juan Charles MD at [facility] [employer] 03/28/2023 [id number] / [id number] / [place] [address] [facility] Advance Directives For more information, please contact: [phone] * Full Code (Latest Code Status on File) Date Activated Date Inactivated Comments 12/19/2021 9:20 AM 12/19/2021 2:56 PM * Full Code Date Activated Date Inactivated Comments 06/30/2021 9:01 AM 06/30/2021 6:32 PM Care Teams Roads And Parking Lots Sweeper Operator Relationship Specialty Start Date End Date Denny Smyth MD PCP - General Family Medicine 03/03/21
--- OUTSIDE RECORDS SUMMARY | 2024-11-17 11:31 | XMS_ITS | Clinical Summary ---
Author Organization [facility] A Address [address] [place] [address] Care Team Providers Care Medium Cycle Salesperson Name Role Phone Denny Smyth MD Primary Care Provider [phone] Allergies Active Allergy Reactions Criticality Noted Date [...] cell capsule Take 1 tablet by mouth electrical linesworker before breakfast Active Trulicity 0.75 mg/0.5 mL [...] atrial fibrillation 09/21/2021 Overview (12/21/2021): Noted on ornamental iron erector from 02 May 2021. Has long QT [...] (06/29/2021): Added automatically from request for surgery [id number] Abnormal stress test 06/29/2021 Overview (06/29/2021): Added automatically from request for surgery [id number] Social History Tobacco Use Types Packs/Day Years Used Date Smoking Tobacco: Former Cigarettes Q uit: 1996 Smokeless Tobacco: Never Tobacco Cessation:Counseling Given: Not Answered Comments No Sex and Gender Information Value Date Recorded Sex Assigned at Not on file Legal Sex Female 2:42 AM SOLO MUSICIAN Gender Identity Female 05/25/2021 7:20 AM SOLO MUSICIAN Sexual Orientation Not on file Obstetrics History [...] 07/13/2024 3:13 PM CDT Plan of Treatment Health Maintenance Due Date Last Done Comments Breast Cancer Screening-Mammogram 1978 Colon Cancer Screening-Colonoscopy 1978 Depression Screening 1978 Hepatitis C Screening 1978 DTaP/Tdap/Td Vaccine (1 - Tdap) 1989 Hepatitis B Screening 1996 Regular Well Visit/Exam 18-64 1996 Influenza Vaccine (#1) 2024 06/09/2015 HPV Vaccines Aged Out No longer eligi ble based on patient's age to complete this topic Pneumococcal vaccine <65 Aged Out No longer eligible based on patient's age to complete this topic Medical Devices Implanted Type Area Travel Counselor [employer] Device Identifier Shelf Expiration Date Model / Serial / Lot Angio-Seal Evolution 6fr Vascular Closure - [id number] Implanted:Qty: 1 on 06/30/2021 by Yassine Grimes MD at [facility] Other - see comments [employer] 04/28/2022 [id number] / / [id number] [employer] Biomonitor Iii Monitor Cardiac Sterile Disposable Latex Free [id number] - [id number] - [id number] Implanted:Qty: 1 on 12/19/2021 by Juan Charles MD at [facility] [employer] 03/28/2023 [id number] / [id number] / Insurance [facility] Advance Directives For more information, please contact: [phone] * Full Code (Latest Code Status on File) Date Activated Date Inactivated Comments 12/19/2021 9:20 AM 12/19/2021 2:56 PM * Full Code Date Activated Date Inactivated Comments 06/30/2021 9:01 AM 06/30/2021 6:32 PM Care Teams Medium Cycle Salesperson Relationship Specialty Start Date End Date Denny Smyth MD PCP - General Family Medicine 03/03/21
--- NOTE | 2024-11-17 11:32 | ECG_ITS ---
Test Date: 2024-11-17 11:46:59 Measurements Intervals [place] Rate: 63 P: 24 IN: 212 QRS: 21 QRSD: 90 T: 33 QT: 441 QTc: 452 Interpretive Statements SINUS RHYTHM WITH FIRST DEGREE AV BLOCK POSSIBLE ANTERIOR MYOCARDIAL INFARCTION [30 ms Q WAVE IN V3/V4, OR R < 0.2 mV IN V4], PROBABLY OLD WARNING: DATA QUALITY MAY AFFECT INTERPRETATION No previous ECG available for comparison Electronically Signed On 11-17-2024 17:03:42 CDT by Lizbet Chambers M.D.
[2024-11-17 12:18] LABS: Anion Gap 10 mmol/L (4-12); Blood Urea Nitrogen 9 mg/dL (7-17); Calcium 9.2 mg/dL (8.4-10.2); Carbon Dioxide 24 mmol/L (22-30); Chloride 99 mmol/L (98-107); Estimated Glomerular Filt Rate > 60; Glucose 97 mg/dL (65-110); Potassium 4.0 mmol/L (3.4-5.0); Sodium 133 mmol/L (137-145)
== END 2024-11-17 11:26 | disposition home or self-care (01) ==
LOC: ANHSURGERY 11:28
PROVIDERS: Anesthesiology; PCP Family Medicine; Visit Provider Surgery
DX: Z01.818 Encounter for other preprocedural examination (principal); R94.31 Abnormal electrocardiogram [ECG] [EKG]; K40.20 Bilateral inguinal hernia, without obstruction or gangrene, not specified as recurrent; E11.9 Type 2 diabetes mellitus without complications
CPT/HCPCS: 36415; 80048; 86850; 86900; 86901; 93005

== ENCOUNTER 2025-01-01 15:20 | Outpatient (CLI) | payer OTHER, SELFPAY | END 2025-01-01 15:21 | disposition home or self-care (01) | LOC: ANHSURGERY 15:22 | PROVIDERS: PCP Family Medicine; Visit Provider Surgery | DX: Z01.812 Encounter for preprocedural laboratory examination (principal); K40.20 Bilateral inguinal hernia, without obstruction or gangrene, not specified as recurrent | CPT/HCPCS: 36415; 86850; 86900; 86901 ==

== ENCOUNTER 2025-01-05 00:21 | Day surgery (SDC) | payer OTHER, SELFPAY ==
[2024-11-13 14:00] VITALS: BMI 30.2
--- NOTE | 2024-11-13 14:01 | PC.NURSE ---
Report to the Outpatient Waiting Room, entrance under the green pavilion located off [facility], at time _0930_ on date _[phone]_. Planned Procedure Time: _1130_.? Time changes happen often and if your time is changed the preop area will call you the afternoon before. - You and your visitor will be asked to self-screen and do not enter if you have any COVID symptoms. Please call surgeon if you need to reschedule. - A mask is optional within the hospital at this time. Patients may have clear liquids (water, carbonated beverages, clear teas, apple juice) until 3 hours prior to surgery with a maximum of 20 ounces. - No food from midnight until time of surgery and no smoking, or chewing tobacco (or any form of nicotine). No chewing gum, candy or mints. Take only the following medications with a SIP of water on the morning of surgery: ___Metoprolol and Diltiazem____ DO NOT STOP ANY OF YOUR OTHER PRESCRIPTION MEDICATIONS PRIOR TO SURGERY EXCEPT THE FOLLOWING Hold all vitamins and supplements for 3 days per anesthesiologist. Medications to discontinue per physician Date to take last dose Please no make-up, nail chinese, hairspray, perfume, deodorant, or body powder the day of surgery.? No jewelry (including any body piercings) or valuables the day of surgery, leave them at home.? Please take a shower or bath the night before, or the morning of, surgery with an antibacterial soap.? Wear comfortable, loose fitting clothing.? - Jewelry must be removed prior to entering the operating room.? Rings and piercings that are not removed may be cut off. - The hospital will not accept responsibility for valuables.? - Please leave all valuables, including medications, at home the day of surgery. If you are going home after surgery, a licensed hammer driver must drive you home.? - NO public transportation without another adult if you receive anesthesia. - We recommend that an adult stay with you for 24 hours following discharge. - We also recommend that you do not drive, make important decision, drink alcoholic beverages, or take any drugs that were not prescribed by your health care provider for at least 24 hours after your discharge time. Follow any additional instructions given to you from your surgeon. Telephone instructions given to __Shelly___and asked if any additional questions and then verbalized understanding. Patient advised to call surgeon office or pre surgery nurse liaison [phone] if any additional questions.
--- OUTSIDE RECORDS SUMMARY | 2024-11-20 00:19 | XMS_ITS | Referral Summary ---
Author Organization [facility] Address [address] [place] [address] Care Team Providers Care Customer Solutions Specialist Name Role Phone Denny Smyth MD Primary Care Provider [phone] Allergies Active Allergy Reactions Criticality Noted Date [...] cell capsule Take 1 tablet by mouth early childhood teacher before breakfast Active Trulicity 0.75 mg/0.5 mL [...] atrial fibrillation 09/21/2021 Overview (12/21/2021): Noted on radiation monitor from 02 May 2021. Has long [...] (06/29/2021): Added automatically from request for surgery [id number] Abnormal stress test 06/29/2021 Overview (06/29/2021): Added automatically from request for surgery [id number] Social History Tobacco Use Types Packs/Day Years Used Date Smoking Tobacco: Former Cigarettes Q uit: 1996 Smokeless Tobacco: Never Tobacco Cessation:Counseling Given: Not Answered Comments No Sex and Gender Information Value Date Recorded Sex Assigned at Not on file Legal Sex Female 2:42 AM HOOK AND EYE ATTACHER Gender Identity Female 05/25/2021 7:20 AM HOOK AND EYE ATTACHER Sexual Orientation Not on file Last Filed [...] on file Medical Devices Implanted Type Area Office Chair Assembler Device Identifier Shelf Expiration Date Model / Serial / Lot Angio-Seal Evolution 6fr Vascular Closure - [id number] Implanted:Qty: 1 on 06/30/2021 by Yassine Grimes MD at [facility] Other - see comments [employer] 04/28/2022 [id number] / / [id number] [employer] Biomonitor Iii Monitor Cardiac Sterile Disposable Latex Free [id number] - [id number] - [id number] Implanted:Qty: 1 on 12/19/2021 by Juan Charles MD at [facility] [employer] 03/28/2023 [id number] / [id number] / [place] [address] [facility] Advance Directives For more information, please contact: [phone] * Full Code (Latest Code Status on File) Date Activated Date Inactivated Comments 12/19/2021 9:20 AM 12/19/2021 2:56 PM * Full Code Date Activated Date Inactivated Comments 06/30/2021 9:01 AM 06/30/2021 6:32 PM Care Teams Customer Solutions Specialist Relationship Specialty Start Date End Date Denny Smyth MD PCP - General Family Medicine 03/03/21
--- OUTSIDE RECORDS SUMMARY | 2024-11-20 00:19 | XMS_ITS | Clinical Summary ---
[facility] Organization [facility] [address] Address [address] [place] [address] Care Team Providers Care Truck Switcher Name Role Phone Denny Smyth MD Primary Care Provider [phone] Allergies Active Allergy Reactions Criticality Noted Date [...] cell capsule Take 1 tablet by mouth emissions repair technician before breakfast Active Trulicity 0.75 mg/0.5 mL [...] atrial fibrillation 09/21/2021 Overview (12/21/2021): Noted on monitoring coordinator from 02 May 2021. Has long QT [...] (06/29/2021): Added automatically from request for surgery [id number] Abnormal stress test 06/29/2021 Overview (06/29/2021): Added automatically from request for surgery [id number] Social History Tobacco Use Types Packs/Day Years Used Date Smoking Tobacco: Former Cigarettes Q uit: 1996 Smokeless Tobacco: Never Tobacco Cessation:Counseling Given: Not Answered Comments No Sex and Gender Information Value Date Recorded Sex Assigned at Not on file Legal Sex Female 2:42 AM ONLINE PRODUCER Gender Identity Female 05/25/2021 7:20 AM ONLINE PRODUCER Sexual Orientation Not on file Obstetrics History [...] this topic Medical Devices Implanted Type Area Multifocal Button Inspector Device Identifier Shelf Expiration Date Model / Serial / Lot Angio-Seal Evolution 6fr Vascular Closure - [id number] Implanted:Qty: 1 on 06/30/2021 by Yassine Grimes MD at [facility] Other - see comments Play for Job 04/28/2022 [id number] / / [id number] [employer] Biomonitor Iii Monitor Cardiac Sterile Disposable Latex Free [id number] - [id number] - [id number] Implanted:Qty: 1 on 12/19/2021 by Juan Charles MD at [facility] [employer] 03/28/2023 [id number] / [id number] / Insurance [facility] Advance Directives For more information, please contact: [phone] * Full Code (Latest Code Status on File) Date Activated Date Inactivated Comments 12/19/2021 9:20 AM 12/19/2021 2:56 PM * Full Code Date Activated Date Inactivated Comments 06/30/2021 9:01 AM 06/30/2021 6:32 PM Care Teams Truck Switcher Relationship Specialty Start Date End Date Denny Smyth MD PCP - General Family Medicine 03/03/21
--- OUTSIDE RECORDS SUMMARY | 2024-11-20 00:19 | XMS_ITS | Data Portability ---
Author Organization [facility] Address [address] [place] [address] Care Team Providers Care Administrative Technician Name Role Phone DENNY GABRIEL Primary Care Provider Assessment Encounter Date Assessment Date Assessment LastModified by Organization Details LastModified Time 05/08/2023 05/08/2023 Pt is tolerating trulicity well. It will now be increased from 0.75 mg weekly to 1.5 mg weekly at this point. [email or web address] Not available 05/13/2023 07:52:57 08/08/2023 08/08/2023 Trulicity is officially discontinued because of lack of availability. Tradjenta is now rx'd in its place. [email or web address] Not available 08/12/2023 15:15:47 02/06/2024 02/06/2024 Treatment will proceed as below. [email or web address] Not available 02/15/2024 08:15:19 06/02/2024 06/02/2024 Workup will proceed as below. [email or web address] Not available 06/03/2024 17:47:29 Plan of Treatment Reminders Order Date Submit Date Provider Last Modified By Organization Details Last Modified Time Details Appointments ANY 15 2024 03:30P M Denny Gabriel MD Not available Not available Not available Lab HbA1c (hemog lobin A1c), blood 2024 025 In-Office Order, Internal Use Only DO Not Attach Compendium DO Not Attach Compendium, Do Not Delete/merge, [id number] 10/05/2024 11:11:20 rapid strep group A, throat 02/04/ 2025 02/04/2 025 In-Office Order, Internal Use Only DO Not Attach Compendium DO Not Attach Compendium, Do Not Delete/merge, [id number] 06/02/2024 11:30:13 urinal ysis, dipsti ck 2024 025 [email or web address] In-Office Order, Internal Use Only DO Not Attach Compendium DO Not Attach Compendium, Do Not Delete/merge, [id number] 06/02/2024 11:30:13 HbA1c (hemog lobin A1c), blood 2024 025 [email or web address] In-Office Order, Internal Use Only DO Not Attach Compendium DO Not Attach Compendium, Do Not Delete/merge, [id number] 06/02/2024 11:30:13 HbA1c (hemog lobin A1c), blood 2023 024 [id number] In-Office Order, Internal Use Only DO Not Attach Compendium DO Not Attach Compendium, Do Not Delete/merge, [facility] 02/06/2024 17:54:22 HbA1c (hemog lobin A1c), blood 2023 024 [email or web address] In-Office Order, Internal Use Only DO Not Attach Compendium DO Not Attach Compendium, Do Not Delete/merge, [id number] 08/09/2023 07:26:02 HbA1c (hemog lobin A1c), blood 2023 024 [email or web address] In-Office Order, Internal Use Only DO Not Attach Compendium DO Not Attach Compendium, Do Not Delete/merge, [facility] 05/08/2023 16:07:07 Referral genera l sebastian n referr al 2024 025 Nisreen French MD, [address] [facility] [address], [place], [address], 11/10/2024 12:59:17 orthop seth cortes n referr al 2024 025 FARAZ Abbasi MD, [address], [address], [place], [address], 07/13/2024 16:49:49 Procedures None record ed. Surgeries None record ed. Imaging None record ed. Medication Orders Maxitr ol 3.5 mg/g-1 0,000 unit/g -0.1 % eye ointme nt 2024 025 [facility] [address] [place], [address], 10/05/2024 11:15:32 piogli tazone 15 mg tablet 2024 025 [facility] [address] [place], [address], 10/05/2024 11:13:56 amoxic illin 500 mg tablet 2024 025 [facility] [address] [place], [address], 07/30/2024 10:02:21 flucon azole 150 mg tablet 2024 025 [facility] [address] [place], [address], 07/30/2024 10:02:27 neomyc in-raúl ymyxin -dexam eth 3.5 mg/mL- 10,000 unit/m L-0.1% eye drops 2023 025 [facility] [address] [place], [address], 06/02/2024 10:36:00 codein e 10 mg-gua ifenes in 100 mg/5 mL oral liquid 2023 025 [facility] [address] [place], [address], 06/02/2024 10:35:35 predni sone 20 mg tablet 2023 025 [facility] [address] [place], [address], 06/02/2024 10:36:10 metfor min ER 500 mg tablet ,exten ded releas e 24 hr 2023 024 [facility] [address] [place], [address], 08/08/2023 16:14:04 Tradje nta 5 mg tablet 2023 024 [facility] [address] [place], [address], 08/12/2023 15:13:46 Invoka na 300 mg tablet 2023 024 [facility] [address] [place], [address], 05/08/2023 16:19:29 Trulic ity 1.5 mg/0.5 mL subcut aneous pen inject or 2023 024 [facility] [address] [place], [address], 08/08/2023 15:55:53 Patient TargetsNo targets recorded. Patient Instructions Encounter Date Encounter Id Patient Instructions Last Modified By Organization Details Last Modified Time 05/08/2023 [id number] learning about high blood pressure [email or web address] Not available 05/08/2023 16:04:30 08/08/2023 [id number] learning about type 2 diabetes [email or web address] Not available 08/09/2023 07:26:02 type 2 diabetes: care instructions Not available 08/09/2023 07:26:02 diabetic foot exam* [email or web address] Not available 08/09/2023 07:26:02 diabetic eye exam* [email or web address] Not available 08/09/2023 07:26:02 02/06/2024 [id number] learning about type 2 diabetes [email or web address] Not available 02/06/2024 17:54:22 type 2 diabetes: care instructions [email or web address] Not available 02/06/2024 17:54:22 cough: care instructions [email or web address] Not available 02/06/2024 17:54:22 06/02/2024 [id number] sore throat: car e instructions [email or web address] Not available 06/02/2024 11:30:13 A healthy lifestyle: care instructions [email or web address] Not available 06/02/2024 11:30:13 learning about type 2 diabetes Not available 06/02/2024 11:30:13 type 2 diabetes: care instructions [email or web address] Not available 06/02/2024 11:30:13 10/05/2024 [id number] styes and chalazia: care instructions [email or web address] Not available 10/05/2024 11:15:10 learning about type 2 diabetes [email or web address] Not available 10/05/2024 11:11:20 type 2 diabetes: care instructions [email or web address] Not available 10/05/2024 11:11:20 Reason for Referral Orthopedic Surgeon Referral for Pain of knee region Referring Physician: Denny Gabriel [facility] Medicine, Encounter Date: 06/02/2024 General Surgeon Referral for Bilateral inguinal hernia Referring Physician: Denny Gabriel [facility] Medicine, Encounter Date: 10/05/2024 Results Created Date Observation Date Name Description Value Unit Range Abnormal Flag Note LastModifiedBy Organization Detail LastModifiedTime 05/08/1905/08/2023 HbA1c (hemo globi n A1c), blood HbA1c 9.2 Not Available In-Office Order Internal Use Only DO Not Attach Compendium DO Not Attach Compendium, Do Not Delete/merge, [id number] 05/08/2023 15:18:48 08/08/1908/08/2023 HbA1c (hemo globi n A1c), blood HbA1c 8.4 Not Available In-Office Order Internal Use Only DO Not Attach Compendium DO Not Attach Compendium, Do Not Delete/merge, [id number] 08/07/2023 17:58:46 02/06/2002/06/2024 HbA1c (hemo globi n [...] 06/02/2024 urina lysis , dipst ick Specific [place] 1.020 Not Available In-Off ice Order Internal [...] % Test Perfo rmed at: [facility] [id number] [facility] [place] [address] MARLYS NEWMAN MD Not Available Not Available [...] /dL Test Perfo rmed at: [facility] [address] [facility] [place] [address] MARLYS NEWMAN MD Not Available Not Available [...] 9): 2061- 2068 (http ://ed ucati on.Qu [employer]. com/f aq/FA Q164) Not Available Not Available [...] n. Test Perfo rmed at: [facility] [id number] [facility] [place] [address] MARLYS NEWMAN MD Not Available Not Available 10/05/2024 10:42:17 08/06/1908/05/2024 Lipid 1996 panel - Serum or Plasm a interpretati on and review of laboratory results Abnorm al Not Available Not Available 10:42:17 10/06/19 25 10/05/2024 HbA1c (hemo globi n A1c), blood HbA1C 9.2 % Not Available In-Office Order Internal Use Only DO Not Attach Compendium DO Not Attach Compendium, Do Not Delete/merge, [id number] 10/05/2024 10:45:08 01/26/20 24 01/26/2024 XR, chest , 2 view No observ ation record ed. [facility] [address] [facility], [place], [address], 01/28/2024 12:58:46 06/23/19 25 06/23/2024 CT, abdom en + pelvi s, w/ contr ast No observ ation record ed. [facility] [address], [place], [address], 06/26/2024 08:15:42 Result Notes None recorded. Problems Name Problem SNOMED Code Status Onset Date Resolution Date Notes Provider Name and Address Organization Details Recorded Time Essential hypertension 98613539 Active 2017 Meghan munoz [facility] 8 17:21:39 Diabetes mellitus 41831014 Active 2017 Meghan munoz [facility] 8 17:26:21 Psoriasis 8865074 Active 2017 Meghan munoz [facility] - [facility] 8 17:26:46 Adult health examination Active 2017 Meghan munoz [facility] - [facility] 8 16:23:24 Body mass index 25-29 - overweight 232146371 Active 2017 Meghan munoz [facility] - [facility] 8 16:23:25 Persistent cough 080365601 Active 2017 Meghan munoz [facility] - [facility] 8 00:51:14 History of cholecystectom y 828897794 Active 2018 Meghan Pablo null, [place] - [facility] 9 22:38:02 Abdominal wall pain 197182416 Active 2019 Meghan munoz[place] [facility] 0 17:35:57 Vitamin D deficiency 96099806 Active 2019 Meg[place] [facility] 0 17:36:46 Diet education Active 2019 Meghan [place]oz[place] [facility] 0 17:29:23 Problem Notes None recorded. Procedures Surgical History Date Name Laterality Status Provider Name and Address Organization Details Recorded Time 024 Diabetic Foot Exam completed Denny Gabriel MD Attn: Accounting, [address] [facility], [place], [address], [facility] 08/12/2023 15:14:12 022 insertion of electrocardiography loop recorder using fluoroscopic guidance completed Kelly Christie MA [facility] 02/06/2022 16:00:14 021 Vaginal hysterectomy completed Kelly Christie MA [facility] 10/19/2020 14:25:49 021 total excision of bilateral fallopian tubes completed Kelly Christie MA [facility] 10/19/2020 14:26:16 021 Removal of ovary(s) completed Kelly Christie MA [facility] 10/19/2020 14:26:48 Knee Surgery completed Elyse Stringer MA [facility] 01/10/2018 15:28:22 Tubal Ligation completed Elyse Stringer MA [facility] 01/10/2018 15:28:36 cholecystectomy completed Kelly Christie MA [facility] 05/10/2020 12:15:24 Imaging Results None recorded. Procedure Notes None recorded. Medical Equipment None Reported. Allergies Allergen ID Allergen Name Allergen Category Reaction Reaction Severity Criticality Documentation Date Start Date Code Code System Note Provider Name and Address Organization Details Recorded Time 018163 Substance with sulfonami de structure and antibacte rial mechanism of action (substanc e) medicatio n headache severe Not available 01/10/2018 11415 1575 SNOMED Elyse Stringer MA null, [place] - [facility] 8 15:26:36 749440 Product containin g 3-hydroxy -3-methyl glutaryl- coenzyme A reductase inhibitor (product) medicatio n myalgias (muscle pain) moderate low 11/01/2022 67183 009 SNOMED Denny Gabriel MD Attn: Debra garcia,[address] [facility], [place], [address], [facility] - [facility] 3 14:46:40 Medications Name Sig [...] Updated DateTime 4 160.02 cm 30.2 kg/m2 54466.8 9 g 98.4 [degF] 16 /min 122/86 mm[Hg] Claudine Rincon MA [facility] 4 15:18:40 Date Recorded Body height Body mass index (BMI) Body weight Oxygen saturation Oxygen saturation in Arterial blood by Pulse oximetry Heart rate Respiratory rate Body temperature Systolic And Diastolic Provider Name and Address Organization Details Last Updated DateTime 5 160.02 cm 29.8 kg/m2 26146.9 7 g 98 % 98 % 72 /min 16 /min 98 [degF] 117/72 mm[Hg] Kelly Christie MA [facility] 5 10:40:16 Date Recorded Body height Body mass index (BMI) Body weight Body temperature Oxygen saturation Oxygen saturation in Arterial blood by Pulse oximetry Respiratory rate Heart rate Systolic And Diastolic Provider Name and Address Organization Details Last Updated DateTime 4 160.02 cm 30 kg/m2 28498.9 1 g 98 [degF] 96 % 96 % 16 /min 65 /min 123/86 mm[Hg] Sara Kramer MA [facility] 4 15:59:02 Date Recorded Body height Body mass index (BMI) Body weight Body temperature Respiratory rate Heart rate Oxygen saturation Oxygen saturation in Arterial blood by Pulse oximetry Systolic And Diastolic Provider Name and Address Organization Details Last Updated DateTime 5 160.02 cm 29.6 kg/m2 53415.0 3 g 98.1 [degF] 16 /min 56 /min 95 % 95 % 133/90 mm[Hg] Sara Kramer MA [facility] 5 10:50:49 Date Recorded Body height Body mass index (BMI) Body weight Oxygen saturation Oxygen saturation in Arterial blood by Pulse oximetry Heart rate Body temperature Respiratory rate Systolic And Diastolic Provider Name and Address Organization Details Last Updated DateTime 4 160.02 cm 29.8 kg/m2 83886.3 2 g 98 % 98 % 65 /min 98 [degF] 18 /min 127/85 mm[Hg] Kelly Christie MA [facility] 4 16:49:11 Social History Question Answer Notes LastModified by Organization Details LastModified Time Tobacco Smoking Status Former Smoker Quit in 1998 Kelly Christie MA null, [facility] 05/10/2020 12:11:45 Do You Have An Advance [...] anxious, or unable to sleep at night)? [id number] Information not available 02/23/2021 Family History Relationship Description Onset Age of this Age Resolved Age Notes LastModified by Organization Details LastModified Time Father Diabetes mellitus [email or web address] Not available 01/10 15:27:45 Father Atrial flutter [email or web address] Not available 02/06 15:58:58 Father Bradycardia [email or web address] Not avai lable 02/06/2022 15:59:19 Father 66 Natura l causes [email or web address] Not available 02/06/2024 16:46:07 Notes:rno new changes report ed 05/10/20, 09/14/20, 02/23/21, 06/29/21, 11/01/22, 02/06/23, 08/08/23, 06/03/24 Medical History Condition Response Diabetes Y Skin Problems Y High Blood Pressure Y Gynecological History Statement/Question Response Current Control Method Hysterectom y Date of LMP 10/10/2020 LMP Definite Obstetrics History GPAL:G 0 P 0 0 0 0 Immunizations Vaccine Type Date Status Note Provider Nam e and Address Organization Details Recorded Time Hep A, ped/adol, 2 dose 03/08/1999 completed Not Available [facility] 5 10:42:31 Influenza, live, quadrivalent, intranasal 06/09/2015 completed Not Available [facility] 5 10:42:31 Past Encounters Encounter ID Performer Location Encounter Start Date Encounter Closed Date Diagnosis/Indication Diagnosis SNOMED-CT Code Diagnosis ICD10 Code Diagnosis Note [id number] MD Lizette MARTIN 14 IM [address] [facility] [address] [place] [address] 01/10/2018 15:13:39 01/13/2018 09:58:23 Essential hypertension 25035989 I10 Questionab le coughs with Lisinopril /Losartan. BP at 160/98 on Losartan 50mg daily. Coughs better recently. We will add HCTZ 12.5mg daily. RTC 2mo. Check BP at pharmacy. Diabetes mellitus 960920 09 E11.9 No neuropathy . Need to talk about eye doc. Was on Januvia 100mg daily - sample. Took Metformin, made her sick. Has Glucometer . Fasting glucose 419 today. Declined insulin. Metformin ER for GI issues, add glipizide 10mg BID. Check mornings fasting glucose daily. RTC 2 weeks. Psoriasis 3013461 L40.9 Bilateral ashraf and elbows. Tried high potency steroid before without relief. Refer to Rheum. [id number] MD Lizette MARTIN 14 IM [address] [facility] [address] [place] [address] 01/24/2018 15:38:11 01/24/2018 16:30:29 Essential hypertension 76152459 I10 01/10/2018 : Questionab le coughs with Lisinopril /Losartan. BP at 160/98 on Losartan 50mg daily. Coughs better recently. We will add HCTZ 12.5mg daily. RTC 2mo. Check BP at pharmacy. 01/24/2018 : Doing well. Still some coughs. If continues, tiral of stopping ARB and inc HCTZ. RTC 1mo Diabetes mellitus 684500 09 E11.9 01/10/2018 : No neuropathy . [...] Metformin. RTC 1mo Adult heal th examination 864105722 Z00.00 declined Tdap, Influ, pneumococc al. Public Health Educator info Body mass index 25-29 - overweight 779129631 Z68.29 lifestyle - channging diet [id number] [facility] Lizette ERICKSON 14 IM [address] [facility] [address] [place] [address] 02/24/2018 15:38:06 02/24/2018 17:09:38 Diabetes mellitus 49983616 E11.9 Feet ok. Eye ok. No neuropathy [...] daily. RTC 2mo for A1C. Essential hypertension 83098870 I10 01/10/2018 : Questionab le coughs with Lisinopril /Losartan. BP at 160/98 on Losartan 50mg daily. Coughs better recently. We will add HCTZ 12.5mg daily. RTC 2mo. Check BP at pharmacy. 01/24/2018 : Doing well. Still some coughs. If continues, trial of stopping ARB and inc HCTZ. RTC 1mo 01/2018: Doing well. Continue the same. [id number] MD Lizette MARTIN 14 IM [address] [facility] [place] [address] 04/17/2018 15:52:56 04/23/2018 08:18:41 Diabetes mellitus 74949778 E11.9 Feet ok. Eye ok. No neuropathy [...] recheck A1C today. RTC 3mo. Persistent cough 6230279 02 R05 Sinus drainage, coughing spells Since Saturday. Amoxicilli n, Flonase, Cough syrup from ER not helping. Sinusitis and pharyngiti s on exam. We will try Azithromyc in. [id number] MD Lizette MARTIN 14 IM [address] [facility] [place] [address] 07/17/2018 15:59:19 07/18/2018 11:59:31 Diabetes mellitus 01558958 E11.9 Feet ok. Eye ok. No neuropathy [...] gain). Add Januvia. A1C today. Essential hypertension 90546627 I10 01/10/2018 : Questionab le coughs with Lisinopril /Losartan. BP at 160/98 on Losartan 50mg daily. Coughs better recently. We will add HCTZ 12.5mg daily. RTC 2mo. Check BP at pharmacy. 01/24/2018 : Doing well. Still some coughs. If continues, trial of stopping ARB and inc HCTZ. RTC 1mo 01/2018: Doing well. Continue the same. 06/2018: doing well on Losartan-H CTZ. Psoriasis 3260280 L40.9 Bilateral ashraf and elbows. Tried high potency steroid before without relief. Refer to Rheum - appointmen t 07/2018 [id number] MD Lizette MARTIN 14 [address] [facility] [address] [place] [address] 11/26/2018 10:58:49 11/26/2018 16:33:52 Diabetes mellitus 64943044 E11.9 Feet ok. Eye ok. No neuropathy [...] at high dose metformin. RTC 3mo Psoriasis 2645720 L40.9 Bilateral ashraf and elbows. Tried high [...] sun bae bed and Vit E oil. [id number] MD Lizette MARTIN 14 IM [address] [facility] [address] [place] [address] 02/24/2019 15:41:25 02/25/2019 11:12:26 Essential hypertension 07515544 I10 01/10/2018 : Questionab le coughs with [...] 01/2019: doing well on med. Diabetes mellitus 288497 09 E11.9 Feet ok. Eye ok. No [...] and Januvia. RTC 3mo. History of cholecystectomy 018880626 Z90.49 Recent cholecyste ctomy.Some diarrhea, tolerating oral feeds with some nausea. No gross bleed. Exam - RUQ Abdominal wall localized tenderness and swelling - no erythema. Likely surgical wound complicati on/hematom a. Carnett's sign. Zofran PRN. Will see GI this Saturday. Adult heal th examination 169441939 Z00.00 declined Tdap, Influ, pneumococc al. Public Health Educator info [id number] MD Lizette MARTIN 14 IM [address] [facility] [address] [place] [address] 06/19/2019 15:55:31 06/22/2019 11:52:40 Essential hypertension 11519884 I10 01/10/2018 : Questionab le coughs with [...] 01/2019: doing well on med. Diabetes mellitus 234130 09 E11.9 Feet ok. Eye ok. No [...] Labs. RTC 3mo. Vitamin D deficiency 347 38571 E55.9 Abdominal wall pain 1620 34660 R10.9 RUQ tenderness after lap cholecyste ctomy [...] RUQ US to evaluate. History of cholecystectomy 494015610 Z90.49 01/2019:Re cent cholecyste ctomy.Some diarrhea, tolerating oral feeds with some nausea. No gross bleed.Exam - RUQ Abdominal wall localized tenderness and swelling - no erythema. Likely surgical wound complicati on/hematom a. Carnett's sign.Daron mistry PRN. Will see GI this Saturday. 05/2019: GI mentioned referring her to hepatologi st but pt hasnt heard anything. US and lab first. [id number] MD Lizette MARTIN 14 IM [address] [facility] [address] [place] [address] 09/17/2019 09:02:23 09/28/2019 07:28:59 Diabetes mellitus 07369057 E11.9 Feet ok. Eye ok. No neuropathy [...] this is covered. RTC 1mo. Diet education 04702938 Z71.3 Talked about more home cooking than eating out. [id number] MD Lizette Waterman 14 IM [address] [facility] [place] [address] 05/10/2020 09:41:55 05/11/2020 14:59:08 Type 2 diabetes mellitus 92036202 E11.9 Essential hypertension 45426151 I10 Allergic rhinitis 868008 04 J30.9 [id number] MD Lizette Waterman 14 IM [address] [facility] [place] [address] 02/23/2021 10:03:22 02/24/2021 22:18:18 Type 2 diabetes mellitus 71899134 E11.9 HgbA1c is very well-contr olled--we will decrease the dosage of metformin tp 1000 mg daily to see if this improves her diarrhea Psoriasis 4342946 L40.9 Lightheadedness 14876768 8 R42 Dyspnea on exertion 6084 5006 R06.09 [id number] MD Lizette Waterman 14 IM [address] [facility] [place] [address] 06/29/2021 12:04:14 07/03/2021 11:23:42 Type 2 diabetes mellitus 29784478 E11.9 Temporoman dibular joint disorder 07027826 M26.609 Gastroesop hageal reflux disease 103895632 K21.9 Under care of community assistant 237550648 Z76.89 [id number] MD Lizette Waterman 14 IM [address] [facility] [place] [address] 02/06/2022 15:10:03 02/14/2022 11:46:05 Obesity 346909607 E66.9 Psoriasis 7178111 L40.9 Hypokalemia 54222898 E87 .6 Type 2 savannah betes mellitus 96474395 E11.9 Essential hypertension 29234565 I10 Gastroesop hageal reflux disease 210297657 K21.9 [id number] MD Lizette Waterman 14 IM [address] [facility] [place] [address] 11/01/2022 13:58:04 11/06/2022 13:18:41 Obesity 033666449 E66.9 Gastroesop hageal reflux disease 167772369 K21.9 Type 2 savannah betes mellitus 95384953 E11.9 Psoriasis 6713289 L40.9 Palpitations 78971019 R0 0.2 on metoprolol for this [id number] MD Lizette Waterman 14 IM [address] [facility] [place] [address] 02/06/2023 16:15:58 02/14/2023 15:37:29 Nausea 672471475 R11.0 Type 2 savannah betes mellitus 72210491 E11.9 Intentiona l weight loss 732403252 R63.8 [id number] MD Lizette Waterman 14 IM [address] [facility] [place] [address] 05/08/2023 15:09:58 05/15/2023 09:48:20 Diabetes mellitus 84742461 E11.9 Essential hypertension 47570498 I10 Type 2 savannah betes mellitus 82985283 E11.9 [id number] MD Lizette Waterman 14 IM [address] [facility] [place] [address] 08/08/2023 15:47:57 08/15/2023 12:45:26 Type 2 diabetes mellitus 85380273 E11.9 HgbA1c has improved from 9.2 on 05-08-23 to 8.4 at visit today! HIV screen ing declined 3385331115 81809 Z53.20 [id number] MD Lizette Waterman 14 IM [address] [facility] [place] [address] 02/06/2024 16:15:56 02/18/2024 11:49:30 Type 2 diabetes mellitus 20607445 E11.9 History of pneumonia 161 644959 Z87.01 Cough 92606605 R05.9 Acute otit is externa of right ear 8408442142 796243 H60.501 [id number] MD Lizette Waterman 14 IM [address] [facility] [place] [address] 06/02/2024 10:19:19 06/04/2024 15:11:29 Urinary symptoms 978128022 R39.9 Sore throat 779888695 J0 2.9 Overweight 644992704 E66 .3 BMI-29.8 Type 2 savannah betes mellitus 34696454 E11.9 HgbA1c has increased again--pt states that she is still drinking regular soda--she shows no interest in changing this Pain of knee region 1003 686083 M25.944 [id number] MD Lizette Waterman 14 IM [address] [facility] [place] [address] 10/05/2024 10:41:43 10/07/2024 11:39:26 HIV screening declined 6260349854 87340 Z53.20 Bilateral inguinal hernia 07147849 K40.20 Type 2 savannah betes mellitus 33491564 E11.9 HgbA1c has decreased from 9.4 to 9.2 External hordeolum 96987 08 H00.019 Health Concerns Section Related Observation LastModified by Organization Detai ls LastModified Time None Recorded Concern Status LastModified by Organization Details LastModified Time None Recorded Advance Directives Directive N: Payers Insurance Date Sequence Insurance Name Policy Number Policy Eli Covered Member ID Eli Member ID Guarantor Name 10/05/2024 1 [facility] ON OR AFTER 10/27/20 (MEDICAID REPLACEMENT - HMO) Bekah Melendez [id number] Bekah Melendez 09/28/2024 1 [facility] PRIOR TO 10/27/2020 (MEDICAID REPLACEMENT - HMO) Bekah Melendez [id number] Bekah Melendez 06/27/2021 2 *SELF PAY* Sh argentina Melendez 06/27/2021 SLIDING FEE SCHEDULE - DISCOUNT Bekah Melendez Notes Date Note Type Note Provider Name and Address Organization Details Recorded Time 05/08/2023 text/html ROS as noted in the HPI Regular checkup. Pt is taking trulicity and tolerating it. Denny Gabriel MD Attn: Accounting,[address] [place], [address], [facility] 05/13/2023 07:54:52 08/08/2023 text/html ROS as noted in the HPI Per intake note. Denny Gabriel MD Attn: Accounting[address] [place], [address], [facility] 08/12/2023 15:17:23 02/06/2024 text/html ROS as noted in the HPI Per intake note. Denny Gabriel MD Attn: Accounting[address] [place], [address], [facility] 02/15/2024 08:15:57 06/02/2024 text/html Per intake note. 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 Denny Gabriel MD Attn: Accounting[address] [place], [address], [facility] 06/03/2024 17:47:47 10/05/2024 text/html CT scan done at [facility] in June 2023 shows bilateral fat-filled inguinal hernias. Denny Gabriel MD Attn: Accounting[address] [place], [address], [facility] 10/07/2024 07:22:30 OBGyn Episode No OBEpisode recorded.
--- OUTSIDE RECORDS SUMMARY | 2024-11-20 00:19 | XMS_ITS | Clinical Summary ---
Author Organization [employer] [address] Address [address] [place] [address] Care Team Providers Care Cattle Dehorner Name Role Phone Unavailable Primary Care Provider [...] of 3 - 19+ 3-dose series) 1997 HPV/Cotest (21-29) 1999 CERVICAL CANCER SCREENING 2008 HPV/Cotest (30-65) 2008 PAP SMEAR 2008 BREAST CANCER SCREENING 2018 COLORECTAL SCREENING 2023 Colorectal Cancer Screening 2023 FIT-DNA Q 3 years 2023 FIT/FOBT Q 1 year 2023 Flex Sig/CT Colonography Q 5 years 2023 INFLUENZA VACCINE (#1) 2024 HPV VACCINES Aged Out No longer eligi ble based on patient's age to complete this topic
--- OUTSIDE RECORDS SUMMARY | 2024-11-20 00:19 | XMS_ITS | Clinical Summary ---
Author Organization [facility] [employer] Address [address] [facility] [place] [address] Care Team Providers Care Construction Ironworker Helper Name Role Phone Denny Smyth MD Primary Care Provider [phone] Source Comments [facility] [employer],non-owned Affiliates and Associated Physician Practices is amultiple site organization consisting of ambulatory clinics and hospital sitesin [place], [place], [place] and [place]. This disclosure is being madepursuant to the Care Everywhere program and may not contain all information available regarding this patient. Last updated 18.[facility] [employer] Allergies Active Allergy Reactions Criticality Noted Date [...] Description 10/01/2024 1:10 AM CDT Clinical Support [facility] - Cardiology [address] [address] Implantable loop recorder present ; PVC's (premature ventricular contractions); Palpitations 08/27/2024 1:10 AM CDT Clinical Support [facility] - Cardiology [address] [place] [address] Palpitations ; PVC's (premature ventricular contractions) from [...] 36.7 C (98.1 F) 05/08/2022 1:33 PM IT NETWORK ARCHITECT Respiratory Rate - - Oxygen Saturation 97% [...] Clinical Support [facility] - Cardiology [facility] [address] 01/14/2025 1:10 AM CDT Clinical Support [facility] - Cardiology [address] [place] [phone] 02/18/2025 1:10 AM CDT Clinical Support [facility] - Cardiology [address] [place] [phone] Health Maintenance Due Date Last Done Comments [...] this topic Medical Devices Implanted Type Area Computing Consultant Device Identifier Shelf Expiration Date Model / Serial / Lot Loop Recorder Loop Recorder MarketwiredroniAwarenessHub BIOMONITOR III Procedures Procedure Name Priority Date/Time Associated Diagnosis Comments [place] ILR DEVICE INTERROGAT REMOTE Routine 10/17/2024 2:02 PM CDT Implantable loop recorder present PVC's (premature ventricular contractions) Palpitations CARDIAC PROCEDURE ORDER 09/30/2024 [place] ILR DEVICE INTERROGAT REMOTE Routine 09/04/2024 2:32 PM CDT Palpitations PVC's (premature ventricular contractions) CARDIAC PROCEDURE ORDER 08/30/2024 BASIC METABOLIC PANEL (CALCIUM TOTAL) Routine 08/05/2024 9:22 AM CDT Palpitations LIPID PROFILE Routine 08/05/2024 9:22 AM CDT Palpitations HEPATITIS C ANTIBODY Routine 09/08/2018 4:25 PM CDT Psoriasis Arthralgia, unspecified joint Elevated transaminase measurement Type 2 diabetes mellitus with complication, unspecified whether mcfp insulin use Vitamin D deficiency from Last 3 Months or Most Recently Relevant to Health Maintenance Results * [place] ILR DEVICE INTERROGAT REMOTE (10/17/2024 2:02 PM [...] CARDIAC SERVICES ORDERABLES Fin al Result * [place] ILR DEVICE INTERROGAT REMOTE (09/04/2024 2:32 PM [...] 10.2 mg/dL [facility] Comment: Test Performed at: [facility] [address] EITAN NEWMAN MD Blood BLOOD SPECIMEN / Unknown 08/05/2024 9:22 AM CDT 08/05/2024 9:23 AM CDT us Phyllis De Oliveira RECYCLING ASSISTANT-GROM[facility] MAN [facility] - CHEMISTRY ORDERABLES Final Result [address] [address] * (ABNORMAL) LIPID PROFILE (08/05/2024 9:22 AM [...] LDL-C. Michael BOLTON et al. SUDEEP. 2013;310(19): 3984-6427 (http://education.CELLFOR.Courseload/faq/RPA836) CHOL/HDLC RATIO 4.7 <5.0 (calc) [facility] Non HDL Cholesterol 157(H) <130 mg/dL (calc) [facility] Comment: For patients with diabetes plus 1 major ASCVD risk factor, treating to a non-HDL-C goal of <100 mg/dL (LDL-C of <70 mg/dL) is considered a therapeutic option. Test Performed at: [facility] [address] [place] [address] EITAN NEWMAN MD Blood BLOOD SPECIMEN / Unknown 08/05/2024 9:22 AM CDT 08/05/2024 9:23 AM CDT Phyllis De Oliveira APRN-GROM[facility] MAN LAB - CHEMISTRY ORDERABLES Final Result [facility] [address] [place] [address] * HEPATITIS C ANTIBODY (09/08/2018 4:25 PM CDT) Hepatitis C Antibody Non-react noe Non-reac tive 09/08/2018 5:49 PM CDT [facility] Comment: Hepatitis C Antibody screen [...] ORDERABLES Fi nal Result Performing Organization Address City/[facility]/ZIP Co de Phone Number [facility] [address] [phone] from Last 3 Months or Most Recently Relevant to Health Maintenance [place] [address] [address] [facility] Care Teams Construction Ironworker Helper Relationship Specialty Start Date End Date Denny Smyth MD [address] [place] [phone] PCP - General 01/08/22
--- NOTE | 2024-12-31 13:10 | PC.NURSE ---
Addendum entered by Robles Pena RN 12/31/24 15:59: Patient denies any changes to health history since previous interview. Original Note: Report to the Outpatient Waiting Room, entrance under the green pavilion located off [facility], at time _0930_ on date _[id number]_. Planned Procedure Time: _1130_.? Time changes happen often and if your time is changed the preop area will call you the afternoon before. - You and your visitor will be asked to self-screen and do not enter if you have any COVID symptoms. Please call surgeon if you need to reschedule. - A mask is optional within the hospital at this time. Patients may have clear liquids (water, carbonated beverages, clear teas, apple juice) until 3 hours prior to surgery with a maximum of 20 ounces. - No food from midnight until time of surgery and no smoking, or chewing tobacco (or any form of nicotine). No chewing gum, candy or mints. Take only the following medications with a SIP of water on the morning of surgery: ___Metoprolol and Diltiazem.___ DO NOT STOP ANY OF YOUR OTHER PRESCRIPTION MEDICATIONS PRIOR TO SURGERY EXCEPT THE FOLLOWING Hold all vitamins and supplements for 3 days per anesthesiologist. Medications to discontinue per physician Date to take last dose Please no make-up, nail serbian, hairspray, perfume, deodorant, or body powder the day of surgery.? No jewelry (including any body piercings) or valuables the day of surgery, leave them at home.? Please take a shower or bath the night before, or the morning of, surgery with an antibacterial soap.? Wear comfortable, loose fitting clothing.? - Jewelry must be removed prior to entering the operating room.? Rings and piercings that are not removed may be cut off. - The hospital will not accept responsibility for valuables.? - Please leave all valuables, including medications, at home the day of surgery. If you are going home after surgery, a licensed logging truck driver must drive you home.? - NO public transportation without another adult if you receive anesthesia. - We recommend that an adult stay with you for 24 hours following discharge. - We also recommend that you do not drive, make important decision, drink alcoholic beverages, or take any drugs that were not prescribed by your health care provider for at least 24 hours after your discharge time. Follow any additional instructions given to you from your surgeon. Telephone instructions given to ___Shelly__and asked if any additional questions and then verbalized understanding. Patient advised to call surgeon office or pre surgery nurse liaison [phone] if any additional questions.
[2025-01-05] VITALS (12 sets, daily range): BP systolic 92–144; BP diastolic 59–103; PULSE 70–92; RESP 12–18; TEMP 36.9–37.7; O2SAT 93–100
--- OUTSIDE RECORDS SUMMARY | 2025-01-05 00:23 | XMS_ITS | Clinical Summary ---
Author Organization [facility] [employer] Address [address] [facility] [place] [address] Care Team Providers Care Arterial Embalmer Name Role Phone Denny Smyth MD Primary Care Provider [phone] Source Comments [facility] [employer],non-owned Affiliates and Associated Physician Practices is amultiple site organization consisting of ambulatory clinics and hospital sitesin [place], [place], [place] and [place]. This disclosure is being madepursuant to the Care Everywhere program and may not contain all information available regarding this patient. Last updated 18.[facility] Allergies Active Allergy Reactions Criticality Noted Date [...] Encounters Date Type Department Care Team Description 11/05/2024 1:10 AM CDT Clinical Support [facility] - Cardiology [address] [address] Implantable loop recorder present ; PVC's (premature ventricular contractions) from Last [...] 36.7 C (98.1 F) 05/08/2022 1:33 PM DIRECTOR OF CORPORATE MARKETING Respiratory Rate - - Oxygen Saturation 97% 07/29/2024 3:36 PM CDT Inhaled Oxygen Concentration - - Weight 72.6 kg (160 lb) 07/29/2024 3:36 PM CDT Height 160 cm (5' 3) 07/29/2024 3:36 PM CDT Body Mass Index 28.34 07/29/2024 3:36 PM CDT Plan of Treatment Upcoming Encounters Date Type Department Care Team (Late st Contact Info) Description 01/14/2025 1:10 AM CDT Clinical Support [facility] - Cardiology [address] [facility], [address] [address] 02/18/2025 1:10 AM CDT Clinical Support [facility] - Cardiology [address] [facility], [address] [address] Health Maintenance Due Date Last Done Comments [...] 2 - PCV) 1997 PAP SMEAR 1999 DEPRESSION SCREENING 04/29/2024 COVID-19 VACCINE (1 - 2023-2 5 season) 2024 INFLUENZA VACCINE (#1) 2024 06/09/2015 SCREENING FOR [...] this topic Medical Devices Implanted Type Area Nursing Instructor Device Identifier Shelf Expiration Date Model / Serial / Lot Loop Recorder Loop Recorder HapplinkroniLocal Dirt BIOMONITOR III Procedures Procedure Name Priority Date/Time Associated Diagnosis Comments [place] ILR DEVICE INTERROGAT REMOTE Routine 12/05/2024 3:59 PM CDT Implantable loop recorder present PVC's (premature ventricular contractions) CARDIAC PROCEDURE ORDER 11/05/2024 [place] ILR DEVICE INTERROGAT REMOTE Routine 10/17/2024 2:02 PM CDT Implantable loop recorder present PVC's (premature ventricular contractions) Palpitations BASIC METABOLIC PANEL (CALCIUM TOTAL) Routine 08/05/2024 9:22 AM CDT Palpitations LIPID PROFILE Routine 08/05/2024 9:22 AM CDT Palpitations HEPATITIS C ANTIBODY Routine 09/08/2018 4:25 PM CDT Psoriasis Arthralgia, unspecified joint Elevated transaminase measurement Type 2 diabetes mellitus with complication, unspecified whether residential insulin use Vitamin D deficiency from Last 3 Months or Most Recently Relevant to Health Maintenance Results * [place] ILR DEVICE INTERROGAT REMOTE (12/05/2024 3:59 PM CDT) Narrative Ricardo Hoskins MD - 12/05/2024 3:59 PM CDT Ricardo Hoskins MD 12/05/2024 4:01 PM Dear Viviana Mcgill, I reviewed the remote interrogation of your loop recorder. Your device's sensing is appropriate and stable. During this most recent monitored period ending on 11/06/2024 your atrial fibrillation/tachycardia burden was 0% and you had no significant arrhythmias. Device function is normal, no programming changes are required, and no medications will need to be changed. Please call our offices if you have any further questions. Sincerely, Ricardo Hoskins 12/05/2024 us Ricardo Hoskins MD PROCEDURE/MINOR SURGICAL ORDERAB LES Final Result * CARDIAC PROCEDURE ORDER (11/05/2024) Narrative 11/05/2024 Ordered by an unspecified provider. us Scanned Document CARDIAC SERVICES ORDERABLES Fin al Result * [place] ILR DEVICE INTERROGAT REMOTE (10/17/2024 2:02 PM CDT) Narrative Brianna Martinez MD - 10/17/2024 2:02 PM CDT Brianna [...] mL/min/1. 73m2 [facility] BUN/Creatinine Ratio SEE NOTE: 6 - 22 (calc) [facility] Comment: Not Reported: BUN and Creatinine are within reference range. Sodium 135 135 - 146 mmol/L [facility] Potassium 3.8 3.5 - 5.3 mmol/L [facility] Chloride 101 98 - 110 mmol/L [facility] CO2 27 20 - 32 mmol/L [facility] Calcium 9.1 8.6 - 10.2 mg/dL [facility] Comment: Test Performed at: [facility] [address] EITAN NEWMAN MD Blood BLOOD SPECIMEN / Unknown 08/05/2024 9:22 AM CDT 08/05/2024 9:23 AM CDT [facility] Alvino [facility] - CHEMISTRY ORDERAB[facility] Final Result Performing Organization Address [facility] Co de Phone Number [address] [address] * (ABNORMAL) LIPID PROFILE (08/05/2024 9:22 AM CDT) [facility] Signature Cholesterol 199 <200 mg/dL [facility] HDL Cholesterol 42(L) > OR = 50 mg/dL [facility] Triglycerides 158(H) <150 mg/dL [facility] LDL Calculated 130(H) mg/dL (calc) [facility] Comment: Reference range: <100 Desirable range <100 mg/dL for primary prevention; <70 mg/dL for patients with CHD or diabetic patients with > or = 2 CHD risk factors. LDL-C is now calculated using the Nafisa calculation, which is a validated novel method providing better accuracy than the Friedewald equation in the estimation of LDL-C. Michael BOLTON et al. SUDEEP. 2013;310(19): 1790-9472 (http://education.[employer].Joognu/faq/CAW409) CHOL/HDLC RATIO 4.7 <5.0 (calc) [facility] Non HDL Cholesterol 157(H) <130 mg/dL (calc) [facility] Comment: For patients with diabetes plus 1 major ASCVD risk factor, treating to a non-HDL-C goal of <100 mg/dL (LDL-C of <70 mg/dL) is considered a therapeutic option. Test Performed at: [facility] [address] EITAN NEWMAN MD Blood BLOOD SPECIMEN / Unknown 08/05/2024 9:22 AM CDT 08/05/2024 9:23 AM CDT Phyllis De Oliveira [facility] - CHEMISTRY ORDERAB[facility] Final Result Performing Organization Address [facility] Co de Phone Number [address] [address] * HEPATITIS C ANTIBODY (09/08/2018 4:25 PM CDT) Hepatitis C Antibody Non-react noe Ogden-reac tiashlie 09/08/2018 5:49 PM CDT [facility] Comment: Hepatitis C Antibody screen [...] 4:25 PM CDT 09/08/2018 4:30 PM CDT us Diana Banks DO LAB - CHEMISTRY ORDERABLES Formerly [facility], [facility] [phone] from Last 3 Months or Most Recently Relevant to Health Maintenance Insurance [facility] Care Teams Arterial Embalmer Relationship Specialty Start Date End Date Denny Smyth MD [address] [address] PCP - General 01/08/22
--- OUTSIDE RECORDS SUMMARY | 2025-01-05 00:23 | XMS_ITS | Clinical Summary ---
Author Organization [facility] Address [address] [place] [address] Care Team Providers Care Energy Analyst Name Role Phone Denny Smyth MD Primary Care Provider [phone] Allergies Active Allergy Reactions Criticality Noted Date [...] cell capsule Take 1 tablet by mouth performance architect before breakfast Active Trulicity 0.75 mg/0.5 mL [...] 90 capsule 1 5 10/28/19 26 Active pioglitazone (ACTOS) 15 mg tablet Take 1 tablet (15 mg total) by mouth daily Active Active Problems Problem Noted Date Diagnosed Date Microvascular angina 12/11/2021 Primary hypertension 12/11/2021 Paroxysmal atrial fibrillation 09/21/2021 Overview (12/21/2021): Noted on monitoring specialist from 02 May 2021. Has long QT syndrome on EKG. Status post [employer] Biomonitor 3 loop recorder insertion on 20 [...] (06/29/2021): Added automatically from request for surgery [id number] Abnormal stress test 06/29/2021 Overview (06/29/2021): Added automatically from request for surgery [id number] Encounters Date Type Department Care Team Description 11/30/2024 8:45 AM CDT Ancillary Procedure [employer] [facility] Associate at [address] [place] [phone] Palpitations; Encounter for interrogation of cardiac recorder 11/30/2024 8:45 AM CDT Office Visit [employer] [facility] Associate at [address] [phone] Yassine Grimse MD Paroxysmal atrial fibrillation (HCC) (Primary Dx); Palpitations; Implantable loop recorder present 11/23/2024 Orders Only [employer] Associate at [address] [address] Jamila Anne MA Palpitations (Primary Dx); Paroxysmal atrial fibrillation (HCC); Encounter for interrogation of cardiac recorder from Last 3 Months Social History Tobacco Use Types Packs/Day Years Used Date Smoking Tobacco: Former Cigarettes Q uit: 1996 Smokeless Tobacco: Never Tobacco Cessation:Counseling Given: Not Answered Comments No Sex and Gender Information Value Date Recorded Sex Assigned at Not on file Legal Sex Female 2:42 AM FILM MOUNTER Gender Identity Female 05/25/2021 7:20 AM FILM MOUNTER Sexual Orientation Not on file Obstetrics History Last Filed Vital Signs Vital Sign Reading Time Taken Comments Blood Pressure 140/95 11/30/2024 8:51 AM CDT Pulse 67 11/30/2024 8:51 AM CDT Temperature 36 C (96.8 F) 12/19/2021 7:33 AM CDT Respiratory Rate 18 11/30/2024 8:51 AM CDT Oxygen Saturation 96% 12/19/2021 10:00 AM CDT Inhaled Oxygen Concentration - - Weight 78.9 kg (174 lb) 11/30/2024 8:51 AM CDT Height 160 cm (5' 3) 11/30/2024 8:51 AM CDT Body Mass Index 30.82 11/30/2024 8:51 AM CDT Plan of Treatment Health Maintenance Due Date Last Done Comments Albumin Creatinine Ratio, Urine 1978 Breast Cancer Screening-Mammogram 1978 Colon Cancer Screening-Colonoscopy 1978 Depression Screening 1978 Hemoglobin A1C 1978 Hepatitis C Screening 1978 Dilated Eye Exam 1978 Foot Exam 1978 DTaP/Tdap/Td Vaccine (1 - Tdap) 1989 Hepatitis B Screening 1996 Regular Well Visit/Exam 18-64 1996 Pneumococcal vaccine <65 (1 of 2 - PCV) 1997 eGFR 09/27/2022 09/27/2021, 06/29/2021, 04/12/2021 Influenza Vaccine (#1) 2024 06/09/2015 Lipid Panel 08/05/2025 08/05/2024 HPV Vaccines Aged Out No longer eligi ble based on patient's age to complete this topic Medical Devices Implanted Type Area Bone Drier Device Identifier Shelf Expiration Date Model / Serial / Lot Angio-Seal Evolution 6fr Vascular Closure - [id number] Implanted:Qty: 1 on 06/30/2021 by Yassine Grimes MD at [facility] Other - see comments Trellie 04/28/2022 [id number] / / [id number] TeamSnap Biomonitor Iii Monitor Cardiac Sterile Disposable Latex Free [id number] - [id number] - [id number] Implanted:Qty: 1 on 12/19/2021 by Juan Charles MD at [facility] [employer] 03/28/2023 [id number] / [id number] / Procedures Procedure Name Priority Date/Time Associated Diagnosis Comments DEVICE CHECK - IN OFFICE Routine 11/30/2024 9:44 AM CDT Palpitations Encounter for interrogation of cardiac recorder ECG 12-LEAD Routine 11/30/2024 9:17 AM CDT Paroxysmal atrial fibrillation (HCC) EGFR Routine 09/27/2021 12:07 PM CDT Paroxysmal atrial fibrillation (HCC) from Last 3 Months or Most Recently Relevant to Health Maintenance Results * DEVICE CHECK - IN OFFICE (11/30/2024 9:44 AM CDT) Anatomical Region Laterality Modality Other Narrative 11/30/2024 11:55 AM CDT Images from the original result were not included. 11/30/2024 [employer] in-office device check The complete report is attached to this Result Text in Braille Coder Yassine Grimes MD CV CARDIAC SERVICES PROCEDURES Final Result * ECG 12 lead (11/30/2024 9:17 AM CDT) Yassine Grimes MD ECG ORDERABLES Final Result * eGFR (09/27/2021 12:07 PM CDT) eGFR 105 mL/min/1. 73 m2 [facility] ([facility]) Comment: Interpretive Data Reference Interval Normal >/= 90 mL/min/1.73m2 Mildly decreased* 60 - 89 mL/min/1.73m2 Mildly to moderately decreased 45 - 59 mL/min/1.73m2 Moderately to severely decreased 30 - 44 mL/min/1.73m2 Severely decreased 15 - 29 mL/min/1.73m2 Kidney Failure < 15 mL/min/1.73m2 *Relative to young adult level Estimated glomerular filtration rate is determined by the 2020 CKD-EPI equation recommended by the National Kidney Foundation (A Unifying Approach to GFR Estimation: Recommendations of the NKF-ASK Task Force on Reassessing the Inclusion of Race in Diagnosing Kidney Disease, JASN 202). The CKD-EPI equation should not be used for patients with unstable renal function and has not been validated in children and those over 70. Current interpretive data was last reviewed 2021. Blood 09/27/2021 12:0 7 PM CDT 09/27/2021 12:54 PM CDT Debi David MD LAB BLOOD ORDERABLES Final Result [facility] ([facility]) [address] [facility] [place] [address] from Last 3 Months or Most Recently Relevant to Health Maintenance Insurance [facility] Advance Directives For more information, please contact: [phone] * Full Code (Latest Code Status on File) Date Activated Date Inactivated Comments 12/19/2021 9:20 AM 12/19/2021 2:56 PM * Full Code Date Activated Date Inactivated Comments 06/30/2021 9:01 AM 06/30/2021 6:32 PM Care Teams Energy Analyst Relationship Specialty Start Date End Date Denny Smyth MD PCP - General Family Medicine 03/03/21
--- OUTSIDE RECORDS SUMMARY | 2025-01-05 00:23 | XMS_ITS | Clinical Summary ---
Author Organization [employer] [address] Address [address] [place] [address] Care Team Providers Care Paper Cup Handle Machine Operator Name Role Phone Unavailable Primary Care Provider [...]
--- OUTSIDE RECORDS SUMMARY | 2025-01-05 00:23 | XMS_ITS | Clinical Summary ---
Author Organization [facility] Address [address] [place] [address] Care Team Providers Care Parachute Crown Sewer Name Role Phone Unavailable Primary Care Provider [...] Screening 2018 COVID-19 Vaccine (2023-2 5 season) 2024 Meningococcal B Vaccine Aged Out No l [...] patient's age to complete this topic Insurance [place]
[2025-01-05] MEDS: LACTATED RINGERS 1,000 ML 30 ML IV CONT ×3 (10:00→16:00)
[2025-01-05] MEDS: KETOROLAC 15 MG/ML VIAL (*BKC) IV PUSH (10:37)
[2025-01-05] MEDS: ACETAMINOPHEN 500 MG TABLET 1000 MG PO (10:37)
--- NOTE | 2025-01-05 10:52 | WPDANESEPPF ---
Anes - Initial Pre Proc Eval Procedure: Operation Date: 01/05/25 11:30 Proposed Procedures p Robotic Assisted Bilateral Inguinal Hernia Repair with Mesh - Librado French MD Date/Time: 01/05/25 10:52 Surgeon: Librado French MD Pre Op Diagnosis: Bilateral Inguinal Hernia Patient Data Age: 44 Gender: F Height: 1.6 m Weight: 80.1 kg Last Vital Signs Temp 37.7 C H 01/05/25 10:32 Pulse 70 01/05/25 10:32 Resp 16 01/05/25 10:32 BP 144/103 H 01/05/25 10:32 Pulse Ox 100 01/05/25 10:32 O2 Del Method Room Air 01/05/25 10:32 Allergies Allergy/AdvReac Type Severity Reaction Status Date / Time Sulfa (Sulfonamide AdvReac Mild Headache Verified 01/05/25 10:28 Antibiotics) Home Medications ?Medication ?Instructions ?Recorded ?Confirmed ?Type glipizide 10 mg tablet 20 mg PO BID 02/27/19 11/13/24 History metformin 500 mg 24 hr 2,000 mg PO QAM 02/27/19 11/13/24 History tablet,extended release (gastric retention) canagliflozin 300 mg tablet 300 mg PO DAILY 05/02/21 12/31/24 History (Invokana) linagliptin 5 mg tablet (Tradjenta) 5 mg PO QAM 07/19/21 11/13/24 History metoprolol succinate 50 mg 50 mg PO DAILY 07/12/22 01/05/25 History tablet,extended release 24 hr clobetasol 0.05 % topical cream 1 applic topical DIRECTED 06/18/23 11/13/24 History diltiazem HCl 120 mg 120 mg PO DAILY 09/09/23 01/05/25 History capsule,extended release 24 hr (Cartia XT) pioglitazone 15 mg tablet 15 mg PO DAILY 10/08/24 01/05/25 History metoprolol succinate 100 mg 100 mg PO DAILY 11/13/24 01/05/25 History tablet,extended release 24 hr Laboratory Tests 01/05/25 10:14 POC Capillary Glucose 136 H mg/dl (65-105) Patient hx anesthesia problems: post op nausea/vomiting Family hx anesthesia problems: none Results Review: All pre-operative results and documents have been reviewed as part of the pre-operative evaluation. [facility] Past Medical History Medical History (Updated 01/05/25 @ 10:54 by Cachorro Alamo DO) Atrial fibrillation Hernia History of left heart catheterization Obesity Vaginal delivery x1 Allergic sinusitis Hypertension Diabetes Surgical History Surgical History History of implantable cardiac defibrillator (ICD) History of robot-assisted laparoscopic hysterectomy 10/10/20 H/O tubal ligation History of endometrial ablation H/O lateral meniscus repair of left knee Hx laparoscopic cholecystectomy Family History Family History Grandparent Diabetes mellitus Mother Hypoglycemia Father Diabetes mellitus Grandparent Diabetes mellitus Other Cancer Social History Social History Smoking packs per day: 0.25 Smoking cigarettes per day: 5.0 Years smoked: 2 Smoking pack-years: 0.50 Smoking status: Never smoker Second hand tobacco smoke exposure: Yes Alcohol intake: never Alcohol use details: PRIOR TO DIABETES DX Substance use: never Lack of Transportation: No Lack of Food: Never True Current Housing: I Have Housing Concerned About Future Housing: No Difficulty Paying Gas/Electric Bills: No Difficulty Paying for Meds: No Currently Unemployed: YES Education: High School Diploma/GED Difficulty w/ Childcare or Family Care: No Living arrangements: with family Additional living arrangements comments: PARENTS AND SON Gender identity (if verbalized by the patient): Female Spiritual care concerns: No Anes - Eval Final PreProcedure Day of Procedure 01/05/25 10:52 Patient weight: obese Heart: regular rate and rhythm Lungs: clear to auscultation Airway: Mallampati scale class II and special considerations poor dentition Neurological: alert and oriented Last oral intake: >/= 8 hours ASA classification: III Emergent: no Anesthetic plan: proceed Anesthesia type and monitoring: general ETT and standard monitoring Results Review: All pre-operative results and documents have been reviewed as part of the pre-operative evaluation. Informed Consent: The patient's anesthetic plan and its attendant risks and benefits were discussed with the patient/family/POA. Questions were solicited and answers provided to the satisfaction of the patient/family/POA.
[2025-01-05] MEDS: SCOPOLAMINE 1 MG PATCH 1 PATCH TRANSDERM (11:17)
--- NOTE | 2025-01-05 12:03 | PM.IMHP ---
H&P: HPI History of Present Illness Date/Time: 01/05/25 12:03 Chief Complaint: Bilateral inguinal hernias Narrative: Bekah is a 44 y/o female who presents with bilateral groin pain at the request of Dr. Smyth. She states her symptoms started in May. She has persistent right groin pain and left groin pain with pressure. It is worse with squatting and lifting heavy objects. She has associated nausea and vomiting on and off. She does not notice a bulge. CT abd/pelvis w contrast was done on 06/23/24 and showed a small bilateral fat-containing inguinal hernia. She has a surgical history of hysterectomy with left oophorectomy, tubal, and cholecystectomy. Review of Systems Review of Systems: The remainder of the review of systems to include constitutional, HEENT, cardiovascular, respiratory, GI, , integumentary, musculoskeletal, endocrine, immunologic, hematologic, psychiatric, and neurologic are all negative except for which is mentioned above in the HPI. [facility] Past Medical History Medical History Atrial fibrillation Hernia History of left heart catheterization Obesity Vaginal delivery x1 Allergic sinusitis Hypertension Diabetes Surgical History Surgical History History of implantable cardiac defibrillator (ICD) History of robot-assisted laparoscopic hysterectomy 10/10/20 H/O tubal ligation History of endometrial ablation H/O lateral meniscus repair of left knee Hx laparoscopic cholecystectomy Family History Family History Grandparent Diabetes mellitus Mother Hypoglycemia Father Diabetes mellitus Grandparent Diabetes mellitus Other Cancer Social History Social History Smoking packs per day: 0.25 Smoking cigarettes per day: 5.0 Years smoked: 2 Smoking pack-years: 0.50 Smoking status: Never smoker Second hand tobacco smoke exposure: Yes Alcohol intake: never Alcohol use details: PRIOR TO DIABETES DX Substance use: never Lack of Transportation: No Lack of Food: Never True Current Housing: I Have Housing Concerned About Future Housing: No Difficulty Paying Gas/Electric Bills: No Difficulty Paying for Meds: No Currently Unemployed: YES Education: High School Diploma/GED Difficulty w/ Childcare or Family Care: No Living arrangements: with family Additional living arrangements comments: PARENTS AND SON Gender identity (if verbalized by the patient): Female Spiritual care concerns: No Meds Home Medications and Allergies Home Medications ?Medication ?Instructions ?Recorded ?Confirmed ?Type glipizide 10 mg tablet 20 mg PO BID 02/27/19 11/13/24 History metformin 500 mg 24 hr 2,000 mg PO QAM 02/27/19 11/13/24 History tablet,extended release (gastric retention) canagliflozin 300 mg tablet 300 mg PO DAILY 05/02/21 12/31/24 History (Invokana) linagliptin 5 mg tablet (Tradjenta) 5 mg PO QAM 07/19/21 11/13/24 History metoprolol succinate 50 mg 50 mg PO DAILY 07/12/22 01/05/25 History tablet,extended release 24 hr clobetasol 0.05 % topical cream 1 applic topical DIRECTED 06/18/23 11/13/24 History diltiazem HCl 120 mg 120 mg PO DAILY 09/09/23 01/05/25 History capsule,extended release 24 hr (Cartia XT) pioglitazone 15 mg tablet 15 mg PO DAILY 10/08/24 01/05/25 History metoprolol succinate 100 mg 100 mg PO DAILY 11/13/24 01/05/25 History tablet,extended release 24 hr Allergies Allergy/AdvReac Type Severity Reaction Status Date / Time Sulfa (Sulfonamide AdvReac Mild Headache Verified 01/05/25 10:28 Antibiotics) Vital Signs Vital Signs - 24 hr 01/05/25 10:32 01/05/25 11:16 Temperature 37.7 C H Pulse Rate 70 Respiratory Rate 16 Blood Pressure 144/103 H 133/73 Pulse Oximetry 100 Oxygen Delivery Room Air Exam Const: General: comfortable and no acute distress HENMT: Ears: TM's normal bilaterally Face/Nose/Sinus: Normal nares present Mouth: Yes moist mucous membranes Eyes: General: appearance normal, both eyes and all related structures Sclera: sclerae normal Pupils: Equal, round and reactive pupils present EOM: EOMs intact bilaterally Neck: Neck: supple and no JVD Resp: Effort & Inspection: normal respiratory effort Auscultation: clear to auscultation bilaterally Cardio: Rate: regular rate Rhythm: abnormal rhythm regularly irregular GI: GI Palp: Yes Soft to palpation, No Firmness to palpation present (GI), No Tenderness to palpation present (GI), No Guarding due to palpation present (GI) and No Hernia present : Other: Tenderness bilateral inguinal region without definite palpable hernia. Little more tender on left than right. No ventral hernias. Well healed laparoscopic scars. Skin: General skin exam: normal color and no rashes or lesions noted Neuro: General: gait normal Speech: normal speech Motor exam (neuro): 5/5 motor strength present throughout Sensory Exam: normal sensation Extrem: General: normal to inspection Psych: Mental Status: mental status grossly normal Affect: normal affect Assessment and Plan Assessment and plan (1) Bilateral inguinal hernia: Code(s): K40.20 - Bilateral inguinal hernia, without obstruction or gangrene, not specified as recurrent Status: Acute Assessment and Plan: Patient has had ongoing bilateral groin pain since May. Made worse with squatting and lifting cases of water. On physical exam, there is no obvious palpable inguinal hernia bilaterally with cough. 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 Cord lipomas could be reason for pain and I offered laparoscopic bilateral inguinal hernia repair. She agreed to proceeding. I did discuss the possibility of non resolution and continued pain. She is aware and agreed to proceed. I have recommended a robotic assisted laparoscopic BIH repair with mesh to be done under general anesthesia as an outpatient. The procedure was discussed in detail including the use of mesh, general description, and usual course of recovery. Risks of recurrence, infection, postop bleeding, prolonged postop pain, possible need to return to surgery were discussed as well. All questions were answered. Patient would like to proceed. Follow-up 2 weeks postoperatively.
--- NOTE | 2025-01-05 12:07 | WPDHPUPDATE1 ---
History and Physical Update Update Date/Time: 01/05/25 12:07 History and Physical has been reviewed, including an updated exam of the patient. There are NO changes in the patient's condition. Risks, benefits, and alternatives have been discussed and questions answered. Patient agrees to proceed with procedure.
[2025-01-05] MEDS: ceFAZolin 2 GM in SODIUM CHLORIDE 0.9% IV 50 ML 100 ML IVPB (12:12)
[2025-01-05] MEDS: LIDOCAINE 1% LOCAL INJ 10 ML VIAL 30 ML INFILTRATE (12:54)
[2025-01-05] MEDS: BUPIVACAINE/EPINEPHRINE 0.5% 50 ML VIAL 30 ML INFILTRATE (12:54)
--- NOTE | 2025-01-05 14:55 | P.OP_ITS ---
Procedure Note - Detailed Date of Procedure 01/05/25 Pre-op Diagnosis Bilateral Inguinal Hernia Post-op Diagnosis Same Procedure Performed Robotic assisted laparoscopic bilateral inguinal hernia repair with Bard 3D mid weight mesh. Surgeon Librado French MD V[employer]er Sheet Repairer Steve Dave SA Anesthesia General Indications Patient is a 44-year-old female who has had rather chronic bilateral groin pain. No bulge was palpated on physical examination. CT scan of the abdomen pelvis was then performed showed bilateral inguinal hernias containing fatty tissue likely cord lipomas. She presents now for robotic assisted laparoscopic bilateral inguinal hernia repair with mesh. Findings Patient had bilateral indirect inguinal defect containing moderate-sized cord lipomas. No direct defects or femoral defects were seen. Description of Procedure After informed consent was obtained patient brought to the operating room she was placed supine position and general endotracheal anesthesia was administered. The abdomen and bilateral groin regions were then prepped and draped usual sterile fashion. Time-out was then performed correctly identifying the patient as well as procedure to be performed. She was given perioperative IV antibiotics. I then started the procedure by placing a 5mm Optiview port in left upper quadrant. Once inside the abdomen insufflated to adequate pn eumoperitoneum of 15mmHg of CO2. With the patient then placed 15? head-down Trendelenburg the colon and small bowel fell out of the pelvis so that I could see the bilateral groin regions. I then proceeded to place additional robotic trocar ports across the mid abdominal area under direct visualization. The [employer] Nacho robot was then brought to the patient's bedside and docked. The robotic arms were then attached the robotic ports. Robotic instruments were then advanced into the abdomen under direct visualization. I then scrubbed out the procedure and sat down at the robotic console to perform the dissection. I started by making a preperitoneal flap across the lower abdomen. This is done with robotic electrocautery with the hook. I started on the right side just anterior medial to the right anterior superior iliac spine and carried this across the lower part of the abdomen to the left anterior superior iliac spine and carried I then dissected this preperitoneal space distally starting on the right side all the way down to the internal ring on the right side. Then perform the same dissection on the left side all the way down to the internal ring. The bladder was then taken down the midline dissecting all the way down to the pubic symphysis and down into the space of Retzius. I then dissected out both bilateral pubic tubercles and then dissected the fat and peritoneum off of the inferior epigastric vessels bilaterally. The patient had bilateral indirect inguinal defect with moderate size cord lipomas within the inguinal canal. I 1st started by dissecting the peritoneum back onto the psoas muscle on the right side. The right cord lipoma was then reduced at of the dilated indirect inguinal hernia defect. The cord lipoma was then dissected free of the round ligament and then resected with cautery. It was then removed from the abdomen. I then removed the cord lipoma from the left inguinal canal and resected this and had a removed from the abdomen with robotic electrocautery. I then divided the left round ligament after cauterizing each and then dividing in the middle. In a similar fashion the right round ligament was divided as well. This then allowed the mesh to the lay flat across the inferior epigastric vessels and the internal ring bilaterally. I chose to use large pieces of Bard 3D mid weight mesh oriented for each side of the groin. The mesh measured [id number]. A piece ordered for the left side and a piece ordered for the right side was then placed into the abdomen. The right-sided mesh was then placed into the dissected space covering the whole myopectineal orifice. It overlapped the pubic tubercle and the pubic symphysis and extended down to the space of Retzius. I then secured the right groin mesh to the tissues around the right pubic tubercle with a 2-0 Vicryl suture. Laterally the mesh was then secured to the muscle anterior medial to the right anterior superior iliac spine. This is done the 2-0 Vicryl suture. The mesh laid down nicely without any tension. The left-sided mesh was then also placed into the left-sided dissected space. Again the mesh was secured to the tissues around the left pubic tubercle and the 2 pieces of mesh overlapped the midline. Laterally the left-sided mesh was then secured to the muscle laterally anterior medial to the left anterior superior iliac spine. Additional sutures then placed at the potential direct space to approximate both pieces of mesh to the muscle. I then made sure there was no preperitoneal fat extending underneath the proximal edge of the mesh. The peritoneal flap was then pulled up in the proximal edge of the mesh did not pull up with the flap. I then proceeded to close the peritoneal flap utilizing a running absorbable 2-0 V lock suture. Once the peritoneal flap was closed the meshes were coli excluded from the intra-abdominal viscera. I then proceeded to scrub back into the procedure and have the Nacho robot undocked from the patient's bedside. The robotic instruments were removed under direct visualization. I then proceeded to close the 8mm periumbilical trocar port and the 12mm left upper quadrant trocar port with placement of a 0 Vicryl suture at the fascial level utilizing a suture Passer. The abdomen was then allowed to decompress and the port sites were then removed from the abdomen. The sutures then tied down closing those 2 defects in the fascia. The incisions were then irrigated sterile was saline solution and hemostasis was good. The port sites were then all closed at the skin level utilizing a running subcuticular 4-0 Monocryl suture. The incisions were then cleaned the skin glue was applied. The patient tolerated the procedure well no complications. All sponges, needles, and instrument counts were correct at the end procedure. EBL was _25__cc. The patient was awakened and taken to recovery in stable and satisfactory condition. Implants Bard 3D mid weight mesh large pieces [id number]. One piece of mesh for the right groin and 1 piece of mesh for the left groin. Estimated Blood Loss 25 Drains No Packing No Pathology None sent Complications No immediate complications Condition Stable Disposition PACU [facility] Billing Surgery - Charge Forward: Surgery Billing
[2025-01-05] MEDS: fentaNYL CITRATE INJ (*CRX) 100 MCG/2 ML VIAL 25 MCG IV PUSH ×2 (15:30→15:36)
[2025-01-05] MEDS: ONDANSETRON INJ 4 MG/2 ML VIAL IV PUSH (16:10)
[2025-01-05] MEDS: oxyCODONE HCL (*CRX) 5 MG TAB IR PO (16:50)
== END 2025-01-05 17:32 | disposition home or self-care (01) ==
PROVIDERS: PCP Family Medicine; Visit Provider Surgery
PROC: 8E0Y4CZ Robotic Assisted Procedure of Lower Extremity, Percutaneous Endoscopic Approach (ICD-10-PCS; CPT 49650; principal; 2025-01-05 11:30)
DX: K40.20 Bilateral inguinal hernia, without obstruction or gangrene, not specified as recurrent (principal); I10 Essential (primary) hypertension; E11.9 Type 2 diabetes mellitus without complications; I48.91 Unspecified atrial fibrillation; E66.9 Obesity, unspecified; Z68.31 Body mass index [BMI] 31.0-31.9, adult; Z79.84 Long term (current) use of oral hypoglycemic drugs; Z98.890 Other specified postprocedural states; Z90.49 Acquired absence of other specified parts of digestive tract; Z95.810 Presence of automatic (implantable) cardiac defibrillator; Z98.51 Tubal ligation status; Z98.891 History of uterine scar from previous surgery; Z86.79 Personal history of other diseases of the circulatory system; Z80.9 Family history of malignant neoplasm, unspecified
CPT/HCPCS: 49650; S2900; 82948; J0690; A9270; C1781; J1100; J1200; J1885; J2003; J2250; J2405; J2704; J3010; J7030; J7120

== ENCOUNTER 2025-02-08 10:10 | Emergency (ER) | payer OTHER, SELFPAY ==
[2025-02-08 10:18] VITALS: BP 145/98; PULSE 76; RESP 18; TEMP 36.4; O2SAT 99
--- NOTE | 2025-02-08 10:31 | ED.SKABFB ---
HPI - Skin/Abscess/Foreign Bdy General Chief complaint: Skin/Abscess/Foreign Body Stated complaint: Abscess Time Seen by Provider: 02/08/25 10:15 Source: patient and RN notes reviewed Mode of arrival: ambulatory Limitations: no limitations History of Present Illness HPI narrative: 44-year-old female presents Express Care complaining of a possible infected surgical site. Patient had bilateral inguinal hernia surgery of his laparoscopic and robotic approximately 1 month ago in December. Patient says she has seen her surgeon since the surgery the wounds were healing appropriately. Patient says most of her incision sites have healed without issues however the 1 on left lower abdomen she reports worsening redness and pain. Patient reports that scabbed over, denies any drainage. Patient denies any fevers, body aches, chills, nausea vomiting or other symptoms. Patient has been putting triple antibiotic on it without relief. Patient has a history of diabetes. Patient denies any concerns for MRSA. Related Data Home Medications ?Medication ?Instructions ?Recorded ?Confirmed ?Last Taken ?Type glipizide 10 mg tablet 20 mg PO BID 02/27/19 01/21/25 10/09/20 History metformin 500 mg 24 hr 2,000 mg PO QAM 02/27/19 01/21/25 10/09/20 History tablet,extended release (gastric retention) canagliflozin 300 mg tablet 300 mg PO DAILY 05/02/21 01/21/25 Unknown History (Invokana) linagliptin 5 mg tablet (Tradjenta) 5 mg PO QAM 07/19/21 01/21/25 Unknown History metoprolol succinate 50 mg 50 mg PO DAILY 07/12/22 01/21/25 01/05/25 History tablet,extended release 24 hr clobetasol 0.05 % topical cream 1 applic topical DIRECTED 06/18/23 01/21/25 Unknown History diltiazem HCl 120 mg 120 mg PO DAILY 09/09/23 01/21/25 01/05/25 History capsule,extended release 24 hr (Cartia XT) pioglitazone 15 mg tablet 15 mg PO DAILY 10/08/24 01/21/25 01/04/25 History metoprolol succinate 100 mg 100 mg PO DAILY 11/13/24 01/21/25 01/05/25 History tablet,extended release 24 hr Allergies Allergy/AdvReac Type Severity Reaction Status Date / Time Sulfa (Sulfonamide AdvReac Mild Headache Verified 02/08/25 10:19 Antibiotics) Review of Systems Review of Systems: CONSTITUTIONAL: Denies fever, chills, or sweats. EYES: Denies visual changes, redness, or discharge. ENT: Denies rhinorrhea, congestion, sore throat, or otalgia. CARDIOVASCULAR: Denies chest pain, palpitations, or edema. RESPIRATORY: Denies cough or dyspnea. GASTROINTESTINAL: Denies abdominal pain, nausea, vomiting, or diarrhea. GENITOURINARY: Denies dysuria or hematuria. SKIN: Denies rash or itching. Positive for wound. MUSCULOSKELETAL: Denies back pain, joint pain, or myalgia. NEUROLOGIC: Denies headache, numbness, or weakness. PSYCHIATRIC: Denies anxiety or depression. All other systems reviewed are negative, except as documented in HPI. FORMERLY [facility], 1928–1983 Past Medical History Medical History Atrial fibrillation Hernia History of left heart catheterization Obesity Vaginal delivery x1 Allergic sinusitis Hypertension Diabetes Surgical History Surgical History History of implantable cardiac defibrillator (ICD) History of robot-assisted laparoscopic hysterectomy 10/10/20 H/O tubal ligation History of endometrial ablation H/O lateral meniscus repair of left knee Hx laparoscopic cholecystectomy Family History Family History Grandparent Diabetes mellitus Mother Hypoglycemia Father Diabetes mellitus Grandparent Diabetes mellitus Other Cancer Social History Social History Smoking packs per day: 0.25 Smoking cigarettes per day: 5.0 Years smoked: 2 Smoking pack-years: 0.50 Smoking status: Never smoker Second hand tobacco smoke exposure: Yes Alcohol intake: never Alcohol use details: PRIOR TO DIABETES DX Substance use: never Lack of Transportation: No Lack of Food: Never True Current Housing: I Have Housing Concerned About Future Housing: No Difficulty Paying Gas/Electric Bills: No Difficulty Paying for Meds: No Currently Unemployed: YES Education: High School Diploma/GED Difficulty w/ Childcare or Family Care: No Living arrangements: with family Additional living arrangements comments: PARENTS AND SON Gender identity (if verbalized by the patient): Female Spiritual care concerns: No Comments At the time of my signature, I reviewed and agree with the nursing past medical, surgical, social, and family history. There is no relevant family history pertinent to the patient complaint. Exam Narrative: GENERAL: This is a well-nourished, well-developed adult, in no apparent distress. They are non ill-appearing, nontoxic appearing. HEAD: normocephalic, atraumatic. EYES: Sclera clear/white. Conjunctiva normal. Vision is grossly intact. Extraocular movements intact EARS: External ears normal, Hearing grossly intact. NOSE: External nose normal THROAT: Mucous membranes moist, NECK: Neck supple, CARDIOVASCULAR: Regular rate and rhythm RESPIRATORY: Respiratory rate normal, respiratory effort nonlabored, no respiratory distress GASTROINTESTINAL: Abdomen soft, non-tender, nondistended. SKIN: Abdomen: Multiple incisions sites present the patient's abdomen. They appear to be healing well. Wound to left lower abdomen is erythematous, with mild surrounding erythema scabbed present to incision site. No area of fluctuance, no induration, no exudate. Mildly tender to palpate. NEURO: awake, alert, and oriented to person, place and time. There were no obvious focal neurologic abnormalities. Course Course Emergency Course: Portions of this record may have been created with voice recognition software Level of Care: Express Care Visit Vital Signs Vital signs: Vital Signs Temperature 97.6 F 02/08/25 10:18 Pulse Rate 76 02/08/25 10:18 Respiratory Rate 18 02/08/25 10:18 Blood Pressure 145/98 H 02/08/25 10:18 Pulse Oximetry 99 02/08/25 10:18 Oxygen Delivery Room Air 02/08/25 10:18 Temperature 97.6 F 02/08/25 10:18 Pulse Rate 76 02/08/25 10:18 Respiratory Rate 18 02/08/25 10:18 Blood Pressure 145/98 H 02/08/25 10:18 Pulse Oximetry 99 02/08/25 10:18 Oxygen Delivery Room Air 02/08/25 10:18 Reviewed MDM - Skin/Abscess/Foreign Bdy MDM Narrative Medical decision making narrative: Incision site appears to be mildly infected. Will treat with cephalexin and mupirocin ointment. Advised patient have close follow-up with surgeon who did the procedure. Discussed physical exam findings. Advised supportive measures and signs/symptoms to go to the ER. Pt is appropriate for outpt treatment and f/u. Differential Diagnosis Differential diagnosis: Likely abscess of skin or subcutaneous tissue, dermatophytosis, cellulitis, impetigo and other (Surgical site infection) Critical Care Time Critical Care Time Critical Care Time: No Discharge Plan Discharge Clinical Impression: Superficial incisional surgical site infection Patient Disposition: Home Condition: Stable Instructions: Antibiotic Form, Cellulitis (ED) Additional Instructions: Clean with soap and water only; Avoid using alcohol and peroxide. You may take ibuprofen 600 mg to 800 mg every 6-8 hours. Do not exceed more than 800 mg of ibuprofen per dose. Do not exceed more than 3200 mg ibuprofen in a day. You may take up to 1000 mg Tylenol every 6-8 hours. Do not exceed 1000 mg per dose, do exceed more than 4000 mg of Tylenol in a day. Take the cephalexin as directed. Finish the course completely even if you start to feel better. Use mupirocin ointment as directed. Follow-up with her surgeon in 1 week. If you developed worsening redness, swelling, pain, fevers, body aches, chills, nausea vomiting, green/yellow drainage from the incision, or any serious concerns please go to the ER immediately. Patient Language: Slovenian Prescriptions: New cephalexin 500 mg capsule 500 mg PO Q6H 7 Days Qty: 28 0RF mupirocin calcium 2 % cream 1 applic topical BID 7 Days Qty: 30 0RF No Action Invokana 300 mg tablet 300 mg PO DAILY metoprolol succinate 50 mg tablet extended release 24 hr 50 mg PO DAILY clobetasol 0.05 % cream 1 applic TOPICAL DIRECTED diltiazem HCl [Cartia XT] 120 mg capsule,extended release 24hr 120 mg PO DAILY metformin 500 mg tablet,ER migdalia.retention 24 hr 2,000 mg PO QAM Patient Comments: Says takes 2 500mg tabs bid. glipizide 10 mg tablet 20 mg PO BID pioglitazone 15 mg tablet 15 mg PO DAILY Tradjenta 5 mg tablet 5 mg PO QAM metoprolol succinate 100 mg tablet extended release 24 hr 100 mg PO DAILY Follow-up/Referrals: Haja,Denny Slater MD [Primary Care Provider] Time of Disposition: 10:29
== END 2025-02-08 10:31 | disposition home or self-care (01) ==
PROVIDERS: PCP Family Medicine
DX: T81.41XA Infection following a procedure, superficial incisional surgical site, initial encounter (principal); F17.210 Nicotine dependence, cigarettes, uncomplicated; I10 Essential (primary) hypertension; E11.9 Type 2 diabetes mellitus without complications; Z79.84 Long term (current) use of oral hypoglycemic drugs; I48.91 Unspecified atrial fibrillation; E66.9 Obesity, unspecified; Z68.31 Body mass index [BMI] 31.0-31.9, adult
CPT/HCPCS: 99213; G0463

== ENCOUNTER 2025-04-22 12:51 | Emergency (ER) | payer OTHER, SELFPAY ==
[2025-04-22 12:53] VITALS: BP 173/106; PULSE 73; RESP 16; TEMP 36.4; O2SAT 97
--- OUTSIDE RECORDS SUMMARY | 2025-04-22 13:57 | XMS_ITS | Continuity of Care Document ---
Author Organization [facility] [place] [address] [place] [address] Care Team Providers Care Lawyers Name Role Phone DENNY SMYTH Primary Care Provider Assessment Encounter Date Assessment Date Assessment LastModified by Organization Details LastModified Time 02/11/2025 02/11/2025 Pt is stable. HgbA1c has improved, lowering to 7.5! Pt states that she is drinking less soda. She was exhorted about the fact that she has gained 11 pounds since last visit. [email or web address] Not available 02/15/2025 06:51:40 Plan of Treatment Reminders Order Date Submit Date Provider Last Modified By Organization Details Last Modified Time Details Appointments ANY 15 2025 01:00P M Denny Smyth MD Not available Not available Not available Lab HbA1c (hemoglob in A1c), blood 2024 025 [email or web address] In-Office Order, Internal Use Only DO Not Attach Compendium DO Not Attach Compendium, Do Not Delete/merge, [id number] 02/11/2025 15:27:52 Referral None recorded. Procedures None recorded. Surgeries None recorded. Imaging None recorded. Medication Orders Santyl 250 unit/gram topical ointment 2024 025 [email or web address] [facility] [address] [place], [address], 02/12/2025 06:46:13 cephalexi n 500 mg capsule 2024 025 FARAZ [facility] [address] [place], [address], 02/28/2025 05:03:04 Patient TargetsNo targets recorded. Patient Instructions Encounter Date Encounter Id Patient Instructions Last Modified By Organization Details Last Modified Time 02/11/2025 [id number] learning about type 2 diabetes [email or web address] Not available 02/11/2025 15:27:52 type 2 diabetes: care instructions [email or web address] Not available 02/11/2025 15:27:52 Reason for Referral None Reported. Results Created Date Observation Date Name Description Value Unit Range Abnormal Flag Note LastModifiedBy Organization Detail LastModifiedTime 02/12/2002/11/2025 HbA1c (hemo globi n A1c), blood HbA1C 7.5 % Not Available In-Office Order Internal Use Only DO Not Attach Compendium DO Not Attach Compendium, Do Not Delete/merge, [id number] 02/11/2025 15:07:41 Result Notes None recorded. Problems Name Problem SNOMED Code Status Onset Date Resolution Date Notes Provider Name and Address Organization Details Recorded Time Essential hypertension 65184231 Active 2017 Meghan munoz, [place] - [facility] 8 17:21:39 Diabetes mellitus 60952325 Active 2017 Meghan munoz, [place] - [facility] 8 17:26:21 Psoriasis 2437945 Active 2017 Meghan munoz, [place] - [facility] 8 17:26:46 Adult health examination Active 2017 Meghan munoz, [place] - [facility] 8 16:23:24 Body mass index 25-29 - overweight 984702137 Active 2017 Meghan [place]oz, [place] - [facility] 8 16:23:25 Persistent cough 473484056 Active 2017 Meghan [place], [place] - [facility] 8 00:51:14 History of cholecystectom y 707487512 Active 2018 Meghan Pablo [place], [place] - [facility] 9 22:38:02 Abdominal wall pain 161150921 Active 2019 Meghan munoz, [place] - [facility] 0 17:35:57 Vitamin D deficiency 61205223 Active 2019 Meghan munoz, [facility] 0 17:36:46 Diet education Active 2019 Meghan munoz, [facility] 0 17:29:23 Problem Notes None recorded. Procedures Surgical History Date Name Laterality Status Provider Name and Address Organization Details Recorded Time 025 repair of bilateral inguinal hernias completed Kelly Christie MA [facility] 01/13/2025 10:03:58 024 Diabetic Foot Exam completed Denny Smyth MD Attn: Accounting, [address] [facility], [place], [address], [facility] 08/12/2023 15:14:12 022 insertion of electrocardiography loop recorder using fluoroscopic guidance completed Kelly Christie MA [facility] 02/06/2022 16:00:14 021 Vaginal hysterectomy completed Kelly Christie MA [facility] 10/19/2020 14:25:49 021 total excision of bilateral fallopian tubes completed Kelly Christie MA [facility] 10/19/2020 14:26:16 021 Removal of ovary(s) completed Kelly Christie MA [facility] 10/19/2020 14:26:48 Knee Surgery completed Elyse Stringer MA [facility] 01/10/2018 15:28:22 Tubal Ligation completed Elyse Stringer MA [facility] 01/10/2018 15:28:36 cholecystectomy completed Kelly Christie MA [facility] 05/10/2020 12:15:24 Imaging Results None recorded. Procedure Notes None recorded. Medical Equipment None Reported. Allergies Allergen ID Allergen Name Allergen Category Reaction Reaction Severity Criticality Documentation Date Start Date Code Code System Note Provider Name and Address Organization Details Recorded Time 507410 Substance with sulfonami de structure and antibacte rial mechanism of action (substanc e) medicatio n headache severe Not available 01/10/2018 36194 0983 SNOMED Elyse Stringer MA null, [place] - [facility] 8 15:26:36 255183 Product containin g 3-hydroxy -3-methyl glutaryl- coenzyme A reductase inhibitor (product) medicatio n myalgias (muscle pain) moderate low 11/01/2022 25287 009 SNOMED Denny Smyth MD Attn: Debra garcia,[address] [facility], [place], [address], [facility] - [facility] 3 14:46:40 Medications Name Sig Start Date Stop Date Status Note LastModified by Organization Details LastModified Time losartan 50 mg tablet Take 1 tablet by mouth once daily 02/06 completed Not Available Not Available Not Available Santyl 250 unit/gram topical ointment APPLY TO CLEANSED AFFECTED AREA BY TOPICAL ROUTE ONCE DAILY FOR 7-10 DAYS 2024 active Not Available Not Available Not Avai lable cyclobenz aprine 10 mg tablet Take 1 [...] Take 2 tablets by mouth twice daily 2024 active Not Available Not Available Not Avai lable prednison e 20 mg tablet TAKE 1 [...] completed Not Available Not Available Not Available cephalexi n 500 mg capsule Take 1 capsule every 6 hours by oral route for 10 days. 02/28 completed Not Available Not Available Not Available [...] completed Not Available Not Available Not Available mupirocin 2 % topical ointment APPLY TO THE AFFECTED AREA(S) TWICE DAILY FOR 7 DAYS active Not Available Not Available No t Available clobetaso l 0.05 % topical ointment [...] completed Not Available Not Available Not Available oxycodone 5 mg tablet TAKE 1 TABLET BY MOUTH EVERY 6 HOURS NEEDED FOR PAIN active Not Available Not Available No t Available neomycin 3.5 mg/g-poly myxin B 10,000 unit/g-de xameth 0.1 % eye oint APPLY A SMALL AMOUNT OF OINTMENT INTO THE CONJUCTI RICARDO SAC(S) IN AFFECTED EYE(S) THREE TIMES DAILY [...] 05/08 completed by Lexi Canseco NP / [facility] Not Available Not Available Not Available Invokana 300 mg tablet Take 1 tablet by mouth once daily 2024 active Not Available Not Available Not Avai lable Trulicity 1.5 mg/0.5 mL subcutane ous pen [...] (BMI) Body weight Body temperature Oxygen saturation Heart rate Respiratory rate Systolic And Diastolic Provider Name and Address Organization Details Last Updated DateTime 5 160.02 cm 31.6 kg/m2 42837.2 4 g 98.2 [degF] 98 % 65 /min 16 /min 130/85 mm[Hg] Sara Kramer MA [place] - [facility] 15:11:42 Social History Question Answer Notes LastModified by Organization Details LastModified Time Tobacco Smoking Status Former Smoker Quit in 1998 SUZI Davalos, [place] - [facility] 05/10/2020 12:11:45 Do You Have An Advance [...] 02/23/2021 Are you able to care for yourself independently? Yes Information not available 02/23/2021 What is [...] anxious, or unable to sleep at night)? [id number] Information not available 02/23/2021 Family History Relationship Description Onset Age of this Age Resolved Age Notes LastModified by Organization Details LastModified Time Father Diabetes mellitus [email or web address] Not available 01/10 15:27:45 Father Atrial flutter [...] ped/adol, 2 dose 03/08/1999 completed Not Available [facility] 5 15:24:10 Influenza, live, quadrivalent, intranasal 06/09/2015 completed Not Available [facility] 5 15:24:10 Past Encounters Encounter ID Performer Location Encounter Start Date Encounter Closed Date Diagnosis/Indication Diagnosis SNOMED-CT Code Diagnosis ICD10 Code Diagnosis IMO Codes Diagnosis Note [id number] MD Lizette Waterman [address] [place] [address] 02/11/2025 15:01:35 02/16/2025 09:06:45 HIV screening declined 9958564705 91268 Z53.20 [id number] Type 2 savannah betes mellitus 00516434 E11.9 61149357 Site-speci fic infective disorders of skin 164401118 L08.9 50831 Open wound 783762083 T14 .8XXA 23465 Health Concerns Section Related Observation LastModified by Organization Detai ls LastModified Time None Recorded Concern Status LastModified by Organization Details LastModified Time None Recorded Payers Encounter Date Sequence Insurance Name Policy Number Policy Eli Covered Member ID Eli Member ID Guarantor Name 02/11/2025 1 [facility] - DOS ON OR AFTER 20 (MEDICAID REPLACEMENT - HMO) Bekah Melenedz [id number] Bekah Melendez Notes Date Note Type Note Provider Name and Address Organization Details Recorded Time 02/11/2025 text/html ROS as noted in the [facility] Regular checkup. Denny Smyth MD Attn: Accounting,[address] [place], [address], [facility] - [facility] 02/15/2025 06:52:08 OBGyn Episode No OBEpisode recorded.
--- OUTSIDE RECORDS SUMMARY | 2025-04-22 13:57 | XMS_ITS | Clinical Summary ---
Author Organization [employer] [facility] [id number] [facility] Address [address] [place] [address] Care Team Providers Care Associate Professor Of Law Name Role Phone Unavailable Primary Care Provider [...] (1 of 3 - 19+ 3-dose series) 05/01 HPV/Cotest (21-29) 1999 CERVICAL CANCER SCREENING 2008 HPV/Cotest (30-65) 2008 PAP SMEAR 2008 BREAST CANCER SCREENING 2018 COLORECTAL SCREENING 2023 Colorectal Cancer Screening 2023 FIT-DNA Q 3 years 2023 FIT/FOBT Q 1 year 2023 Flex Sig/CT Colonography Q 5 years 2023 INFLUENZA VACCINE (#1) 2024 HPV VACCINES (No Doses Required) Completed
--- OUTSIDE RECORDS SUMMARY | 2025-04-22 13:57 | XMS_ITS | Clinical Summary ---
Author Organization [facility] [address] Address [address] [place] [address] Care Team Providers Care Filter Pulp Washer Name Role Phone Denny Smyth MD Primary Care Provider [phone] Allergies Active Allergy Reactions Criticality Noted Date Comments Sulfa (Sulfonamide Antibiotics) Headache Low 07/2018 Medications ERGOCALCIFEROL, VITAMIN D2, ORAL Take 5,000 Units by mouth daily 09/09/19 19 Active glipiZIDE (GLUCOTROL) 10 mg tablet Take 2 tablets (20 mg total) by mouth 2 (two) times a day 06/30/19 19 Active metFORMIN (FORTAMET) 500 mg 24 hr tablet Take 4 tablets (2,000 mg total) by mouth daily 07/27/19 19 Active SITagliptin (JANUVIA) 100 mg tablet Take 100 mg by mouth daily 07/18/19 19 Active triamcinolone (KENALOG) 0.1 % ointment Apply to psoriasis on legs, elbows twice daily. 30 days supply. 09/30/19 19 Active Tradjenta 5 mg tablet Take 1 tablet (5 mg total) by mouth daily for 90 days 07/01/19 22 Active canagliflozin (INVOKANA) 300 mg tabletIndicatio ns:type 2 diabetes mellitus Take 1 tablet (300 mg total) by mouth daily Active hydroCHLOROthia zide (HYDRODIURIL) 12.5 mg tablet Take 12.5 mg by mouth daily Active metoprolol XL (TOPROL-XL) 50 mg extended release tablet Take 3 tablets (150 mg total) by mouth daily Active Lactobacillus acidophilus 10 billion cell capsule Take 1 tablet by mouth garment steamer before breakfast Active Trulicity 0.75 mg/0.5 mL pen injector INJECT 0.75 MG UNDER THE SKIN ONCE EVERY WEEK 11/17/19 23 Active omeprazole (PriLOSEC) 20 mg capsule 11/29/19 23 Active ibuprofen (ADVIL,MOTRIN) 800 mg tablet Take 1 tablet (800 mg total) by mouth every 6 (six) hours as needed for pain Active pioglitazone (ACTOS) 15 mg tablet Take 1 tablet (15 mg total) by mouth daily Active dilTIAZem CD/XR/XT (dilTIAZem CD) 120 mg 24 hr capsule Take 1 capsule by mouth once daily 90 capsule 3 04/16/20 25 Active dilTIAZem CD/XR/XT (CARDIZEM CD,DILACOR XR) 120 mg 24 hr capsule Take 1 capsule (120 mg total) by mouth daily 90 capsule 1 10/28/19 25 025 Discontinued Active Problems Problem Noted Date Diagnosed Date Microvascular angina 12/11/2021 Primary hypertension 12/11/2021 Paroxysmal atrial fibrillation 09/21/2021 Overview (12/21/2021): Noted on seater grinder from 02 May 2021. Has long QT [...] (06/29/2021): Added automatically from request for surgery [id number] Abnormal stress test 06/29/2021 Overview (06/29/2021): Added automatically from request for surgery [id number] Social History Tobacco Use Types Packs/Day Years Used Date Smoking Tobacco: Former Cigarettes Q uit: 1996 Smokeless Tobacco: Never Tobacco Cessation:Counseling Given: Not Answered Comments No Sex and Gender Information Value Date Recorded Sex Assigned at Not on file Legal Sex Female 2:42 AM LOAN CLOSER Gender Identity Female 05/25/2021 7:20 AM LOAN CLOSER Sexual Orientation Not on file Last Filed [...] this topic Medical Devices Implanted Type [employer] Principal Device Identifier Shelf Expiration Date Model / Serial / Lot Angio-Seal Evolution 6fr Vascular Closure - [id number] Implanted:Qty: 1 on 06/30/2021 by Yassine Grimes MD at [facility] Other - see comments [employer] 04/28/2022 [id number] / / [id number] [employer] Biomonitor Iii Monitor Cardiac Sterile Disposable Latex Free [id number] - [id number] - [id number] Implanted:Qty: 1 on 12/19/2021 by Juan Charles MD at [facility] [employer] 03/28/2023 [id number] / [id number] / Procedures Procedure Name Priority Date/Time Associated Diagnosis Comments EGFR Routine 09/27/2021 12:07 PM CDT Paroxysmal atrial fibrillation (HCC) from Last 3 Months or Most Recently Relevant to Health Maintenance Results * eGFR (09/27/2021 12:07 PM CDT) eGFR 105 mL/min/1. 73 m2 ZIA AGUAYO (EXCEL) Comment: Interpretive Data Reference Interval Normal >/= [...] 7 PM CDT 09/27/2021 12:54 PM CDT us Debi Xiang Gondi MD LAB BLOOD ORDERABLES Final Result [facility] ([facility]) [address] [facility] Department [place] [address] from Last 3 Months or Most Recently Relevant to Health Maintenance [facility] Advance Directives For more information, please contact: [phone] * Full Code (Latest Code Status on File) Date Activated Date Inactivated Comments 12/19/2021 9:20 AM 12/19/2021 2:56 PM * Full Code Date Activated Date Inactivated Comments 06/30/2021 9:01 AM 06/30/2021 6:32 PM Care Teams Filter Pulp Washer Relationship Specialty Start Date End Date Denny Smyth MD PCP - General Family Medicine 03/03/21
--- OUTSIDE RECORDS SUMMARY | 2025-04-22 13:57 | XMS_ITS | Clinical Summary ---
Author Organization [facility] Address [address] [place] [address] Care Team Providers Care Vice President Of Product Marketing Name Role Phone Unavailable Primary Care Provider [...] HPV 2008 Mammogram Screening 2018 COVID-19 Vaccine (2024-2 6 season) 2024 Influenza Adult (#1) 2025 Hepatitis A Vaccines Aged Out No long er eligible based on patient's age to complete [...] patient's age to complete this topic [facility]
--- OUTSIDE RECORDS SUMMARY | 2025-04-22 13:57 | XMS_ITS | Data Portability ---
Author Organization [facility] [place] [facility] Address [address] [place] [address] Care Team Providers Care Account Liaison Name Role Phone DENNY GABRIEL Primary Care Provider [phone] Assessment Encounter Date Assessment Date Assessment LastModified by Organization Details LastModified Time 08/08/2023 08/08/2023 Trulicity is officially discontinued because of lack of availability. Tradjenta is now rx'd in its place. [email or web address] Not available 08/12/2023 15:15:47 02/06/2024 02/06/2024 Treatment will proceed as below. [email or web address] Not available 02/15/2024 08:15:19 06/02/2024 06/02/2024 Workup will proceed as below. [email or web address] Not available 06/03/2024 17:47:29 02/11/2025 02/11/2025 Pt is stable. HgbA1c has improved, lowering to 7.5! Pt states that she is drinking less soda. She was exhorted about the fact that she has gained 11 pounds since last visit. Not available 02/15/2025 06:51:40 Plan of Treatment Reminders Order Date Submit Date Provider Last Modified By Organization Details Last Modified Time Details Appointments ANY 15 2025 01:00P Clari Gabriel MD Not available Not available Not available Lab HbA1c (hemoglob in A1c), blood 2024 025 [email or web address] In-Office Order, Internal Use Only DO Not Attach Compendium DO Not Attach Compendium, Do Not Delete/merge, [id number] 02/11/2025 15:27:52 HbA1c (hemoglob in A1c), blood 2024 025 [email or web address] In-Office Order, Internal Use Only DO Not Attach Compendium DO Not Attach Compendium, Do Not Delete/merge, [id number] 10/05/2024 11:11:20 rapid strep group A, throat 2024 025 [email or web address] In-Office Order, Internal Use Only DO Not Attach Compendium DO Not Attach Compendium, Do Not Delete/merge, [facility] 06/02/2024 11:30:13 urinalysi s, dipstick 2024 025 [email or web address] In-Office Order, Internal Use Only DO Not Attach Compendium DO Not Attach Compendium, Do Not Delete/merge, [facility] 06/02/2024 11:30:13 HbA1c (hemoglob in A1c), blood 2024 025 [email or web address] In-Office Order, Internal Use Only DO Not Attach Compendium DO Not Attach Compendium, Do Not Delete/merge, [facility] 06/02/2024 11:30:13 HbA1c (hemoglob in A1c), blood 2023 024 In-Office Order, Internal Use Only DO Not Attach Compendium DO Not Attach Compendium, Do Not Delete/merge, [facility] 02/06/2024 17:54:22 HbA1c (hemoglob in A1c), blood 2023 024 [email or web address] In-Office Order, Internal Use Only DO Not Attach Compendium DO Not Attach Compendium, Do Not Delete/merge, [facility] 08/09/2023 07:26:02 Referral general surgeon referral 2024 025 [email or web address] Librado French MD, [address] [facility] [address], [place], [address], 11/24/2024 14:57:52 orthopedi c surgeon referral 2024 025 FARAZ Abbasi MD, [address], [address], [place], [address], 07/13/2024 16:49:49 Procedures None recorded. Surgeries None recorded. Imaging None recorded. Medication Orders Santyl 250 unit/gram topical ointment [email or web address] [facility] [facility], [place], [address], 02/12/2025 06:46:13 cephalexi n 500 mg capsule 2024 025 [facility] [address] [place], [address], 02/28/2025 05:03:04 Maxitrol 3.5 mg/g-10,0 00 unit/g-0. 1 % eye ointment 2024 025 [facility] [address] [place], [address], 10/05/2024 11:15:32 pioglitaz one 15 mg tablet 2024 025 [facility] [address] [place], [address], 10/05/2024 11:13:56 amoxicill in 500 mg tablet 2024 025 [facility] [address] [place], [address], 07/30/2024 10:02:21 fluconazo le 150 mg tablet 2024 025 [facility] [address] [place], [address], 07/30/2024 10:02:27 neomycin- polymyxin -dexameth 3.5 mg/mL-10, 000 unit/mL-0 .1% eye drops 2023 025 [facility] [address] [place], [address], 06/02/2024 10:36:00 codeine 10 mg-guaife nesin 100 mg/5 mL oral liquid 2023 025 [facility] [address] [place], [address], 06/02/2024 10:35:35 prednison e 20 mg tablet 2023 025 [facility] [address] [place], [address], 06/02/2024 10:36:10 metformin ER 500 mg tablet,ex tended release 24 hr 2023 024 [facility] [address] [place], [address], 08/08/2023 16:14:04 Tradjenta 5 mg tablet 2023 024 [email or web address] [facility] [address] [place], [address], 08/12/2023 15:13:46 Patient TargetsNo targets recorded. Patient Instructions Encounter Date Encounter Id Patient Instructions Last Modified By Organization Details Last Modified Time 08/08/2023 [id number] learning about type 2 diabetes [email or web address] Not available 08/09/2023 07:26:02 type 2 diabetes: care instructions [email or web address] Not available 08/09/2023 07:26:02 diabetic foot exam* [email or web address] Not available 08/09/2023 07:26:02 diabetic eye exam* [email or web address] Not available 08/09/2023 07:26:02 02/06/2024 [id number] learning about type 2 diabetes [email or web address] Not available 02/06/2024 17:54:22 type 2 diabetes: care instructions [email or web address] Not available 02/06/2024 17:54:22 cough: care instructions [email or web address] Not available 02/06/2024 17:54:22 06/02/2024 [id number] sore throat: car e instructions [email or web address] Not available 06/02/2024 11:30:13 A healthy lifestyle: care instructions [email or web address] Not available 06/02/2024 11:30:13 learning about type 2 diabetes [email or web address] Not available 06/02/2024 11:30:13 type 2 diabetes: care instructions [email or web address] Not available 06/02/2024 11:30:13 10/05/2024 [id number] styes and chalazia: care instructions Not available 10/05/2024 11:15:10 learning about type 2 diabetes [email or web address] Not available 10/05/2024 11:11:20 type 2 diabetes: care instructions [email or web address] Not available 10/05/2024 11:11:20 02/11/2025 [id number] learning about type 2 diabetes Not available 02/11/2025 15:27:52 type 2 diabetes: care instructions [email or web address] Not available 02/11/2025 15:27:52 Reason for Referral Orthopedic Surgeon Referral for Pain of knee region Referring Physician: Denny Gabriel [facility], Encounter Date: 06/02/2024 General Surgeon Referral for Bilateral inguinal hernia Referring Physician: Denny Gabriel [facility], Encounter Date: 10/05/2024 Results Created Date Observation Date Name Description Value Unit Range Abnormal Flag Note LastModifiedBy Organization Detail LastModifiedTime 08/08/19 24 08/08/2023 HbA1c (hemo globi n A1c), blood HbA1c 8.4 Not Available In-Office Order Internal Use Only DO Not Attach Compendium DO Not Attach Compendium, Do Not Delete/merge, [id number] 08/07/2023 17:58:46 02/06/20 24 02/06/2024 HbA1c (hemo globi n A1c), blood HbA1c 9.0 Not Available In-Office Order Internal Use Only DO Not Attach Compendium DO Not Attach Compendium, Do Not Delete/merge, [id number] 02/06/2024 16:47:00 06/02/19 25 06/02/2024 rapid strep [...] 06/02/2024 urina lysis , dipst ick Specific [place] 1.020 Not Available In-Off ice Order Internal [...] DO Not Attach Compendium, Do Not Delete/merge, [id number] 06/02/2024 10:44:15 08/06/1908/05/2024 CBC W Auto Diffe [...] 12.5fL Not Available Not Available 10/05/2024 10:42:18 04/09/20 25 08/05/2024 CBC W Auto Diffe renti [...] % 0.3 % Test Perfo rmed at: [facility] [address] [facility] [place] [place] [address] MARLYS NEWMAN MD Not Available Not Available [...] BUN/creatini ne ratio SEE NOTE: text: 6 - 22 (calc) Not Repor jeffy: BUN and Creat [...] 1999 panel - Serum or Plasm a CO2 27 mmol/ L low: 20mmol /Lhigh : 32mmol /L Not Available Not Available 10/05/2024 10:42:18 08/06/19 25 08/05/2024 Basic metab olic 1999 panel - Serum or Plasm a calcium 9.1 mg/dL low: 8.6mg/ dLhigh : 10.2mg /dL Test Perfo rmed at: [facility] [id number] [place] [address] [facility] [place] [address] MARLYS NEWMAN MD Not Available Not Available [...] dL high Not Available Not Available 10/05/2024 10:42:08/06/1908/05/2024 Lipid 1996 panel - Serum or Plasm [...] lated using the Karen n-Hop kins calcu sam n, which is a valid ated novel metho d provi ding les r accur acy than the Fried esequiel equat ion in the estim ation of LDL-C . Karen n SS et al. SUDEEP. 2013; 310(2 9): 2061- 2068 (http ://ed ucati on.[employer] Baxano/f aq/FA Q164) Not Available Not Available 10/05/2024 [...] (LDL- C of <70 mg/dL ) is consi dered a thera peuti c optio n. Test Perfo rmed at: [facility] [address] [facility] [place] [address] MARLYS NEWMAN MD Not Available Not Available 10/05/2024 10:42:17 08/06/19 25 08/05/2024 Lipid 1996 panel - Serum or Plasm a interpretati on and review of laboratory results Abnorm al Not Available Not Available 10:42:17 10/06/19 25 10/05/2024 HbA1c (hemo globi n A1c), blood HbA1C 9.2 % Not Available In-Office Order Internal Use Only DO Not Attach Compendium DO Not Attach Compendium, Do Not Delete/merge, [id number] 10/05/2024 10:45:08 02/12/2002/11/2025 HbA1c (hemo globi n A1c), blood HbA1C 7.5 % Not Available In-Office Order Internal Use Only DO Not Attach Compendium DO Not Attach Compendium, Do Not Delete/merge, [id number] 02/11/2025 15:07:41 01/26/20 24 01/26/2024 XR, chest , 2 view No observ ation record ed. [facility] [address], [place], [address], 01/28/2024 12:58:46 06/23/19 25 06/23/2024 CT, abdom en + pelvi s, w/ contr ast No observ ation record ed. [facility] [address], [place], [address], 06/26/2024 08:15:42 Result Notes None recorded. Problems Name Problem SNOMED Code Status Onset Date Resolution Date Notes Provider Name and Address Organization Details Recorded Time Essential hypertension 20245541 Active 2017 Meghan munoz [facility] 8 17:21:39 Diabetes mellitus 84839036 Active 2017 Meghan munoz [facility] 8 17:26:21 Psoriasis 7143380 Active 2017 Meghan munoz [facility] - [facility] 8 17:26:46 Adult health examination Active 2017 Meghan munoz [facility] - [facility] 8 16:23:24 Body mass index 25-29 - overweight 812750977 Active 2017 Meghan munoz [facility] - [facility] 8 16:23:25 Persistent cough 857556532 Active 2017 Meghan munoz [facility] - [facility] 8 00:51:14 History of cholecystectom y 859518879 Active 2018 Meghan munoz, [place] - [facility] 9 22:38:02 Abdominal wall pain 414141748 Active 2019 Meghan munzo[place] [facility] 0 17:35:57 Vitamin D deficiency 33853797 Active 2019 [place] [facility] 0 17:36:46 Diet education Active 2019 Meghan [place]oz[place] 0 17:29:23 Problem Notes None recorded. Procedures Surgical History Date Name Laterality Status Provider Name and Address Organization Details Recorded Time 025 repair of bilateral inguinal hernias completed Kelly Christie MA [facility] 01/13/2025 10:03:58 024 Diabetic Foot Exam completed Denny Gabriel MD Attn: Accounting, [address] [place], [address], [facility] 08/12/2023 15:14:12 022 insertion of electrocardiography loop recorder using fluoroscopic guidance completed Kelly Christie MA [facility] 02/06/2022 16:00:14 021 Vaginal hysterectomy completed Kelly Christie MA [facility] 10/19/2020 14:25:49 021 total excision of bilateral fallopian tubes completed Kelly Christie MA [facility] 10/19/2020 14:26:16 021 Removal of ovary(s) completed Kelly Christie MA [facility] 10/19/2020 14:26:48 Knee Surgery completed Elyse Stringer MA [facility] 01/10/2018 15:28:22 Tubal Ligation completed Elyse Stringer MA [facility] 01/10/2018 15:28:36 cholecystectomy completed Kelly Christie MA [facility] 05/10/2020 12:15:24 Imaging Results None recorded. Procedure Notes None recorded. Medical Equipment None Reported. Allergies Allergen ID Allergen Name Allergen Category Reaction Reaction Severity Criticality Documentation Date Start Date Code Code System Note Provider Name and Address Organization Details Recorded Time 406062 Substance with sulfonami de structure and antibacte rial mechanism of action (substanc e) medicatio n headache severe Not available 01/10/2018 15497 8003 SNOMED Elyse Stringer MA [facility], [place] - [facility] 8 15:26:36 157021 Product containin g 3-hydroxy -3-methyl glutaryl- coenzyme A reductase inhibitor (product) medicatio n myalgias (muscle pain) moderate low 11/01/2022 69180 009 SNOMED Denny Gabriel MD Attn: Debra garcia,[address] [facility], [place], [address], [facility] - SI 3 14:46:40 Medications Name Sig [...] 05/08 completed by Lexi Canseco NP / [facility] Cardiolo gy Not Available Not [...] mass index (BMI) Body weight Oxygen saturation Heart rate Respiratory rate Body temperature Systolic And Diastolic Provider Name and Address Organization Details Last Updated DateTime 5 160.02 cm 29.8 kg/m2 26191.9 7 g 98 % 72 /min 16 /min 98 [degF] 117/72 mm[Hg] Kelly Christie [place] - [facility] 5 10:40:16 Date Recorded Body height Body mass index (BMI) Body weight Body temperature Oxygen saturation Respiratory rate Heart rate Systolic And Diastolic Provider Name and Address Organization Details Last Updated DateTime 4 160.02 cm 30 kg/m2 86984.9 1 g 98 [degF] 96 % 16 /min 65 /min 123/86 mm[Hg] Sara Kramer MA [facility] 4 15:59:02 Date Recorded Body height Body mass index (BMI) Body weight Body temperature Respiratory rate Heart rate Oxygen saturation Systolic And Diastolic Provider Name and Address Organization Details Last Updated DateTime 5 160.02 cm 29.6 kg/m2 44792.0 3 g 98.1 [degF] 16 /min 56 /min 95 % 133/90 mm[Hg] Sara Kramer MA [facility] 5 10:50:49 Date Recorded Body height Body mass index (BMI) Body weight Oxygen saturation Heart rate Body temperature Respiratory rate Systolic And Diastolic Provider Name and Address Organization Details Last Updated DateTime 4 160.02 cm 29.8 kg/m2 72226.3 2 g 98 % 65 /min 98 [degF] 18 /min 127/85 mm[Hg] Kelly Christie MA [facility] 4 16:49:11 Date Recorded Body height Body mass index (BMI) Body weight Body temperature Oxygen saturation Heart rate Respiratory rate Systolic And Diastolic Provider Name and Address Organization Details Last Updated DateTime 5 160.02 cm 31.6 kg/m2 88855.2 4 g 98.2 [degF] 98 % 65 /min 16 /min 130/85 mm[Hg] Sara Kramer MA [facility] 5 15:11:42 Social History Question Answer Notes LastModified by Organization Details LastModified Time Tobacco Smoking Status Former Smoker Quit in 1998 Kelly Christie MA [facility] 05/10/2020 12:11:45 Do You Have An Advance [...] anxious, or unable to sleep at night)? [id number] Information not available 02/23/2021 Family History Relationship Description Onset Age of this Age Resolved Age Notes LastModified by Organization Details LastModified Time Father Diabetes mellitus [email or web address] Not available 01/10 15:27:45 Father Atrial flutter [...] ped/adol, 2 dose 03/08/1999 completed Not Available [facility] 5 15:24:10 Influenza, live, quadrivalent, intranasal 06/09/2015 completed Not Available [facility] 5 15:24:10 Past Encounters Encounter ID Performer Location Encounter Start Date Encounter Closed Date Diagnosis/Indication Diagnosis SNOMED-CT Code Diagnosis ICD10 Code Diagnosis IMO Codes Diagnosis Note [id number] MD Lizette MARTIN [address] [place] [address] 01/10/2018 15:13:39 01/13/2018 09:58:23 Essential hypertension 47057913 I10 Questionab le coughs with Lisinopril /Losartan. BP at 160/98 on Losartan 50mg daily. Coughs better recently. We will add HCTZ 12.5mg daily. RTC 2mo. Check BP at pharmacy. Diabetes mellitus 133352 09 E11.9 No neuropathy . Need to talk about eye doc. Was on Januvia 100mg daily - sample. Took Metformin, made her sick. Has Glucometer . Fasting glucose 419 today. Declined insulin. Metformin ER for GI issues, add glipizide 10mg BID. Check mornings fasting glucose daily. RTC 2 weeks. Psoriasis 6390120 L40.9 Bilateral ashraf and elbows. Tried high potency steroid before without relief. Refer to Rheum. [id number] MD Lizette MARTIN [address] [place] [address] 01/24/2018 15:38:11 01/24/2018 16:30:29 Essential hypertension 20055500 I10 01/10/2018 : Questionab le coughs with Lisinopril /Losartan. BP at 160/98 on Losartan 50mg daily. Coughs better recently. We will add HCTZ 12.5mg daily. RTC 2mo. Check BP at pharmacy. 01/24/2018 : Doing well. Still some coughs. If continues, tiral of stopping ARB and inc HCTZ. RTC 1mo Diabetes mellitus 669166 09 E11.9 01/10/2018 : No neuropathy . [...] Metformin. RTC 1mo Adult heal th examination 340257381 Z00.00 declined Tdap, Influ, pneumococc al. Copier Technician info Body mass index 25-29 - overweight 326928342 Z68.29 lifestyle - channging diet [id number] MD Lizette MARTIN [address] [place] [address] 02/24/2018 15:38:06 02/24/2018 17:09:38 Diabetes mellitus 17441478 E11.9 Feet ok. Eye ok. No neuropathy [...] daily. RTC 2mo for A1C. Essential hypertension 44060640 I10 01/10/2018 : Questionab le coughs with Lisinopril /Losartan. BP at 160/98 on Losartan 50mg daily. Coughs better recently. We will add HCTZ 12.5mg daily. RTC 2mo. Check BP at pharmacy. 01/24/2018 : Doing well. Still some coughs. If continues, trial of stopping ARB and inc HCTZ. RTC 1mo 01/2018: Doing well. Continue the same. [id number] MD Lizette MARTIN [address] [place], [place] [address], [place] [address] 04/17/2018 15:52:56 04/23/2018 08:18:41 Diabetes mellitus 04674745 E11.9 Feet ok. Eye ok. No neuropathy [...] recheck A1C today. RTC 3mo. Persistent cough 7097253 02 R05 Sinus drainage, coughing spells Since Saturday. Amoxicilli n, Flonase, Cough syrup from ER not helping. Sinusitis and pharyngiti s on exam. We will try Azithromyc in. [id number] MD Lizette MARTIN [address] [place] [address] 07/17/2018 15:59:19 07/18/2018 11:59:31 Diabetes mellitus 19212766 E11.9 Feet ok. Eye ok. No neuropathy [...] gain). Add Januvia. A1C today. Essential hypertension 70166827 I10 01/10/2018 : Questionab le coughs with Lisinopril /Losartan. BP at 160/98 on Losartan 50mg daily. Coughs better recently. We will add HCTZ 12.5mg daily. RTC 2mo. Check BP at pharmacy. 01/24/2018 : Doing well. Still some coughs. If continues, trial of stopping ARB and inc HCTZ. RTC 1mo 01/2018: Doing well. Continue the same. 06/2018: doing well on Losartan-H CTZ. Psoriasis 3502025 L40.9 Bilateral ashraf and elbows. Tried high potency steroid before without relief. Refer to Rheum - appointmen t 07/2018 [id number] MD Lizette MARTIN [address] [place] [address] 11/26/2018 10:58:49 11/26/2018 16:33:52 Diabetes mellitus 44095647 E11.9 Feet ok. Eye ok. No neuropathy [...] at high dose metformin. RTC 3mo Psoriasis 1848537 L40.9 Bilateral ashraf and elbows. Tried high [...] sun bae bed and Vit E oil. [id number] MEGHAN MD Lizette MELENDEZ [address] [place] [address] 02/24/2019 15:41:25 02/25/2019 11:12:26 Essential hypertension 42197160 I10 01/10/2018 : Questionab le coughs with [...] 01/2019: doing well on med. Diabetes mellitus 356335 09 E11.9 Feet ok. Eye ok. No [...] and Januvia. RTC 3mo. History of cholecystectomy 413864083 Z90.49 Recent cholecyste ctomy.Some diarrhea, tolerating oral feeds with some nausea. No gross bleed. Exam - RUQ Abdominal wall localized tenderness and swelling - no erythema. Likely surgical wound complicati on/hematom a. Carnett's sign. Elizabeth PRN. Will see GI this Saturday. Adult heal th examination 211887337 Z00.00 declined Tdap, Influ, pneumococc al. Copier Technician info [id number] MEGHAN MD Lizette MELENDEZ [address] [place] [address] 06/19/2019 15:55:31 06/22/2019 11:52:40 Essential hypertension 12931916 I10 01/10/2018 : Questionab le coughs with [...] 01/2019: doing well on med. Diabetes mellitus 820101 09 E11.9 Feet ok. Eye ok. No [...] Labs. RTC 3mo. Vitamin D deficiency 347 03706 E55.9 Abdominal wall pain 1620 49167 R10.9 RUQ tenderness after lap cholecyste ctomy [...] RUQ US to evaluate. History of cholecystectomy 118508212 Z90.49 01/2019:Re cent cholecyste ctomy.Some diarrhea, tolerating oral feeds with some nausea. No gross bleed.Exam - RUQ Abdominal wall localized tenderness and swelling - no erythema. Likely surgical wound complicati on/hematom a. Carnett's sign.Zofra n PRN. Will see GI this Saturday. 05/2019: GI mentioned referring her to hepatologi st but pt hasnt heard anything. US and lab first. [id number] MD Lizette MARTIN [address] [place], [place] [address], [place] [address] 09/17/2019 09:02:23 09/28/2019 07:28:59 Diabetes mellitus 62355355 E11.9 Feet ok. Eye ok. No neuropathy [...] this is covered. RTC 1mo. Diet education 50874546 Z71.3 Talked about more home cooking than eating out. [id number] MD Lizette Waterman [address] [place] [address] 05/10/2020 09:41:55 05/11/2020 14:59:08 Type 2 diabetes mellitus 43176988 E11.9 Essential hypertension 63830926 I10 Allergic rhinitis 920348 04 J30.9 [id number] MD Lizette Waterman [address] [place] [address] 02/23/2021 10:03:22 02/24/2021 22:18:18 Type 2 diabetes mellitus 40131962 E11.9 HgbA1c is very well-contr olled--we will decrease the dosage of metformin tp 1000 mg daily to see if this improves her diarrhea Psoriasis 4477729 L40.9 Lightheadedness 24288738 8 R42 Dyspnea on exertion 6084 5006 R06.09 [id number] MD Lizette Waterman [address] [place] [address] 06/29/2021 12:04:14 07/03/2021 11:23:42 Type 2 diabetes mellitus 04007499 E11.9 Temporoman dibular joint disorder 53128178 M26.609 Gastroesop hageal reflux disease 628168339 K21.9 Under care of team primary care physician 328172785 Z76.89 [id number] MD Lizette Waterman [address] [place] [address] 02/06/2022 15:10:03 02/14/2022 11:46:05 Obesity 288378993 E66.9 Psoriasis 5349370 L40.9 Hypokalemia 58697845 E87 .6 Type 2 savannah betes mellitus 81473979 E11.9 Essential hypertension 65918509 I10 Gastroesop hageal reflux disease 491481245 K21.9 [id number] MD Lizette Waterman [address] [place] [address] 11/01/2022 13:58:04 11/06/2022 13:18:41 Obesity 697441648 E66.9 Gastroesop hageal reflux disease 072964145 K21.9 Type 2 savannah betes mellitus 42785634 E11.9 Psoriasis 1512960 L40.9 Palpitations 39182951 R0 0.2 on metoprolol for this [id number] MD Lizette Waterman [address] [place] [address] 02/06/2023 16:15:58 02/14/2023 15:37:29 Nausea 686965983 R11.0 Type 2 savannah betes mellitus 39493897 E11.9 Intentiona l weight loss 977124899 R63.8 [id number] MD Lizette Waterman [address] [place] [address] 05/08/2023 15:09:58 05/15/2023 09:48:20 Diabetes mellitus 76544462 E11.9 Essential hypertension 71389620 I10 Type 2 savannah betes mellitus 76245314 E11.9 [id number] MD Lizette Waterman [address] [place] [address] 08/08/2023 15:47:57 08/15/2023 12:45:26 Type 2 diabetes mellitus 85598215 E11.9 HgbA1c has improved from 9.2 on 05-08-23 to 8.4 at visit today! HIV screen ing declined 1345492249 04710 Z53.20 [id number] MD Lizette Waterman [address] [place] [address] 02/06/2024 16:15:56 02/18/2024 11:49:30 Type 2 diabetes mellitus 51521586 E11.9 History of pneumonia 161 655332 Z87.01 Cough 78577373 R05.9 Acute otit is externa of right ear 7351255857 194654 H60.684 [id number] MD Lizette Waterman [address] [place] [address] 06/02/2024 10:19:19 06/04/2024 15:11:29 Urinary symptoms 933695300 R39.9 Sore throat 166562043 J0 2.9 Overweight 450924468 E66 .3 BMI-29.8 Type 2 savannah betes mellitus 32548607 E11.9 HgbA1c has increased again--pt states that she is still drinking regular soda--she shows no interest in changing this Pain of knee region 1003 [id number] M25.702 [id number] MD Lizette Waterman [address] [place] [address] 10/05/2024 10:41:43 10/07/2024 11:39:26 HIV screening declined [id number] Z53.20 [id number] Bilateral inguinal hernia [id number] K40.20 [id number] Type 2 savannah betes mellitus [id number] E11.9 [id number] HgbA1c has decreased from 9.4 to 9.2 External hordeolum 90659 08 H00.019 [id number] Denny Gabriel MD [place] [address] [place] [address] 02/11/2025 15:01:35 02/16/2025 09:06:45 HIV screening declined [id number] 11477 Z53.20 [id number] Type 2 savnanah betes mellitus 02702090 E11.9 [id number] Site-speci fic infective disorders of skin 184880915 L08.9 70510 Open wound [id number] T14 .8XXA 86730 Health Concerns Section Related Observation LastModified by Organization Detai ls LastModified Time None Recorded Concern Status LastModified by Organization Details LastModified Time None Recorded Advance Directives Directive N: Payers Insurance Date Sequence Insurance Name Policy Number Policy Eli Covered Member ID Eli Member ID Guarantor Name 02/11/2025 1 [facility] ON OR AFTER 10/27/20 (MEDICAID REPLACEMENT - HMO) Bekah Melendez [id number] Bekah Chandler Nora 09/28/2024 1 [facility] PRIOR TO 10/27/2020 (MEDICAID REPLACEMENT - HMO) Bekah Melendez [id number] Bekah Chandler Melendez 06/27/2021 2 *SELF PAY* argentinakatelin Patechristiano Melendez 06/27/2021 SLIDING FEE SCHEDULE - DISCOUNT Bekah Melendez Notes Date Note Type Note Provider Name and Address Organization Details Recorded Time 08/08/2023 text/html ROS as noted in the HPI Per intake note. Denny Gabriel MD Attn: [address]ing,[address] [place], [address], [facility] 08/12/2023 15:17:23 02/06/2024 text/html ROS as noted in the HPI Per intake note. Denny Gabriel MD Attn: [address]ing,[address] [place], [address], [facility] 02/15/2024 08:15:57 06/02/2024 text/html Per intake note. 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 Denny Gabriel MD Attn: Accounting,[address] [facility], [place], [address], [facility] 06/03/2024 17:47:47 10/05/2024 text/html CT scan done at [facility] in June 2023 shows bilateral fat-filled inguinal hernias. Denny Gabriel MD Attn: Accounting,[address] [facility], [place], [address], [facility] 10/07/2024 07:22:30 02/11/2025 text/html ROS as noted in the [facility] Regular checkup. Denny Gabriel MD Attn: [address]ing[address] [place], [address], [facility] 02/15/2025 06:52:08 OBGyn Episode No OBEpisode recorded.
--- OUTSIDE RECORDS SUMMARY | 2025-04-22 13:58 | XMS_ITS | Clinical Summary ---
Author Organization [facility] Address [address] [place] [address] Care Team Providers Care Housekeeper/Custodian/Laundry Worker Name Role Phone Denny Smyth MD Primary Care Provider [phone] Source Comments [facility],non-owned Affiliates and Associated Physician Practices is amultiple site organization consisting of ambulatory clinics and hospital sitesin [place], [place], [place] and [place]. This disclosure is being madepursuant to the Care Everywhere program and may not contain all information available regarding this patient. 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 Respiratory Rate - - Oxygen Saturation 97% 07/29/2024 3:36 PM CDT Inhaled Oxygen Concentration - - Weight 72.6 kg (160 lb) 07/29/2024 3:36 PM CDT Height 160 cm (5' 3) 07/29/2024 3:36 PM CDT Body Mass Index 28.34 07/29/2024 3:36 PM CDT Plan of Treatment Upcoming Encounters Date Type Department Care Team (Late st Contact Info) Description 04/30/2025 1:00 AM AUDOGRAPH OPERATOR Clinical Support [facility] - Cardiology [address] [facility], [address] [address] 06/03/2025 1:00 AM AUDOGRAPH OPERATOR Clinical Support [facility] - Cardiology [address] [facility], [address] [address] 07/08/2025 1:00 AM CDT Clinical Support [facility] - Cardiology [address] [facility], [address] [address] Health Maintenance Due Date Last Done Comments [...] of 3 - 19+ 3-dose series) 1997 PAP SMEAR 1999 DEPRESSION SCREENING 04/29/2024 COVID-19 VACCINE (1 - 2024-2 6 season) 2024 INFLUENZA VACCINE (#1) 2024 06/09/2015 [...] on patient's age to complete this topic PNEUMOCOCCAL VACCINE Aged Out No long er eligible based on patient's age to complete this topic Medical Devices Implanted Type Area Clothes Wringer Device Identifier Shelf Expiration Date Model / Serial / Lot Loop Recorder Loop Recorder Biotronik BIOMONITOR III Procedures Procedure Name Priority Date/Time Associated Diagnosis Comments MA REM INTERROG SCRMS <30 D PHYS/QHP Routine 01/23/2025 6:47 AM CDT Implantable loop recorder present PVC's (premature ventricular contractions) BASIC METABOLIC PANEL (CALCIUM TOTAL) Routine 08/05/2024 9:22 AM CDT Palpitations LIPID PROFILE Routine 08/05/2024 9:22 AM CDT Palpitations HEPATITIS C ANTIBODY Routine 09/08/2018 4:25 PM CDT Psoriasis Arthralgia, unspecified joint Elevated transaminase measurement Type 2 diabetes mellitus with complication, unspecified whether jail insulin use Vitamin D deficiency from Last 3 Months or Most Recently Relevant to Health Maintenance Results * MA REM INTERROG SCRMS <30 D PHYS/QHP (01/23/2025 6:47 AM CDT) Narrative Ricardo Hoskins MD - 01/23/2025 6:47 AM CDT Ricardo Hoskins MD 01/23/2025 6:48 AM Dear Viviana Mcgill, I reviewed the remote interrogation of your loop recorder. Your device's sensing is appropriate and stable. During this most recent monitored period ending on 11/30/2024 your atrial fibrillation/tachycardia burden was 0% and you had no significant arrhythmias. Device function is normal, no programming changes are required, and no medications will need to be changed. Please call our offices if you have any further questions. Sincerely, Ricardo Hoskins 01/23/2025 us Ricardo Hoskins MD PROCEDURE/MINOR SURGICAL ORDERAB [...] 10.2 mg/dL [facility] Comment: Test Performed at: [facility] [address] EITAN NEWMAN MD Blood BLOOD SPECIMEN / Unknown 08/05/2024 9:22 AM CDT 08/05/2024 9:23 AM CDT Phyllis De Oliveira MARKETING PRODUCTION COORDINATOR-[employer] LAB - CHEMISTRY ORDERABLES Final Result [address] [address] * (ABNORMAL) LIPID PROFILE (08/05/2024 9:22 AM [...] equation in the estimation of LDL-C. Michael SS et al. SUDEEP. 2013;310(19): 4748-8857 (http://education.[employer]/faq/PWS927) CHOL/HDLC RATIO 4.7 <5.0 (calc) [facility] Non HDL Cholesterol 157(H) <130 mg/dL (calc) [facility] Comment: For patients with diabetes plus 1 major ASCVD risk factor, treating to a non-HDL-C goal of <100 mg/dL (LDL-C of <70 mg/dL) is considered a therapeutic option. Test Performed at: [facility] [address] EITAN NEWMAN MD Blood BLOOD SPECIMEN / Unknown 08/05/2024 9:22 AM CDT 08/05/2024 9:23 AM CDT us Phyllis De Oliveira MARKETING PRODUCTION COORDINATOR-[employer] WORKER LAB - CHEMISTRY ORDERABLES Final Result Performing Organization Address [facility] Co de Phone Number [address] [address] * HEPATITIS C ANTIBODY (09/08/2018 4:25 PM CDT) Hepatitis C Antibody Non-react noe Non-reac tive 09/08/2018 5:49 PM CDT [facility] Comment: Hepatitis C Antibody screen [...] ORDERABLES Fi nal Result Performing Organization Address City/[facility]/ZIP Co de Phone Number [facility] [address] [place] [phone] [place] [address] from Last 3 Months or Most Recently Relevant to Health Maintenance Insurance [facility] Care Teams Housekeeper/Custodian/Laundry Worker Relationship Specialty Start Date End Date Denny Smyth MD [address] [place] [phone] PCP - General 01/08/22
--- NOTE | 2025-04-22 14:30 | ED.WOUNDLAC ---
HPI - Wound/Laceration General Chief Complaint: Wound/Laceration Stated Complaint: L INDEX FINGER INJURY Time Seen by Provider: 04/22/25 13:27 History of Present Illness HPI narrative: Patient is a 44-year-old female who presents to the ER after sustaining an injury to her left pointer finger. She reports she was cutting potatoes with a new knife when she sliced her finger. Patient is unsure when she had her last tetanus vaccine, but she is not interested in receiving another 1 today. Her medical chart indicates she has a history of diabetes and atrial fibrillation. Patient denies any numbness/ tingling in her finger, decreased range of motion, or uncontrolled bleeding. Related Data Home Medications ?Medication ?Instructions ?Recorded ?Confirmed ?Last Taken ?Type glipizide 10 mg tablet 20 mg PO BID 02/27/19 01/21/25 10/09/20 History metformin 500 mg 24 hr 2,000 mg PO QAM 02/27/19 01/21/25 10/09/20 History tablet,extended release (gastric retention) canagliflozin 300 mg tablet 300 mg PO DAILY 05/02/21 01/21/25 Unknown History (Invokana) linagliptin 5 mg tablet (Tradjenta) 5 mg PO QAM 07/19/21 01/21/25 Unknown History metoprolol succinate 50 mg 50 mg PO DAILY 07/12/22 01/21/25 01/05/25 History tablet,extended release 24 hr clobetasol 0.05 % topical cream 1 applic topical DIRECTED 06/18/23 01/21/25 Unknown History diltiazem HCl 120 mg 120 mg PO DAILY 09/09/23 01/21/25 01/05/25 History capsule,extended release 24 hr (Cartia XT) pioglitazone 15 mg tablet 15 mg PO DAILY 10/08/24 01/21/25 01/04/25 History metoprolol succinate 100 mg 100 mg PO DAILY 11/13/24 01/21/25 01/05/25 History tablet,extended release 24 hr Allergies Allergy/AdvReac Type Severity Reaction Status Date / Time Sulfa (Sulfonamide AdvReac Mild Headache Verified 04/22/25 12:51 Antibiotics) Review of Systems Review of Systems: All systems reviewed & are unremarkable except as noted in HPI and below PMFSH Past Medical History Medical History Atrial fibrillation Hernia History of left heart catheterization Obesity Vaginal delivery x1 Allergic sinusitis Hypertension Diabetes Surgical History Surgical History History of implantable cardiac defibrillator (ICD) History of robot-assisted laparoscopic hysterectomy 10/10/20 H/O tubal ligation History of endometrial ablation H/O lateral meniscus repair of left knee Hx laparoscopic cholecystectomy Family History Family History Grandparent Diabetes mellitus Mother Hypoglycemia Father Diabetes mellitus Grandparent Diabetes mellitus Other Cancer Social History Social History Smoking packs per day: 0.25 Smoking cigarettes per day: 5.0 Years smoked: 2 Smoking pack-years: 0.50 Smoking status: Never smoker Second hand tobacco smoke exposure: Yes Alcohol intake: never Alcohol use details: PRIOR TO DIABETES DX Substance use: never Lack of Transportation: No Lack of Food: Never True Current Housing: I Have Housing Concerned About Future Housing: No Difficulty Paying Gas/Electric Bills: No Difficulty Paying for Meds: No Currently Unemployed: YES Education: High School Diploma/GED Difficulty w/ Childcare or Family Care: No Living arrangements: with family Additional living arrangements comments: PARENTS AND SON Gender identity (if verbalized by the patient): Female Spiritual care concerns: No Exam Narrative: GENERAL: Well appearing, well-nourished, non-toxic, in no acute distress. HEAD: Normocephalic, atraumatic. NECK: Supple. No adenopathy, no masses. RESPIRATORY: Airway patent, respirations nonlabored. Clear to auscultation bilaterally, no rales, rhonchi, wheezing. CARDIOVASCULAR: Regular rate and rhythm without murmurs, rubs, or gallops. Peripheral pulses 2+ and equal bilaterally. ABDOMINAL: Soft, nontender, nondistended, no hepatosplenomegaly. Normoactive BS. MUSCULOSKELETAL: Moves all extremities. Strength/ROM intact without gross deformities. SKIN: Warm, dry, normal color. No rashes. Approximately 0.5 cm linear laceration to left pointer finger. Bleeding controlled NEURO: A&O X3. Speech clear. Cranial nerves II-XII intact. No ataxic movements. PSYCHIATRIC: Appropriate mood and affect. Normal interaction. Course Vital Signs Vital signs: Vital Signs Temperature 36.4 C L 04/22/25 12:53 Pulse Rate 73 04/22/25 12:53 Respiratory Rate 16 04/22/25 12:53 Blood Pressure 173/106 H 04/22/25 12:53 Pulse Oximetry 97 04/22/25 12:53 Oxygen Delivery Room Air 04/22/25 12:53 Temperature 36.4 C L 04/22/25 12:53 Pulse Rate 73 04/22/25 12:53 Respiratory Rate 16 04/22/25 12:53 Blood Pressure 173/106 H 04/22/25 12:53 Pulse Oximetry 97 04/22/25 12:53 Oxygen Delivery Room Air 04/22/25 12:53 Procedures Laceration Laceration 1: Date: 04/22/25 Time: 15:40 Site: hand Side (If applicable): left Size (cm): 0.5 Description: linear Depth: simple, single layer Local Anesthetic: none Pre-repair: irrigated extensively ====== Skin Level ====== Skin layer closed with: dermabond and steri strips ====== Subcutaneous Layer ====== ====== Muscle Layer ====== ====== Tendon Layer ====== MDM MDM Narrative Medical decision making narrative: Patient is a 44-year-old female who presents to the ER after sustaining an injury to her left pointer finger. She reports she was cutting potatoes with a new knife when she sliced her finger. Patient is unsure when she had her last tetanus vaccine, but she is not interested in receiving another 1 today. Her medical chart indicates she has a history of diabetes and atrial fibrillation. Patient denies any numbness/ tingling in her finger, decreased range of motion, or uncontrolled bleeding. Patient Education/Shared MDM: Patient's laceration is positioned in a place where it would be difficult to suture. She was offered glue, a Steri-Strips, and a splint to help decrease immobilization. Patient continues to decline Tdap administration. She declines need for pain medication. Patient's wound will be soaked in normal saline and iodine. Patient strongly advised to follow-up with her PCP for further evaluation. She will not be discharged home with any new prescriptions. Strict return precautions provided. Patient verbalized understanding and is in agreement with plan. Vital signs stable at time of discharge. All questions answered. Differential Diagnosis Differential Diagnosis: laceration, avulsion, scrape Discharge Plan Discharge Clinical Impression: Laceration Patient Disposition: Home Condition: Stable Instructions: Antibiotic Form, Laceration (ED) Additional Instructions: Please return to the ER with any worsening symptoms. Follow-up with primary care provider for wound re-evaluation. Please refrain from using soap on the site were glue was applied. You may keep the splint on your finger to help prevent movement and further injury to the site. Please take Tylenol and/or Ibuprofen as needed for pain control. Allow the steristrips to fall off on their own. Patient Language: Icelandic Prescriptions: No Action Invokana 300 mg tablet 300 mg PO DAILY metoprolol succinate 50 mg tablet extended release 24 hr 50 mg PO DAILY clobetasol 0.05 % cream 1 applic TOPICAL DIRECTED diltiazem HCl [Cartia XT] 120 mg capsule,extended release 24hr 120 mg PO DAILY cephalexin 500 mg capsule 500 mg PO Q6H 7 Days Qty: 28 0RF mupirocin calcium 2 % cream 1 applic topical BID 7 Days Qty: 30 0RF metformin 500 mg tablet,ER migdalia.retention 24 hr 2,000 mg PO QAM Patient Comments: Says takes 2 500mg tabs bid. glipizide 10 mg tablet 20 mg PO BID pioglitazone 15 mg tablet 15 mg PO DAILY Tradjenta 5 mg tablet 5 mg PO QAM metoprolol succinate 100 mg tablet extended release 24 hr 100 mg PO DAILY Follow-up/Referrals: Haja,Denny Slater MD [Primary Care Provider] Time of Disposition: 15:39
[2025-04-22] MEDS: POVIDONE-IODINE 10% SOLUTION 118 ML BOTTLE 10 ML TOPICAL (14:34)
== END 2025-04-22 15:53 | disposition home or self-care (01) ==
PROVIDERS: Emergency Provider Registered Nurse; PCP Family Medicine
DX: S61.211A Laceration without foreign body of left index finger without damage to nail, initial encounter (principal); W26.0XXA Contact with knife, initial encounter; E11.9 Type 2 diabetes mellitus without complications; I48.91 Unspecified atrial fibrillation; I10 Essential (primary) hypertension; Z95.810 Presence of automatic (implantable) cardiac defibrillator
CPT/HCPCS: 12001; 99282